=== PATIENT | male | born 1955 | race Caucasian/White ===

== ENCOUNTER 2017-03-27 12:10 | Inpatient (IN) | payer OTHER, MEDICARE ==
[~2017-03-27] VITALS: Ht 182.9 cm; Wt 65.4 kg
[~2017-03-27 12:10] MED LIST: ABIL15TA2 PO; BUSP15TA PO; GABA300 PO; LORC10TA PO; PROT40TA PO; PROZ40CA PO
[2017-03-27 12:12] VITALS: BP 221/119; PULSE 66; RESP 16; TEMP 98.2; O2SAT 98
--- NOTE | 2017-03-27 13:39 | RADRPT ---
EXAM DATE/TIME: 03/27/2017 13:04 [facility] COMPARISON: No previous studies available for comparison. INDICATIONS : Severe back pain from twisting with history of multiple spine surgeries. MEDICAL HISTORY : Degenerative disc disease SURGICAL HISTORY : multiple spinal fusions ENCOUNTER: Initial ACUITY: 2 days PAIN SCORE: 10/10 LOCATION: Bilateral lower back FINDINGS: Frontal and lateral views of the lumbar spine reveal bilateral transpedicular posterior fixation with intervening bone graft device is L4-L5 and L5-S1. A scoliotic curvature is seen with concavity towar ds the patient's left centered at L2-L3. Disc space narrowing with osteophyte production is seen most pronounced along the concavity of the scoliosis. No acute fracture or dislocation. Overlying bowel g as pattern is unremarkable. CONCLUSION: L4-S1 posterior fixation. A scoliotic and degenerative spine. No fracture or dislocation. Kurt Ponce Jr., MD on March 27, 2017 at 13:33 Board Certified Radiologist. This report was verified electronically.
[2017-03-27] MEDS ORDERED: ABIL15TA3 PO (14:31)
[2017-03-27] MEDS ORDERED: LISI-519 PO (14:31)
[2017-03-27] MEDS ORDERED: BUSP15TA PO (14:31)
[2017-03-27] MEDS ORDERED: HYDR-3583 PO (14:31)
[2017-03-27] MEDS ORDERED: PLAV75TA29 PO (14:31)
[2017-03-27] MEDS ORDERED: FLUO40CA PO (14:31)
[2017-03-27] MEDS ORDERED: GABA600T PO (14:31)
--- NOTE | 2017-03-27 14:42 | PD ---
HPI Chief Complaint: Back/ Neck Pain or Injury Time Seen by Provider: 14:21 Travel History International Travel<30 days: No Contact w/Intl Traveler<30days: No Traveled to known affect area: No History of Present Illness HPI 61-year-old male presents the emergency department with 2 day history of severe lumbar back pain with radicular symptoms in the left leg including numbness and weakness. Patient is a previous surgical patient of Dr. Middleton with history of both cervical fusion as well as lumbar fusion, last surgery reported to be 2013. Patient takes chronic pain medications including hydrocodone 10/325 4 times a day. Patient was seen by his PCP Dr. Corey who reportedly spoke with Dr. Middleton who requested the patient come to the ED for further evaluation including MRI. Patient denies bowel or bladder trouble, but does have significant pain in the left hip, leg, and numbness down to the feet. He states weakness in the left leg as well which is worsened in the last 2 days. Patient has no specific inciting event. No history of trauma. PFSH Past Medical History Arthritis: No Asthma: No Blood Disorders: No Bipolar Disorder: Yes Anxiety: Yes Depression: Yes Heart Rhythm Problems: No Cancer: No Cardiovascular Problems: No High Cholesterol: No Chest Pain: No Congestive Heart Failure: No COPD: Yes Cerebrovascular Accident: No Diabetes: No Endocrine: No Gastrointestinal Disorders: Yes GERD: Yes Glaucoma: No Genitourinary: No Headaches: Yes Hepatitis: No Hiatal Hernia: No Hypertension: Yes Immune Disorder: No Musculoskeletal: Yes Neurologic: Yes (FROM BACK AND NECK PROBLEMS) Psychiatric: Yes Reproductive: No Respiratory: No Migraines: No Myocardial Infarction: Yes Seizures: No Sleep Apnea: No Thyroid Disease: No Ulcer: No Influenza Vaccination: Yes Past Surgical History Abdominal Surgery: Yes (BILAT INGUINAL HERNIA REPAIR) Appendectomy: No Cardiac Surgery: Yes (4 stents) Cholecystectomy: No Ear Surgery: No Endocrine Surgery: No Eye Surgery: No Genitourinary Surgery: No Neurologic Surgery: Yes (CERV. FUSION 3NECK SURGERIES PAST YEAR DR MIDDLETON) Oral Surgery: No Pacemaker: No Other Surgery: Yes Social History Alcohol Use: No Tobacco Use: No Substance Use: No (marijuana) Allergies-Medications (Allergen,Severity, Reaction): Coded Allergies: bee venom protein (honey bee) (Unverified Allergy, Severe, Anaphylaxis, ) No Known Allergies (Verified Adverse Reaction, Unknown, 03/27/17) Reported Meds & Prescriptions Reported Meds & Active Scripts Active Reported Lisinopril 5 Mg Tab Unknown Dose PO DAILY Plavix (Clopidogrel Bisulfate) 75 Mg Tab 75 Mg PO DAILY Hydrocodone-Acetaminophen 10-325 mg Tab 1 Tab PO Q4H PRN Fluoxetine (Fluoxetine HCl) 40 Mg Cap 40 Cap PO BID Gabapentin 600 Mg Tab 600 Mg PO TID Buspirone (Buspirone HCl) 15 Mg Tab 15 Mg PO TID Abilify (Aripiprazole) 15 Mg Tab 15 Mg PO DAILY Review of Systems Except as stated in HPI: all other systems reviewed are Neg General / Constitutional: No: Fever Eyes: No: Visual changes HENT: No: Headaches Cardiovascular: No: Chest Pain or Discomfort Respiratory: No: Shortness of Breath Gastrointestinal: No: Abdominal Pain Genitourinary: No: Dysuria Musculoskeletal: Positive: Arthralgias, Limited ROM, Pain Skin: No Rash Neurologic: Positive: Weakness, Paresthesia (see history present illness) Psychiatric: No: Depression Endocrine: No: Polydipsia Hematologic/Lymphatic: No: Easy Bruising Physical Exam Narrative GENERAL: Patient appears in moderate to severe distress. SKIN: Warm with mild diaphoresis. Normal color. Normal turgor. No rash HEAD: Atraumatic. Normocephalic. EYES: Pupils equal and round. No scleral icterus. No injection or drainage. ENT: No nasal bleeding or discharge. Mucous membranes pink and moist. Pharynx is clear. Airways patent NECK: Trachea midline. Supple nontender CARDIOVASCULAR: Regular rate and rhythm. RESPIRATORY: No accessory muscle use. Clear to auscultation. Breath sounds equal bilaterally. GASTROINTESTINAL: Abdomen soft, non-tender, nondistended. Hepatic and splenic margins not palpable. MUSCULOSKELETAL: Extremities without clubbing, cyanosis, or edema. No obvious deformities. Patient has positive straight leg raise pain on the left at 35. Has diminished plantar and dorsiflexion, as well as diminished ability to lift his left leg off the bed secondary to pain. Patient claims to have numbness into the left great toe. Patient has pain at the base of the left lumbar spine extending into the left sciatic notch. No step-off is noted. NEUROLOGICAL: Awake and alert. No obvious cranial nerve deficits. Motor grossly within normal limits. Normal speech. PSYCHIATRIC: Appropriate mood and affect; insight and judgment normal. Data Data Last Documented VS Vital Signs Date Time Temp Pulse Resp B/P (MAP) Pulse Ox O2 Delivery O2 Flow Rate FiO2 03/27/17 16:34 60 17 172/99 (123) 98 Room Air 03/27/17 12:12 98.2 Orders Orders Spine, Lumbar - Ltd (Ap & Lat) (03/27/17 ) Complete Blood Count With Diff (03/27/17 14:46) Comprehensive Metabolic Panel (03/27/17 14:46) Prothrombin Time / Inr (Pt) (03/27/17 14:46) Act Partial Throm Time (Ptt) (03/27/17 14:46) Urinalysis - C+S If Indicated (03/27/17 14:46) Iv Access Insert/Monitor (03/27/17 14:46) Ecg Monitoring (03/27/17 14:46) Oximetry (03/27/17 14:46) NPO (03/27/17 14:46) Ondansetron Inj (Zofran Inj) (03/27/17 15:00) Sodium Chlor 0.9% 1000 Ml Inj (Ns 1000 M (03/27/17 14:46) Sodium Chloride 0.9% Flush (Ns Flush) (03/27/17 15:00) Electrocardiogram (03/27/17 14:46) Morphine Inj (Morphine Inj) (03/27/17 15:00) Mri L Spine W&W/O Contrast (03/27/17 ) Labs Laboratory Tests Test 03/27/17 15:00 03/27/17 15:02 White Blood Count 11.7 TH/MM3 Red Blood Count 4.69 MIL/MM3 Hemoglobin 14.4 GM/DL Hematocrit 42.3 % Mean Corpuscular Volume 90.1 FL Mean Corpuscular Hemoglobin 30.6 PG Mean Corpuscular Hemoglobin Concent 34.0 % Red Cell Distribution Width 13.6 % Platelet Count 347 TH/MM3 Mean Platelet Volume 7.9 FL Neutrophils (%) (Auto) 73.0 % Lymphocytes (%) (Auto) 16.9 % Monocytes (%) (Auto) 9.1 % Eosinophils (%) (Auto) 0.4 % Basophils (%) (Auto) 0.6 % Neutrophils # (Auto) 8.6 TH/MM3 Lymphocytes # (Auto) 2.0 TH/MM3 Monocytes # (Auto) 1.1 TH/MM3 Eosinophils # (Auto) 0.1 TH/MM3 Basophils # (Auto) 0.1 TH/MM3 CBC Comment DIFF FINAL Differential Comment Prothrombin Time 11.3 SEC Prothromb Time International Ratio 1.1 RATIO Activated Partial Thromboplast Time 23.6 SEC Blood Urea Nitrogen 8 MG/DL Creatinine 1.03 MG/DL Random Glucose 103 MG/DL Total Protein 8.4 GM/DL Albumin 3.7 GM/DL Calcium Level 9.2 MG/DL Alkaline Phosphatase 145 U/L Aspartate Amino Transf (AST/SGOT) 24 U/L Alanine Aminotransferase (ALT/SGPT) 21 U/L Total Bilirubin 0.8 MG/DL Sodium Level 139 MEQ/L Potassium Level 4.2 MEQ/L Chloride Level 106 MEQ/L Carbon Dioxide Level 28.9 MEQ/L Anion Gap 4 MEQ/L Estimat Glomerular Filtration Rate 74 ML/MIN Urine Color YELLOW Urine Turbidity CLEAR Urine pH 6.5 Urine Specific [place] 1.015 Urine Protein TRACE mg/dL Urine Glucose (UA) NEG mg/dL Urine Ketones NEG mg/dL Urine Occult Blood NEG Urine Nitrite NEG Urine Bilirubin NEG Urine Urobilinogen 2.0 MG/DL Urine Leukocyte Esterase NEG Urine RBC LESS THAN 1 /hpf Urine WBC LESS THAN 1 /hpf Urine Mucus FEW /lpf Microscopic Urinalysis Comment CULT NOT INDICATED MDM Medical Decision Making Medical Screen Exam Complete: Yes Emergency Medical Condition: Yes Medical Record Reviewed: Yes Differential Diagnosis Sciatic back pain. Left radicular pain and weakness. Disc herniation. Narrative Course Patient is medically stable although very uncomfortable. Labs ordered including CBC, CMP, urinalysis. IV access is obtained patient is given 10 mg Decadron IV as well as 4 mg Zofran , and 2 mg morphine IV. Call was placed to Dr. Middleton and I spoke with his mid-level Jeanette. She recommends MRI of the lumbar spine with and without contrast as well as admission with consult to Dr. Middleton. Labs show slightly elevated leukocytosis of 11.7. Coagulation studies show PT of 11.3, INR 1.1, APTT is 23.6. Urinalysis is unremarkable. EKG shows sinus rhythm without significant ST changes. This is reviewed by Dr. Ambriz. Chemistries are unremarkable. Call was placed to the hospitalist for admission. Patient discussed with Dr. Calvo who agrees to admit patient to observation with consult to Dr. Middleton. Diagnosis Primary Impression: Acute lumbar back pain Qualified Codes: M54.42 - Lumbago with sciatica, left side Additional Impressions: Unable to ambulate Intractable back pain Admitting Information Admitting Physician Requests: Observation Condition: Stable Oren Weinstein Mar 27, 2017 14:42
[2017-03-27] MEDS ORDERED: SODIUM CHLOR 0.9% 1000 ML INJ 1,000 ML IV SCH (14:46)
[2017-03-27] MEDS ORDERED: ONDANSETRON HCL 4 MG/2 ML VIAL IVP ONE (15:00)
[2017-03-27] MEDS ORDERED: SODIUM CHLORIDE 0.9% FLUSH 10 ML FLUSH IV FLUSH PRN ×2 (15:00→16:45)
[2017-03-27] MEDS ORDERED: MORPHINE SULFATE 2 MG/ML INJ IV PUSH ONE (15:00)
[2017-03-27 15:15] LABS: AUTOMATED NEUTROPHIL # 8.6 TH/MM3 (1.8-7.7); BASOPHIL # 0.1 TH/MM3 (0-0.2); BASOPHIL % 0.6 % (0.0-2.0); EOSINOPHIL # 0.1 TH/MM3 (0-0.4); EOSINOPHIL % 0.4 % (0.0-4.0); HEMATOCRIT 42.3 % (39.0-51.0); HEMOGLOBIN 14.4 GM/DL (13.0-17.0); LYMPH % 16.9 % (9.0-44.0); MEAN CELL VOLUME 90.1 FL (80.0-100.0); MEAN CORPUSCULAR HEMOGLOBIN 30.6 PG (27.0-34.0); MEAN PLATELET VOLUME 7.9 FL (7.0-11.0); MONO % 9.1 % (0.0-8.0); MONOCYTE # 1.1 TH/MM3 (0-0.9); PLATELET COUNT 347 TH/MM3 (150-450); RED BLOOD COUNT 4.69 MIL/MM3 (4.50-5.90); RED CELL DISTRIBUTION WIDTH 13.6 % (11.6-17.2); WHITE BLOOD COUNT 11.7 TH/MM3 (4.0-11.0)
[2017-03-27 15:21] LABS: BILIRUBIN, URINE NEG (NEG); BLOOD, URINE NEG (NEG); GLUCOSE,URINE NEG (NEG); KETONE, URINE NEG (NEG); MUCUS URINE FEW /lpf (OCC); NITRITE,URINE NEG (NEG); PH, URINE 6.5 (5.0-8.5); URINE COLOR YELLOW (YELLW/STRAW); URINE LEUKOCYTE ESTERASE NEG (NEG)
[2017-03-27 15:41] LABS: INTERNATIONAL NORMALIZED RATIO 1.1 RATIO; PROTHROMBIN TIME - PATIENT 11.3 SEC (9.8-11.6)
[2017-03-27 16:02] LABS: ALBUMIN 3.7 GM/DL (3.4-5.0); ALT (GPT) 21 U/L (12-78); AST (GOT) 24 U/L (15-37); BICARBONATE 28.9 MEQ/L (21.0-32.0); BLOOD UREA NITROGEN 8 MG/DL (7-18); CALCIUM 9.2 MG/DL (8.5-10.1); CHLORIDE 106 MEQ/L (98-107); CREATININE 1.03 MG/DL (0.60-1.30); GLOMERULAR FILTRATION RATE 74 ML/MIN (>89); GLUCOSE,RANDOM 103 MG/DL (74-106); SODIUM (NA) 139 MEQ/L (136-145)
[2017-03-27 16:03] LABS: ALKALINE PHOSPHATASE 145 U/L (45-117); TOTAL BILIRUBIN ADULT 0.8 MG/DL (0.2-1.0); TOTAL PROTEIN 8.4 GM/DL (6.4-8.2)
[2017-03-27 16:34] VITALS: BP 172/99; PULSE 60; RESP 17; O2SAT 98
--- NOTE | 2017-03-27 16:37 | PD.CONS ---
cc: Valeriy Spangler MD n/a (Etienne Middleton MD) HPI Service Neurosurg Consult Requested By [facility] er doctor Reason for Consult intractable back pain Primary Care Physician Catie Corey M.D. History of Present Illness as above (Etienne Middleton MD) Service NRS Consult Requested By ED Physician Reason for Consult lumbar stenosis History of Present Illness Mr. Panda is a 61-year-old male who presented to [facility] emergency department with complaints of intractable low back pain. Mr. Panda has had a previous cervical and lumbar fusion L4-S1 many years ago and had done very well with improvement of his prior pain and symptoms. Unfortunately he developed recurrent progressive lumbar pain. He denies any associates trauma or falls. He reports he has been managing his pain with narcotic pain medications. His pain is located in the upper to mid lumbar region with pain radiating to the lateral hips and down the anterior thigh, knee, medial fuller to the great toe. He reports generalized weakness in his legs. He denies bowel or bladder incontinence, fevers or chills. (Meghan Johnson) Review of Systems ROS Limitations: Other Eyes: DENIES: Blurred vision, Diplopia, Eye inflammation, Eye pain, Vision loss , Photosensitivity, Double Vision Ears, nose, mouth, throat: DENIES: Tinnitus, Hearing loss, Vertigo, Nasal discharge, Oral lesions, Throat pain, Hoarseness, Ear Pain, Running Nose, Epistaxis, Sinus Pain, Toothache, Odynophagia Respiratory: DENIES: Apneas, Cough, Snoring, Wheezing, Hemoptysis, Sputum production, Shortness of breath Cardiovascular: DENIES: Chest pain, Palpitations, Syncope, Dyspnea on Exertion , PND, Lower Extremity Edema, Orthopnea, Claudication Gastrointestinal: DENIES: Abdominal pain, Black stools, Bloody stools, Constipation, Diarrhea, Nausea, Vomiting, Difficulty Swallowing, Anorexia Genitourinary: DENIES: Sexual dysfunction, Urinary frequency, Urinary incontinence, Urgency, Hematuria, Dysuria, Nocturia, Penile Discharge, Testicular Pain, Testicular Swelling Musculoskeletal: COMPLAINS OF: Joint pain, Back pain, DENIES: Muscle aches, Stiffness, Joint Swelling, Neck pain Integumentary: DENIES: Abnormal pigmentation, Nail changes, Pruritus, Rash Hematologic/lymphatic: DENIES: Bruising, Lymphadenopathy Immunologic/allergic: DENIES: Eczema, Urticaria Neurologic: COMPLAINS OF: Abnormal gait, Localized weakness, Paresthesias, DENIES: Headache, Seizures, Speech Problems, Tremor, Poor Balance Psychiatric: DENIES: Anxiety, Confusion, Mood changes, Depression, Hallucinations, Agitation, Suicidal Ideation, Homicidal Ideation, Delusions ( Etienne Middleton MD) Constitutional: DENIES: Fever, Chills Cardiovascular: DENIES: Chest pain Genitourinary: DENIES: Urinary incontinence Musculoskeletal: COMPLAINS OF: Joint pain, Back pain Neurologic: COMPLAINS OF: Abnormal gait, Paresthesias (Meghan Johnson) Past Family Social History Allergies: Coded Allergies: bee venom protein (honey bee) (Unverified Allergy, Severe, Anaphylaxis, ) No Known Allergies (Verified Allergy, Unknown, 03/27/17) Past Medical History Myocardial Infarction Hypertension Bipolar Disorder Anxiety Depression GERD Headaches Past Surgical History anterior cervical fusion posterior lumbar fusion Hernia repair Coronary artery stent Reported Medications reviewed in EMR Active Ordered Medications Last Impressions Lumbar Spine X-Ray 03/27/17 0000 Signed Impressions: Service Date/Time: Monday, March 27, 2017 13:04 - CONCLUSION: L4-S1 posterior fixation. A scoliotic and degenerative spine. No fracture or dislocation. Kurt Ponce Jr., MD Lumbar Spine MRI 03/27/17 0000 Signed Impressions: Service Date/Time: Monday, March 27, 2017 16:56 - CONCLUSION: 1. Status post intradiscal and posterior joseph and screw fixation at L4-S1. 2. 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 There is also severe left neural foraminal stenosis at this level. 3. Multilevel degenerative spondylosis of the lumbar spine with variable neural foraminal stenosis, as above. Raheem Snyder MD Family History reviewed and does not contribute to his current problem Social History Prior 40 pack year tobacco use, quit last month. Denies any EtOH use. Hx of marijuana use. (Meghan Johnson) Physical Exam Vital Signs Vital Signs Date Time Temp Pulse Resp B/P (MAP) Pulse Ox O2 Delivery O2 Flow Rate FiO2 03/27/17 16:34 60 17 172/99 (123) 98 Room Air 03/27/17 15:38 16 03/27/17 12:12 98.2 66 16 221/119 (370) 62 Physical Exam The patient is alert, awake and oriented to time, place and person. Speech is fluent. Higher cognitive functions are normal. Cranial nerve examination demonstrates the pupils to be equal, round, and reactive to light. Extra-ocular movements are intact. Facial motor and sensory function are normal and symmetrical. Gross hearing is intact, bilaterally. The uvula is midline and elevates symmetrically with the soft palate. Sternocleidomastoid and trapezius muscles have normal and symmetrical strength. Other cranial nerves are intact. Neck is soft and supple. Cervical spine has a full range of motion in anterior flexion, extension, lateral bending, and rotation without pain. There is no tenderness to palpation to the spinous processes or paraspinal muscles. Muscle testing reveals normal bulk and tone overall without rigidity, spasticity , fasciculations, or atrophy. Muscle strength is 5/5 in all muscle groups of both upper extremities including deltoid, biceps, triceps, brachioradialis, wrist extension and nurse chemical dependency. In the lower extremities, strength is 4/5 in both iliopsoas, quadriceps, 4+/5 due to give away due to pain in his hamstrings, plantar flexion, dorsiflexion, and extensor hallicus longus. Sensory examination is intact to light touch and sharp/dull discrimination in both the upper extremities, and decreased in L3 and L4 dermatomes Deep tendon reflexes are 2+ and symmetrical in the biceps, triceps, and brachioradialis, bilaterally, in the upper extremities. In the lower extremities , the patellar are absent, and Achilles are 1+, bilaterally. There is a bilateral plantar flexion response. Hoffmanns sign is negative. There is no clonus Cerebellar examination is intact to [id number] test, rapid rhythmic alternating motion. There is no dysmetria, dysdiadochokinesia, truncal ataxia, or tremor. Laboratory Laboratory Tests Test 03/27/17 15:00 03/27/17 15:02 White Blood Count 11.7 Red Blood Count 4.69 Hemoglobin 14.4 Hematocrit 42.3 Mean Corpuscular Volume 90.1 Mean Corpuscular Hemoglobin 30.6 Mean Corpuscular Hemoglobin Concent 34.0 Red Cell Distribution Width 13.6 Platelet Count 347 Mean Platelet Volume 7.9 Neutrophils (%) (Auto) 73.0 Lymphocytes (%) (Auto) 16.9 Monocytes (%) (Auto) 9.1 Eosinophils (%) (Auto) 0.4 Basophils (%) (Auto) 0.6 Neutrophils # (Auto) 8.6 Lymphocytes # (Auto) 2.0 Monocytes # (Auto) 1.1 Eosinophils # (Auto) 0.1 Basophils # (Auto) 0.1 CBC Comment DIFF FINAL Differential Comment Prothrombin Time 11.3 Prothromb Time International Ratio 1.1 Activated Partial Thromboplast Time 23.6 Blood Urea Nitrogen 8 Creatinine 1.03 Random Glucose 103 Total Protein 8.4 Albumin 3.7 Calcium Level 9.2 Alkaline Phosphatase 145 Aspartate Amino Transf (AST/SGOT) 24 Alanine Aminotransferase (ALT/SGPT) 21 Total Bilirubin 0.8 Sodium Level 139 Potassium Level 4.2 Chloride Level 106 Carbon Dioxide Level 28.9 Anion Gap 4 Estimat Glomerular Filtration Rate 74 Urine Color YELLOW Urine Turbidity CLEAR Urine pH 6.5 Urine Specific [place] 1.015 Urine Protein TRACE Urine Glucose (UA) NEG Urine Ketones NEG Urine Occult Blood NEG Urine Nitrite NEG Urine Bilirubin NEG Urine Urobilinogen 2.0 Urine Leukocyte Esterase NEG Urine RBC LESS THAN 1 Urine WBC LESS THAN 1 Urine Mucus FEW Microscopic Urinalysis Comment CULT NOT INDICATED (Etienne Middleton MD) Result Diagram: 03/27/17 1500 03/27/17 1500 Assessment and Plan Assessment and Plan spondylolisthesis (Etienne Middleton MD) Attending Statement I have reviewed Mr Panda MRI of the lumbar spine. I discussed the dindings and the alternatives of treatment. Mr Barker has developed severe degenerative disk disease and spondylolisthesis at L2-3 and L3-L4. he has clinical evidence of L3 and L4 radiculopathy. His MRI findings correlate with his clinical symptoms. He has failed to improve with conservative treatment. Unfortunately, her symptoms are getting worse and continue to affect his activities of daily living. He is on severe pain. I offered him the alternative of conservative treatment with further physical therapy and pain management by an interventional pain specialist, versus a surgical decompression and arthrodhesis at L3-4 and possibly L2-3 as a last resort. We have discussed the details including the [id number] details of the surgical procedure, its indications, alternatives, risks, and potential complications. Risks and potential complications include, but are not limited to, infection, blood loss, CSF leak, partial or complete loss of sight in one or both eyes, paresis, paralysis, permanent pain or difficulty swallowing, loss of bowel or bladder function, complications from anesthesia, blood clot, stroke , myocardial infarction, or even . Mr Panda has comorbidities which increase the risk for developing complications. I have placed consultations and recommend medical and cardiac evaluation and clearance. He is on blood thinners. I recommend to stop the Berlinta prior to any invasive procedure Pulmonary. Continue aggressive pulmonary toilette, nasotracheal suction, and breathing treatments with nebulizers. Nutrition. Oral diet Renal. monitor closely urine output, BUN and creatinine Endocrine. Monitor serial Acu checks and SSI as needed in detail ID monitor for signs of infection Protonix for stress ulcer prophylaxis The exam, history, and the medical decision-making described in the above note were completed with the assistance of the mid-level provider. I reviewed and agree with the findings presented. I attest that I had a [id number] encounter with the patient on the same day, and personally performed and documented my assessment and findings in the medical record. (Etienne Middleton MD) Etienne Middleton MD Mar 27, 2017 16:37 Meghan Johnson Mar 28, 2017 15:42
[2017-03-27] MEDS ORDERED: NALOXONE HCL 0.4 MG/ML AMP IV PUSH PRN ×2 (16:45→18:00)
[2017-03-27] MEDS ORDERED: GADODIAMIDE PF 287 MG/ML 5 ML VIAL (for RAD MRI) IVCONTRAST ONE (16:52)
--- NOTE | 2017-03-27 17:42 | RADRPT ---
EXAM DATE/TIME: 03/27/2017 16:56 [facility] COMPARISON: No previous studies available for comparison. INDICATIONS : Radiculopathy. Left leg numbness. CONTRAST: 14 cc Omniscan (gadodiamide) IV MEDICAL HISTORY : Hypertension. Chronic obstructive pulmonary disease. SURGICAL HISTORY : Fusion, lumbar. Fusion, cervical. Carotid stent. Bilateral inguinal hernia, Appendectomy. ENCOUNTER: Initial ACUITY: 1 week PAIN SCORE: 10/10 LOCATION: Left lower back region. TECHNIQUE: Multiplanar multisequence MRI of the lumbar spine was performed with and without contrast. FINDINGS: The most caudal appearing lumbar vertebra is numbered as L5. VERTEBRAE: Vertebral body heights are intact. Mild diffuse haziness degenerative marrow signal. Prior posterior joseph and screw fixation and intradiscal hardware at L4-S1. CONUS: Normal level and configuration. POST CONTRAST: No abnormal areas of contrast enhancement are seen. T12-L1: Desiccated disc with disc space loss and diffuse disc bulge slightly more eccentric to the right. Mil d effacement of the anterior thecal sac without significant central canal stenosis. Mild caudal right -sided neural foraminal stenosis. L1-L2: Desiccated disc with disc space loss and diffuse disc bulge. Mild ligamentum flavum hypertrophy. Effa cement of the anterior thecal sac. Moderate to severe left neural foraminal stenosis. Mild to moderat e right neural foraminal stenosis. L2-L3: Desiccated disc with disc space loss and diffuse disc bulge. At the flavum hypertrophy. Central canal stenosis with central canal measuring approximately 1 cm. Moderate left and mild to moderate right c audal neuroforaminal narrowing. L3-L4: Diffuse disc bulge and ligamentum flavum hypertrophy resulting in severe spinal canal stenosis with c entral canal measuring approximate 7 mm. Severe left and mild right neural foraminal stenosis. L4-L5: Left facet arthropathy with mild posterior effacement of the left thecal sac. Mild to moderate bilate ral caudal neural foraminal narrowing. L5-S1: Central posterior disc osteophyte complex. Bilateral facet arthropathy. Mild effacement of the anteri or thecal sac. Mild caudal bilateral neural foraminal narrowing. CONCLUSION: 1. Status post intradiscal and posterior joseph and screw fixation at L4-S1. 2. 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 There is also severe left neural foraminal stenosis at this level. 3. Multilevel degenerative spondylosis of the lumbar spine with variable neural foraminal stenosis, a s above. Raheem Snyder MD on March 27, 2017 at 17:31 Board Certified Radiologist. This report was verified electronically.
[2017-03-27] MEDS ORDERED: LACTULOSE SYRUP 20 GM/30 ML CUP PO PRN (18:00)
[2017-03-27] MEDS ORDERED: ACETAMINOPHEN 325 MG TAB PO PRN (18:00)
--- NOTE | 2017-03-27 18:01 | HHI.HP ---
HPI Service [facility] Hospitalists Primary Care Physician Catie Corey M.D. Admission Diagnosis L Sciatica/Intractible Pain/Unable to ambulate/L Leg weak Diagnoses: Chief Complaint: Severe low back pain Left lower extremity pain/numbness tingling Inability to ambulate Travel History International Travel<30 Days: No Contact w/Intl Traveler <30 Da: No Traveled to Known Affected Are: No History of Present Illness This is a 61-year-old male with past medical history significant for CAD s/p previous SD x 2 and cardiac stent implants x 4, degenerative disc disease of the cervical and lumbar spine who has undergone previous cervical and lumbar fusions who presents to [facility] ED with complaints of severe low back pain for the past 2 days. Patient endorses radicular left leg pain with numbness and tingling extending down the back of his leg into his great toe. Patient is followed by Dr. Middleton who was performed both of his previous fusion surgeries. He denies any bowel or bladder dysfunction. He reports weakness in the left leg has been unable to ambulate. Prior to 2 days ago, patient states his pain was well controlled with Lortab and he was ambulating without any difficulty. ED discussed with Dr. Middleton who recommended the patient come in for an MRI study and further evaluation and possible surgical intervention. Review of Systems Except as stated in HPI: all other systems reviewed are Neg Past Family Social History Past Medical History Degenerative disc disease of cervical and lumbar spine status post previous fusion surgeries Coronary artery disease status post previous SD and cardiac stent implants x 4, patient follow with Dr. Brewer Anxiety Depression GERD Past Surgical History Bilateral inguinal hernia repairs Multiple cervical fusion surgeries Previous lumbar fusion L4 to S1 Reported Medications Lisinopril 5 Mg Tab Unknown Dose PO DAILY Plavix (Clopidogrel Bisulfate) 75 Mg Tab 75 Mg PO DAILY Hydrocodone-Acetaminophen 10-325 mg Tab 1 Tab PO Q4H PRN Fluoxetine (Fluoxetine HCl) 40 Mg Cap 40 Cap PO BID Gabapentin 600 Mg Tab 600 Mg PO TID Buspirone (Buspirone HCl) 15 Mg Tab 15 Mg PO TID Abilify (Aripiprazole) 15 Mg Tab 15 Mg PO DAILY Allergies: Coded Allergies: bee venom protein (honey bee) (Unverified Allergy, Severe, Anaphylaxis, ) No Known Allergies (Verified Allergy, Unknown, 03/27/17) Active Ordered Medications Current Medications Medications (Trade) Dose Ordered Sig/Melony Route Start Time Stop Time Status Last Admin (NS Flush) 2 ml UNSCH PRN IV FLUSH 03/27/17 16:45 (NS Flush) 2 ml BID IV FLUSH 03/27/17 21:00 (Narcan Inj) 0.4 mg UNSCH PRN IV PUSH 03/27/17 16:45 (Iqra-Colace) 1 tab BID PO 03/27/17 21:00 (Morphine Inj) 2 mg Q3H PRN IV PUSH 03/27/17 16:45 Family History CAD Social History Patient reports a 40 pack year history but quit smoking this past [place]. Patient denies any EtOH use. (+)Marijuana use. Physical Exam Vital Signs Vital Signs Date Time Temp Pulse Resp B/P (MAP) Pulse Ox O2 Delivery O2 Flow Rate FiO2 03/27/17 16:34 60 17 172/99 (123) 98 Room Air 03/27/17 15:38 16 03/27/17 12:12 98.2 66 16 221/119 (153) 98 Physical Exam GENERAL: This is a well-nourished, well-developed middle-aged patient , in no apparent distress. Awake and alert. Appears comfortable. SKIN: No rashes, ecchymoses or lesions. Cool and dry. HEAD: Atraumatic. Normocephalic. No temporal or scalp tenderness. EYES: Pupils equal round and reactive. Extraocular motions intact. No scleral icterus. No injection or drainage. ENT: Nose without bleeding or purulent drainage. Throat without erythema, tonsillar hypertrophy or exudate. Uvula midline. Airway patent. NECK: Trachea midline. No lymphadenopathy. Supple, nontender, no meningeal signs. CARDIOVASCULAR: Regular rate and rhythm without murmurs, gallops, or rubs. RESPIRATORY: Coarse BS noted throughout. GASTROINTESTINAL: Abdomen soft, non-tender, nondistended. No hepato-splenomegaly , or palpable masses. No guarding. MUSCULOSKELETAL: Extremities without clubbing, cyanosis, or edema. No joint tenderness, effusion, or edema noted. No calf tenderness. Range of motion lumbar spine not tested secondary to pain. (+)L SLR. NEUROLOGICAL: Awake and alert. Cranial nerves II through XII grossly intact. Motor and sensory grossly within normal limits except for weakness and decreased sensation LLE. Five out of 5 muscle strength in all muscle groups except LLE. Normal speech. Laboratory Laboratory Tests Test 03/27/17 15:00 03/27/17 15:02 White Blood Count 11.7 Red Blood Count 4.69 Hemoglobin 14.4 Hematocrit 42.3 Mean Corpuscular Volume 90.1 Mean Corpuscular Hemoglobin 30.6 Mean Corpuscular Hemoglobin Concent 34.0 Red Cell Distribution Width 13.6 Platelet Count 347 Mean Platelet Volume 7.9 Neutrophils (%) (Auto) 73.0 Lymphocytes (%) (Auto) 16.9 Monocytes (%) (Auto) 9.1 Eosinophils (%) (Auto) 0.4 Basophils (%) (Auto) 0.6 Neutrophils # (Auto) 8.6 Lymphocytes # (Auto) 2.0 Monocytes # (Auto) 1.1 Eosinophils # (Auto) 0.1 Basophils # (Auto) 0.1 CBC Comment DIFF FINAL Differential Comment Prothrombin Time 11.3 Prothromb Time International Ratio 1.1 Activated Partial Thromboplast Time 23.6 Blood Urea Nitrogen 8 Creatinine 1.03 Random Glucose 103 Total Protein 8.4 Albumin 3.7 Calcium Level 9.2 Alkaline Phosphatase 145 Aspartate Amino Transf (AST/SGOT) 24 Alanine Aminotransferase (ALT/SGPT) 21 Total Bilirubin 0.8 Sodium Level 139 Potassium Level 4.2 Chloride Level 106 Carbon Dioxide Level 28.9 Anion Gap 4 Estimat Glomerular Filtration Rate 74 Urine Color YELLOW Urine Turbidity CLEAR Urine pH 6.5 Urine Specific [place] 1.015 Urine Protein TRACE Urine Glucose (UA) NEG Urine Ketones NEG Urine Occult Blood NEG Urine Nitrite NEG Urine Bilirubin NEG Urine Urobilinogen 2.0 Urine Leukocyte Esterase NEG Urine RBC LESS THAN 1 Urine WBC LESS THAN 1 Urine Mucus FEW Microscopic Urinalysis Comment CULT NOT INDICATED Result Diagram: 03/27/17 1500 03/27/17 1500 Imaging Last Impressions Lumbar Spine X-Ray 03/27/17 0000 Signed Impressions: Service Date/Time: Monday, March 27, 2017 13:04 - CONCLUSION: L4-S1 posterior fixation. A scoliotic and degenerative spine. No fracture or dislocation. Kurt Ponce Jr., MD Lumbar Spine MRI 03/27/17 0000 Signed Impressions: Service Date/Time: Monday, March 27, 2017 16:56 - CONCLUSION: 1. Status post intradiscal and posterior joseph and screw fixation at L4-S1. 2. 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 There is also severe left neural foraminal stenosis at this level. 3. Multilevel degenerative spondylosis of the lumbar spine with variable neural foraminal stenosis, as above. MD Gale Tai VTE Risk Assessment Gale VTE Risk Assessment: No/Low Risk (score <= 1) VTE Pharm Contraindication: Spinal surgery Caprini Risk Assessment Model Point Value = 1 Point Value = 2 Point Value = 3 Point Value = 5 Age 41-60 Minor surgery BMI > 25 kg/m2 Swollen legs Varicose veins or History of unexplained or recurrent spontaneous Oral contraceptives or hormone replacement Sepsis (< 1 month) Serious lung disease, including pneumonia (< 1 month) Abnormal pulmonary function Acute myocardial infarction Congestive heart failure (< 1 month) History of inflammatory bowel disease Medical patient at bed rest Age 61-74 Arthroscopic surgery Major open surgery (> 45 min) Laparoscopic surgery (> 45 min) Malignancy Confined to bed (> 72 hours) Immobilizing plaster cast Central venous access Age >= 75 History of VTE Family history of VTE Factor V Leiden Prothrombin [id number] Lupus anticoagulant Anticardiolipin antibodies Elevated serum homocysteine Heparin-induced thrombocytopenia Other congenital or acquired thrombophilia Stroke (< 1 month) Elective arthroplasty Hip, pelvis, or leg fracture Acute spinal cord injury (< 1 month) Prophylaxis Regimen Total Risk Factor Score Risk Level Prophylaxis Regimen 0-1 Low Early ambulation 2 Moderate Order ONE of the following: *Sequential Compression Device (SCD) *Heparin 5000 units SQ BID 3-4 Higher Order ONE of the following medications: *Heparin 5000 units SQ TID *Enoxaparin/Lovenox 40 mg SQ daily (WT < 150 kg, CrCl > 30 mL/min) *Enoxaparin/Lovenox 30 mg SQ daily (WT < 150 kg, CrCl > 10-29 mL/min) *Enoxaparin/Lovenox 30 mg SQ BID (WT < 150 kg, CrCl > 30 mL/min) AND/OR *Sequential Compression Device (SCD) 5 or more Highest Order ONE of the following medications: *Heparin 5000 units SQ TID (Preferred with Epidurals) *Enoxaparin/Lovenox 40 mg SQ daily (WT < 150 kg, CrCl > 30 mL/min) *Enoxaparin/Lovenox 30 mg SQ daily (WT < 150 kg, CrCl > 10-29 mL/min) *Enoxaparin/Lovenox 30 mg SQ BID (WT < 150 kg, CrCl > 30 mL/min) AND *Sequential Compression Device (SCD) Assessment and Plan Assessment and Plan 61-year-old male with past medical history significant for degenerative disc disease of the cervical and lumbar spine who was undergone previous cervical and lumbar fusions who presents to [facility] ED with complaints of severe low back pain for the past 2 days. Degenerative disc disease of lumbar spine status post previous lumbar fusion surgery Intractable low back and left leg lumbar radiculopathy - MRI of the lumbar spine revealing previous lumbar fusion with instrumentation L4 to S1 with adjacent level disease at L3 4 with severe spinal stenosis. - Consult neurosurgery, Dr. Middleton, appreciate recommendations - pain management with bowel regimen - fall precautions - Neuro checks - Continue patient on home dose of gabapentin 600 mg by mouth 3 times a day - PT eval/tx CAD s/p SD and cardiac stents - Hold patient's Plavix for now pending Dr. Middleton's evaluation/ recommendations - patient has no cardiac complaints at this time - monitor Hypertension - uncontrolled, suspect situational, secondary to pain/anxiety - Will resume patient's dose of lisinopril once med rec updated - IV Vasotec and by mouth hydralazine when necessary with parameters - continue to monitor BP and adjust treatment accordingly COPD, mild exacerbation - Duonebs scheduled - supplemental oxygen to maintain O2 sats above 92% - continue to monitor respiratory status Depression Anxiety - resume patients home antidepressants DVT prophylaxis - bilateral SCD/[place] hose Discussed Condition With patient, , nursing staff, Nydia Lewis Mar 27, 2017 18:01
[2017-03-27] MEDS: MORPHINE SULFATE 2 MG/ML INJ IV PUSH PRN ×2 (18:21→21:37)
[2017-03-27] MEDS ORDERED: RESP: ALBUTEROL 1.25 MG/3 ML NEB (PRN) NEB (18:30)
[2017-03-27] MEDS: busPIRone HCL 5 MG TAB PO SCH (18:37)
[2017-03-27] MEDS: GABAPENTIN 300 MG CAP PO SCH (18:37)
[2017-03-27] MEDS ORDERED: ECASA81 PO (19:43)
[2017-03-27] MEDS ORDERED: BENZ1CAP54 PO (19:44)
[2017-03-27] MEDS ORDERED: TICA1TAB PO (19:44)
[2017-03-27] MEDS ORDERED: METO25TA3 PO (19:46)
[2017-03-27] MEDS ORDERED: OXYB5TAB8 PO (19:47)
[2017-03-27] MEDS ORDERED: PANT40TA3 PO (19:48)
[2017-03-27] MEDS ORDERED: TEMA30CA PO (19:48)
[2017-03-27 20:05] VITALS: BP 153/91; PULSE 60; RESP 18; TEMP 98.1; O2SAT 97
[2017-03-27] MEDS: FLUoxetine HCL 20 MG CAP PO SCH (21:30)
[2017-03-27] MEDS: DOCUSATE SODIUM 50 MG/SENNA 8.6 MG TAB PO SCH (21:30)
[2017-03-27] MEDS: SODIUM CHLORIDE 0.9% FLUSH 10 ML FLUSH IV FLUSH SCH (21:33)
[2017-03-28] VITALS (11 sets, daily range): BP systolic 125–185; BP diastolic 77–97; PULSE 56–74; RESP 18; TEMP 96.7–98.4; O2SAT 92–97
[2017-03-28] MEDS ORDERED: TEMAZEPAM 15 MG CAP PO ONE (00:15)
[2017-03-28] MEDS: MORPHINE SULFATE 2 MG/ML INJ IV PUSH PRN ×4 (01:26→10:37)
[2017-03-28 07:16] LABS: AUTOMATED NEUTROPHIL # 5.1 TH/MM3 (1.8-7.7); BASOPHIL % 0.4 % (0.0-2.0); EOSINOPHIL # 0.3 TH/MM3 (0-0.4); EOSINOPHIL % 2.9 % (0.0-4.0); HEMATOCRIT 38.7 % (39.0-51.0); HEMOGLOBIN 13.4 GM/DL (13.0-17.0); LYMPH % 29.2 % (9.0-44.0); LYMPHOCYTE # 2.6 TH/MM3 (1.0-4.8); MEAN CORPUSCULAR HEMOGLOBIN 31.2 PG (27.0-34.0); MEAN CORPUSCULAR HGB CONC 34.6 % (32.0-36.0); MONO % 10.9 % (0.0-8.0); NEUT % 56.6 % (16.0-70.0); PLATELET COUNT 293 TH/MM3 (150-450); RED CELL DISTRIBUTION WIDTH 13.4 % (11.6-17.2)
[2017-03-28 07:38] LABS: ALBUMIN 3.1 GM/DL (3.4-5.0); ALT (GPT) 20 U/L (12-78); AST (GOT) 15 U/L (15-37); BICARBONATE 29.5 MEQ/L (21.0-32.0); BLOOD UREA NITROGEN 8 MG/DL (7-18); CALCIUM 8.6 MG/DL (8.5-10.1); CHLORIDE 108 MEQ/L (98-107); CREATININE 0.94 MG/DL (0.60-1.30); GLOMERULAR FILTRATION RATE 82 ML/MIN (>89); GLUCOSE,RANDOM 93 MG/DL (74-106); SODIUM (NA) 142 MEQ/L (136-145)
[2017-03-28] MEDS: DOCUSATE SODIUM 50 MG/SENNA 8.6 MG TAB PO SCH ×2 (07:54→21:34)
[2017-03-28] MEDS: busPIRone HCL 5 MG TAB PO SCH ×3 (07:54→17:01)
[2017-03-28] MEDS: GABAPENTIN 300 MG CAP PO SCH ×3 (07:54→17:01)
[2017-03-28] MEDS: FLUoxetine HCL 20 MG CAP PO SCH ×2 (07:54→21:34)
[2017-03-28] MEDS: ARIPiprazole 15 MG TAB PO SCH (07:54)
[2017-03-28] MEDS: SODIUM CHLORIDE 0.9% FLUSH 10 ML FLUSH IV FLUSH SCH ×2 (07:55→21:37)
[2017-03-28] MEDS: RESP: ALBUTEROL 2.5 MG/IPRATROPIUM 0.5 MG NEB (SCH) NEB ×3 (08:00→20:22)
[2017-03-28 08:34] LABS: ALKALINE PHOSPHATASE 118 U/L (45-117); TOTAL BILIRUBIN ADULT 0.6 MG/DL (0.2-1.0); TOTAL PROTEIN 6.9 GM/DL (6.4-8.2)
--- NOTE | 2017-03-28 10:48 | HHI.PR ---
Subjective Remarks Pain is still present. Pain is primary complaint. No fevers. Objective Vital Signs Date Time Temp Pulse Resp B/P (MAP) Pulse Ox O2 Delivery O2 Flow Rate FiO2 03/28/17 09:33 92 21 03/28/17 08:00 97.4 63 18 145/83 (103) 95 03/28/17 04:02 96.9 58 18 135/86 (102) 97 03/28/17 00:05 98.4 59 18 145/90 (108) 96 03/27/17 20:05 98.1 60 18 153/91 (111) 97 03/27/17 17:55 03/27/17 16:34 60 17 172/99 (123) 98 Room Air 03/27/17 15:38 16 03/27/17 12:12 98.2 66 16 221/119 (153) 98 I/O 03/27/17 03/27/17 03/27/17 03/28/17 03/28/17 03/28/17 07:00 15:00 23:00 07:00 15:00 23:00 Intake Total 1360 ml 360 ml Balance 1360 ml 360 ml Intake Oral 360 ml 360 ml IV Total 1000 ml # Voids 2 3 # Bowel Movements 0 0 Result Diagram: 03/28/1761103/28/17 0612 Objective Remarks GENERAL: NAD, A&Ox3 HEAD: Normocephalic. NECK: Supple, trachea midline. No lymphadenopathy. EYES: No scleral icterus. No injection or drainage. CARDIOVASCULAR: Regular rate and rhythm without murmurs, gallops, or rubs. RESPIRATORY: Breath sounds equal bilaterally. No accessory muscle use. GASTROINTESTINAL: Abdomen soft, non-tender, nondistended. MUSCULOSKELETAL: No cyanosis, or edema. Mild tenderness at L3/L4 level over spine with a short radiculopathic [facility] of persistent pain at L5-S1 level lateral to spine SKIN: Warm and dry. NEURO: No focal neurological deficitis. A/P Problem List: (1) Unable to ambulate ICD Code: R26.2 - Difficulty in walking, not elsewhere classified Status: Acute (2) Acute lumbar back pain ICD Code: M54.5 - Low back pain Status: Acute (3) Intractable back pain ICD Code: M54.9 - Dorsalgia, unspecified Status: Acute Assessment and Plan 61-year-old male with past medical history significant for degenerative disc disease of the cervical and lumbar spine who was undergone previous cervical and lumbar fusions who presents to [facility] ED with complaints of severe low back pain for the past 2 days. Degenerative disc disease of lumbar spine Subacute, status post previous lumbar fusion surgery (L5/S1) Intractable low back and left leg lumbar radiculopathy Severe Spinal Stenosis L3/L4 Continue pain treatments Neurosurgery consulted Bedrest for now Continue gabapentin CAD s/p NE and cardiac stents Plavix on hold Follow clinically for chest pain or symptoms Hypertension IV Vasotec as needed Hydralazine as needed Follow blood pressures Continue lisinopril COPD No exacerbation today Schedule duo nebs Oxygen as needed Follow respiratory status Depression Anxiety Continue baseline treatments Monitor clinically DVT prophylaxis SCDs Problem Qualifiers (1) Acute lumbar back pain: Qualified Codes: M54.42 - Lumbago with sciatica, left side Jimmy Tam MD Mar 28, 2017 10:48
[2017-03-28] MEDS ORDERED: MORPHINE SULFATE 2 MG/ML INJ IV PUSH PRN (11:00)
[2017-03-28] MEDS ORDERED: oxyCODONE/ACETAMINOPHEN 5 MG/325 MG TAB PO PRN (11:00)
[2017-03-28] MEDS ORDERED: MORPHINE SULFATE 15 MG CONTROLLED RELEASE TAB PO ONE (11:00)
[2017-03-28] MEDS ORDERED: ACETAMINOPHEN/HYDROcodone 325 MG/10 MG TAB PO PRN (14:00)
[2017-03-28] MEDS ORDERED: ENALAPRILAT 1.25 MG/ML VIAL IV PUSH PRN (14:00)
[2017-03-28] MEDS ORDERED: BENZONATATE 100 MG CAP PO PRN (14:00)
[2017-03-28] MEDS: cloNIDine HCL 0.1 MG TAB PO PRN (14:15)
[2017-03-28] MEDS: OXYBUTYNIN CHLORIDE 5 MG TAB PO SCH ×2 (14:15→21:34)
[2017-03-28] MEDS: oxyCODONE/ACETAMINOPHEN 10 MG/325 MG TAB PO PRN ×3 (14:16→22:57)
--- NOTE | 2017-03-28 15:59 | HHI.NSPN ---
(Meghan Johnson) Note Status Status: Progress Note (Meghan Johnson) Interval History Interval History Mr. Panda is a 61-year-old male who presented to [facility] emergency department with complaints of intractable low back pain. Mr. Panda has had a previous cervical and lumbar fusion L4-S1 many years ago and had done very well with improvement of his prior pain and symptoms. Unfortunately he developed recurrent progressive lumbar pain. He denies any associates trauma or falls. He reports he has been managing his pain with narcotic pain medications. His pain is located in the upper to mid lumbar region with pain radiating to the lateral hips and down the anterior thigh, knee, medial fuller to the great toe. He reports generalized weakness in his legs. He denies bowel or bladder incontinence, fevers or chills. 03/28: persistent lumbar pain and radicular pain in his legs. MRI completed. RT reports with wheezing, cough, and sputum production. (Meghan Johnson) Labs, Micro, & Vital Signs Results Date Time Temp Pulse Resp B/P (MAP) Pulse Ox O2 Delivery O2 Flow Rate FiO2 03/28/17 13:38 98.4 74 18 166/96 (119) 94 03/28/17 11:09 98.3 69 18 185/97 (126) 93 03/28/17 09:33 92 21 03/28/17 08:00 97.4 63 18 145/83 (103) 95 03/28/17 04:02 96.9 58 18 135/86 (102) 97 03/28/17 00:05 98.4 59 18 145/90 (108) 96 03/27/17 20:05 98.1 60 18 153/91 (111) 97 03/27/17 17:55 03/27/17 16:34 60 17 172/99 (123) 98 Room Air 03/29/17 07:00 Intake Total 720 ml Balance 720 ml Constitutional Vital Signs Date Time Temp Pulse Resp B/P (MAP) Pulse Ox O2 Delivery O2 Flow Rate FiO2 03/28/17 13:38 98.4 74 18 166/96 (119) 94 03/28/17 11:09 98.3 69 18 185/97 (126) 93 03/28/17 09:33 92 21 03/28/17 08:00 97.4 63 18 145/83 (103) 95 03/28/17 04:02 96.9 58 18 135/86 (102) 97 03/28/17 00:05 98.4 59 18 145/90 (108) 96 03/27/17 20:05 98.1 60 18 153/91 (111) 97 03/27/17 17:55 03/27/17 16:34 60 17 172/99 (123) 98 Room Air 03/29/17 07:00 Intake Total 720 ml Balance 720 ml (Meghan Johnson) Review of Systems Constitutional: DENIES: Fever, Chills Respiratory: COMPLAINS OF: Cough, Wheezing, Sputum production Cardiovascular: DENIES: Chest pain Musculoskeletal: COMPLAINS OF: Stiffness, Back pain Neurologic: COMPLAINS OF: Localized weakness, Paresthesias (Meghan Johnson) Physical Exam Awake, alert, no acute distress. Speech is fluent Follows commands well Pupils equal, facial motor symmetric Motor: 4+/5 hip flexors, quadriceps, 5/5 hamstrings, tibialis anterior, EHL. Reflex: trace knees b/l Plantars flexors bilaterally, no ankle clonus (Meghan Johnson) The patient is alert, awake and oriented to time, place and person. Speech is fluent. Higher cognitive functions are normal. Cranial nerve examination demonstrates the pupils to be equal, round, and reactive to light. Extra-ocular movements are intact. Facial motor and sensory function are normal and symmetrical. Gross hearing is intact, bilaterally. The uvula is midline and elevates symmetrically with the soft palate. Sternocleidomastoid and trapezius muscles have normal and symmetrical strength. Other cranial nerves are intact. Neck is soft and supple. Cervical spine has a full range of motion in anterior flexion, extension, lateral bending, and rotation without pain. There is no tenderness to palpation to the spinous processes or paraspinal muscles. Muscle testing reveals normal bulk and tone overall without rigidity, spasticity , fasciculations, or atrophy. Muscle strength is 5/5 in all muscle groups of both upper extremities including deltoid, biceps, triceps, brachioradialis, wrist extension and water chaser. In the lower extremities, strength is 4/5 in both iliopsoas, quadriceps, 4+/5 due to give away due to pain in his hamstrings, plantar flexion, dorsiflexion, and extensor hallicus longus. Sensory examination is intact to light touch and sharp/dull discrimination in both the upper extremities, and decreased in L3 and L4 dermatomes Deep tendon reflexes are 2+ and symmetrical in the biceps, triceps, and brachioradialis, bilaterally, in the upper extremities. In the lower extremities , the patellar are absent, and Achilles are 1+, bilaterally. There is a bilateral plantar flexion response. Hoffmanns sign is negative. There is no clonus Cerebellar examination is intact to [id number] test, rapid rhythmic alternating motion. There is no dysmetria, dysdiadochokinesia, truncal ataxia, or tremor. (Etienne Middleton MD) Medications Current Medications Current Medications Medications (Trade) Dose Ordered Sig/Melony Route PRN Reason Start Time Stop Time Status Last Admin Dose Admin Sodium Chloride (NS Flush) 2 ml UNSCH PRN IV FLUSH FLUSH AFTER USING IV ACCESS 03/27/17 16:45 Sodium Chloride (NS Flush) 2 ml BID IV FLUSH 03/27/17 21:00 03/28/17 07:55 Senna/Docusate Sodium (Iqra-Colace) 1 tab BID PO 03/27/17 21:00 03/28/17 07:54 Acetaminophen (Tylenol) 650 mg Q4H PRN PO TEMP > 100.4 03/27/17 18:00 Ondansetron HCl (Zofran Inj) 4 mg Q6H PRN IVP NAUSEA OR VOMITING 03/27/17 18:00 Naloxone HCl (Narcan Inj) 0.4 mg UNSCH PRN IV PUSH SEE LABEL COMMENTS 03/27/17 18:00 Lactulose (Lactulose Liq) 30 ml DAILY PRN PO SEVERE CONSITIPATION 03/27/17 18:00 Aripiprazole (Abilify) 15 mg DAILY PO 03/28/17 09:00 03/28/17 07:54 Buspirone HCl (Buspar) 15 mg TID PO 03/27/17 18:00 03/28/17 12:13 Fluoxetine HCl (PROzac) 40 mg BID PO 03/27/17 21:00 03/28/17 07:54 Gabapentin (Neurontin) 600 mg TID PO 03/27/17 18:00 03/28/17 12:13 Albuterol/ Ipratropium (Duoneb Neb) 1 ampule Q6HR WHILE AWAKE NEB NEB 03/27/17 20:00 03/29/17 19:59 03/28/17 12:48 Albuterol Sulfate (Albuterol Neb) 1.25 mg Q4HR NEB PRN NEB Dyspnea, Cough, Wheezing 03/27/17 18:30 Morphine Sulfate (Oramorph Sr) 15 mg Q12HR PO 03/28/17 21:00 Oxycodone/ Acetaminophen (Percocet 5-325 Mg) 1 tab Q4H PRN PO Pain 3 to 6 03/28/17 11:00 Oxycodone/ Acetaminophen (Percocet 10-325 Mg) 1 tab Q4H PRN PO Pain 7 to 10 03/28/17 11:00 03/28/17 14:16 Morphine Sulfate (Morphine Inj) 2 mg Q4H PRN IV PUSH Breakthrough Pain 03/28/17 11:00 Benzonatate (Tessalon) 100 mg TID PRN PO COUGH 03/28/17 14:00 Metoprolol Tartrate (Lopressor) 25 mg BID PO 03/28/17 21:00 Oxybutynin Chloride (Ditropan) 5 mg Q8HR PO 03/28/17 14:00 03/28/17 14:15 Pantoprazole Sodium (Protonix) 40 mg DAILY PO 03/29/17 09:00 Temazepam (Restoril) 30 mg HS PRN PO INSOMNIA 03/28/17 14:00 Ticagrelor (Brilinta) 60 mg BID PO 03/28/17 21:00 Clonidine (Catapres) 0.1 mg Q6H PRN PO SBP>160, DBP>90 03/28/17 14:00 03/28/17 14:15 Enalaprilat (Vasotec Inj) 1.25 mg Q6H PRN IV PUSH SBP>160, DBP>90 03/28/17 14:00 (Meghan Johnson) Current Medications Current Medications Ondansetron HCl (Zofran Inj) 4 mg ONCE ONCE IVP Last administered on at 15:05; Start 03/27/17 at 15:00; Stop 03/27/17 at 15:01; Status DC Sodium Chloride 1,000 ml @ 1,000 mls/hr Q1H IV Last administered on 03/27/17at 15:05; Start 03/27/17 at 14:46; Stop 03/27/17 at 15:45; Status DC Sodium Chloride (NS Flush) 2 ml UNSCH PRN IV FLUSH FLUSH AFTER USING IV ACCESS Last administered on 03/27/17at 15:06; Start 03/27/17 at 15:00; Stop 03/27/17 at 17:38; Status DC Morphine Sulfate (Morphine Inj) 2 mg ONCE ONCE IV PUSH Last administered on at 15:05; Start 03/27/17 at 15:00; Stop 03/27/17 at 15:01; Status DC Sodium Chloride (NS Flush) 2 ml UNSCH PRN IV FLUSH FLUSH AFTER USING IV ACCESS ; Start 03/27/17 at 16:45 Sodium Chloride (NS Flush) 2 ml BID IV FLUSH Last administered on 03/29/17at 11: 12; Start 03/27/17 at 21:00 Naloxone HCl (Narcan Inj) 0.4 mg UNSCH PRN IV PUSH SEE LABEL COMMENTS; Start at 16:45; Stop 03/27/17 at 18:25; Status DC Senna/Docusate Sodium (Iqra-Colace) 1 tab BID PO Last administered on at 08:43; Start 03/27/17 at 21:00 Morphine Sulfate (Morphine Inj) 2 mg Q3H PRN IV PUSH pain >5 Last administered on 03/28/17at 10:37; Start 03/27/17 at 16:45; Stop 03/28/17 at 10:49; Status DC Gadodiamide (Omniscan Pf Inj) 14 ml STK-MED ONCE IVCONTRAST Last administered on 03/27/17at 16:52; Start 03/27/17 at 16:52; Stop 03/27/17 at 17:50; Status DC Acetaminophen (Tylenol) 650 mg Q4H PRN PO TEMP > 100.4; Start 03/27/17 at 18:00 Ondansetron HCl (Zofran Inj) 4 mg Q6H PRN IVP NAUSEA OR VOMITING; Start at 18:00 Naloxone HCl (Narcan Inj) 0.4 mg UNSCH PRN IV PUSH SEE LABEL COMMENTS; Start at 18:00 Lactulose (Lactulose Liq) 30 ml DAILY PRN PO SEVERE CONSITIPATION; Start at 18:00 Aripiprazole (Abilify) 15 mg DAILY PO Last administered on 03/29/17at 08:44; Start 03/28/17 at 09:00 Buspirone HCl (Buspar) 15 mg TID PO Last administered on 03/29/17at 08:43; Start 03/27/17 at 18:00 Fluoxetine HCl (PROzac) 40 mg BID PO Last administered on 03/29/17at 08:43; Start 03/27/17 at 21:00 Gabapentin (Neurontin) 600 mg TID PO Last administered on 03/29/17at 08:42; Start 03/27/17 at 18:00 Albuterol/ Ipratropium (Duoneb Neb) 1 ampule Q6HR WHILE AWAKE NEB NEB Last administered on 03/29/17at 12:39; Start 03/27/17 at 20:00; Stop 03/29/17 at 19:59 Albuterol Sulfate (Albuterol Neb) 1.25 mg Q4HR NEB PRN NEB Dyspnea, Cough, Wheezing; Start 03/27/17 at 18:30 Temazepam (Restoril) 30 mg ONCE ONCE PO Last administered on 03/28/17at 00:18; Start 03/28/17 at 00:15; Stop 03/28/17 at 00:16; Status DC Morphine Sulfate (Oramorph Sr) 15 mg ONCE ONCE PO Last administered on at 11:05; Start 03/28/17 at 11:00; Stop 03/28/17 at 11:01; Status DC Morphine Sulfate (Oramorph Sr) 15 mg Q12HR PO Last administered on 03/29/17at 08 :44; Start 03/28/17 at 21:00 Oxycodone/ Acetaminophen (Percocet 5-325 Mg) 1 tab Q4H PRN PO Pain 3 to 6; Start 03/28/17 at 11:00 Oxycodone/ Acetaminophen (Percocet 10-325 Mg) 1 tab Q4H PRN PO Pain 7 to 10 Last administered on 03/29/17at 08:50; Start 03/28/17 at 11:00 Morphine Sulfate (Morphine Inj) 2 mg Q4H PRN IV PUSH Breakthrough Pain Last administered on 03/28/17at 17:01; Start 03/28/17 at 11:00 Aspirin (Ecotrin Ec) 81 mg DAILY PO ; Start 03/29/17 at 09:00; Stop 03/29/17 at 09:00; Status DC Benzonatate (Tessalon) 100 mg TID PRN PO COUGH; Start 03/28/17 at 14:00 Clopidogrel Bisulfate (Plavix) 75 mg DAILY PO ; Start 03/29/17 at 09:00; Stop at 09:00; Status DC Acetaminophen/ Hydrocodone Bitart (Hamilton 10-325 Mg) 1 tab Q4H PRN PO PAIN; Start 03/28/17 at 14:00; Status Cancel Metoprolol Tartrate (Lopressor) 25 mg BID PO Last administered on 03/29/17at 08: 43; Start 03/28/17 at 21:00 Oxybutynin Chloride (Ditropan) 5 mg Q8HR PO Last administered on 03/29/17at 06: 21; Start 03/28/17 at 14:00 Pantoprazole Sodium (Protonix) 40 mg DAILY PO Last administered on 03/29/17at 08 :44; Start 03/29/17 at 09:00 Temazepam (Restoril) 30 mg HS PRN PO INSOMNIA; Start 03/28/17 at 14:00 Ticagrelor (Brilinta) 60 mg BID PO Last administered on 03/29/17at 08:43; Start 03/28/17 at 21:00 Clonidine (Catapres) 0.1 mg Q6H PRN PO SBP>160, DBP>90 Last administered on at 08:49; Start 03/28/17 at 14:00 Enalaprilat (Vasotec Inj) 1.25 mg Q6H PRN IV PUSH SBP>160, DBP>90; Start at 14:00 Aspirin (Ecotrin Ec) 81 mg DAILY PO Last administered on 1/24/18at 11:08; Start 03/29/17 at 09:30 (Etienne Middleton MD) Medical Decision Making MDM Remarks 61 year old male developed adjacent level degeneration at L3-4 from prior fusion intractable lumbar and radicular pain (Meghan Johnson) Plan Plan Remarks MRI reviewed by Dr. Middleton, the alternatives of treatment has been discussed with the patient including continuing nonoperative management with analgesics, physical therapy and pain management vs considering surgical decompression at L3-4. patient requests to proceed with surgery tentatively plan for surgery this Monday discussed with nursing Dr. Middleton requests medical clearance prior to surgery ok PT and mobilize OOB with assistance (Meghan Johnson) Attending Statement I again reviewed Mr Panda MRI of the lumbar spine. I discussed the dindings and the alternatives of treatment. His MRI findings correlate with her clinical symptoms. He failed conservative treatment. His [pain is getting worse and continue to affect his activities of daily living. I again offered him the alternative of conservative treatment with further physical therapy, pain management by an interventional pain specialist, versus a surgical decompression and arthrodhesis at L3-4 and possibkly L2-3 as a last resort. We have discussed the details including the [id number] details of the surgical procedure, its indications, alternatives, risks, and potential complications. Risks and potential complications include, but are not limited to, infection, blood loss, CSF leak, partial or complete loss of sight in one or both eyes, paresis, paralysis, permanent pain or difficulty swallowing, loss of bowel or bladder function, complications from anesthesia, blood clot, stroke, myocardial infarction, or even . Mr Panda has comorbidities which increase the risk for developing complications. 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 Stop [id number], please. Maintain aspirin Chest xray Pulmonary. Continue aggressive pulmonary toilette, nasotracheal suction, and breathing treatments with nebulizers. Nutrition. Oral diet Renal. monitor closely urine output, BUN and creatinine Endocrine. Monitor serial Acu checks and SSI as needed in detail ID monitor for signs of infection Protonix for stress ulcer prophylaxis The exam, history, and the medical decision-making described in the above note were completed with the assistance of the mid-level provider. I reviewed and agree with the findings presented. I attest that I had a [id number] encounter with the patient on the same day, and personally performed and documented my assessment and findings in the medical record. (Etienne Middleton MD) Meghan Johnson Mar 28, 2017 15:59 Etienne Middleton MD Mar 29, 2017 13:02
--- NOTE | 2017-03-28 17:43 | EKG ---
Date Performed: 03/27/2017 Time Performed: 15:30:42 PTAGE: 61 years EKG: Sinus rhythm POSSIBLE LEFT ATRIAL ENLARGEMENT POSSIBLE RIGHT VENTRICULAR CONDUCTION DELAY PROBABLE LATERAL MYOCAR DIAL INFARCTION ABNORMAL ECG PREVIOUS TRACING : 10/06/2008 09.11 DOCTOR: Fili Heath Interpretating Date/Time 03/28/2017 17:36:56
--- NOTE | 2017-03-28 20:34 | RADRPT ---
EXAM DATE/TIME: 03/28/2017 19:43 [facility] COMPARISON: No previous studies available for comparison. EXTERNAL COMPARISON : [facility], US AORTA, June 15, 2016, [facility], PET/CT TUMOR, April 14, 2016 INDICATIONS : History of aortic aneurysm. MEDICAL HISTORY : Aneurysm, abdominal. Myocardial infarction. Hypercholesterolemia. Numbness in feet. HTN. COPD. Dyspn ea. GERD. Arthritis. Bipolar disorder. Depression. Anxiety. SURGICAL HISTORY : Cervical fusion. Cardiac stents. Bilateral inguinal hernia repair. Lumbar fusion. ENCOUNTER: Initial ACUITY: 7-11 months PAIN SCORE: 2/10 LOCATION: Abdomen. MEASUREMENTS: (AP x TRANSVERSE) PROXIMAL: 2.9 x 3.0 cm , PRIOR 2.0 x 2.3 cm MID: 1.9 x 2.0 cm , PRIOR 1.6 x 1.7 cm DISTAL: 1.9 x 2.5 cm , PRIOR 1.7 x 2.0 cm RIGHT ILIAC: 2.5 x 2.3 cm , PRIOR 2.0 cm LEFT ILIAC: 1.9 x 2.2 cm , PRIOR 1.7 cm FINDINGS: AORTA: No significant atherosclerotic disease. Doppler evaluation within normal limits. IVC: Within normal limits. CONCLUSION: 1. Mild dilatation of distal abdominal aorta to 2.5 cm. Right iliac artery also measures 2.5 cm, incr eased from previous measurement of 2 cm. 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 Dhaval Todd MD on March 28, 2017 at 20:29 Board Certified Radiologist. This report was verified electronically.
--- NOTE | 2017-03-28 20:39 | MB ---
cc: SUMAN VARGAS DO DATE OF CONSULTATION 03/28/2017 REASON FOR CONSULTATION Preoperative risk assessment. HISTORY OF PRESENT ILLNESS Jagjit Panda is a pleasant 61-year-old male who sees my partner Dr. John RICO in the outpatient setting and presented to [facility] Emergency Room on March 27, 2017 due to severe low back pain with numbness and pain in his left leg. This previously was controlled with Lortab and he was ambulating without difficulty until the past few days. Dr. Middleton recommended that the patient come in and have an MRI study and further evaluation for possible surgical intervention. MRI was done and there was concern with severe left neural foraminal stenosis. He has since held his Brilinta with a plan for possible surgery on March 31, 2017. In seeing the patient he is currently hemodynamically stable without chest pain or shortness of breath. He previously underwent a stress test in the office in August 2016 which was negative per the patient. After that he underwent two hernia surgeries with no complications. PAST MEDICAL HISTORY 1. Coronary artery disease with a history of myocardial infarction. 2. Degenerative disc disease with cervical and lumbar spine disease. 3. Anxiety. 4. Depression. 5. Gastroesophageal reflux disease. PAST SURGICAL HISTORY 1. Previous coronary artery stenting x4 (unknown coronary anatomy, the patient believes last stent was February 2016). Bilateral inguinal hernia repairs. 2. Multiple cervical fusion surgeries. 3. Previous lumbar fusion L4-S1. ALLERGIES NO KNOWN DRUG ALLERGIES. MEDICATIONS 1. Brilinta 60 mg b.i.d. 2. Metoprolol tartrate 25 mg b.i.d. 3. Aspirin 81 mg daily. 4. Lisinopril 5 mg daily. 5. Hydrocodone / acetaminophen 10 / 325 every 4 hours as needed for pain. 6. Gabapentin 600 mg t.i.d. 7. Fluoxetine 40 mg b.i.d. 8. Abilify 15 mg daily. 9. Temazepam 30 mg every night as needed for insomnia. 10. Buspirone 15 mg t.i.d. 11. Benzonatate 100 mg t.i.d. as needed for cough. 12. Protonix 40 mg daily. 13. Ditropan 5 mg every 8 hours. FAMILY HISTORY Denies sudden cardiac within the family. SOCIAL HISTORY The patient reports a 40-year pack history of smoking quitting recently. Denies alcohol abuse. Does smoke marijuana. REVIEW OF SYSTEMS 14-systems were reviewed including osteopathic. Pertinent positives and negatives above otherwise negative. PHYSICAL EXAMINATION VITAL SIGNS: Temperature 96.7, heart rate 67, blood pressure 141/79, respirations 18, pulse ox 94% on room air. GENERAL: In general the patient appears well in no acute distress, alert, awake and oriented x3. HEENT: Extraocular muscles intact. Mucous membranes moist. NECK: Supple. No JVD at 45 degrees. No carotid bruits heard bilaterally. Carotid upstroke is brisk in nature. CARDIOVASCULAR: Heart is regular rate and rhythm. Positive first and second heart sounds with no noted murmurs, gallops or rubs. LUNGS: Clear to auscultation bilaterally. No wheezes, rales or rhonchi. ABDOMEN: Soft, nontender, nondistended. No organomegaly noted. EXTREMITIES: Show no clubbing, cyanosis or edema. Femoral and distal pulses intact bilaterally. NEUROLOGIC: No focal deficits. SKIN: Warm, dry and intact. OSTEOPATHIC: No kyphoscoliosis, lordosis. LABORATORY FINDINGS Hemoglobin 13.4, hematocrit 38.7, platelets 293. Potassium 3.8, BUN 8, creatinine 0.94. Electrocardiogram sinus rhythm, possible left atrial enlargement, incomplete right bundle branch block, old lateral infarct. IMPRESSIONS 1. Preoperative cardiovascular risk assessment for possible surgery. 2. History of coronary artery disease with a history of myocardial infarction and coronary stenting of unknown coronary anatomy. 3. Intractable low back and left leg lumbar radiculopathy secondary to spinal stenosis with an inability to ambulate. 4. History of hypertension. 5. History of COPD. RECOMMENDATIONS 1. Mr. Panda is presenting with concerns for lower extremity pain and difficulty walking secondary to spinal stenosis. He has been recommended surgery from a neurosurgical standpoint. 2. From a cardiovascular standpoint he is currently not having acute coronary syndrome, heart failure or electrical instability. Overall he is a moderate cardiovascular risk and may proceed as he has recently had a stress test that was negative and he has no current symptoms. I do not believe surgery should be put off at this time as there is ____ concern for neurological risk. 3. His Brilinta has been stopped which is okay as it has been over a year since his stent. I would suggest that this be restarted as soon as safely possible post surgery. 4. Will discuss with neurosurgery but would prefer him to be on aspirin 81 mg throughout the surgery if possible. As this is a neurological surgery they believe it puts him at too high of a risk, then this will need to be restarted as soon as possible post surgery. 5. Further recommendations will be made based on the hospital course. Thank you for allowing me to see Jagjit Panda. If there are any questions please do not hesitate to call. Suman Vargas DO VGP/KK /7:12 PM /7:41 PM
[2017-03-28] MEDS: METOPROLOL TARTRATE 25 MG TAB PO SCH (21:34)
[2017-03-28] MEDS: TICAGRELOR 60 MG TAB PO SCH (21:34)
[2017-03-28] MEDS: MORPHINE SULFATE 15 MG CONTROLLED RELEASE TAB PO SCH (21:36)
[2017-03-29] VITALS (9 sets, daily range): BP systolic 122–173; BP diastolic 69–97; PULSE 50–88; RESP 16–18; TEMP 96.8–98.3; O2SAT 94–100
[2017-03-29] MEDS: oxyCODONE/ACETAMINOPHEN 10 MG/325 MG TAB PO PRN ×3 (04:06→16:41)
[2017-03-29] MEDS: cloNIDine HCL 0.1 MG TAB PO PRN ×2 (04:10→08:49)
[2017-03-29] MEDS: OXYBUTYNIN CHLORIDE 5 MG TAB PO SCH ×3 (06:21→21:14)
[2017-03-29] MEDS: RESP: ALBUTEROL 2.5 MG/IPRATROPIUM 0.5 MG NEB (SCH) NEB ×2 (08:00→12:39)
[2017-03-29] MEDS: GABAPENTIN 300 MG CAP PO SCH ×3 (08:42→18:42)
[2017-03-29] MEDS: busPIRone HCL 5 MG TAB PO SCH ×3 (08:43→18:42)
[2017-03-29] MEDS: DOCUSATE SODIUM 50 MG/SENNA 8.6 MG TAB PO SCH ×2 (08:43→21:14)
[2017-03-29] MEDS: METOPROLOL TARTRATE 25 MG TAB PO SCH ×2 (08:43→21:14)
[2017-03-29] MEDS: TICAGRELOR 60 MG TAB PO SCH ×2 (08:43→21:13)
[2017-03-29] MEDS: FLUoxetine HCL 20 MG CAP PO SCH ×2 (08:43→21:13)
[2017-03-29] MEDS: PANTOPRAZOLE SOD 40 MG DELAYED RELEASE TAB PO SCH (08:44)
[2017-03-29] MEDS: ARIPiprazole 15 MG TAB PO SCH (08:44)
[2017-03-29] MEDS: MORPHINE SULFATE 15 MG CONTROLLED RELEASE TAB PO SCH ×2 (08:44→21:13)
[2017-03-29] MEDS ORDERED: ASPIRIN EC 81 MG TABEC PO SCH (09:00)
[2017-03-29] MEDS ORDERED: CLOPIDOGREL 75 MG TAB PO SCH (09:00)
[2017-03-29 09:12] LABS: AUTOMATED NEUTROPHIL # 4.9 TH/MM3 (1.8-7.7); BASOPHIL # 0.1 TH/MM3 (0-0.2); BASOPHIL % 0.9 % (0.0-2.0); EOSINOPHIL # 0.3 TH/MM3 (0-0.4); EOSINOPHIL % 4.1 % (0.0-4.0); HEMATOCRIT 40.1 % (39.0-51.0); HEMOGLOBIN 13.8 GM/DL (13.0-17.0); LYMPH % 23.3 % (9.0-44.0); LYMPHOCYTE # 1.9 TH/MM3 (1.0-4.8); MEAN CELL VOLUME 89.8 FL (80.0-100.0); MEAN CORPUSCULAR HEMOGLOBIN 30.8 PG (27.0-34.0); MEAN CORPUSCULAR HGB CONC 34.3 % (32.0-36.0); MEAN PLATELET VOLUME 7.7 FL (7.0-11.0); MONO % 12.4 % (0.0-8.0); NEUT % 59.3 % (16.0-70.0); PLATELET COUNT 302 TH/MM3 (150-450); RED BLOOD COUNT 4.47 MIL/MM3 (4.50-5.90); RED CELL DISTRIBUTION WIDTH 13.7 % (11.6-17.2); WHITE BLOOD COUNT 8.3 TH/MM3 (4.0-11.0)
[2017-03-29 09:42] LABS: ALBUMIN 3.4 GM/DL (3.4-5.0); AST (GOT) 11 U/L (15-37); BICARBONATE 31.6 MEQ/L (21.0-32.0); BLOOD UREA NITROGEN 9 MG/DL (7-18); CALCIUM 9.2 MG/DL (8.5-10.1); CHLORIDE 104 MEQ/L (98-107); CREATININE 1.03 MG/DL (0.60-1.30); GLOMERULAR FILTRATION RATE 74 ML/MIN (>89); GLUCOSE,RANDOM 90 MG/DL (74-106); SODIUM (NA) 140 MEQ/L (136-145)
[2017-03-29 09:44] LABS: ALT (GPT) 17 U/L (12-78)
[2017-03-29 09:46] LABS: ALKALINE PHOSPHATASE 117 U/L (45-117); TOTAL BILIRUBIN ADULT 0.5 MG/DL (0.2-1.0); TOTAL PROTEIN 7.3 GM/DL (6.4-8.2)
--- NOTE | 2017-03-29 10:06 | RADRPT ---
EXAM DATE/TIME: 03/29/2017 09:57 [facility] COMPARISON: No previous studies available for comparison. INDICATIONS : Cough. MEDICAL HISTORY : Hypertension. Chronic obstructive pulmonary disease SURGICAL HISTORY : Appendectomy. Fusion, lumbar. Fusion, cervical. Carotid stent. Bilateral inguinal hernia ENCOUNTER: Subsequent ACUITY: 3 days PAIN SCORE: 0/10 LOCATION: Bilateral chest FINDINGS: PA and lateral views of the chest demonstrate the lungs to be symmetrically aerated without evidence of mass, infiltrate or effusion. Diffuse interstitial changes. The cardiomediastinal contours are unr emarkable. Osseous structures are intact. CONCLUSION: 1. Diffuse interstitial changes likely chronic although acute interstitial infiltrate cannot be exclu ded. Justin Schmitz MD on March 29, 2017 at 10:03 Board Certified Radiologist. This report was verified electronically.
--- NOTE | 2017-03-29 10:53 | HHI.PR ---
Subjective Remarks No new complaints from the patient. Further imaging planned for today. Plan surgery for 03/31/16. Objective Vital Signs Date Time Temp Pulse Resp B/P (MAP) Pulse Ox O2 Delivery O2 Flow Rate FiO2 03/29/17 08:37 94 21 03/29/17 04:05 96.8 50 17 156/91 (112) 98 03/29/17 00:05 96.8 57 17 122/72 (89) 95 03/28/17 22:36 18 03/28/17 20:23 93 21 03/28/17 20:05 98.3 63 18 125/77 (93) 93 03/28/17 16:32 96.7 67 18 141/79 (99) 94 03/28/17 16:04 56 03/28/17 13:38 98.4 74 18 166/96 (119) 94 03/28/17 12:00 63 03/28/17 11:09 98.3 69 18 185/97 (126) 93 I/O 03/28/17 03/28/17 03/28/17 03/29/17 03/29/17 03/29/17 07:00 15:00 23:00 07:00 15:00 23:00 Intake Total 360 ml 720 ml 240 ml 360 ml Balance 360 ml 720 ml 240 ml 360 ml Intake Oral 360 ml 720 ml 240 ml 360 ml # Voids 3 3 1 2 # Bowel Movements 0 1 0 0 Result Diagram: 03/29/17 0804 03/29/17 0804 Objective Remarks GENERAL: NAD, A&Ox3 HEAD: Normocephalic. NECK: Supple, trachea midline. No lymphadenopathy. EYES: No scleral icterus. No injection or drainage. CARDIOVASCULAR: Regular rate and rhythm without murmurs, gallops, or rubs. RESPIRATORY: Breath sounds equal bilaterally. No accessory muscle use. GASTROINTESTINAL: Abdomen soft, non-tender, nondistended. MUSCULOSKELETAL: No cyanosis, or edema. Mild tenderness at L3/L4 level over spine with a short radiculopathic prison of persistent pain at L5-S1 level lateral to spine SKIN: Warm and dry. NEURO: No focal neurological deficitis. A/P Problem List: (1) Unable to ambulate ICD Code: R26.2 - Difficulty in walking, not elsewhere classified Status: Acute (2) Acute lumbar back pain ICD Code: M54.5 - Low back pain Status: Acute (3) Intractable back pain ICD Code: M54.9 - Dorsalgia, unspecified Status: Acute Assessment and Plan 61-year-old male with past medical history significant for degenerative disc disease of the cervical and lumbar spine who was undergone previous cervical and lumbar fusions who presents to [facility] ED with complaints of severe low back pain for the past 2 days. Pain control is improved. Plan for surgery on 03/31/16. Holding aspirin and Eliquis preop. Discussion between cardiology and neurosurgery, possible continuation of aspirin. Degenerative disc disease of lumbar spine Subacute, status post previous lumbar fusion surgery (L5/S1) Intractable low back and left leg lumbar radiculopathy Severe Spinal Stenosis L3/L4 Continue pain treatments Neurosurgery consulted Bedrest for now Continue gabapentin CAD s/p OR and cardiac stents Plavix on hold Follow clinically for chest pain or symptoms Hypertension IV Vasotec as needed Hydralazine as needed Follow blood pressures Continue lisinopril COPD No exacerbation today Schedule duo nebs Oxygen as needed Follow respiratory status Depression Anxiety Continue baseline treatments Monitor clinically DVT prophylaxis SCDs Problem Qualifiers (1) Acute lumbar back pain: Qualified Codes: M54.42 - Lumbago with sciatica, left side Jimmy Tam MD Mar 29, 2017 10:53
[2017-03-29] MEDS: ASPIRIN EC 81 MG TABEC PO SCH (11:08)
[2017-03-29] MEDS: SODIUM CHLORIDE 0.9% FLUSH 10 ML FLUSH IV FLUSH SCH ×2 (11:12→21:15)
--- NOTE | 2017-03-29 14:04 | HHI.NSPN ---
(Meghan Johnson) Note Status Status: Progress Note (Meghan Johnson) Interval History Interval History Mr. Panda is a 61-year-old male who presented to [place] emergency department with complaints of intractable low back pain. Mr. Panda has had a previous cervical and lumbar fusion L4-S1 many years ago and had done very well with improvement of his prior pain and symptoms. Unfortunately he developed recurrent progressive lumbar pain. He denies any associates trauma or falls. He reports he has been managing his pain with narcotic pain medications. His pain is located in the upper to mid lumbar region with pain radiating to the lateral hips and down the anterior thigh, knee, medial fuller to the great toe. He reports generalized weakness in his legs. He denies bowel or bladder incontinence, fevers or chills. 03/28: persistent lumbar pain and radicular pain in his legs. MRI completed. RT reports with wheezing, cough, and sputum production. 03/29: patient was seen this am during rounds - no change in his pain and symptoms. reports cough is better today. seen by cardiology last night for preoperative clearance due to hx of cardiac disease. (Meghan Johnson) Labs, Micro, & Vital Signs Results Date Time Temp Pulse Resp B/P (MAP) Pulse Ox O2 Delivery O2 Flow Rate FiO2 03/29/17 09:44 20 03/29/17 09:44 20 03/29/17 08:37 94 21 03/29/17 04:05 96.8 50 17 156/91 (112) 98 03/29/17 00:05 96.8 57 17 122/72 (89) 95 03/28/17 20:23 93 21 03/28/17 20:05 98.3 63 18 125/77 (93) 93 03/28/17 16:32 96.7 67 18 141/79 (99) 94 03/28/17 16:04 56 Constitutional Vital Signs Date Time Temp Pulse Resp B/P (MAP) Pulse Ox O2 Delivery O2 Flow Rate FiO2 03/29/17 09:44 20 03/29/17 09:44 20 03/29/17 08:37 94 21 03/29/17 04:05 96.8 50 17 156/91 (112) 98 03/29/17 00:05 96.8 57 17 122/72 (89) 95 03/28/17 20:23 93 21 03/28/17 20:05 98.3 63 18 125/77 (93) 93 03/28/17 16:32 96.7 67 18 141/79 (99) 94 03/28/17 16:04 56 (Meghan Johnson) Review of Systems Constitutional: DENIES: Fever, Chills Respiratory: COMPLAINS OF: Cough, DENIES: Apneas, Hemoptysis, Shortness of breath Cardiovascular: DENIES: Chest pain Musculoskeletal: COMPLAINS OF: Back pain (Meghan Johnson) Physical Exam Mr. Panda is alert, awake and oriented to time, place and person. Speech is fluent. Higher cognitive functions are normal. Cranial nerve examination demonstrates the pupils to be equal, round, and reactive to light. Extra-ocular movements are intact. Facial motor and sensory function are normal and symmetrical. Gross hearing is intact, bilaterally. The uvula is midline and elevates symmetrically with the soft palate. Sternocleidomastoid and trapezius muscles have normal and symmetrical strength. Other cranial nerves are intact. Neck is soft and supple. Cervical spine has a full range of motion in anterior flexion, extension, lateral bending, and rotation without pain. There is no tenderness to palpation to the spinous processes or paraspinal muscles. Muscle testing reveals normal bulk and tone overall without rigidity, spasticity , fasciculations, or atrophy. 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 In the lower extremities, strength is 4/5 in both iliopsoas, quadriceps, 4+/5 due to give away due to pain in his hamstrings, plantar flexion, dorsiflexion, and extensor hallicus longus. Sensory examination is intact to light touch and sharp/dull discrimination in both the upper extremities, and decreased in L3 and L4 dermatomes Deep tendon reflexes are 2+ and symmetrical in the biceps, triceps, and brachioradialis, bilaterally, in the upper extremities. In the lower extremities , the patellar are absent, and Achilles are 1+, bilaterally. There is a bilateral plantar flexion response. Hoffmanns sign is negative. There is no clonus Cerebellar examination is intact to [id number] test, rapid rhythmic alternating motion. There is no dysmetria, dysdiadochokinesia, truncal ataxia, or tremor. Lungs: CTA b/l Heart: NSR (Meghan Johnson) Mr. Panda is alert, awake and oriented to time, place and person. Speech is fluent. Higher cognitive functions are normal. Cranial nerve examination demonstrates the pupils to be equal, round, and reactive to light. Extra-ocular movements are intact. Facial motor and sensory function are normal and symmetrical. Gross hearing is intact, bilaterally. The uvula is midline and elevates symmetrically with the soft palate. Sternocleidomastoid and trapezius muscles have normal and symmetrical strength. Other cranial nerves are intact. Neck is soft and supple. Cervical spine has a full range of motion in anterior flexion, extension, lateral bending, and rotation without pain. There is no tenderness to palpation to the spinous processes or paraspinal muscles. Muscle testing reveals normal bulk and tone overall without rigidity, spasticity , fasciculations, or atrophy. 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 In the lower extremities, strength is 4/5 in both iliopsoas, quadriceps, 4+/5 due to give away due to pain in his hamstrings, plantar flexion, dorsiflexion, and extensor hallicus longus. Sensory examination is intact to light touch and sharp/dull discrimination in both the upper extremities, and decreased in L3 and L4 dermatomes Deep tendon reflexes are 2+ and symmetrical in the biceps, triceps, and brachioradialis, bilaterally, in the upper extremities. In the lower extremities , the patellar are absent, and Achilles are 1+, bilaterally. There is a bilateral plantar flexion response. Hoffmanns sign is negative. There is no clonus Cerebellar examination is intact to [id number] test, rapid rhythmic alternating motion. There is no dysmetria, dysdiadochokinesia, truncal ataxia, or tremor. Lungs: clear Heart: Regular rythm and rate Skin warm and dry (Etienne Middleton MD) Medications Current Medications Current Medications Medications (Trade) Dose Ordered Sig/Melony Route PRN Reason Start Time Stop Time Status Last Admin Dose Admin Sodium Chloride (NS Flush) 2 ml UNSCH PRN IV FLUSH FLUSH AFTER USING IV ACCESS 03/27/17 16:45 Sodium Chloride (NS Flush) 2 ml BID IV FLUSH 03/27/17 21:00 03/29/17 11:12 Senna/Docusate Sodium (Iqra-Colace) 1 tab BID PO 03/27/17 21:00 03/29/17 08:43 Acetaminophen (Tylenol) 650 mg Q4H PRN PO TEMP > 100.4 03/27/17 18:00 Ondansetron HCl (Zofran Inj) 4 mg Q6H PRN IVP NAUSEA OR VOMITING 03/27/17 18:00 Naloxone HCl (Narcan Inj) 0.4 mg UNSCH PRN IV PUSH SEE LABEL COMMENTS 03/27/17 18:00 Lactulose (Lactulose Liq) 30 ml DAILY PRN PO SEVERE CONSITIPATION 03/27/17 18:00 Aripiprazole (Abilify) 15 mg DAILY PO 03/28/17 09:00 03/29/17 08:44 Buspirone HCl (Buspar) 15 mg TID PO 03/27/17 18:00 03/29/17 08:43 Fluoxetine HCl (PROzac) 40 mg BID PO 03/27/17 21:00 03/29/17 08:43 Gabapentin (Neurontin) 600 mg TID PO 03/27/17 18:00 03/29/17 08:42 Albuterol/ Ipratropium (Duoneb Neb) 1 ampule Q6HR WHILE AWAKE NEB NEB 03/27/17 20:00 03/29/17 19:59 03/29/17 12:39 Albuterol Sulfate (Albuterol Neb) 1.25 mg Q4HR NEB PRN NEB Dyspnea, Cough, Wheezing 03/27/17 18:30 Morphine Sulfate (Oramorph Sr) 15 mg Q12HR PO 03/28/17 21:00 03/29/17 08:44 Oxycodone/ Acetaminophen (Percocet 5-325 Mg) 1 tab Q4H PRN PO Pain 3 to 6 03/28/17 11:00 Oxycodone/ Acetaminophen (Percocet 10-325 Mg) 1 tab Q4H PRN PO Pain 7 to 10 03/28/17 11:00 03/29/17 08:50 Morphine Sulfate (Morphine Inj) 2 mg Q4H PRN IV PUSH Breakthrough Pain 03/28/17 11:00 03/28/17 17:01 Benzonatate (Tessalon) 100 mg TID PRN PO COUGH 03/28/17 14:00 Metoprolol Tartrate (Lopressor) 25 mg BID PO 03/28/17 21:00 03/29/17 08:43 Oxybutynin Chloride (Ditropan) 5 mg Q8HR PO 03/28/17 14:00 03/29/17 06:21 Pantoprazole Sodium (Protonix) 40 mg DAILY PO 03/29/17 09:00 03/29/17 08:44 Temazepam (Restoril) 30 mg HS PRN PO INSOMNIA 03/28/17 14:00 Ticagrelor (Brilinta) 60 mg BID PO 03/28/17 21:00 03/29/17 08:43 Clonidine (Catapres) 0.1 mg Q6H PRN PO SBP>160, DBP>90 03/28/17 14:00 03/29/17 08:49 Enalaprilat (Vasotec Inj) 1.25 mg Q6H PRN IV PUSH SBP>160, DBP>90 03/28/17 14:00 Aspirin (Ecotrin Ec) 81 mg DAILY PO 03/29/17 09:30 03/29/17 11:08 (Meghan Johnson) Medical Decision Making MDM Remarks 61 year old male developed adjacent level degeneration at L3-4 from prior fusion causing intractable lumbar and radicular pain surgically cleared from cardiac standpoint with moderate risk (Meghan Johnson) Plan Plan Remarks cardiology evaluation noted Dr. Middleton cleared to restart the use of aspirin 81 daily will obtain CXR and Echocardiogram preop cont SCDs and TEDs for dvt prophylaxis cont PT, mobilize OOB with assistance anticipate surgery this monday for L3-4 laminectomy with interbody arthrodesis (Meghan Johnson) Attending Statement I again reviewed Mr Patch MRI of the lumbar spine. I discussed the dindings and the alternatives of treatment. His MRI findings correlate with her clinical symptoms. He failed conservative treatment. His [pain is getting worse and continue to affect his activities of daily living. I again offered him the alternative of conservative treatment with further physical therapy, pain management by an interventional pain specialist, versus a surgical decompression and arthrodhesis at L3-4 and possibkly L2-3 as a last resort. We have discussed the details including the [id number] details of the surgical procedure, its indications, alternatives, risks, and potential complications. Risks and potential complications include, but are not limited to, infection, blood loss, CSF leak, partial or complete loss of sight in one or both eyes, paresis, paralysis, permanent pain or difficulty swallowing, loss of bowel or bladder function, complications from anesthesia, blood clot, stroke, myocardial infarction, or even . Mr Panda has comorbidities which increase the risk for developing complications. I discussed with chalker soles. Stop [id number], please. Maintain aspirin Chest xray Pulmonary. Continue aggressive pulmonary toilette, nasotracheal suction, and breathing treatments with nebulizers. Nutrition. Oral diet Renal. monitor closely urine output, BUN and creatinine Endocrine. Monitor serial Acu checks and SSI as needed in detail ID monitor for signs of infection Protonix for stress ulcer prophylaxis The exam, history, and the medical decision-making described in the above note were completed with the assistance of the mid-level provider. I reviewed and agree with the findings presented. I attest that I had a [id number] encounter with the patient on the same day, and personally performed and documented my assessment and findings in the medical record. (Etienne Middleton MD) Meghan Johnson Mar 29, 2017 14:04 Etienne Middleton MD Apr 03, 2017 10:25
--- NOTE | 2017-03-29 14:39 | PD.CARD.PN ---
Subjective Subjective Remarks No events overnight No chest pain/SOB Objective Medications Current Medications Medications (Trade) Dose Ordered Sig/Melony Route Start Time Stop Time Status Last Admin (NS Flush) 2 ml UNSCH PRN IV FLUSH 03/27/17 16:45 (NS Flush) 2 ml BID IV FLUSH 03/27/17 21:00 03/29/17 11:12 (Iqra-Colace) 1 tab BID PO 03/27/17 21:00 03/29/17 08:43 (Tylenol) 650 mg Q4H PRN PO 03/27/17 18:00 (Zofran Inj) 4 mg Q6H PRN IVP 03/27/17 18:00 (Narcan Inj) 0.4 mg UNSCH PRN IV PUSH 03/27/17 18:00 (Lactulose Liq) 30 ml DAILY PRN PO 03/27/17 18:00 (Abilify) 15 mg DAILY PO 03/28/17 09:00 03/29/17 08:44 (Buspar) 15 mg TID PO 03/27/17 18:00 03/29/17 08:43 (PROzac) 40 mg BID PO 03/27/17 21:00 03/29/17 08:43 (Neurontin) 600 mg TID PO 03/27/17 18:00 03/29/17 08:42 (Duoneb Neb) 1 ampule Q6HR WHILE AWAKE NEB NEB 03/27/17 20:00 03/29/17 19:59 03/29/17 12:39 (Albuterol Neb) 1.25 mg Q4HR NEB PRN NEB 03/27/17 18:30 (Oramorph Sr) 15 mg Q12HR PO 03/28/17 21:00 03/29/17 08:44 (Percocet 5-325 Mg) 1 tab Q4H PRN PO 03/28/17 11:00 (Percocet 10-325 Mg) 1 tab Q4H PRN PO 03/28/17 11:00 03/29/17 08:50 (Morphine Inj) 2 mg Q4H PRN IV PUSH 03/28/17 11:00 03/28/17 17:01 (Tessalon) 100 mg TID PRN PO 03/28/17 14:00 (Lopressor) 25 mg BID PO 03/28/17 21:00 03/29/17 08:43 (Ditropan) 5 mg Q8HR PO 03/28/17 14:00 03/29/17 06:21 (Protonix) 40 mg DAILY PO 03/29/17 09:00 03/29/17 08:44 (Restoril) 30 mg HS PRN PO 03/28/17 14:00 (Brilinta) 60 mg BID PO 03/28/17 21:00 03/29/17 08:43 (Catapres) 0.1 mg Q6H PRN PO 03/28/17 14:00 03/29/17 08:49 (Vasotec Inj) 1.25 mg Q6H PRN IV PUSH 03/28/17 14:00 (Ecotrin Ec) 81 mg DAILY PO 03/29/17 09:30 03/29/17 11:08 Vital Signs / I&O Vital Signs Date Time Temp Pulse Resp B/P (MAP) Pulse Ox O2 Delivery O2 Flow Rate FiO2 03/29/17 09:44 20 03/29/17 09:44 20 03/29/17 08:37 94 21 03/29/17 04:05 96.8 50 17 156/91 (112) 98 03/29/17 00:05 96.8 57 17 122/72 (89) 95 03/28/17 20:23 93 21 03/28/17 20:05 98.3 63 18 125/77 (93) 93 03/28/17 16:32 96.7 67 18 141/79 (99) 94 03/28/17 16:04 56 I/O 03/28/17 03/28/17 03/28/17 03/29/17 03/29/17 03/29/17 07:00 15:00 23:00 07:00 15:00 23:00 Intake Total 360 ml 720 ml 240 ml 360 ml Balance 360 ml 720 ml 240 ml 360 ml Intake Oral 360 ml 720 ml 240 ml 360 ml # Voids 3 3 1 2 # Bowel Movements 0 1 0 0 Physical Exam GENERAL: NAD, AAOx3 SKIN: Warm and dry. HEAD: Atraumatic. Normocephalic. EYES: Pupils equal and round. No scleral icterus. No injection or drainage. ENT: No nasal bleeding or discharge. Mucous membranes pink and moist. NECK: Trachea midline. No JVD. CARDIOVASCULAR: Regular rate and rhythm. RESPIRATORY: No accessory muscle use. Clear to auscultation. Breath sounds equal bilaterally. GASTROINTESTINAL: Abdomen soft, non-tender, nondistended. Hepatic and splenic margins not palpable. MUSCULOSKELETAL: Extremities without clubbing, cyanosis, or edema. No obvious deformities. NEUROLOGICAL: Awake and alert. No obvious cranial nerve deficits. Motor grossly within normal limits. Laboratory Laboratory Tests Test 03/29/17 08:04 White Blood Count 8.3 TH/MM3 Red Blood Count 4.47 MIL/MM3 Hemoglobin 13.8 GM/DL Hematocrit 40.1 % Mean Corpuscular Volume 89.8 FL Mean Corpuscular Hemoglobin 30.8 PG Mean Corpuscular Hemoglobin Concent 34.3 % Red Cell Distribution Width 13.7 % Platelet Count 302 TH/MM3 Mean Platelet Volume 7.7 FL Neutrophils (%) (Auto) 59.3 % Lymphocytes (%) (Auto) 23.3 % Monocytes (%) (Auto) 12.4 % Eosinophils (%) (Auto) 4.1 % Basophils (%) (Auto) 0.9 % Neutrophils # (Auto) 4.9 TH/MM3 Lymphocytes # (Auto) 1.9 TH/MM3 Monocytes # (Auto) 1.0 TH/MM3 Eosinophils # (Auto) 0.3 TH/MM3 Basophils # (Auto) 0.1 TH/MM3 CBC Comment DIFF FINAL Differential Comment Blood Urea Nitrogen 9 MG/DL Creatinine 1.03 MG/DL Random Glucose 90 MG/DL Total Protein 7.3 GM/DL Albumin 3.4 GM/DL Calcium Level 9.2 MG/DL Alkaline Phosphatase 117 U/L Aspartate Amino Transf (AST/SGOT) 11 U/L Alanine Aminotransferase (ALT/SGPT) 17 U/L Total Bilirubin 0.5 MG/DL Sodium Level 140 MEQ/L Potassium Level 4.2 MEQ/L Chloride Level 104 MEQ/L Carbon Dioxide Level 31.6 MEQ/L Anion Gap 4 MEQ/L Estimat Glomerular Filtration Rate 74 ML/MIN Imaging Last 24 hours Impressions Chest X-Ray 03/29/17 0000 Signed Impressions: Service Date/Time: Wednesday, March 29, 2017 09:57 - CONCLUSION: 1. Diffuse interstitial changes likely chronic although acute interstitial infiltrate cannot be excluded. Justin Schmitz MD Assessment and Plan Problem List: (1) Pre-operative cardiovascular examination ICD Codes: Z01.810 - Encounter for preprocedural cardiovascular examination (2) CAD (coronary artery disease) ICD Codes: I25.10 - Atherosclerotic heart disease of circle coronary artery without angina pectoris (3) Acute lumbar back pain ICD Codes: M54.5 - Low back pain Status: Acute (4) Intractable back pain ICD Codes: M54.9 - Dorsalgia, unspecified Status: Acute (5) Unable to ambulate ICD Codes: R26.2 - Difficulty in walking, not elsewhere classified Status: Acute Assessment and Plan 1) Intermediate cardiovascular risk for neurosurgery, may proceed without further testing No ACS/CHF/electrical instability Recent stress test negative for ischemia 2) Plan 2D echo for further information for anesthesia 3) Brilinta on hold, restarted on ASA Restart Brilinta as soon as safely possible post-procedure Problem Qualifiers (1) Acute lumbar back pain: Qualified Codes: M54.42 - Lumbago with sciatica, left side Suman Canales DO Mar 29, 2017 14:39
[2017-03-29] MEDS: TEMAZEPAM 15 MG CAP PO PRN (21:19)
[2017-03-30] VITALS (11 sets, daily range): BP systolic 101–173; BP diastolic 74–110; PULSE 53–63; RESP 17–18; TEMP 97–98.6; O2SAT 94–96
[2017-03-30] MEDS: oxyCODONE/ACETAMINOPHEN 10 MG/325 MG TAB PO PRN ×5 (00:29→16:27)
[2017-03-30] MEDS: OXYBUTYNIN CHLORIDE 5 MG TAB PO SCH ×3 (04:36→21:24)
[2017-03-30] MEDS: ARIPiprazole 15 MG TAB PO SCH (08:25)
[2017-03-30] MEDS: METOPROLOL TARTRATE 25 MG TAB PO SCH ×2 (08:26→21:24)
[2017-03-30] MEDS: GABAPENTIN 300 MG CAP PO SCH ×3 (08:26→16:27)
[2017-03-30] MEDS: busPIRone HCL 5 MG TAB PO SCH ×3 (08:26→16:27)
[2017-03-30] MEDS: cloNIDine HCL 0.1 MG TAB PO PRN (08:26)
[2017-03-30] MEDS: PANTOPRAZOLE SOD 40 MG DELAYED RELEASE TAB PO SCH (08:26)
[2017-03-30] MEDS: FLUoxetine HCL 20 MG CAP PO SCH ×2 (08:26→21:24)
[2017-03-30] MEDS: ASPIRIN EC 81 MG TABEC PO SCH (08:26)
[2017-03-30] MEDS: TICAGRELOR 60 MG TAB PO SCH ×2 (08:26→21:24)
[2017-03-30] MEDS: DOCUSATE SODIUM 50 MG/SENNA 8.6 MG TAB PO SCH ×2 (08:26→21:24)
[2017-03-30] MEDS: MORPHINE SULFATE 15 MG CONTROLLED RELEASE TAB PO SCH ×2 (08:27→21:24)
[2017-03-30] MEDS: SODIUM CHLORIDE 0.9% FLUSH 10 ML FLUSH IV FLUSH SCH ×2 (08:32→21:28)
--- NOTE | 2017-03-30 12:26 | HHI.NSPN ---
(Meghan Johnson) Note Status Status: Progress Note (Meghan Johnson) Interval History Interval History Mr. Panda is a 61-year-old male who presented to [facility] emergency department with complaints of intractable low back pain. Mr. Panda has had a previous cervical and lumbar fusion L4-S1 many years ago and had done very well with improvement of his prior pain and symptoms. Unfortunately he developed recurrent progressive lumbar pain. He denies any associates trauma or falls. He reports he has been managing his pain with narcotic pain medications. His pain is located in the upper to mid lumbar region with pain radiating to the lateral hips and down the anterior thigh, knee, medial fuller to the great toe. He reports generalized weakness in his legs. He denies bowel or bladder incontinence, fevers or chills. 03/28: persistent lumbar pain and radicular pain in his legs. MRI completed. RT reports with wheezing, cough, and sputum production. 03/29: patient was seen this am during rounds - no change in his pain and symptoms. reports cough is better today. seen by cardiology last night for preoperative clearance due to hx of cardiac disease. 03/30: Dr. Middleton again discussed regarding continuing conservative mgt, vs surgical decompression. patient continues to express the severity his pain greatly affects his quality of life and would like to proceed with surgery tomorrow. (Meghan Johnson) Labs, Micro, & Vital Signs Results Date Time Temp Pulse Resp B/P (MAP) Pulse Ox O2 Delivery O2 Flow Rate FiO2 03/30/17 11:46 98.6 56 18 128/105 (113) 94 03/30/17 08:00 97.3 63 18 173/110 (131) 96 03/30/17 07:10 55 03/30/17 04:05 97.0 58 17 141/77 (98) 94 03/30/17 00:10 58 03/30/17 00:05 97.6 61 17 122/82 (95) 95 03/29/17 20:05 97.2 56 17 137/86 (103) 95 03/29/17 20:00 60 03/29/17 19:59 94 21 03/29/17 17:41 20 03/29/17 16:00 98.0 88 18 128/69 (88) 100 Constitutional Vital Signs Date Time Temp Pulse Resp B/P (MAP) Pulse Ox O2 Delivery O2 Flow Rate FiO2 03/30/17 11:46 98.6 56 18 128/105 (113) 94 03/30/17 08:00 97.3 63 18 173/110 (131) 96 03/30/17 07:10 55 03/30/17 04:05 97.0 58 17 141/77 (98) 94 03/30/17 00:10 58 03/30/17 00:05 97.6 61 17 122/82 (95) 95 03/29/17 20:05 97.2 56 17 137/86 (103) 95 03/29/17 20:00 60 03/29/17 19:59 94 21 03/29/17 17:41 20 03/29/17 16:00 98.0 88 18 128/69 (88) 100 (Meghan Johnson) Review of Systems Constitutional: DENIES: Fever, Chills Respiratory: COMPLAINS OF: Cough (better), DENIES: Hemoptysis, Shortness of breath Cardiovascular: DENIES: Chest pain, Syncope Musculoskeletal: COMPLAINS OF: Stiffness, Back pain Neurologic: COMPLAINS OF: Paresthesias, DENIES: Headache (Meghan Johnson) Physical Exam Mr. Panda is alert, awake and oriented to time, place and person. Speech is fluent. He is laying still in bed appears comfortable in no acute distress. Cranial nerve examination: pupils to be equal, round, and reactive to light. Extra-ocular movements are intact. Facial motor are normal and symmetrical. Gross hearing is intact, bilaterally. Other cranial nerves are intact. Neck is soft and supple. Muscle testing reveals normal bulk and tone. Muscle strength is 5/5 in all muscle groups of both upper extremities. In the lower extremities, strength is 4-5/5 bilateral iliopsoas, 4/5 quadriceps, 4-5 hamstrings, 55 tibialis anterior and EHL b/l No extremity edema Sensory examination is decreased L4 dermatome Deep tendon reflexes: In the lower extremities, the patellar are absent, and Achilles are 1+, bilaterally. There is a bilateral plantar flexion response. There is no clonus Lungs: CTA b/l Heart: NSR (Meghan Johnson) Mr. Panda is alert, awake and oriented to time, place and person. Speech is fluent. He is laying still in bed appears comfortable in no acute distress. Cranial nerve examination: pupils to be equal, round, and reactive to light. Extra-ocular movements are intact. Facial motor are normal and symmetrical. Gross hearing is intact, bilaterally. Other cranial nerves are intact. Neck is soft and supple. Muscle testing reveals normal bulk and tone. Muscle strength is 5/5 in all muscle groups of both upper extremities. In the lower extremities, strength is 4-5/5 bilateral iliopsoas, 4/5 quadriceps, 4-5 hamstrings, 55 tibialis anterior and EHL b/l No extremity edema Sensory examination is decreased L4 dermatome Deep tendon reflexes: In the lower extremities, the patellar are absent, and Achilles are 1+, bilaterally. There is a bilateral plantar flexion response. There is no clonus Lungs: CTA b/l Heart: NSR (Etienne Middleton MD) Medications Current Medications Current Medications Medications (Trade) Dose Ordered Sig/Melony Route PRN Reason Start Time Stop Time Status Last Admin Dose Admin Sodium Chloride (NS Flush) 2 ml UNSCH PRN IV FLUSH FLUSH AFTER USING IV ACCESS 03/27/17 16:45 Sodium Chloride (NS Flush) 2 ml BID IV FLUSH 03/27/17 21:00 03/30/17 08:32 Senna/Docusate Sodium (Iqra-Colace) 1 tab BID PO 03/27/17 21:00 03/30/17 08:26 Acetaminophen (Tylenol) 650 mg Q4H PRN PO TEMP > 100.4 03/27/17 18:00 Ondansetron HCl (Zofran Inj) 4 mg Q6H PRN IVP NAUSEA OR VOMITING 03/27/17 18:00 Naloxone HCl (Narcan Inj) 0.4 mg UNSCH PRN IV PUSH SEE LABEL COMMENTS 03/27/17 18:00 Lactulose (Lactulose Liq) 30 ml DAILY PRN PO SEVERE CONSITIPATION 03/27/17 18:00 03/30/17 08:27 Aripiprazole (Abilify) 15 mg DAILY PO 03/28/17 09:00 03/30/17 08:25 Buspirone HCl (Buspar) 15 mg TID PO 03/27/17 18:00 03/30/17 11:46 Fluoxetine HCl (PROzac) 40 mg BID PO 03/27/17 21:00 03/30/17 08:26 Gabapentin (Neurontin) 600 mg TID PO 03/27/17 18:00 03/30/17 11:46 Albuterol Sulfate (Albuterol Neb) 1.25 mg Q4HR NEB PRN NEB Dyspnea, Cough, Wheezing 03/27/17 18:30 Morphine Sulfate (Oramorph Sr) 15 mg Q12HR PO 03/28/17 21:00 03/30/17 08:27 Oxycodone/ Acetaminophen (Percocet 5-325 Mg) 1 tab Q4H PRN PO Pain 3 to 6 03/28/17 11:00 Oxycodone/ Acetaminophen (Percocet 10-325 Mg) 1 tab Q4H PRN PO Pain 7 to 10 03/28/17 11:00 03/30/17 12:14 Morphine Sulfate (Morphine Inj) 2 mg Q4H PRN IV PUSH Breakthrough Pain 03/28/17 11:00 03/28/17 17:01 Benzonatate (Tessalon) 100 mg TID PRN PO COUGH 03/28/17 14:00 Metoprolol Tartrate (Lopressor) 25 mg BID PO 03/28/17 21:00 03/30/17 08:26 Oxybutynin Chloride (Ditropan) 5 mg Q8HR PO 03/28/17 14:00 03/30/17 12:14 Pantoprazole Sodium (Protonix) 40 mg DAILY PO 03/29/17 09:00 03/30/17 08:26 Temazepam (Restoril) 30 mg HS PRN PO INSOMNIA 03/28/17 14:00 03/29/17 21:19 Ticagrelor (Brilinta) 60 mg BID PO 03/28/17 21:00 03/30/17 08:26 Clonidine (Catapres) 0.1 mg Q6H PRN PO SBP>160, DBP>90 03/28/17 14:00 03/30/17 08:26 Enalaprilat (Vasotec Inj) 1.25 mg Q6H PRN IV PUSH SBP>160, DBP>90 03/28/17 14:00 Aspirin (Ecotrin Ec) 81 mg DAILY PO 03/29/17 09:30 03/30/17 08:26 Vancomycin HCl 1000 mg/Sodium Chloride 250 ml @ 250 mls/hr ONCE ONCE IV 03/31/17 06:00 03/31/17 06:59 UNV Chlorhexidine Gluconate (Hibiclens 4% Top Soln) 1 applic HS TOP 03/30/17 21:00 04/01/17 21:01 UNV (Meghan Johnson) Current Medications Current Medications Ondansetron HCl (Zofran Inj) 4 mg ONCE ONCE IVP Last administered on at 15:05; Start 03/27/17 at 15:00; Stop 03/27/17 at 15:01; Status DC Sodium Chloride 1,000 ml @ 1,000 mls/hr Q1H IV Last administered on 03/27/17at 15:05; Start 03/27/17 at 14:46; Stop 03/27/17 at 15:45; Status DC Sodium Chloride (NS Flush) 2 ml UNSCH PRN IV FLUSH FLUSH AFTER USING IV ACCESS Last administered on 03/27/17at 15:06; Start 03/27/17 at 15:00; Stop 03/27/17 at 17:38; Status DC Morphine Sulfate (Morphine Inj) 2 mg ONCE ONCE IV PUSH Last administered on at 15:05; Start 03/27/17 at 15:00; Stop 03/27/17 at 15:01; Status DC Sodium Chloride (NS Flush) 2 ml UNSCH PRN IV FLUSH FLUSH AFTER USING IV ACCESS ; Start 03/27/17 at 16:45 Sodium Chloride (NS Flush) 2 ml BID IV FLUSH Last administered on 04/03/17at 09: 39; Start 03/27/17 at 21:00 Naloxone HCl (Narcan Inj) 0.4 mg UNSCH PRN IV PUSH SEE LABEL COMMENTS; Start at 16:45; Stop 03/27/17 at 18:25; Status DC Senna/Docusate Sodium (Iqra-Colace) 1 tab BID PO Last administered on at 09:39; Start 03/27/17 at 21:00 Morphine Sulfate (Morphine Inj) 2 mg Q3H PRN IV PUSH pain >5 Last administered on 03/28/17at 10:37; Start 03/27/17 at 16:45; Stop 03/28/17 at 10:49; Status DC Gadodiamide (Omniscan Pf Inj) 14 ml STK-MED ONCE IVCONTRAST Last administered on 03/27/17at 16:52; Start 03/27/17 at 16:52; Stop 03/27/17 at 17:50; Status DC Acetaminophen (Tylenol) 650 mg Q4H PRN PO TEMP > 100.4; Start 03/27/17 at 18:00 ; Stop 03/31/17 at 09:51; Status DC Ondansetron HCl (Zofran Inj) 4 mg Q6H PRN IVP NAUSEA OR VOMITING Last administered on 03/30/17at 22:07; Start 03/27/17 at 18:00; Stop 03/31/17 at 17:55 ; Status DC Naloxone HCl (Narcan Inj) 0.4 mg UNSCH PRN IV PUSH SEE LABEL COMMENTS; Start at 18:00; Stop 03/31/17 at 17:55; Status DC Lactulose (Lactulose Liq) 30 ml DAILY PRN PO SEVERE CONSITIPATION Last administered on 03/30/17at 08:27; Start 03/27/17 at 18:00 Aripiprazole (Abilify) 15 mg DAILY PO Last administered on 04/03/17at 09:38; Start 03/28/17 at 09:00 Buspirone HCl (Buspar) 15 mg TID PO Last administered on 04/03/17at 09:37; Start 03/27/17 at 18:00 Fluoxetine HCl (PROzac) 40 mg BID PO Last administered on 04/03/17at 09:37; Start 03/27/17 at 21:00 Gabapentin (Neurontin) 600 mg TID PO Last administered on 04/03/17at 09:38; Start 03/27/17 at 18:00 Albuterol/ Ipratropium (Duoneb Neb) 1 ampule Q6HR WHILE AWAKE NEB NEB Last administered on 03/29/17at 12:39; Start 03/27/17 at 20:00; Stop 03/29/17 at 19:59 ; Status DC Albuterol Sulfate (Albuterol Neb) 1.25 mg Q4HR NEB PRN NEB Dyspnea, Cough, Wheezing Last administered on 03/30/17at 12:19; Start 03/27/17 at 18:30 Temazepam (Restoril) 30 mg ONCE ONCE PO Last administered on 03/28/17at 00:18; Start 03/28/17 at 00:15; Stop 03/28/17 at 00:16; Status DC Morphine Sulfate (Oramorph Sr) 15 mg ONCE ONCE PO Last administered on at 11:05; Start 03/28/17 at 11:00; Stop 03/28/17 at 11:01; Status DC Morphine Sulfate (Oramorph Sr) 15 mg Q12HR PO Last administered on 04/03/17at 09 :38; Start 03/28/17 at 21:00 Oxycodone/ Acetaminophen (Percocet 5-325 Mg) 1 tab Q4H PRN PO Pain 3 to 6; Start 03/28/17 at 11:00 Oxycodone/ Acetaminophen (Percocet 10-325 Mg) 1 tab Q4H PRN PO Pain 7 to 10 Last administered on 04/03/17at 07:45; Start 03/28/17 at 11:00 Morphine Sulfate (Morphine Inj) 2 mg Q4H PRN IV PUSH Breakthrough Pain Last administered on 03/28/17at 17:01; Start 03/28/17 at 11:00; Stop 03/31/17 at 09:52 ; Status DC Aspirin (Ecotrin Ec) 81 mg DAILY PO ; Start 03/29/17 at 09:00; Stop 03/29/17 at 09:00; Status DC Benzonatate (Tessalon) 100 mg TID PRN PO COUGH; Start 03/28/17 at 14:00 Clopidogrel Bisulfate (Plavix) 75 mg DAILY PO ; Start 03/29/17 at 09:00; Stop at 09:00; Status DC Acetaminophen/ Hydrocodone Bitart ([place] 10-325 Mg) 1 tab Q4H PRN PO PAIN; Start 03/28/17 at 14:00; Status Cancel Metoprolol Tartrate (Lopressor) 25 mg BID PO Last administered on 04/03/17at 09: 38; Start 03/28/17 at 21:00 Oxybutynin Chloride (Ditropan) 5 mg Q8HR PO Last administered on 04/03/17at 05: 58; Start 03/28/17 at 14:00 Pantoprazole Sodium (Protonix) 40 mg DAILY PO Last administered on 03/30/17at 08 :26; Start 03/29/17 at 09:00; Stop 03/31/17 at 16:28; Status DC Temazepam (Restoril) 30 mg HS PRN PO INSOMNIA Last administered on 03/30/17at 21 :27; Start 03/28/17 at 14:00 Ticagrelor (Brilinta) 60 mg BID PO Last administered on 03/30/17at 21:24; Start 03/28/17 at 21:00; Stop 03/31/17 at 09:48; Status DC Clonidine (Catapres) 0.1 mg Q6H PRN PO SBP>160, DBP>90 Last administered on at 08:26; Start 03/28/17 at 14:00 Enalaprilat (Vasotec Inj) 1.25 mg Q6H PRN IV PUSH SBP>160, DBP>90; Start at 14:00 Aspirin (Ecotrin Ec) 81 mg DAILY PO Last administered on 04/03/17at 09:39; Start 03/29/17 at 09:30 Vancomycin HCl 1000 mg/Sodium Chloride 250 ml @ 250 mls/hr [employer] IV ; Start 03/31/17 at 06:00; Stop 03/31/17 at 17:56; Status DC Chlorhexidine Gluconate (Hibiclens 4% Top Soln) 1 applic HS TOP Last administered on 03/30/17at 21:25; Start 03/30/17 at 21:00; Stop 04/01/17 at 21:01 ; Status DC Lactated Ringer's 1,000 ml @ 30 mls/hr Q24H PRN IV SEE LABEL COMMENTS; Start at 01:15; Stop 03/31/17 at 09:50; Status DC Povidone Iodine (Betadine 5% Antisepsis Kit) 1 applic [employer] PRN EACH NARE SEE LABEL COMMENTS; Start 03/31/17 at 01:15; Stop 03/31/17 at 17:55; Status DC Chlorhexidine Gluconate (Chlorhexidine 2% Cloth) 3 pack [employer] PRN TOPICAL SEE LABEL COMMENTS; Start 03/31/17 at 01:15; Stop 03/31/17 at 17:55; Status DC Acetaminophen 100 ml @ As Directed STK-MED ONCE IV ; Start 03/31/17 at 07:01; Stop 03/31/17 at 07:02; Status DC Artificial Tears (Lacrilube Opht Oint) 3.5 applic STK-MED ONCE .ROUTE ; Start at 07:01; Stop 03/31/17 at 07:02; Status DC Propofol 100 ml @ As Directed STK-MED ONCE .ROUTE ; Start 03/31/17 at 07:01; Stop 03/31/17 at 07:02; Status DC Vancomycin HCl (Vancomycin Inj) 1,000 mg STK-MED ONCE .ROUTE Last administered on 03/31/17at 11:15; Start 03/31/17 at 07:32; Stop 03/31/17 at 07:33; Status DC Bupivacaine HCl/ Epinephrine Bitart (Sensorcaine-Epi 0.5% 50 ml Inj) 50 ml STK- MED ONCE .ROUTE Last administered on 03/31/17at 14:40; Start 03/31/17 at 07:32; Stop 03/31/17 at 07:33; Status DC Thrombin (Thrombin Top Soln) 10,000 units STK-MED ONCE .ROUTE Last administered on 03/31/17at 11:15; Start 03/31/17 at 07:33; Stop 03/31/17 at 07:34 ; Status DC Cefazolin Sodium/ Dextrose 50 ml @ As Directed STK-MED ONCE .ROUTE Last administered on 03/31/17at 10:27; Start 03/31/17 at 07:33; Stop 03/31/17 at 07:34 ; Status DC Gelatin (Gelfoam 100 Top) 1 foam STK-MED ONCE .ROUTE Last administered on at 11:15; Start 03/31/17 at 07:33; Stop 03/31/17 at 07:34; Status DC Gentamicin Sulfate (Gentamicin Inj) 240 mg STK-MED ONCE .ROUTE Last administered on 03/31/17at 11:15; Start 03/31/17 at 07:33; Stop 03/31/17 at 07:34 ; Status DC Heparin Sodium (Porcine) (Heparin Inj) 30,000 units STK-MED ONCE .ROUTE ; Start 03/31/17 at 08:43; Stop 03/31/17 at 08:44; Status DC Flumazenil (Romazicon Inj) 1 mg STK-MED ONCE .ROUTE ; Start 03/31/17 at 08:55; Stop 03/31/17 at 08:56; Status DC Potassium Chloride/Sodium Chloride 1,000 ml @ 100 mls/hr Q10H IV Last administered on 03/31/17at 17:50; Start 03/31/17 at 09:45; Stop 03/31/17 at 17:56 ; Status DC Cefazolin Sodium/ Dextrose 50 ml @ 100 mls/hr Q8H IV Last administered on 04/01at 07:00; Start 03/31/17 at 15:00; Stop 04/01/17 at 07:29; Status DC Pantoprazole Sodium (Protonix Inj) 40 mg DAILY PRN IVP SEE LABEL COMMENTS; Start 04/01/17 at 09:00 Morphine Sulfate (Morphine Inj) 2 mg Q2H PRN IV PUSH PAIN SCALE 1 TO 6; Start 03/31/17 at 09:45 Morphine Sulfate (Morphine Inj) 4 mg Q2H PRN IV PUSH PAIN SCALE 7 TO 10; Start 03/31/17 at 09:45 Acetaminophen (Tylenol) 650 mg Q4H PRN PO TEMPERATURE > 101.5 F; Start at 09:45; Stop 03/31/17 at 17:55; Status DC Vancomycin HCl (Vancomycin Inj) 1,000 mg STK-MED ONCE .ROUTE Last administered on 03/31/17at 10:31; Start 03/31/17 at 10:30; Stop 03/31/17 at 10:31; Status DC Sodium Chloride 250 ml @ As Directed STK-MED ONCE .ROUTE Last administered on 03/31/17at 10:31; Start 03/31/17 at 10:30; Stop 03/31/17 at 10:31; Status DC Hydromorphone HCl (Dilaudid Pf Inj) 2 mg STK-MED ONCE .ROUTE ; Start 03/31/17 at 13:23; Stop 03/31/17 at 13:24; Status DC Fentanyl Citrate (fentaNYL INJ) 200 mcg STK-MED ONCE .ROUTE ; Start 03/31/17 at 13:23; Stop 03/31/17 at 13:24; Status DC Albuterol Sulfate (Albuterol Concentrated Neb) 2.5 mg STK-MED ONCE .ROUTE ; Start 03/31/17 at 13:23; Stop 03/31/17 at 13:24; Status DC Thrombin (Thrombin Top Soln) 10,000 units STK-MED ONCE .ROUTE Last administered on 03/31/17at 14:10; Start 03/31/17 at 14:03; Stop 03/31/17 at 14:04 ; Status DC Gelatin (Gelfoam Powder Pack) 1 gm STK-MED ONCE .ROUTE Last administered on at 14:10; Start 03/31/17 at 14:03; Stop 03/31/17 at 14:04; Status DC Albuterol Sulfate (*ALBUTEROL NEB PERIprocedure ONLY) 2.5 mg STK-MED ONCE NEB ; Start 03/31/17 at 14:20; Stop 03/31/17 at 14:21; Status DC Thrombin (Thrombin Top Soln) 10,000 units STK-MED ONCE .ROUTE Last administered on 03/31/17at 14:30; Start 03/31/17 at 14:21; Stop 03/31/17 at 14:22 ; Status DC Gelatin (Gelfoam 100 Top) 1 foam STK-MED ONCE .ROUTE Last administered on at 14:30; Start 03/31/17 at 14:21; Stop 03/31/17 at 14:22; Status DC Sodium Chloride 1,000 ml @ 100 mls/hr Q10H IV Last administered on 04/02/17at 05:34; Start 03/31/17 at 15:08; Stop 04/02/17 at 09:10; Status DC Cefazolin Sodium/ Dextrose 50 ml @ 100 mls/hr Q8H IV ; Start 03/31/17 at 16:00 ; Stop 04/01/17 at 08:29; Status Cancel Bisacodyl (Dulcolax Supp) 10 mg DAILY PRN RECTAL SEVERE CONSTIPATION; Start at 15:15 Docusate Sodium (Colace) 100 mg BID PO Last administered on 04/03/17at 09:38; Start 03/31/17 at 21:00 Magnesium Hydroxide (Milk Of Magnesia Liq) 30 ml DAILY PRN PO CONSTIPATION; Start 03/31/17 at 15:15 Pantoprazole Sodium (Protonix) 40 mg DAILY PO Last administered on 04/03/17at 09 :38; Start 04/01/17 at 09:00 Ondansetron HCl (Zofran Inj) 4 mg Q6H PRN IV PUSH NAUSEA OR VOMITING Last administered on 04/03/17at 01:18; Start 03/31/17 at 15:15 Cyclobenzaprine HCl (Flexeril) 10 mg Q8H PRN PO MUSCLE SPASM Last administered on 04/03/17at 07:45; Start 03/31/17 at 15:15 Acetaminophen (Tylenol) 650 mg Q4H PRN PO TEMPERATURE > 101.5 F; Start at 15:15 Menthol ([place]) 1 lozenge UNSCH PRN BUCCAL SORE THROAT; Start 03/31/17 at 15:15 Albuterol Sulfate (Albuterol Neb) 2.5 mg Q4HR NEB PRN INH WHEEZING; Start 03/31 at 15:15 Naloxone HCl (Narcan Inj) 0.4 mg UNSCH PRN IV PUSH RESPIRATORY RATE LESS THAN 10; Start 03/31/17 at 15:15 Diphenhydramine HCl (Benadryl Inj) 25 mg Q6H PRN IV PUSH ITCHING; Start at 15:15 Hydromorphone HCl (Dilaudid ELECTRICAL ESTIMATOR Inj) 6 mg UNSCH IV Last administered on at 20:44; Start 03/31/17 at 15:15; Stop 04/02/17 at 09:10; Status DC ELECTRICAL ESTIMATOR Dosage Infused (Pha) 1 Q8HR .XX Last administered on 04/02/17at 05:46; Start 03/31/17 at 15:15; Stop 04/02/17 at 09:10; Status DC Fentanyl Citrate (fentaNYL INJ) 400 mcg STK-MED ONCE .ROUTE ; Start 03/31/17 at 17:21; Stop 03/31/17 at 17:22; Status DC Midazolam HCl (Versed Inj) 2 mg STK-MED ONCE .ROUTE ; Start 03/31/17 at 17:21; Stop 03/31/17 at 17:22; Status DC Miscellaneous Information ALL NURSING DEPARTME... UNSCH PRN .XX SEE LABEL COMMENTS; Start 03/31/17 at 18:00; Stop 04/01/17 at 17:59; Status DC Sodium Chloride 250 ml @ 15 mls/hr ONCE ONCE IV Last administered on at 10:00; Start 04/02/17 at 08:45; Stop 04/03/17 at 01:24; Status DC (Etienne Middleton MD) Medical Decision Making MDM Remarks 61 year old male developed adjacent level degeneration at L3-4 with severe canal stenosis, with intractable lumbar and radicular pain surgically cleared from cardiac standpoint with moderate risk (Meghan Johnson) Plan Plan Remarks cont aspirin 81 daily will obtain CXR and Echocardiogram preop cont SCDs and TEDs for dvt prophylaxis cont PT, mobilize OOB with assistance surgery tomorrow for L3-4 laminectomy with interbody arthrodesis consents in chart NPO tonight (Meghan Johnson) Attending Statement Possible surgery tyomorrow with L3-4 and possible L2-3 TLIF. I again explained to him that he is at increased surgical risk. I again We have discussed the details including the [id number] details of the surgical procedure, its indications, alternatives, risks, and potential complications. Risks and potential complications include, but are not limited to, infection, blood loss, CSF leak, partial or complete loss of sight in one or both eyes, paresis, paralysis, permanent pain or difficulty swallowing, loss of bowel or bladder function, complications from anesthesia, blood clot, stroke, myocardial infarction, or even . The exam, history, and the medical decision-making described in the above note were completed with the assistance of the mid-level provider. I reviewed and agree with the findings presented. I attest that I had a [id number] encounter with the patient on the same day, and personally performed and documented my assessment and findings in the medical record. (Etienne Middleton MD) Meghan Johnson Mar 30, 2017 12:26 Etienne Middleton MD Apr 03, 2017 10:34
[2017-03-30] MEDS: ONDANSETRON HCL 4 MG/2 ML VIAL IVP PRN ×2 (14:36→22:07)
--- NOTE | 2017-03-30 15:43 | HHI.PR ---
Subjective Remarks No new complaints. Pain control. Plan for surgery on 03/31/17. Objective Vital Signs Date Time Temp Pulse Resp B/P (MAP) Pulse Ox O2 Delivery O2 Flow Rate FiO2 03/30/17 12:20 94 03/30/17 11:46 98.6 56 18 128/105 (113) 94 03/30/17 08:00 97.3 63 18 173/110 (131) 96 03/30/17 07:10 55 03/30/17 04:05 97.0 58 17 141/77 (98) 94 03/30/17 00:10 58 03/30/17 00:05 97.6 61 17 122/82 (95) 95 03/29/17 20:05 97.2 56 17 137/86 (103) 95 03/29/17 20:00 60 03/29/17 19:59 94 21 03/29/17 17:41 20 03/29/17 16:00 98.0 88 18 128/69 (88) 100 I/O 03/29/17 03/29/17 03/29/17 03/30/17 03/30/17 03/30/17 07:00 15:00 23:00 07:00 15:00 23:00 Intake Total 360 ml 960 ml 360 ml Balance 360 ml 960 ml 360 ml Intake Oral 360 ml 960 ml 360 ml # Voids 2 5 3 # Bowel Movements 0 0 0 Result Diagram: 03/29/17 0804 03/29/17 0804 Objective Remarks GENERAL: NAD, A&Ox3 HEAD: Normocephalic. NECK: Supple, trachea midline. No lymphadenopathy. EYES: No scleral icterus. No injection or drainage. CARDIOVASCULAR: Regular rate and rhythm without murmurs, gallops, or rubs. RESPIRATORY: Breath sounds equal bilaterally. No accessory muscle use. GASTROINTESTINAL: Abdomen soft, non-tender, nondistended. MUSCULOSKELETAL: No cyanosis, or edema. Mild tenderness at L3/L4 level over spine with a short radiculopathic longterm of persistent pain at L5-S1 level lateral to spine SKIN: Warm and dry. NEURO: No focal neurological deficitis. A/P Problem List: (1) Unable to ambulate ICD Code: R26.2 - Difficulty in walking, not elsewhere classified Status: Acute (2) Acute lumbar back pain ICD Code: M54.5 - Low back pain Status: Acute (3) Intractable back pain ICD Code: M54.9 - Dorsalgia, unspecified Status: Acute Assessment and Plan 61-year-old male with past medical history significant for degenerative disc disease of the cervical and lumbar spine who was undergone previous cervical and lumbar fusions who presents to [facility] ED with complaints of severe low back pain for the past 2 days. Medically clear for surgery. Plan for surgery on 03/31/17. Labs ordered for a.m. reviewed including CBC, CMP, PT and PTT. Degenerative disc disease of lumbar spine Subacute, status post previous lumbar fusion surgery (L5/S1) Intractable low back and left leg lumbar radiculopathy Severe Spinal Stenosis L3/L4 Continue pain treatments Neurosurgery consulted Bedrest for now Continue gabapentin CAD s/p OK and cardiac stents Plavix on hold Follow clinically for chest pain or symptoms Hypertension IV Vasotec as needed Hydralazine as needed Follow blood pressures Continue lisinopril COPD No exacerbation today Schedule duo nebs Oxygen as needed Follow respiratory status Depression Anxiety Continue baseline treatments Monitor clinically DVT prophylaxis SCDs Problem Qualifiers (1) Acute lumbar back pain: Qualified Codes: M54.42 - Lumbago with sciatica, left side Jimmy Tam MD Mar 30, 2017 15:43
--- NOTE | 2017-03-30 18:15 | ECHRPT ---
Indication: Other specified pulmonary heart diseases CONCLUSIONS The left ventricular systolic function is normal with an estimated ejection fraction in the range of 55-60%. Normal left ventricular size. Wall thickness is normal. There is moderate tricuspid regurgitation. The estimated pulmonary arterial pressure is 39.7 mmHg. BP: 156 / 91 HR: 50 Rhythm: Sinus MEASUREMENTS (Male / Female) Normal Values Technical Quality:Good 2D ECHO LV Diastolic Diameter PLAX 4.9 cm 4.2 - 5.9 / 3.9 - 5.3 cm LV Systolic Diameter PLAX 3.7 cm IVS Diastolic Thickness 1.0 cm 0.6 - 1.0 / 0.6 - 0.9 cm LVPW Diastolic Thickness 1.0 cm 0.6 - 1.0 / 0.6 - 0.9 cm LV Relative Wall Thickness 0.4 LVOT Diameter 2.2 cm M-MODE Aortic Root Diameter MM 3.2 cm LA Systolic Diameter MM 2.2 cm LA Ao Ratio MM 0.7 AV Cusp Separation MM 1.9 cm DOPPLER AV Peak Velocity 137.0 cm/s AV Peak Gradient 7.5 mmHg LVOT Peak Velocity 133.0 cm/s LVOT Peak Gradient 7.1 mmHg AV Area Cont Eq pk 3.7 cm Mitral E Point Velocity 87.4 cm/s Mitral A Point Velocity 68.6 cm/s Mitral E to A Ratio 1.3 LV E' Lateral Velocity 8.1 cm/s Mitral E to LV E' Lateral Ratio 10.8 LV E' Septal Velocity 6.2 cm/s Mitral E to LV E' Septal Ratio 14.0 TR Peak Velocity 272.5 cm/s TR Peak Gradient 29.7 mmHg Right Atrial Pressure 10.0 mmHg Pulmonary Artery Systolic Pressu 39.7 mmHg Right Ventricular Systolic Press 39.7 mmHg PV Peak Velocity 132.0 cm/s PV Peak Gradient 7.0 mmHg FINDINGS LEFT VENTRICLE The left ventricular systolic function is normal with an estimated ejection fraction in the range of 55-60%. Normal left ventricular size. Wall thickness is normal. RIGHT VENTRICLE Normal right ventricular size and systolic function. LEFT ATRIUM The left atrial size is normal. RIGHT ATRIUM The right atrial size is normal. ATRIAL SEPTUM Normal atrial septal thickness without atrial level shunting by limited color doppler interrogation. AORTA The aortic root and proximal ascending aorta are normal in size on limited imaging. MITRAL VALVE Structurally normal mitral valve. No mitral valve stenosis or regurgitation. AORTIC VALVE Trileaflet aortic valve. No aortic valve stenosis or regurgitation. TRICUSPID VALVE There is moderate tricuspid regurgitation. The estimated pulmonary arterial pressure is 39.7 mmHg. PULMONARY VALVE No pulmonary valve regurgitation or stenosis. VESSELS The inferior vena cava is normal in size. PERICARDIUM No pericardial effusion. Adam Morillo MD (Electronically Signed) Final Date:30 March 2017 18:15
[2017-03-30] MEDS: CHLORHEXIDINE GLUCONATE 4% SOLN 120 ML BTL TOP SCH (21:25)
[2017-03-30] MEDS: TEMAZEPAM 15 MG CAP PO PRN (21:27)
--- NOTE | 2017-03-30 21:35 | PD.CARD.PN ---
Subjective Subjective Remarks Patient was seen earlier today, late entry No events overnight No chest pain/SOB Objective Medications Current Medications Medications (Trade) Dose Ordered Sig/Melony Route Start Time Stop Time Status Last Admin (NS Flush) 2 ml UNSCH PRN IV FLUSH 03/27/17 16:45 (NS Flush) 2 ml BID IV FLUSH 03/27/17 21:00 03/30/17 21:28 (Iqra-Colace) 1 tab BID PO 03/27/17 21:00 03/30/17 21:24 (Tylenol) 650 mg Q4H PRN PO 03/27/17 18:00 (Zofran Inj) 4 mg Q6H PRN IVP 03/27/17 18:00 03/30/17 14:36 (Narcan Inj) 0.4 mg UNSCH PRN IV PUSH 03/27/17 18:00 (Lactulose Liq) 30 ml DAILY PRN PO 03/27/17 18:00 03/30/17 08:27 (Abilify) 15 mg DAILY PO 03/28/17 09:00 03/30/17 08:25 (Buspar) 15 mg TID PO 03/27/17 18:00 03/30/17 16:27 (PROzac) 40 mg BID PO 03/27/17 21:00 03/30/17 21:24 (Neurontin) 600 mg TID PO 03/27/17 18:00 03/30/17 16:27 (Albuterol Neb) 1.25 mg Q4HR NEB PRN NEB 03/27/17 18:30 03/30/17 12:19 (Oramorph Sr) 15 mg Q12HR PO 03/28/17 21:00 03/30/17 21:24 (Percocet 5-325 Mg) 1 tab Q4H PRN PO 03/28/17 11:00 (Percocet 10-325 Mg) 1 tab Q4H PRN PO 03/28/17 11:00 03/30/17 16:27 (Morphine Inj) 2 mg Q4H PRN IV PUSH 03/28/17 11:00 03/28/17 17:01 (Tessalon) 100 mg TID PRN PO 03/28/17 14:00 (Lopressor) 25 mg BID PO 03/28/17 21:00 03/30/17 21:24 (Ditropan) 5 mg Q8HR PO 03/28/17 14:00 03/30/17 21:24 (Protonix) 40 mg DAILY PO 03/29/17 09:00 03/30/17 08:26 (Restoril) 30 mg HS PRN PO 03/28/17 14:00 03/30/17 21:27 (Brilinta) 60 mg BID PO 03/28/17 21:00 03/30/17 21:24 (Catapres) 0.1 mg Q6H PRN PO 03/28/17 14:00 03/30/17 08:26 (Vasotec Inj) 1.25 mg Q6H PRN IV PUSH 03/28/17 14:00 (Ecotrin Ec) 81 mg DAILY PO 03/29/17 09:30 03/30/17 08:26 Vancomycin HCl 1000 mg/Sodium Chloride 250 ml @ 250 mls/hr CRIMINAL RESEARCHER IV 03/31/17 06:00 03/31/17 23:59 (Hibiclens 4% Top Soln) 1 applic HS TOP 03/30/17 21:00 04/01/17 21:01 03/30/17 21:25 Vital Signs / I&O Vital Signs Date Time Temp Pulse Resp B/P (MAP) Pulse Ox O2 Delivery O2 Flow Rate FiO2 03/30/17 20:05 97.8 55 17 101/74 (83) 94 03/30/17 17:58 53 03/30/17 16:28 98.6 57 17 121/80 (94) 96 03/30/17 12:20 94 03/30/17 11:46 98.6 56 18 128/105 (113) 94 03/30/17 08:00 97.3 63 18 173/110 (131) 96 03/30/17 07:10 55 03/30/17 04:05 97.0 58 17 141/77 (98) 94 03/30/17 00:10 58 03/30/17 00:05 97.6 61 17 122/82 (95) 95 I/O 03/29/17 03/29/17 03/29/17 03/30/17 03/30/17 03/30/17 07:00 15:00 23:00 07:00 15:00 23:00 Intake Total 360 ml 960 ml 360 ml 480 ml Balance 360 ml 960 ml 360 ml 480 ml Intake Oral 360 ml 960 ml 360 ml 480 ml # Voids 2 5 3 4 # Bowel Movements 0 0 0 1 Physical Exam GENERAL: NAD, AAOx3 SKIN: Warm and dry. HEAD: Atraumatic. Normocephalic. EYES: Pupils equal and round. No scleral icterus. No injection or drainage. ENT: No nasal bleeding or discharge. Mucous membranes pink and moist. NECK: Trachea midline. No JVD. CARDIOVASCULAR: Regular rate and rhythm. RESPIRATORY: No accessory muscle use. Clear to auscultation. Breath sounds equal bilaterally. GASTROINTESTINAL: Abdomen soft, non-tender, nondistended. Hepatic and splenic margins not palpable. MUSCULOSKELETAL: Extremities without clubbing, cyanosis, or edema. No obvious deformities. NEUROLOGICAL: Awake and alert. No obvious cranial nerve deficits. Motor grossly within normal limits. Assessment and Plan Problem List: (1) Pre-operative cardiovascular examination ICD Codes: Z01.810 - Encounter for preprocedural cardiovascular examination (2) CAD (coronary artery disease) ICD Codes: I25.10 - Atherosclerotic heart disease of [place] coronary artery without angina pectoris (3) Acute lumbar back pain ICD Codes: M54.5 - Low back pain Status: Acute (4) Intractable back pain ICD Codes: M54.9 - Dorsalgia, unspecified Status: Acute (5) Unable to ambulate ICD Codes: R26.2 - Difficulty in walking, not elsewhere classified Status: Acute Assessment and Plan 1) Intermediate cardiovascular risk for neurosurgery, may proceed without further testing No ACS/CHF/electrical instability Recent stress test negative for ischemia 2) EF 55-60% 3) Brilinta on hold, restarted on ASA Restart Brilinta as soon as safely possible post-procedure Problem Qualifiers (1) Acute lumbar back pain: Qualified Codes: M54.42 - Lumbago with sciatica, left side Suman Canales DO Mar 30, 2017 21:35
[2017-03-31] VITALS (8 sets, daily range): BP systolic 100–129; BP diastolic 55–86; PULSE 52–71; RESP 16–22; TEMP 97.2–98.1; O2SAT 92–100
[2017-03-31] MEDS ORDERED: POVIDONE IODINE 5% (ANTISEPSIS KIT) 4 APPLICATIONS EACH NARE PRN (01:15)
[2017-03-31] MEDS ORDERED: CHLORHEXIDINE GLUCONATE 2 % 1 PACK (2 CLOTHS) TOPICAL PRN (01:15)
[2017-03-31] MEDS ORDERED: LACTATED RINGER'S 1000 ML IV PRN (01:15)
[2017-03-31] MEDS ORDERED: VANCOMYCIN INJ 1,000 MG in SODIUM CHLOR 0.9% 250 ML INJ 250 ML IV SCH (06:00)
[2017-03-31 06:09] LABS: INTERNATIONAL NORMALIZED RATIO 1.2 RATIO; PROTHROMBIN TIME - PATIENT 11.9 SEC (9.8-11.6)
[2017-03-31 06:13] LABS: AUTOMATED NEUTROPHIL # 7.2 TH/MM3 (1.8-7.7); BASOPHIL # 0.1 TH/MM3 (0-0.2); BASOPHIL % 0.5 % (0.0-2.0); EOSINOPHIL # 0.7 TH/MM3 (0-0.4); EOSINOPHIL % 6.2 % (0.0-4.0); HEMATOCRIT 39.8 % (39.0-51.0); LYMPH % 20.5 % (9.0-44.0); LYMPHOCYTE # 2.4 TH/MM3 (1.0-4.8); MEAN CELL VOLUME 87.6 FL (80.0-100.0); MEAN CORPUSCULAR HEMOGLOBIN 30.8 PG (27.0-34.0); MEAN CORPUSCULAR HGB CONC 35.2 % (32.0-36.0); MEAN PLATELET VOLUME 7.7 FL (7.0-11.0); MONO % 11.5 % (0.0-8.0); MONOCYTE # 1.4 TH/MM3 (0-0.9); NEUT % 61.3 % (16.0-70.0); PLATELET COUNT 304 TH/MM3 (150-450); RED BLOOD COUNT 4.54 MIL/MM3 (4.50-5.90); RED CELL DISTRIBUTION WIDTH 13.4 % (11.6-17.2); WHITE BLOOD COUNT 11.8 TH/MM3 (4.0-11.0)
[2017-03-31 06:30] LABS: ALBUMIN 3.4 GM/DL (3.4-5.0); AST (GOT) 11 U/L (15-37); BICARBONATE 27.3 MEQ/L (21.0-32.0); BLOOD UREA NITROGEN 18 MG/DL (7-18); CALCIUM 8.8 MG/DL (8.5-10.1); CHLORIDE 104 MEQ/L (98-107); CREATININE 1.23 MG/DL (0.60-1.30); GLOMERULAR FILTRATION RATE 60 ML/MIN (>89); GLUCOSE,RANDOM 92 MG/DL (74-106); SODIUM (NA) 137 MEQ/L (136-145)
[2017-03-31 06:34] LABS: ALKALINE PHOSPHATASE 115 U/L (45-117); ALT (GPT) 14 U/L (12-78); TOTAL BILIRUBIN ADULT 0.4 MG/DL (0.2-1.0); TOTAL PROTEIN 7.4 GM/DL (6.4-8.2)
[2017-03-31] MEDS: OXYBUTYNIN CHLORIDE 5 MG TAB PO SCH ×3 (06:38→21:14)
[2017-03-31] MEDS: oxyCODONE/ACETAMINOPHEN 10 MG/325 MG TAB PO PRN (06:39)
[2017-03-31] MEDS ORDERED: ACETAMINOPHEN 1000 MG/100 ML 100 ML IV ONE (07:01)
[2017-03-31] MEDS ORDERED: ARTIFICIAL TEARS OPTH OINT 3.5 APPLIC/3.5 GM TUBO ONE (07:01)
[2017-03-31] MEDS ORDERED: PROPOFOL 500 MG/50 ML INJ 100 ML ONE (07:01)
[2017-03-31] MEDS: ASPIRIN EC 81 MG TABEC PO SCH (07:02)
[2017-03-31] MEDS: FLUoxetine HCL 20 MG CAP PO SCH ×2 (07:03→21:00)
[2017-03-31] MEDS: PANTOPRAZOLE SOD 40 MG DELAYED RELEASE TAB PO SCH (07:03)
[2017-03-31] MEDS: GABAPENTIN 300 MG CAP PO SCH ×3 (07:03→17:50)
[2017-03-31] MEDS: DOCUSATE SODIUM 50 MG/SENNA 8.6 MG TAB PO SCH ×2 (07:03→20:58)
[2017-03-31] MEDS: TICAGRELOR 60 MG TAB PO SCH (07:07)
[2017-03-31] MEDS: busPIRone HCL 5 MG TAB PO SCH ×3 (07:07→17:50)
[2017-03-31] MEDS: ARIPiprazole 15 MG TAB PO SCH (07:07)
[2017-03-31] MEDS ORDERED: BUPIVACAINE/EPINEPHRINE 0.5% 50 ML VIAL ONE (07:32)
[2017-03-31] MEDS ORDERED: VANCOMYCIN HCL 1000 MG VIAL ONE ×2 (07:32→10:30)
[2017-03-31] MEDS ORDERED: THROMBIN (TOPICAL) 5,000 UNIT VIAL ONE ×3 (07:33→14:21)
[2017-03-31] MEDS ORDERED: GENTAMICIN SULFATE 80 MG/2 ML VIAL ONE (07:33)
[2017-03-31] MEDS ORDERED: GELFOAM SIZE 100 ONE ×2 (07:33→14:21)
[2017-03-31] MEDS ORDERED: ceFAZolin 2 GM PREMIX 50 ML ONE (07:33)
[2017-03-31] MEDS: SODIUM CHLORIDE 0.9% FLUSH 10 ML FLUSH IV FLUSH SCH ×2 (07:51→20:57)
[2017-03-31] MEDS: METOPROLOL TARTRATE 25 MG TAB PO SCH ×2 (07:51→20:58)
[2017-03-31] MEDS: MORPHINE SULFATE 15 MG CONTROLLED RELEASE TAB PO SCH ×2 (07:55→20:58)
--- NOTE | 2017-03-31 08:32 | EKG ---
Date Performed: 03/31/2017 Time Performed: 05:40:02 PTAGE: 61 years EKG: Sinus bradycardia Possible lateral infarct - age undetermined Possible anterior infarct - a ge undetermined Abnormal ECG PREVIOUS TRACING : 03/27/2017 15.30 No change from previous tracing noted. DOCTOR: Pineda Mora Interpretating Date/Time 03/31/2017 08:30:53
[2017-03-31] MEDS ORDERED: HEPARIN SODIUM - SQ 10,000 UNITS/ML VIAL ONE (08:43)
[2017-03-31] MEDS ORDERED: FLUMAZENIL 1 MG/10 ML VIAL ONE (08:55)
[2017-03-31] MEDS ORDERED: ACETAMINOPHEN 325 MG TAB PO PRN ×2 (09:45→15:15)
[2017-03-31] MEDS ORDERED: MORPHINE SULFATE 2 MG/ML INJ IV PUSH PRN (09:45)
[2017-03-31] MEDS ORDERED: MORPHINE SULFATE 4 MG/ML INJ IV PUSH PRN (09:45)
[2017-03-31] MEDS ORDERED: NS + KCL 20 MEQ INJ 1,000 ML IV SCH (09:45)
[2017-03-31] MEDS ORDERED: SODIUM CHLOR 0.9% 250 ML INJ 250 ML ONE (10:30)
[2017-03-31] MEDS ORDERED: HYDROmorphone HCL PF 2 MG/ML VIAL ONE (13:23)
[2017-03-31] MEDS ORDERED: RESP: ALBUTEROL CONC 2.5 MG/0.5 ML NEB ONE (13:23)
[2017-03-31] MEDS ORDERED: GELATIN POWDER 1 GM PACKET ONE (14:03)
[2017-03-31] MEDS ORDERED: *RESP: ALBUTEROL 2.5 MG/3 ML NEB (PRN) PERIprocedural Use ONLY NEB ONE (14:20)
[2017-03-31] MEDS: ceFAZolin 2 GM PREMIX 50 ML IV SCH ×2 (14:29→23:00)
[2017-03-31] MEDS ORDERED: BISACODYL 10 MG SUPP RECTAL PRN (15:15)
[2017-03-31] MEDS ORDERED: diphenhydrAMINE HCL 50 MG/ML VIAL IV PUSH PRN (15:15)
[2017-03-31] MEDS ORDERED: MAGNESIUM HYDROXIDE SUSP 30 ML CUP PO PRN (15:15)
[2017-03-31] MEDS ORDERED: RESP: ALBUTEROL 2.5 MG/3 ML NEB (PRN) INH (15:15)
[2017-03-31] MEDS ORDERED: MENTHOL LOZENGE BUCCAL PRN (15:15)
[2017-03-31] MEDS ORDERED: NALOXONE HCL 0.4 MG/ML AMP IV PUSH PRN (15:15)
[2017-03-31 15:32] LABS: HEMATOCRIT 32.8 % (39.0-51.0); HEMOGLOBIN 11.1 GM/DL (13.0-17.0); MEAN CELL VOLUME 88.9 FL (80.0-100.0); MEAN CORPUSCULAR HGB CONC 33.8 % (32.0-36.0); MEAN PLATELET VOLUME 7.6 FL (7.0-11.0); PLATELET COUNT 330 TH/MM3 (150-450); RED BLOOD COUNT 3.68 MIL/MM3 (4.50-5.90); RED CELL DISTRIBUTION WIDTH 13.4 % (11.6-17.2); WHITE BLOOD COUNT 23.2 TH/MM3 (4.0-11.0)
[2017-03-31] MEDS ORDERED: ceFAZolin 2 GM PREMIX 50 ML IV SCH (16:00)
--- NOTE | 2017-03-31 17:08 | PD.OP ---
Operative Report Surgeon: Etienne Reyes MD Mar 31, 2017 17:08
[2017-03-31] MEDS ORDERED: MIDAZOLAM HCL 2 MG/2 ML VIAL ONE (17:21)
--- NOTE | 2017-03-31 17:38 | HHI.PR ---
Subjective Remarks Patient seen post op today. Doing well. No nausea. Pain controlled. Objective Vital Signs Date Time Temp Pulse Resp B/P (MAP) Pulse Ox O2 Delivery O2 Flow Rate FiO2 03/31/17 08:00 97.6 58 16 129/73 (91) 98 03/31/17 04:08 97.9 55 17 121/86 (98) 97 03/31/17 04:00 53 03/31/17 00:26 97.2 54 18 113/71 (85) 97 03/31/17 00:00 71 03/30/17 20:05 97.8 55 17 101/74 (83) 94 03/30/17 20:00 55 03/30/17 17:58 53 I/O 03/30/17 03/30/17 03/30/17 03/31/17 03/31/17 03/31/17 07:00 15:00 23:00 07:00 15:00 23:00 Intake Total 360 ml 480 ml 240 ml 0 ml 2500 ml Output Total 1000 ml Balance 360 ml 480 ml 240 ml 0 ml 1500 ml Intake Oral 360 ml 480 ml 240 ml 0 ml Other 2500 ml Output Urine Total 400 ml Estimated Blood Loss 600 ml # Voids 3 4 2 3 # Bowel Movements 0 1 0 0 Result Diagram: 03/31/17 1500 03/31/17 0525 Objective Remarks GENERAL: NAD, A&Ox3 HEAD: Normocephalic. NECK: Supple, trachea midline. No lymphadenopathy. EYES: No scleral icterus. No injection or drainage. CARDIOVASCULAR: Regular rate and rhythm without murmurs, gallops, or rubs. RESPIRATORY: Breath sounds equal bilaterally. No accessory muscle use. GASTROINTESTINAL: Abdomen soft, non-tender, nondistended. MUSCULOSKELETAL: No cyanosis, or edema. Mild tenderness at L3/L4 level over spine with a short radiculopathic nursing home of persistent pain at L5-S1 level lateral to spine SKIN: Warm and dry. NEURO: No focal neurological deficitis. A/P Problem List: (1) Unable to ambulate ICD Code: R26.2 - Difficulty in walking, not elsewhere classified Status: Acute (2) Acute lumbar back pain ICD Code: M54.5 - Low back pain Status: Acute (3) Intractable back pain ICD Code: M54.9 - Dorsalgia, unspecified Status: Acute Assessment and Plan 61-year-old male with past medical history significant for degenerative disc disease of the cervical and lumbar spine who was undergone previous cervical and lumbar fusions who presents to [facility] ED with complaints of severe low back pain for the past 2 days. Doing well post op. Continue pain treatments. Plan to hold all blood thinners for two days post op. Degenerative disc disease of lumbar spine Subacute, status post previous lumbar fusion surgery (L5/S1) Intractable low back and left leg lumbar radiculopathy Severe Spinal Stenosis L3/L4 Post op today CBC in AM Continue pain treatments Neurosurgery consulted Bedrest for now Continue gabapentin CAD s/p NC and cardiac stents Plavix on hold Brilinta on hold Aspirin on hold Follow clinically for chest pain or symptoms Hypertension IV Vasotec as needed Hydralazine as needed Follow blood pressures Continue lisinopril COPD No exacerbation today Schedule duo nebs Oxygen as needed Follow respiratory status Depression Anxiety Continue baseline treatments Monitor clinically DVT prophylaxis SCDs Problem Qualifiers (1) Acute lumbar back pain: Qualified Codes: M54.42 - Lumbago with sciatica, left side Jimmy Tam MD Mar 31, 2017 17:38
[2017-03-31] MEDS: HYDROmorphone HCL PCA 6 MG/30 ML IV SCH (17:51)
[2017-03-31] MEDS ORDERED: DO NOT ADM ANY ANTICOAGULANT DRUGS PRN (18:00)
--- NOTE | 2017-03-31 18:17 | RADRPT ---
EXAM DATE/TIME: 03/31/2017 09:59 [place] COMPARISON: No previous studies available for comparison. INDICATIONS : Fusion L2,L3 and L3,L4 with screw replacement L4. MEDICAL HISTORY : Hypertension. Chronic obstructive pulmonary disease. SURGICAL HISTORY : Fusion, lumbar. Fusion, cervical. Carotid stent. Bilateral inguinal hernia, ENCOUNTER: Initial ACUITY: 4 - 6 days PAIN SCORE: Non-responsive. LOCATION: Lumbar spine. FINDINGS: Postop pedicle screw and joseph fixation across L2, L3 and L4 with disc spacer present. Drain in soft ti ssues. Previous fixation across the lumbosacral junction. CONCLUSION: 1. Lumbar spine fixation as above. Dhaval Todd MD on March 31, 2017 at 18:11 Board Certified Radiologist. This report was verified electronically.
--- NOTE | 2017-03-31 18:18 | PD.OP ---
Operative Report Date of Surgery: Mar 31, 2017 Preoperative Diagnosis: L2-3, L3-4 spondylolisthesis with severe adjacent degenerative disk disease to a prior fusion Postoperative Diagnosis: L2-3, L3-4 spondylolisthesis with severe adjacent degenerative disk disease to a prior fusion Procedure: L2-3, L3-L4 laminectomy, interbody arthrodhesis using PEEK cage and autologous bone graft, L2-3, L3-L4 instrumental fixation using transpedicular screws and rods, L2-3, L3-L4 posterolateral fusion using autologous bone graft and rods. Microsurgical dissection Anesthesia: general Surgeon: Etienne Middleton Pick Up Driver(s): Otilia Wood Operation and Findings: INDICATIONS FOR THE SURGICAL PROCEDURE Mr Panda is a 61 year-old female who presented with intractable mechanical back pain and ryan evidence of L3 and L4 lower extremity radiculopathy. He had history of a prior L4-5, L5-S1 fusion done years ago and has developed severe adjacent level degenerative disk disease, with spondylolisthesis and disk herniations at L2-3, L3-L4. He failed nonsurgical management and had severe limitation of his daily acivities due to severe pain. A surgical decompression and arthrodhesis were indicated as a last resort. The [id number] details of the procedure, indications, alternatives, risks and potential complications were fully discussed with the patient. The patient fully understood. All the questions were answered. No guarantees were given. The patient voiced requesting the procedure and provided informed consents. The patient was offered the alternative of delaying the procedure and continuing with nonsurgical management. DETAILS OF THE SURGICAL PROCEDURE Prior to the procedure, the surgical incision was marked in the preoperative surgical holding room, and the procedure, risks, and potential complications revisited with the patient. Placement of electrodes for intraoperative neurophysiological monitoring was completed. The patient was taken to the operative room, and following induction of general anesthesia, endotracheal intubation was performed. A Ott catheter, bilateral ENRICO hose and sequential compression devices were placed and kept throughout the procedure. The patient was positioned prone, over a Bob table over bolsters. All pressure in the preoperative surgical holding room points were carefully padded with eggcrate and gel mattress. The eyes were tapped shut after ointment was applied by the anesthesiologist to prevent corneal abrasion. A Halie hugger was placed over the exposed lower body to maintain control of the core body temperature. The electrophysiological team placed the needles and electrodes in their proper location and baseline SSEP's and motor evoked potentials were registered. The entrance to each pedicles was marked using a C-arm. The lumbar region was prepped and draped in the usual sterile fashion. The surgical procedure was performed in several steps as follow: SURGICAL APPROACH Once the patient was positioned, a localizing cross-table lateral x-ray was performed with a C-arm. Two paramedian small incisions were outlined on the skin approximately 3cm from the midline. The skin incisions were made with a # 10 blade. Small bleeders were controlled with the cautery. The dissection was then carried out into deeper planes and through the thoracolumbar fascia with a Bovie. The intermuscular septum was identified and the muscles were blunted dissected along the septum. The facets and transverse process of _2,L3,L4 were exposed and the proper anatomical landmarks were identified. A microsurgical self-retaining retractor was placed on the incision, and a localizing lateralizing cross-table x-ray was performed with an instrument underneath a lamina of the lumbar spine. INSTRUMENTAL FIXATION At this point in the procedure, placement of bilateral transpedicular screws was necessary for stabilization of the spine. Initially, the cross link from the previous instrumentation was removed, following by removal of the screw caps at L4. The rods were carefully cut between L4 and L5. Then, , placement of bilateral transpedicular screws was necessary for stabilization of the spine. Initially, the entry point for the screw was selected anatomically at the junction of the facet, with the transverse process , and the pars interarticularis at L2,L3,L4. This was started with a Giamshetti needle, followed by the use of an aleman wire, and then a tap was used to create the threads for the screws. Finally bilateral transpedicular screws were carefully placed bilaterally at L2,L3,L4 under fluoroscopic visualization. An appropriate purchase was achieved with all screws. The position of each screw was assessed anatomically with an AP, lateral , oblique Xrays. An intraoperative scan view of the spine was then performed using the iso-centric c-arm. Each screw was then assessed electrophysiologically stimulating each screw with a nerve stimulator SURGICAL DECOMPRESSION There was significant mass effect with compression of the neural structures. In order to relieve neural compression, it was necessary to perform a decompressive laminectomy, with decompression of the spinal canal and bilateral lateral recesses. Note that the scope of such decompression was significantly more extensive than the minimal exposure necessary to perform an interbody fusion, as there was extreme facet arthropathy with near complete collapse of the disk spaces and severe stenosis cause by the hypertrophic joint facets. At this point of the procedure the operative microscope was draped in the usual sterile fashion and brought to the field. The rest of the surgical procedure was performed using microdissection technique with the exception of the closure. The margins of the previous laminectomy were exposed. Under the operating microscope, a bilateral decompressive laminectomy was carried out at L2-3 and L3-L4 as follow: it was necessary to further drill the facet to allow proper exposure of the disk. The laminae, base of the spinous processes and facets were carefully drilled exposing the ligamentum flavum. There was severe compression of the thecal sac and exiting nerve roots. The facets were abnormal, with mechanical instability. A large disk protrusion was compressing the neural structures and exiting nerve roots at L2-3, and L3-L4. A near complete facetectomy was necessary resulting in further mechanical instability. The ligamentum flavum appeared hypertrophic, which in combination to scar tissue resulted on mass effect on the dorsal surface of the neural structures. The superior free border of the ligamentum flavum was elevated with a ligament dissector and the ligamentum flavum and scar tissue were removed with a 3 and 4 mm Kerrison forceps. The scar tissue and ligament were very adherent to the dural sac and during the dissection, and extreme care was taken during the dissection. The exiting nerve roots were identified, and a wide foraminotomy was performed with a Kerrison in their trajectory towards the neural foramen. Epidural veins located laterally to the dural sac were coagulated with the bipolar cautery, and then incised using microscissors. Gentle medial retraction of the dural sac allowed me to expose the disc space for the discectomy. Upon completion of the discectomy, an excellent decompression of the neural structures was achieved. Increased motion was noted thorough the procedure, which was consistent with mechanical instability. INTERBODY ARTHRODESIS In order to correct the narrowing of the disk space and maintain distraction of the space, and to achieve a solid interbody fusion, it was necessary the insertion of an interbody device into the disk space. Otherwise, the disk space would collapse, compromising the result of the surgical procedure. At this point of the procedure, the annulus fibrosus of the disk was carefully coagulated with a bipolar cautery and incised using an 11 bladed knife. Then, a microdiscectomy was carried out in a standard fashion using a combination of straight and up-biting pituitary forceps. A reverse angle curette was applied underneath the posterior longitudinal ligament, and used to push the disk fragments into the disk space, so they can be safely removed with a pituitary forceps. Once the discectomy was completed, it was necessary to decorticate the endplates, in order to eliminate the cartilaginous endplate and to expose healthy bone appropriate to perform the interbody fusion. The endplates at L3-L4 were then thoroughly decorticated using increasing size bone landon and ring curets, eliminating the cartilaginous fragments from both, the superior and inferior endplates. A disk space distractor was applied to the pedicle screws and gentle distraction was applied. This maneuver was assisted by the use of a disk distractor. Increased motility was noted at the disk, which was consistent with instability due to facet arthropathy. Once a thorough preparation of the disk space was achieved, the disk space was irrigated with antibiotic solution, and the interbody fusion was performed by carefully impacting PEEK cage3 filled with autologous iliac crest bone graft. The use of several shoe impactors with different angulation, allowed me for an excellent, proper position of the interbody cage. A solid position of the cage with good purchase was achieved. The position of the cage was assessed anatomically with a probe and radiologically with the C-arm. POSTEROLATERAL FUSION The posterolateral fusion is a critical component to the procedure, to prevent future fatigue and failure of the instrumental fixation. Initially, the transverse processes of the vertebral bodies, lateral surface of the facets and the lateral gutters of the spine were carefully cleaned, eliminating all soft tissue and muscle attachments. The area was then irrigated with a large amount of antibiotic solution. Subsequently, the transverse processes, lateral surface of the facets, and lateral gutters of the spine were thoroughly decorticated using the TPS drill with a 5mm cutting alessio, exposing cancellous bone, in preparation for the posterolateral fusion. The incision was again irrigated with antibiotic solution. Then, the posterolateral fusion was then performed by carefully packing the lateral gutters of the spine at L2-L3, and L3-L4 with autologous bone combined with demineralized bone matrix. I packed as much bone as possible. COMPLETION OF THE INSTRUMENTATION AND CLOSURE The rods were brought to the field, applied to all the screws, and the screw caps were sequentially applied. Compression was performed between the pedicle screws, and final tightening of the screws was completed using a torque wrench. Two cross-links were used to connect the rods, in order to increase the stability of the construct. The cross link was secured using a torque wrench previously calibrated. The incision was again thoroughly irrigated with several liters of antibiotic solution, and hemostasis secured with the bipolar cautery. A Valsalva Maneuver performed by the anesthesiologist failed to show any evidence of cerebrospinal fluid leak or bleeding. A Bob-Montez drain was left in the epidural space and externalized through a separate stab incision. The incision was then closed in planes. 0 Vicryl was used in an interrupted fashion to close the thoracolumbar fascia and the superficial fascia. The subcutaneous tissue was then approximated using 3-0 Vicryl in an interrupted fashion. Special care was taken to avoid space. The skin was then closed with 4-0 Vicryl in a running, subcuticular fashion. Each plane of closure was irrigated with antibiotic solution. At the end of the procedure the sponge, needle and instrument counts were all correct. Estimated blood loss was 500-600 cc or less. No blood transfusion was given. No complications. The entire procedure was performed using continuous electrophysiological monitoring of the somato sensorial evoked potentials and EMG. The patient received prophylactic antibiotics. The patient was then extubated and transferred to the recovery room in stable condition. Etienne Middleton MD Mar 31, 2017 18:18
[2017-03-31] MEDS: CYCLOBENZAPRINE HCL 10 MG TAB PO PRN (20:57)
[2017-03-31] MEDS: DOCUSATE SODIUM 100 MG CAP PO SCH (20:57)
[2017-03-31] MEDS: CHLORHEXIDINE GLUCONATE 4% SOLN 120 ML BTL TOP SCH (20:59)
[2017-03-31] MEDS: PCA - TOTAL MG DILAUDID DELIVERED PER SHIFT SCH ×2 (21:00→22:00)
[2017-03-31] MEDS: SODIUM CHLOR 0.9% 1000 ML INJ 1,000 ML IV SCH ×2 (21:08→23:19)
[2017-04-01] VITALS (12 sets, daily range): BP systolic 93–127; BP diastolic 55–65; PULSE 61–85; RESP 12–16; TEMP 97.7–99.1; O2SAT 92–97
[2017-04-01] MEDS: FLUoxetine HCL 20 MG CAP PO SCH ×3 (01:42→19:46)
[2017-04-01 04:15] LABS: AUTOMATED NEUTROPHIL # 12.2 TH/MM3 (1.8-7.7); BASOPHIL # 0.1 TH/MM3 (0-0.2); BASOPHIL % 0.5 % (0.0-2.0); EOSINOPHIL % 0.1 % (0.0-4.0); HEMATOCRIT 22.7 % (39.0-51.0); HEMOGLOBIN 7.8 GM/DL (13.0-17.0); LYMPH % 9.5 % (9.0-44.0); LYMPHOCYTE # 1.4 TH/MM3 (1.0-4.8); MEAN CELL VOLUME 88.1 FL (80.0-100.0); MEAN CORPUSCULAR HEMOGLOBIN 30.1 PG (27.0-34.0); MEAN CORPUSCULAR HGB CONC 34.2 % (32.0-36.0); MEAN PLATELET VOLUME 7.7 FL (7.0-11.0); MONO % 9.9 % (0.0-8.0); MONOCYTE # 1.5 TH/MM3 (0-0.9); PLATELET COUNT 222 TH/MM3 (150-450); RED BLOOD COUNT 2.57 MIL/MM3 (4.50-5.90); RED CELL DISTRIBUTION WIDTH 13.3 % (11.6-17.2); WHITE BLOOD COUNT 15.2 TH/MM3 (4.0-11.0)
[2017-04-01 04:30] LABS: ALBUMIN 2.5 GM/DL (3.4-5.0); ALKALINE PHOSPHATASE 77 U/L (45-117); ALT (GPT) 20 U/L (12-78); AST (GOT) 52 U/L (15-37); BLOOD UREA NITROGEN 16 MG/DL (7-18); CALCIUM 7.6 MG/DL (8.5-10.1); CHLORIDE 108 MEQ/L (98-107); GLOMERULAR FILTRATION RATE 86 ML/MIN (>89); GLUCOSE,RANDOM 106 MG/DL (74-106); SODIUM (NA) 138 MEQ/L (136-145); TOTAL BILIRUBIN ADULT 0.4 MG/DL (0.2-1.0); TOTAL PROTEIN 5.4 GM/DL (6.4-8.2)
[2017-04-01] MEDS: OXYBUTYNIN CHLORIDE 5 MG TAB PO SCH ×3 (06:00→19:47)
[2017-04-01] MEDS: PCA - TOTAL MG DILAUDID DELIVERED PER SHIFT SCH ×3 (06:00→20:42)
[2017-04-01] MEDS: ceFAZolin 2 GM PREMIX 50 ML IV SCH (07:00)
[2017-04-01] MEDS: SODIUM CHLOR 0.9% 1000 ML INJ 1,000 ML IV SCH ×2 (07:52→18:19)
[2017-04-01] MEDS: ONDANSETRON HCL 4 MG/2 ML VIAL IV PUSH PRN (08:41)
[2017-04-01] MEDS: SODIUM CHLORIDE 0.9% FLUSH 10 ML FLUSH IV FLUSH SCH ×2 (08:41→19:47)
[2017-04-01] MEDS: METOPROLOL TARTRATE 25 MG TAB PO SCH ×2 (09:00→19:46)
[2017-04-01] MEDS ORDERED: PANTOPRAZOLE SODIUM 40 MG VIAL IVP PRN (09:00)
[2017-04-01] MEDS: DOCUSATE SODIUM 50 MG/SENNA 8.6 MG TAB PO SCH ×2 (09:00→19:46)
[2017-04-01] MEDS: PANTOPRAZOLE SOD 40 MG DELAYED RELEASE TAB PO SCH (09:11)
[2017-04-01] MEDS: ASPIRIN EC 81 MG TABEC PO SCH (09:11)
[2017-04-01] MEDS: GABAPENTIN 300 MG CAP PO SCH ×3 (09:11→17:26)
[2017-04-01] MEDS: DOCUSATE SODIUM 100 MG CAP PO SCH ×2 (09:12→19:46)
[2017-04-01] MEDS: busPIRone HCL 5 MG TAB PO SCH ×3 (09:12→17:26)
[2017-04-01] MEDS: MORPHINE SULFATE 15 MG CONTROLLED RELEASE TAB PO SCH ×2 (09:12→19:46)
[2017-04-01] MEDS: ARIPiprazole 15 MG TAB PO SCH (09:17)
[2017-04-01] MEDS: CYCLOBENZAPRINE HCL 10 MG TAB PO PRN ×3 (09:17→23:49)
--- NOTE | 2017-04-01 10:58 | HHI.NSPN ---
History Chief Complaint: low back soreness. Interval History Mr. Panda is a 61-year-old male who presented to [place] emergency department with complaints of intractable low back pain. Mr. Panda has had a previous cervical and lumbar fusion L4-S1 many years ago and had done very well with improvement of his prior pain and symptoms. Unfortunately he developed recurrent progressive lumbar pain. He denies any associates trauma or falls. He reports he has been managing his pain with narcotic pain medications. His pain is located in the upper to mid lumbar region with pain radiating to the lateral hips and down the anterior thigh, knee, medial fuller to the great toe. He reports generalized weakness in his legs. He denies bowel or bladder incontinence, fevers or chills. 03/28: persistent lumbar pain and radicular pain in his legs. MRI completed. RT reports with wheezing, cough, and sputum production. 03/29: patient was seen this am during rounds - no change in his pain and symptoms. reports cough is better today. seen by cardiology last night for preoperative clearance due to hx of cardiac disease. 03/30: Dr. Middleton again discussed regarding continuing conservative mgt, vs surgical decompression. patient continues to express the severity his pain greatly affects his quality of life and would like to proceed with surgery tomorrow. 04/01: Pt underwent a L2/L3 and L3/L4 PLIF with interbody cage and pedicle screw fixation on 03/31/[address] Middleton. Today he is complaining of incisional soreness. He states he has pain radiating into the posterior left thigh, lateral calf and top of the left foot with associated paresthesias. He is sedated from his HEAD BUTLER but states he cannot come off it yet secondary to his pain. He does answer my questions appropriately when asked. Review of Systems General: Negative for: fever, chills, insomnia Respiratory: Negative for: shortness of breath, cough, sputum Cardiovascular: Negative for: chest pain Gastrointestinal: Negative for: nausea, vomitting, diarrhea, constipation Exam Results Vital Signs Date Time Temp Pulse Resp B/P (MAP) Pulse Ox O2 Delivery O2 Flow Rate FiO2 04/01/17 09:54 94 Nasal Cannula 2.00 04/01/17 08:00 98.3 73 16 108/65 (79) 03/29/17 19:59 21 Intake and Output 04/01/17 04/01/17 04/02/17 08:00 16:00 00:00 Intake Total 1763 ml Output Total 865 ml Balance 898 ml Physical Examination General: Pt resting in bed in no acute distress on a Diludid HEAD BUTLER. He is sedated. Resp: CTA bilaterally Heart: NSR no murmurs Abd: Soft positive bs Skin: No cyanosis or erythema. Bandage dry intact. EDGAR drain in place x 2. Muscle: Moves LEs with good strength other than left EHL 4-/5. Neuro: Pt awakens to voice but is sedated. Follows commands well. Answers questions appropriately. Sensation intact in LEs. Lab, Micro, Other Results Last Impressions Lumbar Spine X-Ray 03/31/17 0000 Signed Impressions: Service Date/Time: Friday, March 31, 2017 09:59 - CONCLUSION: 1. Lumbar spine fixation as above. Dhaval Todd MD Chest X-Ray 03/29/17 0000 Signed Impressions: Service Date/Time: Wednesday, March 29, 2017 09:57 - CONCLUSION: 1. Diffuse interstitial changes likely chronic although acute interstitial infiltrate cannot be excluded. Justin Schmitz MD Aorta Ultrasound 03/28/17 0000 Signed Impressions: Service Date/Time: Tuesday, March 28, 2017 19:43 - CONCLUSION: 1. Mild dilatation of distal abdominal aorta to 2.5 cm. Right iliac artery also measures 2.5 cm, increased from previous measurement of 2 cm. 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 Dhaval Todd MD Lumbar Spine MRI 03/27/17 0000 Signed Impressions: Service Date/Time: Monday, March 27, 2017 16:56 - CONCLUSION: 1. Status post intradiscal and posterior joseph and screw fixation at L4-S1. 2. 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 There is also severe left neural foraminal stenosis at this level. 3. Multilevel degenerative spondylosis of the lumbar spine with variable neural foraminal stenosis, as above. Raheem Snyder MD Laboratory Tests Test 03/31/17 13:45 03/31/17 15:00 03/31/17 15:10 04/01/17 03:55 Blood Gas Puncture Site DRAWN IN OR ART LINE Blood Gas Patient Temperature 98.6 98.6 Blood Gas HCO3 22 mmol/L 21 mmol/L Blood Gas Base Excess -3.6 mmol/L -4.6 mmol/L Blood Gas Oxygen Saturation 97 % 95 % Arterial Blood pH 7.32 7.31 Arterial Blood Partial Pressure CO2 43 mmHg 43 mmHg Arterial Blood Partial Pressure O2 225 mmHg 99 mmHg Arterial Blood Oxygen Content 17.3 Vol % 14.5 Vol % Arterial Blood Carboxyhemoglobin 0.7 % 0.7 % Arterial Blood Methemoglobin 1.4 % 1.3 % Blood Gas Hemoglobin 12.3 G/DL 10.8 G/DL Oxygen Delivery Device OR VENTILATOR Blood Gas Ventilator Setting OR IN OR Blood Gas Inspired Oxygen 50 % White Blood Count 23.2 TH/MM3 15.2 TH/MM3 Red Blood Count 3.68 MIL/MM3 2.57 MIL/MM3 Hemoglobin 11.1 GM/DL 7.8 GM/DL Hematocrit 32.8 % 22.7 % Mean Corpuscular Volume 88.9 FL 88.1 FL Mean Corpuscular Hemoglobin 30.0 PG 30.1 PG Mean Corpuscular Hemoglobin Concent 33.8 % 34.2 % Red Cell Distribution Width 13.4 % 13.3 % Platelet Count 330 TH/MM3 222 TH/MM3 Mean Platelet Volume 7.6 FL 7.7 FL Neutrophils (%) (Auto) 80.0 % Lymphocytes (%) (Auto) 9.5 % Monocytes (%) (Auto) 9.9 % Eosinophils (%) (Auto) 0.1 % Basophils (%) (Auto) 0.5 % Neutrophils # (Auto) 12.2 TH/MM3 Lymphocytes # (Auto) 1.4 TH/MM3 Monocytes # (Auto) 1.5 TH/MM3 Eosinophils # (Auto) 0.0 TH/MM3 Basophils # (Auto) 0.1 TH/MM3 CBC Comment DIFF FINAL Differential Comment Blood Urea Nitrogen 16 MG/DL Creatinine 0.90 MG/DL Random Glucose 106 MG/DL Total Protein 5.4 GM/DL Albumin 2.5 GM/DL Calcium Level 7.6 MG/DL Alkaline Phosphatase 77 U/L Aspartate Amino Transf (AST/SGOT) 52 U/L Alanine Aminotransferase (ALT/SGPT) 20 U/L Total Bilirubin 0.4 MG/DL Sodium Level 138 MEQ/L Potassium Level 4.3 MEQ/L Chloride Level 108 MEQ/L Carbon Dioxide Level 26.0 MEQ/L Anion Gap 4 MEQ/L Estimat Glomerular Filtration Rate 86 ML/MIN 04/01/17 04/01/17 04/02/17 15:00 23:00 07:00 Intake Total 1050 ml Balance 1050 ml IV Total 1050 ml Medical Decision Making Impression and Plan A: 61 y/o M s/p L2/L3 and L3/L4 PLIF with cage and pedicle screw fixation on by Dr. Middleton. P: Continue with pain control. Monitor for sedation. PT with brace on when brace available. Justin Pena Apr 01, 2017 10:58 am
--- NOTE | 2017-04-01 15:25 | HHI.PR ---
Subjective Remarks Confusion and lethargy postop. Some of this could be related to pain medicines , some of it could be related to anesthesia. Patient's hemoglobin is 7.8 this morning. Transfusion of packed red blood cells 2 provided. Given high clot risk from underlying coagulopathy, based on trends in hemoglobin tentative plan to resume Brilinta, Plavix, and aspirin tomorrow if hemoglobin levels show stability. Objective Vital Signs Date Time Temp Pulse Resp B/P (MAP) Pulse Ox O2 Delivery O2 Flow Rate FiO2 04/01/17 12:00 98.6 70 12 93/55 (68) 94 04/01/17 12:00 70 04/01/17 09:54 94 Nasal Cannula 2.00 04/01/17 08:00 98.3 73 16 108/65 (79) 94 04/01/17 08:00 73 04/01/17 06:00 78 04/01/17 06:00 14 04/01/17 06:00 14 04/01/17 04:00 61 04/01/17 04:00 99.0 61 12 119/57 (77) 95 04/01/17 02:00 61 04/01/17 00:00 98.2 65 12 113/62 (79) 97 03/31/17 23:00 57 100/55 (70) 92 03/31/17 22:00 52 03/31/17 22:00 24 03/31/17 21:00 20 03/31/17 20:15 68 03/31/17 20:15 98.1 64 22 101/60 (74) 100 03/31/17 19:45 67 22 101/59 (73) 98 Nasal Cannula 3 03/31/17 19:30 65 23 100/43 (62) 98 Nasal Cannula 3 03/31/17 19:15 64 24 95/56 (69) 98 Nasal Cannula 3 03/31/17 19:00 69 27 93/56 (68) 97 Nasal Cannula 3 03/31/17 18:45 68 21 91/50 (64) 96 Nasal Cannula 3 03/31/17 18:30 66 19 96/54 (68) 96 Nasal Cannula 3 03/31/17 18:15 66 20 94/50 (65) 97 Nasal Cannula 3 03/31/17 18:00 98.0 68 18 99/55 (70) 98 Nasal Cannula 3 03/31/17 17:51 15 03/31/17 17:45 70 18 93/51 (65) 97 Nasal Cannula 3 03/31/17 17:30 74 21 104/70 (81) 96 Nasal Cannula 3 03/31/17 17:15 72 24 96/47 (63) 91 Nasal Cannula 3 03/31/17 17:00 71 24 93/64 (74) 89 Nasal Cannula 3 03/31/17 16:50 97.8 71 25 115/60 (78) 89 Nasal Cannula 3 I/O 03/31/17 03/31/17 03/31/17 04/01/17 04/01/17 04/01/17 07:00 15:00 23:00 07:00 15:00 23:00 Intake Total 0 ml 3300 ml 972 ml 1050 ml Output Total 1145 ml 1760 ml Balance 0 ml 2155 ml -788 ml 1050 ml Intake Oral 0 ml 100 ml 40 ml IV Total 700 ml 932 ml 1050 ml Other 2500 ml Output Urine Total 525 ml 1725 ml Drainage Total 20 ml 35 ml Estimated Blood Loss 600 ml # Voids 3 # Bowel Movements 0 Result Diagram: 04/01/17 0355 04/01/17 0355 Objective Remarks GENERAL: NAD, A&Ox1 HEAD: Normocephalic. NECK: Supple, trachea midline. No lymphadenopathy. EYES: No scleral icterus. No injection or drainage. CARDIOVASCULAR: Regular rate and rhythm without murmurs, gallops, or rubs. RESPIRATORY: Breath sounds equal bilaterally. No accessory muscle use. GASTROINTESTINAL: Abdomen soft, non-tender, nondistended. MUSCULOSKELETAL: No cyanosis, or edema. Mild tenderness at L3/L4 level over spine with a short radiculopathic residential of persistent pain at L5-S1 level lateral to spine SKIN: Warm and dry. NEURO: No focal neurological deficitis. A/P Problem List: (1) Unable to ambulate ICD Code: R26.2 - Difficulty in walking, not elsewhere classified Status: Acute (2) Acute lumbar back pain ICD Code: M54.5 - Low back pain Status: Acute (3) Intractable back pain ICD Code: M54.9 - Dorsalgia, unspecified Status: Acute Assessment and Plan 61-year-old male with past medical history significant for degenerative disc disease of the cervical and lumbar spine who was undergone previous cervical and lumbar fusions who presents to [facility] ED with complaints of severe low back pain. Continue to monitor cognition and alertness post op. Follow H/H. Resume anticoagulants tomorrow if H/H is stabilized. Labs ordered for further monitoring. Degenerative disc disease of lumbar spine Subacute, status post previous lumbar fusion surgery (L5/S1) Intractable low back and left leg lumbar radiculopathy Severe Spinal Stenosis L3/L4 Post op today CBC in AM Continue pain treatments Neurosurgery consulted Bedrest for now Continue gabapentin CAD s/p MT and cardiac stents Plavix on hold Brilinta on hold Aspirin on hold Follow clinically for chest pain or symptoms Hypertension IV Vasotec as needed Hydralazine as needed Follow blood pressures Continue lisinopril COPD No exacerbation today Schedule duo nebs Oxygen as needed Follow respiratory status Depression Anxiety Continue baseline treatments Monitor clinically DVT prophylaxis SCDs Problem Qualifiers (1) Acute lumbar back pain: Qualified Codes: M54.42 - Lumbago with sciatica, left side Jimmy Tam MD Apr 01, 2017 15:25
--- NOTE | 2017-04-01 16:24 | PD.CARD.PN ---
Subjective Subjective Remarks Lumbar fusion yesterday Today complaining of incisional pain No chest pain/SOB Objective Medications Current Medications Medications (Trade) Dose Ordered Sig/Melony Route Start Time Stop Time Status Last Admin (NS Flush) 2 ml UNSCH PRN IV FLUSH 03/27/17 16:45 (NS Flush) 2 ml BID IV FLUSH 03/27/17 21:00 04/01/17 08:41 (Iqra-Colace) 1 tab BID PO 03/27/17 21:00 04/01/17 09:00 (Lactulose Liq) 30 ml DAILY PRN PO 03/27/17 18:00 03/30/17 08:27 (Abilify) 15 mg DAILY PO 03/28/17 09:00 04/01/17 09:17 (Buspar) 15 mg TID PO 03/27/17 18:00 04/01/17 13:00 (PROzac) 40 mg BID PO 03/27/17 21:00 04/01/17 09:12 (Neurontin) 600 mg TID PO 03/27/17 18:00 04/01/17 13:00 (Albuterol Neb) 1.25 mg Q4HR NEB PRN NEB 03/27/17 18:30 03/30/17 12:19 (Oramorph Sr) 15 mg Q12HR PO 03/28/17 21:00 04/01/17 09:12 (Percocet 5-325 Mg) 1 tab Q4H PRN PO 03/28/17 11:00 (Percocet 10-325 Mg) 1 tab Q4H PRN PO 03/28/17 11:00 03/31/17 06:39 (Tessalon) 100 mg TID PRN PO 03/28/17 14:00 (Lopressor) 25 mg BID PO 03/28/17 21:00 03/31/17 07:51 (Ditropan) 5 mg Q8HR PO 03/28/17 14:00 04/01/17 13:38 (Restoril) 30 mg HS PRN PO 03/28/17 14:00 03/30/17 21:27 (Catapres) 0.1 mg Q6H PRN PO 03/28/17 14:00 03/30/17 08:26 (Vasotec Inj) 1.25 mg Q6H PRN IV PUSH 03/28/17 14:00 (Ecotrin Ec) 81 mg DAILY PO 03/29/17 09:30 04/01/17 09:11 (Hibiclens 4% Top Soln) 1 applic HS TOP 03/30/17 21:00 04/01/17 21:01 03/30/17 21:25 (Protonix Inj) 40 mg DAILY PRN IVP 04/01/17 09:00 (Morphine Inj) 2 mg Q2H PRN IV PUSH 03/31/17 09:45 (Morphine Inj) 4 mg Q2H PRN IV PUSH 03/31/17 09:45 Sodium Chloride 1,000 ml @ 100 mls/hr Q10H IV 03/31/17 15:08 04/01/17 07:52 (Dulcolax Supp) 10 mg DAILY PRN RECTAL 03/31/17 15:15 (Colace) 100 mg BID PO 03/31/17 21:00 04/01/17 09:12 (Milk Of Magnesia Liq) 30 ml DAILY PRN PO 03/31/17 15:15 (Protonix) 40 mg DAILY PO 04/01/17 09:00 04/01/17 09:11 (Zofran Inj) 4 mg Q6H PRN IV PUSH 03/31/17 15:15 04/01/17 08:41 (Flexeril) 10 mg Q8H PRN PO 03/31/17 15:15 04/01/17 09:17 (Tylenol) 650 mg Q4H PRN PO 03/31/17 15:15 ([place]) 1 lozenge UNSCH PRN BUCCAL 03/31/17 15:15 (Albuterol Neb) 2.5 mg Q4HR NEB PRN INH 03/31/17 15:15 (Narcan Inj) 0.4 mg UNSCH PRN IV PUSH 03/31/17 15:15 (Benadryl Inj) 25 mg Q6H PRN IV PUSH 03/31/17 15:15 (Dilaudid NEON LIGHT INSTALLER Inj) 6 mg UNSCH IV 03/31/17 15:15 03/31/17 17:51 NEON LIGHT INSTALLER Dosage Infused (Pha) 1 Q8HR .XX 03/31/17 15:15 04/01/17 06:00 Miscellaneous Information ALL NURSING DEPARTME... UNSCH PRN .XX 03/31/17 18:00 04/01/17 17:59 Vital Signs / I&O Vital Signs Date Time Temp Pulse Resp B/P (MAP) Pulse Ox O2 Delivery O2 Flow Rate FiO2 04/01/17 12:00 98.6 70 12 93/55 (68) 94 04/01/17 12:00 70 04/01/17 10:12 14 04/01/17 09:54 94 Nasal Cannula 2.00 04/01/17 08:00 98.3 73 16 108/65 (79) 94 04/01/17 08:00 73 04/01/17 06:00 78 04/01/17 06:00 14 04/01/17 06:00 14 04/01/17 04:00 61 04/01/17 04:00 99.0 61 12 119/57 (77) 95 04/01/17 02:00 61 04/01/17 00:00 98.2 65 12 113/62 (79) 97 03/31/17 23:00 57 100/55 (70) 92 03/31/17 22:00 52 03/31/17 22:00 24 03/31/17 21:00 20 03/31/17 20:15 68 03/31/17 20:15 98.1 64 22 101/60 (74) 100 03/31/17 19:45 67 22 101/59 (73) 98 Nasal Cannula 3 03/31/17 19:30 65 23 100/43 (62) 98 Nasal Cannula 3 03/31/17 19:15 64 24 95/56 (69) 98 Nasal Cannula 3 03/31/17 19:00 69 27 93/56 (68) 97 Nasal Cannula 3 03/31/17 18:45 68 21 91/50 (64) 96 Nasal Cannula 3 03/31/17 18:30 66 19 96/54 (68) 96 Nasal Cannula 3 03/31/17 18:15 66 20 94/50 (65) 97 Nasal Cannula 3 03/31/17 18:00 98.0 68 18 99/55 (70) 98 Nasal Cannula 3 03/31/17 17:51 15 03/31/17 17:45 70 18 93/51 (65) 97 Nasal Cannula 3 03/31/17 17:30 74 21 104/70 (81) 96 Nasal Cannula 3 03/31/17 17:15 72 24 96/47 (63) 91 Nasal Cannula 3 03/31/17 17:00 71 24 93/64 (74) 89 Nasal Cannula 3 03/31/17 16:50 97.8 71 25 115/60 (78) 89 Nasal Cannula 3 I/O 03/31/17 03/31/17 03/31/17 04/01/17 04/01/17 04/01/17 07:00 15:00 23:00 07:00 15:00 23:00 Intake Total 0 ml 3300 ml 972 ml 1050 ml Output Total 1145 ml 1760 ml Balance 0 ml 2155 ml -788 ml 1050 ml Intake Oral 0 ml 100 ml 40 ml IV Total 700 ml 932 ml 1050 ml Other 2500 ml Output Urine Total 525 ml 1725 ml Drainage Total 20 ml 35 ml Estimated Blood Loss 600 ml # Voids 3 # Bowel Movements 0 Physical Exam GENERAL: Mild distress from pain, AAOx3 SKIN: Warm and dry. HEAD: Atraumatic. Normocephalic. EYES: Pupils equal and round. No scleral icterus. No injection or drainage. ENT: No nasal bleeding or discharge. Mucous membranes pink and moist. NECK: Trachea midline. No JVD. CARDIOVASCULAR: Regular rate and rhythm. RESPIRATORY: No accessory muscle use. Clear to auscultation. Breath sounds equal bilaterally. GASTROINTESTINAL: Abdomen soft, non-tender, nondistended. Hepatic and splenic margins not palpable. MUSCULOSKELETAL: Extremities without clubbing, cyanosis, or edema. No obvious deformities. NEUROLOGICAL: Awake and alert. No obvious cranial nerve deficits. Motor grossly within normal limits. Laboratory Laboratory Tests Test 04/01/17 03:55 White Blood Count 15.2 TH/MM3 Red Blood Count 2.57 MIL/MM3 Hemoglobin 7.8 GM/DL Hematocrit 22.7 % Mean Corpuscular Volume 88.1 FL Mean Corpuscular Hemoglobin 30.1 PG Mean Corpuscular Hemoglobin Concent 34.2 % Red Cell Distribution Width 13.3 % Platelet Count 222 TH/MM3 Mean Platelet Volume 7.7 FL Neutrophils (%) (Auto) 80.0 % Lymphocytes (%) (Auto) 9.5 % Monocytes (%) (Auto) 9.9 % Eosinophils (%) (Auto) 0.1 % Basophils (%) (Auto) 0.5 % Neutrophils # (Auto) 12.2 TH/MM3 Lymphocytes # (Auto) 1.4 TH/MM3 Monocytes # (Auto) 1.5 TH/MM3 Eosinophils # (Auto) 0.0 TH/MM3 Basophils # (Auto) 0.1 TH/MM3 CBC Comment DIFF FINAL Differential Comment Blood Urea Nitrogen 16 MG/DL Creatinine 0.90 MG/DL Random Glucose 106 MG/DL Total Protein 5.4 GM/DL Albumin 2.5 GM/DL Calcium Level 7.6 MG/DL Alkaline Phosphatase 77 U/L Aspartate Amino Transf (AST/SGOT) 52 U/L Alanine Aminotransferase (ALT/SGPT) 20 U/L Total Bilirubin 0.4 MG/DL Sodium Level 138 MEQ/L Potassium Level 4.3 MEQ/L Chloride Level 108 MEQ/L Carbon Dioxide Level 26.0 MEQ/L Anion Gap 4 MEQ/L Estimat Glomerular Filtration Rate 86 ML/MIN Assessment and Plan Problem List: (1) Pre-operative cardiovascular examination ICD Codes: Z01.810 - Encounter for preprocedural cardiovascular examination (2) CAD (coronary artery disease) ICD Codes: I25.10 - Atherosclerotic heart disease of [place] coronary artery without angina pectoris (3) Acute lumbar back pain ICD Codes: M54.5 - Low back pain Status: Acute (4) Intractable back pain ICD Codes: M54.9 - Dorsalgia, unspecified Status: Acute (5) Unable to ambulate ICD Codes: R26.2 - Difficulty in walking, not elsewhere classified Status: Acute Assessment and Plan 1) Post-lumbar fusion per neurosurgery 2) EF 55-60% 3) Brilinta on hold, restarted on ASA Restart Brilinta as soon as safely possible post-procedure Patient is on Brilinta outpatient, not Plavix 4) Anemia post-op Problem Qualifiers (1) Acute lumbar back pain: Qualified Codes: M54.42 - Lumbago with sciatica, left side Suman Canales DO Apr 01, 2017 16:24
[2017-04-01] MEDS: oxyCODONE/ACETAMINOPHEN 10 MG/325 MG TAB PO PRN (16:50)
[2017-04-01 18:21] LABS: HEMATOCRIT 23.2 % (39.0-51.0); HEMOGLOBIN 7.9 GM/DL (13.0-17.0)
[2017-04-01] MEDS: CHLORHEXIDINE GLUCONATE 4% SOLN 120 ML BTL TOP SCH (19:47)
[2017-04-01] MEDS: HYDROmorphone HCL PCA 6 MG/30 ML IV SCH (20:44)
[2017-04-02] VITALS (10 sets, daily range): BP systolic 114–152; BP diastolic 68–80; PULSE 60–81; RESP 14–24; TEMP 98–99.1; O2SAT 96–100
[2017-04-02] MEDS: SODIUM CHLOR 0.9% 1000 ML INJ 1,000 ML IV SCH (05:34)
[2017-04-02] MEDS: PCA - TOTAL MG DILAUDID DELIVERED PER SHIFT SCH (05:46)
[2017-04-02] MEDS: oxyCODONE/ACETAMINOPHEN 10 MG/325 MG TAB PO PRN ×3 (05:48→23:09)
[2017-04-02] MEDS: OXYBUTYNIN CHLORIDE 5 MG TAB PO SCH ×3 (05:48→20:43)
[2017-04-02 06:28] LABS: AUTOMATED NEUTROPHIL # 7.8 TH/MM3 (1.8-7.7); BASOPHIL % 0.4 % (0.0-2.0); EOSINOPHIL # 0.3 TH/MM3 (0-0.4); EOSINOPHIL % 2.6 % (0.0-4.0); LYMPH % 16.6 % (9.0-44.0); LYMPHOCYTE # 1.9 TH/MM3 (1.0-4.8); MEAN CELL VOLUME 89.5 FL (80.0-100.0); MEAN CORPUSCULAR HEMOGLOBIN 30.5 PG (27.0-34.0); MEAN CORPUSCULAR HGB CONC 34.1 % (32.0-36.0); MONO % 11.5 % (0.0-8.0); MONOCYTE # 1.3 TH/MM3 (0-0.9); NEUT % 68.9 % (16.0-70.0); PLATELET COUNT 211 TH/MM3 (150-450); RED BLOOD COUNT 2.31 MIL/MM3 (4.50-5.90); RED CELL DISTRIBUTION WIDTH 13.3 % (11.6-17.2); WHITE BLOOD COUNT 11.3 TH/MM3 (4.0-11.0)
[2017-04-02 06:36] LABS: HEMATOCRIT 20.7 % (39.0-51.0)
[2017-04-02 07:18] LABS: ALBUMIN 2.4 GM/DL (3.4-5.0); ALT (GPT) 15 U/L (12-78); BICARBONATE 27.8 MEQ/L (21.0-32.0); BLOOD UREA NITROGEN 10 MG/DL (7-18); CALCIUM 7.8 MG/DL (8.5-10.1); CHLORIDE 109 MEQ/L (98-107); GLUCOSE,RANDOM 104 MG/DL (74-106); SODIUM (NA) 141 MEQ/L (136-145)
[2017-04-02 07:21] LABS: ALKALINE PHOSPHATASE 74 U/L (45-117); AST (GOT) 50 U/L (15-37); GLOMERULAR FILTRATION RATE 99 ML/MIN (>89); TOTAL BILIRUBIN ADULT 0.3 MG/DL (0.2-1.0); TOTAL PROTEIN 5.6 GM/DL (6.4-8.2)
[2017-04-02] MEDS: ASPIRIN EC 81 MG TABEC PO SCH (08:40)
[2017-04-02] MEDS: DOCUSATE SODIUM 100 MG CAP PO SCH ×2 (08:40→20:44)
[2017-04-02] MEDS: ARIPiprazole 15 MG TAB PO SCH (08:40)
[2017-04-02] MEDS: PANTOPRAZOLE SOD 40 MG DELAYED RELEASE TAB PO SCH (08:41)
[2017-04-02] MEDS: DOCUSATE SODIUM 50 MG/SENNA 8.6 MG TAB PO SCH ×2 (08:41→20:43)
[2017-04-02] MEDS: FLUoxetine HCL 20 MG CAP PO SCH ×2 (08:41→20:43)
[2017-04-02] MEDS: busPIRone HCL 5 MG TAB PO SCH ×3 (08:41→17:57)
[2017-04-02] MEDS: GABAPENTIN 300 MG CAP PO SCH ×3 (08:41→17:57)
[2017-04-02] MEDS: MORPHINE SULFATE 15 MG CONTROLLED RELEASE TAB PO SCH ×2 (08:44→20:43)
[2017-04-02] MEDS ORDERED: SODIUM CHLOR 0.9% 250 ML INJ 250 ML IV ONE (08:45)
[2017-04-02] MEDS: METOPROLOL TARTRATE 25 MG TAB PO SCH ×3 (09:00→20:43)
--- NOTE | 2017-04-02 09:06 | HHI.NSPN ---
History Chief Complaint: low back soreness. Interval History Mr. Panda is a 61-year-old male who presented to [facility] emergency department with complaints of intractable low back pain. Mr. Panda has had a previous cervical and lumbar fusion L4-S1 many years ago and had done very well with improvement of his prior pain and symptoms. Unfortunately he developed recurrent progressive lumbar pain. He denies any associates trauma or falls. He reports he has been managing his pain with narcotic pain medications. His pain is located in the upper to mid lumbar region with pain radiating to the lateral hips and down the anterior thigh, knee, medial fuller to the great toe. He reports generalized weakness in his legs. He denies bowel or bladder incontinence, fevers or chills. 03/28: persistent lumbar pain and radicular pain in his legs. MRI completed. RT reports with wheezing, cough, and sputum production. 03/29: patient was seen this am during rounds - no change in his pain and symptoms. reports cough is better today. seen by cardiology last night for preoperative clearance due to hx of cardiac disease. 03/30: Dr. Middleton again discussed regarding continuing conservative mgt, vs surgical decompression. patient continues to express the severity his pain greatly affects his quality of life and would like to proceed with surgery tomorrow. 04/01: Pt underwent a L2/L3 and L3/L4 PLIF with interbody cage and pedicle screw fixation on 03/31/[address] Middleton. Today he is complaining of incisional soreness. He states he has pain radiating into the posterior left thigh, lateral calf and top of the left foot with associated paresthesias. He is sedated from his BRAILLE PROOFREADER but states he cannot come off it yet secondary to his pain. He does answer my questions appropriately when asked. 04/02: Patient more awake and alert today. Complains of incisional soreness but improving. She states pain radiates into the left posterior thigh lateral left calf and top of the left foot. Review of Systems General: Negative for: fever, chills, insomnia Respiratory: Negative for: shortness of breath, cough, sputum Cardiovascular: Negative for: chest pain Gastrointestinal: Negative for: nausea, vomitting, diarrhea, constipation Exam Results Vital Signs Date Time Temp Pulse Resp B/P (MAP) Pulse Ox O2 Delivery O2 Flow Rate FiO2 04/02/17 06:48 14 04/02/17 06:00 71 04/02/17 04:00 98.0 118/76 (90) 97 04/01/17 22:07 21 04/01/17 09:54 Nasal Cannula 2.00 Intake and Output 04/02/17 04/02/17 04/03/17 08:00 16:00 00:00 Intake Total 100 ml Output Total 925 ml Balance -825 ml Physical Examination General: Pt resting in bed in no acute distress on a Diludid BRAILLE PROOFREADER. He is more awake this morning. Resp: CTA bilaterally Heart: NSR no murmurs Abd: Soft positive bs Skin: No cyanosis or erythema. Bandage dry intact. EDGAR drain in place x 2. Muscle: Moves LEs with good strength other than left EHL 4-/5. Neuro: Pt awakens to voice and is more alert today. Follows commands well. Answers questions appropriately. Sensation intact in LEs. Lab, Micro, Other Results Last Impressions Lumbar Spine X-Ray 03/31/17 0000 Signed Impressions: Service Date/Time: Friday, March 31, 2017 09:59 - CONCLUSION: 1. Lumbar spine fixation as above. Dhaval Todd MD Chest X-Ray 03/29/17 0000 Signed Impressions: Service Date/Time: Wednesday, March 29, 2017 09:57 - CONCLUSION: 1. Diffuse interstitial changes likely chronic although acute interstitial infiltrate cannot be excluded. Justin Schmitz MD Aorta Ultrasound 03/28/17 0000 Signed Impressions: Service Date/Time: Tuesday, March 28, 2017 19:43 - CONCLUSION: 1. Mild dilatation of distal abdominal aorta to 2.5 cm. Right iliac artery also measures 2.5 cm, increased from previous measurement of 2 cm. 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 Dhaval Todd MD Lumbar Spine MRI 03/27/17 0000 Signed Impressions: Service Date/Time: Monday, March 27, 2017 16:56 - CONCLUSION: 1. Status post intradiscal and posterior joseph and screw fixation at L4-S1. 2. 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 There is also severe left neural foraminal stenosis at this level. 3. Multilevel degenerative spondylosis of the lumbar spine with variable neural foraminal stenosis, as above. Raheem Snyder MD Laboratory Tests Test 04/01/17 17:05 04/02/17 05:05 Hemoglobin 7.9 GM/DL 7.0 GM/DL Hematocrit 23.2 % 20.7 % White Blood Count 11.3 TH/MM3 Red Blood Count 2.31 MIL/MM3 Mean Corpuscular Volume 89.5 FL Mean Corpuscular Hemoglobin 30.5 PG Mean Corpuscular Hemoglobin Concent 34.1 % Red Cell Distribution Width 13.3 % Platelet Count 211 TH/MM3 Mean Platelet Volume 8.0 FL Neutrophils (%) (Auto) 68.9 % Lymphocytes (%) (Auto) 16.6 % Monocytes (%) (Auto) 11.5 % Eosinophils (%) (Auto) 2.6 % Basophils (%) (Auto) 0.4 % Neutrophils # (Auto) 7.8 TH/MM3 Lymphocytes # (Auto) 1.9 TH/MM3 Monocytes # (Auto) 1.3 TH/MM3 Eosinophils # (Auto) 0.3 TH/MM3 Basophils # (Auto) 0.0 TH/MM3 CBC Comment DIFF FINAL Differential Comment Blood Urea Nitrogen 10 MG/DL Creatinine 0.80 MG/DL Random Glucose 104 MG/DL Total Protein 5.6 GM/DL Albumin 2.4 GM/DL Calcium Level 7.8 MG/DL Alkaline Phosphatase 74 U/L Aspartate Amino Transf (AST/SGOT) 50 U/L Alanine Aminotransferase (ALT/SGPT) 15 U/L Total Bilirubin 0.3 MG/DL Sodium Level 141 MEQ/L Potassium Level 4.1 MEQ/L Chloride Level 109 MEQ/L Carbon Dioxide Level 27.8 MEQ/L Anion Gap 4 MEQ/L Estimat Glomerular Filtration Rate 99 ML/MIN Medical Decision Making Impression and Plan A: 61 y/o M s/p L2/L3 and L3/L4 PLIF with cage and pedicle screw fixation on by Dr. Middleton. P: Continue with pain control. D/C BRAILLE PROOFREADER. D/C IVF D/C Ott PT with brace on when brace available. Justin Pena Apr 02, 2017 9:06 am
[2017-04-02] MEDS: SODIUM CHLORIDE 0.9% FLUSH 10 ML FLUSH IV FLUSH SCH ×2 (10:43→20:44)
[2017-04-02] MEDS: CYCLOBENZAPRINE HCL 10 MG TAB PO PRN ×2 (11:33→23:09)
--- NOTE | 2017-04-02 12:28 | PD.CARD.PN ---
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 Drain removed No chest pain/SOB Objective Medications Current Medications Medications (Trade) Dose Ordered Sig/Melony Route Start Time Stop Time Status Last Admin (NS Flush) 2 ml UNSCH PRN IV FLUSH 03/27/17 16:45 (NS Flush) 2 ml BID IV FLUSH 03/27/17 21:00 04/02/17 10:43 (Iqra-Colace) 1 tab BID PO 03/27/17 21:00 04/02/17 08:41 (Lactulose Liq) 30 ml DAILY PRN PO 03/27/17 18:00 03/30/17 08:27 (Abilify) 15 mg DAILY PO 03/28/17 09:00 04/02/17 08:40 (Buspar) 15 mg TID PO 03/27/17 18:00 04/02/17 08:41 (PROzac) 40 mg BID PO 03/27/17 21:00 04/02/17 08:41 (Neurontin) 600 mg TID PO 03/27/17 18:00 04/02/17 08:41 (Albuterol Neb) 1.25 mg Q4HR NEB PRN NEB 03/27/17 18:30 03/30/17 12:19 (Oramorph Sr) 15 mg Q12HR PO 03/28/17 21:00 04/02/17 08:44 (Percocet 5-325 Mg) 1 tab Q4H PRN PO 03/28/17 11:00 (Percocet 10-325 Mg) 1 tab Q4H PRN PO 03/28/17 11:00 04/02/17 11:33 (Tessalon) 100 mg TID PRN PO 03/28/17 14:00 (Lopressor) 25 mg BID PO 03/28/17 21:00 04/02/17 11:57 (Ditropan) 5 mg Q8HR PO 03/28/17 14:00 04/02/17 05:48 (Restoril) 30 mg HS PRN PO 03/28/17 14:00 03/30/17 21:27 (Catapres) 0.1 mg Q6H PRN PO 03/28/17 14:00 03/30/17 08:26 (Vasotec Inj) 1.25 mg Q6H PRN IV PUSH 03/28/17 14:00 (Ecotrin Ec) 81 mg DAILY PO 03/29/17 09:30 04/02/17 08:40 (Protonix Inj) 40 mg DAILY PRN IVP 04/01/17 09:00 (Morphine Inj) 2 mg Q2H PRN IV PUSH 03/31/17 09:45 (Morphine Inj) 4 mg Q2H PRN IV PUSH 03/31/17 09:45 (Dulcolax Supp) 10 mg DAILY PRN RECTAL 03/31/17 15:15 (Colace) 100 mg BID PO 03/31/17 21:00 04/02/17 08:40 (Milk Of Magnesia Liq) 30 ml DAILY PRN PO 03/31/17 15:15 (Protonix) 40 mg DAILY PO 04/01/17 09:00 04/02/17 08:41 (Zofran Inj) 4 mg Q6H PRN IV PUSH 03/31/17 15:15 04/01/17 08:41 (Flexeril) 10 mg Q8H PRN PO 03/31/17 15:15 04/02/17 11:33 (Tylenol) 650 mg Q4H PRN PO 03/31/17 15:15 ([place] Jose Luis) 1 lozenge UNSCH PRN BUCCAL 03/31/17 15:15 (Albuterol Neb) 2.5 mg Q4HR NEB PRN INH 03/31/17 15:15 (Narcan Inj) 0.4 mg UNSCH PRN IV PUSH 03/31/17 15:15 (Benadryl Inj) 25 mg Q6H PRN IV PUSH 03/31/17 15:15 Sodium Chloride 250 ml @ 15 mls/hr ONCE ONCE IV 04/02/17 08:45 04/03/17 01:24 Vital Signs / I&O Vital Signs Date Time Temp Pulse Resp B/P (MAP) Pulse Ox O2 Delivery O2 Flow Rate FiO2 04/02/17 09:47 99 Nasal Cannula 2.00 04/02/17 09:44 16 04/02/17 08:00 69 04/02/17 08:00 99.1 69 14 114/68 (83) 96 04/02/17 06:48 14 04/02/17 06:00 16 04/02/17 06:00 71 04/02/17 05:46 16 04/02/17 04:00 98.0 72 18 118/76 (90) 97 04/02/17 04:00 74 04/02/17 02:00 68 04/02/17 00:00 72 04/01/17 23:00 76 106/63 (77) 04/01/17 22:07 92 21 04/01/17 22:00 16 04/01/17 22:00 71 04/01/17 20:44 16 04/01/17 20:42 16 04/01/17 20:00 16 04/01/17 20:00 97.7 70 16 127/58 (81) 92 04/01/17 20:00 85 04/01/17 16:50 12 04/01/17 16:00 65 04/01/17 16:00 99.1 65 12 107/58 (74) 94 I/O 04/01/17 04/01/17 04/01/17 04/02/17 04/02/17 04/02/17 07:00 15:00 23:00 07:00 15:00 23:00 Intake Total 972 ml 1050 ml 1700 ml 100 ml 1486 ml Output Total 1760 ml 1700 ml 925 ml Balance -788 ml 1050 ml 0 ml -825 ml 1486 ml Intake Oral 40 ml 700 ml 100 ml IV Total 932 ml 1050 ml 1000 ml 436 ml Packed Cells 800 ml Blood Product IV Normal Saline Flush 250 ml Output Urine Total 1725 ml 1650 ml 900 ml Drainage Total 35 ml 50 ml 25 ml # Bowel Movements 0 Physical Exam GENERAL: NAD, AAOx3 SKIN: Warm and dry. HEAD: Atraumatic. Normocephalic. EYES: Pupils equal and round. No scleral icterus. No injection or drainage. ENT: No nasal bleeding or discharge. Mucous membranes pink and moist. NECK: Trachea midline. No JVD. CARDIOVASCULAR: Regular rate and rhythm. RESPIRATORY: No accessory muscle use. Clear to auscultation. Breath sounds equal bilaterally. GASTROINTESTINAL: Abdomen soft, non-tender, nondistended. Hepatic and splenic margins not palpable. MUSCULOSKELETAL: Extremities without clubbing, cyanosis, or edema. No obvious deformities. NEUROLOGICAL: Awake and alert. No obvious cranial nerve deficits. Motor grossly within normal limits. Laboratory Laboratory Tests Test 04/01/17 17:05 04/02/17 05:05 Hemoglobin 7.9 GM/DL 7.0 GM/DL Hematocrit 23.2 % 20.7 % White Blood Count 11.3 TH/MM3 Red Blood Count 2.31 MIL/MM3 Mean Corpuscular Volume 89.5 FL Mean Corpuscular Hemoglobin 30.5 PG Mean Corpuscular Hemoglobin Concent 34.1 % Red Cell Distribution Width 13.3 % Platelet Count 211 TH/MM3 Mean Platelet Volume 8.0 FL Neutrophils (%) (Auto) 68.9 % Lymphocytes (%) (Auto) 16.6 % Monocytes (%) (Auto) 11.5 % Eosinophils (%) (Auto) 2.6 % Basophils (%) (Auto) 0.4 % Neutrophils # (Auto) 7.8 TH/MM3 Lymphocytes # (Auto) 1.9 TH/MM3 Monocytes # (Auto) 1.3 TH/MM3 Eosinophils # (Auto) 0.3 TH/MM3 Basophils # (Auto) 0.0 TH/MM3 CBC Comment DIFF FINAL Differential Comment Blood Urea Nitrogen 10 MG/DL Creatinine 0.80 MG/DL Random Glucose 104 MG/DL Total Protein 5.6 GM/DL Albumin 2.4 GM/DL Calcium Level 7.8 MG/DL Alkaline Phosphatase 74 U/L Aspartate Amino Transf (AST/SGOT) 50 U/L Alanine Aminotransferase (ALT/SGPT) 15 U/L Total Bilirubin 0.3 MG/DL Sodium Level 141 MEQ/L Potassium Level 4.1 MEQ/L Chloride Level 109 MEQ/L Carbon Dioxide Level 27.8 MEQ/L Anion Gap 4 MEQ/L Estimat Glomerular Filtration Rate 99 ML/MIN Assessment and Plan Problem List: (1) Pre-operative cardiovascular examination ICD Codes: Z01.810 - Encounter for preprocedural cardiovascular examination (2) CAD (coronary artery disease) ICD Codes: I25.10 - Atherosclerotic heart disease of [place] coronary artery without angina pectoris (3) Acute lumbar back pain ICD Codes: M54.5 - Low back pain Status: Acute (4) Intractable back pain ICD Codes: M54.9 - Dorsalgia, unspecified Status: Acute (5) Unable to ambulate ICD Codes: R26.2 - Difficulty in walking, not elsewhere classified Status: Acute Assessment and Plan 1) Post-lumbar fusion per neurosurgery 2) EF 55-60% 3) Brilinta on hold, restarted on ASA Restart Brilinta as soon as safely possible post-procedure Will wait for neurosurgery to agree that its ok to start Patient is on Brilinta outpatient, not Plavix 4) Anemia post-op Received 2 units PRBC today Problem Qualifiers (1) Acute lumbar back pain: Qualified Codes: M54.42 - Lumbago with sciatica, left side Suman Canales DO Apr 02, 2017 12:28
[2017-04-02 13:21] LABS: HEMATOCRIT 26.5 % (39.0-51.0)
--- NOTE | 2017-04-02 15:40 | HHI.PR ---
Subjective Remarks 61M s/p lumbar fusion is doing well, pain adequately controlled. He is looking forward to getting up to a chair today. Anemia is present post op. Objective Vitals Vital Signs Date Time Temp Pulse Resp B/P (MAP) Pulse Ox O2 Delivery O2 Flow Rate FiO2 04/02/17 15:00 66 04/02/17 12:33 16 04/02/17 12:00 98.2 81 20 152/78 (102) 100 04/02/17 09:47 99 Nasal Cannula 2.00 04/02/17 09:44 16 04/02/17 08:00 69 04/02/17 08:00 99.1 69 14 114/68 (83) 96 04/02/17 06:00 16 04/02/17 06:00 71 04/02/17 05:46 16 04/02/17 04:00 98.0 72 18 118/76 (90) 97 04/02/17 04:00 74 04/02/17 02:00 68 04/02/17 00:00 72 04/01/17 23:00 76 106/63 (77) 04/01/17 22:07 92 21 04/01/17 22:00 16 04/01/17 22:00 71 04/01/17 20:44 16 04/01/17 20:42 16 04/01/17 20:00 16 04/01/17 20:00 97.7 70 16 127/58 (81) 92 04/01/17 20:00 85 04/01/17 16:50 12 04/01/17 16:00 65 04/01/17 16:00 99.1 65 12 107/58 (74) 94 I/O 04/01/17 04/01/17 04/01/17 04/02/17 04/02/17 04/02/17 07:00 15:00 23:00 07:00 15:00 23:00 Intake Total 972 ml 1050 ml 1700 ml 100 ml 1966 ml Output Total 1760 ml 1700 ml 925 ml Balance -788 ml 1050 ml 0 ml -825 ml 1966 ml Intake Oral 40 ml 700 ml 100 ml 480 ml IV Total 932 ml 1050 ml 1000 ml 436 ml Packed Cells 800 ml Blood Product IV Normal Saline Flush 250 ml Output Urine Total 1725 ml 1650 ml 900 ml Drainage Total 35 ml 50 ml 25 ml # Bowel Movements 0 Result Diagram: 04/02/17 1301 04/02/17 0505 Imaging Last Impressions Lumbar Spine X-Ray 03/31/17 0000 Signed Impressions: Service Date/Time: Friday, March 31, 2017 09:59 - CONCLUSION: 1. Lumbar spine fixation as above. Dhaval Todd MD Chest X-Ray 03/29/17 0000 Signed Impressions: Service Date/Time: Wednesday, March 29, 2017 09:57 - CONCLUSION: 1. Diffuse interstitial changes likely chronic although acute interstitial infiltrate cannot be excluded. Justin Schmitz MD Aorta Ultrasound 03/28/17 0000 Signed Impressions: Service Date/Time: Tuesday, March 28, 2017 19:43 - CONCLUSION: 1. Mild dilatation of distal abdominal aorta to 2.5 cm. Right iliac artery also measures 2.5 cm, increased from previous measurement of 2 cm. 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 Dhaval Todd MD Lumbar Spine MRI 03/27/17 0000 Signed Impressions: Service Date/Time: Monday, March 27, 2017 16:56 - CONCLUSION: 1. Status post intradiscal and posterior joseph and screw fixation at L4-S1. 2. 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 There is also severe left neural foraminal stenosis at this level. 3. Multilevel degenerative spondylosis of the lumbar spine with variable neural foraminal stenosis, as above. Raehem Snyder MD Objective Remarks GENERAL: Well-nourished, well-developed patient. SKIN: Warm and dry, incision under bandage on lower back HEAD: Normocephalic. EYES: No scleral icterus. No injection or drainage. NECK: Supple, trachea midline. No JVD or lymphadenopathy. CARDIOVASCULAR: Regular rate and rhythm without murmurs, gallops, or rubs. RESPIRATORY: Breath sounds equal bilaterally. No accessory muscle use. GASTROINTESTINAL: Abdomen soft, non-tender, nondistended. MUSCULOSKELETAL: No cyanosis, or edema. BACK: Nontender without obvious deformity. No CVA tenderness. EXTREMITIES: no significant edema A/P Assessment and Plan Degenerative disc disease of lumbar spine Subacute, status post previous lumbar fusion surgery (L5/S1) Intractable low back and left leg lumbar radiculopathy Severe Spinal Stenosis L3/L4 Post op L5/S1 fusion Following CBC trend Pain under control Neurosurgery following Continue gabapentin Physical Therapy consulted Anemia Post-op timing, Hgb = 7.0, will replace today with 2 units of PRBC Following CBC CAD s/p [place] and cardiac stents Plavix on hold Brilinta on hold Aspirin on hold Cardiology following Hypertension IV Vasotec and Hydralizine PRN Follow blood pressures Continue daily lisinopril COPD No current issues Depression Anxiety Continue baseline treatments Monitor clinically DVT prophylaxis SCDs Disposition OK to transfer to med/surg telemetry Demar Tam MD Apr 02, 2017 15:40
[2017-04-02 19:26] LABS: AUTOMATED NEUTROPHIL # 8.3 TH/MM3 (1.8-7.7); BASOPHIL # 0.1 TH/MM3 (0-0.2); BASOPHIL % 0.6 % (0.0-2.0); EOSINOPHIL # 0.3 TH/MM3 (0-0.4); EOSINOPHIL % 2.1 % (0.0-4.0); HEMATOCRIT 26.9 % (39.0-51.0); HEMOGLOBIN 9.4 GM/DL (13.0-17.0); LYMPH % 14.3 % (9.0-44.0); LYMPHOCYTE # 1.7 TH/MM3 (1.0-4.8); MEAN CORPUSCULAR HEMOGLOBIN 30.7 PG (27.0-34.0); MEAN CORPUSCULAR HGB CONC 34.9 % (32.0-36.0); MEAN PLATELET VOLUME 7.8 FL (7.0-11.0); MONO % 12.9 % (0.0-8.0); MONOCYTE # 1.5 TH/MM3 (0-0.9); NEUT % 70.1 % (16.0-70.0); PLATELET COUNT 207 TH/MM3 (150-450); RED BLOOD COUNT 3.05 MIL/MM3 (4.50-5.90); RED CELL DISTRIBUTION WIDTH 13.4 % (11.6-17.2); WHITE BLOOD COUNT 11.8 TH/MM3 (4.0-11.0)
[2017-04-02 19:53] LABS: BICARBONATE 27.8 MEQ/L (21.0-32.0); CALCIUM 8.5 MG/DL (8.5-10.1); CREATININE 0.89 MG/DL (0.60-1.30)
[2017-04-03] VITALS (13 sets, daily range): BP systolic 103–146; BP diastolic 58–83; PULSE 59–73; RESP 17–25; TEMP 98–101; O2SAT 93–97
[2017-04-03] MEDS: ONDANSETRON HCL 4 MG/2 ML VIAL IV PUSH PRN (01:18)
[2017-04-03] MEDS: OXYBUTYNIN CHLORIDE 5 MG TAB PO SCH ×3 (05:58→21:09)
[2017-04-03] MEDS: CYCLOBENZAPRINE HCL 10 MG TAB PO PRN ×2 (07:45→16:13)
[2017-04-03] MEDS: oxyCODONE/ACETAMINOPHEN 10 MG/325 MG TAB PO PRN ×3 (07:45→16:13)
[2017-04-03] MEDS: FLUoxetine HCL 20 MG CAP PO SCH ×2 (09:37→21:09)
[2017-04-03] MEDS: busPIRone HCL 5 MG TAB PO SCH ×3 (09:37→18:19)
[2017-04-03] MEDS: DOCUSATE SODIUM 100 MG CAP PO SCH ×2 (09:38→21:08)
[2017-04-03] MEDS: GABAPENTIN 300 MG CAP PO SCH ×3 (09:38→18:20)
[2017-04-03] MEDS: MORPHINE SULFATE 15 MG CONTROLLED RELEASE TAB PO SCH ×2 (09:38→21:08)
[2017-04-03] MEDS: METOPROLOL TARTRATE 25 MG TAB PO SCH ×2 (09:38→21:08)
[2017-04-03] MEDS: PANTOPRAZOLE SOD 40 MG DELAYED RELEASE TAB PO SCH (09:38)
[2017-04-03] MEDS: ARIPiprazole 15 MG TAB PO SCH (09:38)
[2017-04-03] MEDS: ASPIRIN EC 81 MG TABEC PO SCH (09:39)
[2017-04-03] MEDS: DOCUSATE SODIUM 50 MG/SENNA 8.6 MG TAB PO SCH ×2 (09:39→21:08)
[2017-04-03] MEDS: SODIUM CHLORIDE 0.9% FLUSH 10 ML FLUSH IV FLUSH SCH ×2 (09:39→21:09)
--- NOTE | 2017-04-03 12:24 | PD.CARD.PN ---
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 Drain removed No chest pain/SOB Up to the chair Objective Medications Current Medications Medications (Trade) Dose Ordered Sig/Melony Route Start Time Stop Time Status Last Admin (NS Flush) 2 ml UNSCH PRN IV FLUSH 03/27/17 16:45 (NS Flush) 2 ml BID IV FLUSH 03/27/17 21:00 04/03/17 09:39 (Iqra-Colace) 1 tab BID PO 03/27/17 21:00 04/03/17 09:39 (Lactulose Liq) 30 ml DAILY PRN PO 03/27/17 18:00 03/30/17 08:27 (Abilify) 15 mg DAILY PO 03/28/17 09:00 04/03/17 09:38 (Buspar) 15 mg TID PO 03/27/17 18:00 04/03/17 09:37 (PROzac) 40 mg BID PO 03/27/17 21:00 04/03/17 09:37 (Neurontin) 600 mg TID PO 03/27/17 18:00 04/03/17 09:38 (Albuterol Neb) 1.25 mg Q4HR NEB PRN NEB 03/27/17 18:30 03/30/17 12:19 (Oramorph Sr) 15 mg Q12HR PO 03/28/17 21:00 04/03/17 09:38 (Percocet 5-325 Mg) 1 tab Q4H PRN PO 03/28/17 11:00 (Percocet 10-325 Mg) 1 tab Q4H PRN PO 03/28/17 11:00 04/03/17 07:45 (Tessalon) 100 mg TID PRN PO 03/28/17 14:00 (Lopressor) 25 mg BID PO 03/28/17 21:00 04/03/17 09:38 (Ditropan) 5 mg Q8HR PO 03/28/17 14:00 04/03/17 05:58 (Restoril) 30 mg HS PRN PO 03/28/17 14:00 03/30/17 21:27 (Catapres) 0.1 mg Q6H PRN PO 03/28/17 14:00 03/30/17 08:26 (Vasotec Inj) 1.25 mg Q6H PRN IV PUSH 03/28/17 14:00 (Ecotrin Ec) 81 mg DAILY PO 03/29/17 09:30 04/03/17 09:39 (Protonix Inj) 40 mg DAILY PRN IVP 04/01/17 09:00 (Morphine Inj) 2 mg Q2H PRN IV PUSH 03/31/17 09:45 (Morphine Inj) 4 mg Q2H PRN IV PUSH 03/31/17 09:45 (Dulcolax Supp) 10 mg DAILY PRN RECTAL 03/31/17 15:15 (Colace) 100 mg BID PO 03/31/17 21:00 04/03/17 09:38 (Milk Of Magnesia Liq) 30 ml DAILY PRN PO 03/31/17 15:15 (Protonix) 40 mg DAILY PO 04/01/17 09:00 04/03/17 09:38 (Zofran Inj) 4 mg Q6H PRN IV PUSH 03/31/17 15:15 04/03/17 01:18 (Flexeril) 10 mg Q8H PRN PO 03/31/17 15:15 04/03/17 07:45 (Tylenol) 650 mg Q4H PRN PO 03/31/17 15:15 ([place] Jose Luis) 1 lozenge UNSCH PRN BUCCAL 03/31/17 15:15 (Albuterol Neb) 2.5 mg Q4HR NEB PRN INH 03/31/17 15:15 (Narcan Inj) 0.4 mg UNSCH PRN IV PUSH 03/31/17 15:15 (Benadryl Inj) 25 mg Q6H PRN IV PUSH 03/31/17 15:15 Vital Signs / I&O Vital Signs Date Time Temp Pulse Resp B/P (MAP) Pulse Ox O2 Delivery O2 Flow Rate FiO2 04/03/17 08:45 18 04/03/17 08:26 96 04/03/17 08:00 98.1 70 22 132/83 (99) 96 04/03/17 04:00 98.0 73 17 103/58 (73) 94 04/03/17 04:00 66 04/03/17 00:00 72 04/03/17 00:00 101.0 67 19 135/81 (99) 93 04/02/17 20:00 72 04/02/17 20:00 98.9 69 18 126/80 (95) 98 04/02/17 16:00 98.7 60 24 127/75 (92) 97 04/02/17 15:00 66 I/O 04/02/17 04/02/17 04/02/17 04/03/17 04/03/17 04/03/17 07:00 15:00 23:00 07:00 15:00 23:00 Intake Total 100 ml 1966 ml 240 ml 720 ml Output Total 925 ml 900 ml 350 ml Balance -825 ml 1966 ml -660 ml 370 ml Intake Oral 100 ml 480 ml 240 ml 720 ml IV Total 436 ml Packed Cells 800 ml Blood Product IV Normal Saline Flush 250 ml Output Urine Total 900 ml 900 ml 350 ml Drainage Total 25 ml # Voids 5 Physical Exam GENERAL: NAD, AAOx3 SKIN: Warm and dry. HEAD: Atraumatic. Normocephalic. EYES: Pupils equal and round. No scleral icterus. No injection or drainage. ENT: No nasal bleeding or discharge. Mucous membranes pink and moist. NECK: Trachea midline. No JVD. CARDIOVASCULAR: Regular rate and rhythm. RESPIRATORY: No accessory muscle use. Clear to auscultation. Breath sounds equal bilaterally. GASTROINTESTINAL: Abdomen soft, non-tender, nondistended. Hepatic and splenic margins not palpable. MUSCULOSKELETAL: Extremities without clubbing, cyanosis, or edema. No obvious deformities. NEUROLOGICAL: Awake and alert. No obvious cranial nerve deficits. Motor grossly within normal limits. Laboratory Laboratory Tests Test 04/02/17 13:01 04/02/17 19:09 Hemoglobin 9.0 GM/DL 9.4 GM/DL Hematocrit 26.5 % 26.9 % White Blood Count 11.8 TH/MM3 Red Blood Count 3.05 MIL/MM3 Mean Corpuscular Volume 88.0 FL Mean Corpuscular Hemoglobin 30.7 PG Mean Corpuscular Hemoglobin Concent 34.9 % Red Cell Distribution Width 13.4 % Platelet Count 207 TH/MM3 Mean Platelet Volume 7.8 FL Neutrophils (%) (Auto) 70.1 % Lymphocytes (%) (Auto) 14.3 % Monocytes (%) (Auto) 12.9 % Eosinophils (%) (Auto) 2.1 % Basophils (%) (Auto) 0.6 % Neutrophils # (Auto) 8.3 TH/MM3 Lymphocytes # (Auto) 1.7 TH/MM3 Monocytes # (Auto) 1.5 TH/MM3 Eosinophils # (Auto) 0.3 TH/MM3 Basophils # (Auto) 0.1 TH/MM3 CBC Comment DIFF FINAL Differential Comment Blood Urea Nitrogen 10 MG/DL Creatinine 0.89 MG/DL Random Glucose 107 MG/DL Calcium Level 8.5 MG/DL Sodium Level 137 MEQ/L Potassium Level 4.0 MEQ/L Chloride Level 105 MEQ/L Carbon Dioxide Level 27.8 MEQ/L Anion Gap 4 MEQ/L Estimat Glomerular Filtration Rate 87 ML/MIN Assessment and Plan Problem List: (1) Pre-operative cardiovascular examination ICD Codes: Z01.810 - Encounter for preprocedural cardiovascular examination (2) CAD (coronary artery disease) ICD Codes: I25.10 - Atherosclerotic heart disease of [place] coronary artery without angina pectoris (3) Acute lumbar back pain ICD Codes: M54.5 - Low back pain Status: Acute (4) Intractable back pain ICD Codes: M54.9 - Dorsalgia, unspecified Status: Acute (5) Unable to ambulate ICD Codes: R26.2 - Difficulty in walking, not elsewhere classified Status: Acute Assessment and Plan 1) Post-lumbar fusion per neurosurgery 2) EF 55-60% 3) Brilinta on hold, restarted on ASA Restart Brilinta as soon as safely possible post-procedure Will wait for neurosurgery to agree that its ok to start Patient is on Brilinta outpatient, not Plavix 4) Anemia post-op Received 2 units PRBC today Hgb stable Problem Qualifiers (1) Acute lumbar back pain: Qualified Codes: M54.42 - Lumbago with sciatica, left side Suman Canales DO Apr 03, 2017 12:24
[2017-04-03] MEDS: TICAGRELOR 60 MG TAB PO SCH ×2 (13:22→21:09)
[2017-04-03] MEDS: CLOPIDOGREL 75 MG TAB PO SCH (13:28)
--- NOTE | 2017-04-03 13:41 | HHI.NSPN ---
(Meghan Johnson) Note Status Status: Progress Note (Meghan Johnson) Interval History Interval History Mr. Panda is a 61-year-old male who presented to [facility] emergency department with complaints of intractable low back pain. Mr. Panda has had a previous cervical and lumbar fusion L4-S1 many years ago and had done very well with improvement of his prior pain and symptoms. Unfortunately he developed recurrent progressive lumbar pain. He denies any associates trauma or falls. He reports he has been managing his pain with narcotic pain medications. His pain is located in the upper to mid lumbar region with pain radiating to the lateral hips and down the anterior thigh, knee, medial fuller to the great toe. He reports generalized weakness in his legs. He denies bowel or bladder incontinence, fevers or chills. 03/28: persistent lumbar pain and radicular pain in his legs. MRI completed. RT reports with wheezing, cough, and sputum production. 03/29: patient was seen this am during rounds - no change in his pain and symptoms. reports cough is better today. seen by cardiology last night for preoperative clearance due to hx of cardiac disease. 03/30: Dr. Middleton again discussed regarding continuing conservative mgt, vs surgical decompression. patient continues to express the severity his pain greatly affects his quality of life and would like to proceed with surgery tomorrow. 04/03: Mr. Panda underwent L2-3, L3-4 laminectomy, with interbody arthrodesis, and posterolateral fixation on 03/31/17. Reports preoperative radicular pain much improved now a 5/10 compared to a "20/10" before. His pain controlled on oral medications. He is very pleased with his surgical results. He continues with residual numbness in the left big toe. (Meghan Johnson) Labs, Micro, & Vital Signs Results Date Time Temp Pulse Resp B/P (MAP) Pulse Ox O2 Delivery O2 Flow Rate FiO2 04/03/17 12:00 98.5 66 22 146/74 (98) 97 04/03/17 08:45 18 04/03/17 08:26 96 04/03/17 08:00 98.1 70 22 132/83 (99) 96 04/03/17 04:00 98.0 73 17 103/58 (73) 94 04/03/17 04:00 66 04/03/17 00:00 72 04/03/17 00:00 101.0 67 19 135/81 (99) 93 04/02/17 20:00 72 04/02/17 20:00 98.9 69 18 126/80 (95) 98 04/02/17 16:00 98.7 60 24 127/75 (92) 97 04/02/17 15:00 66 Constitutional Vital Signs Date Time Temp Pulse Resp B/P (MAP) Pulse Ox O2 Delivery O2 Flow Rate FiO2 04/03/17 12:00 98.5 66 22 146/74 (98) 97 04/03/17 08:45 18 04/03/17 08:26 96 04/03/17 08:00 98.1 70 22 132/83 (99) 96 04/03/17 04:00 98.0 73 17 103/58 (73) 94 04/03/17 04:00 66 04/03/17 00:00 72 04/03/17 00:00 101.0 67 19 135/81 (99) 93 04/02/17 20:00 72 04/02/17 20:00 98.9 69 18 126/80 (95) 98 04/02/17 16:00 98.7 60 24 127/75 (92) 97 04/02/17 15:00 66 (Meghan Johnson) Review of Systems Constitutional: DENIES: Fever, Chills Genitourinary: DENIES: Urinary incontinence Musculoskeletal: COMPLAINS OF: Back pain Neurologic: COMPLAINS OF: Paresthesias (Meghan Johnson) Physical Exam Mr. Panda is alert, awake. Speech is fluent. Conversing and following commands well. He is laying still in bed, comfortable in no acute distress. Cranial nerve examination: pupils equal, round, and reactive to light. EOMs are intact. Facial motor are normal and symmetrical. Neck is soft and supple. Muscle testing reveals normal bulk and tone. Muscle strength in the lower extremities, strength is 4+to5/5 bilateral iliopsoas quadriceps (left weaker than right), 5/5 gastrocnemius, tibialis anterior and EHL b/l No extremity edema Sensory examination is decreased left big toe Deep tendon reflexes: In the lower extremities, the patellar are absent, and Achilles are 1+, bilaterally. There is a bilateral plantar flexion response. There is no clonus Lungs: CTA b/l Heart: NSR Wound with Optifoam dressing intact - moderate drainage noted. (Meghan Johnson) Medications Current Medications Current Medications Medications (Trade) Dose Ordered Sig/Melony Route PRN Reason Start Time Stop Time Status Last Admin Dose Admin Sodium Chloride (NS Flush) 2 ml UNSCH PRN IV FLUSH FLUSH AFTER USING IV ACCESS 03/27/17 16:45 Sodium Chloride (NS Flush) 2 ml BID IV FLUSH 03/27/17 21:00 04/03/17 09:39 Senna/Docusate Sodium (Iqra-Colace) 1 tab BID PO 03/27/17 21:00 04/03/17 09:39 Lactulose (Lactulose Liq) 30 ml DAILY PRN PO SEVERE CONSITIPATION 03/27/17 18:00 03/30/17 08:27 Aripiprazole (Abilify) 15 mg DAILY PO 03/28/17 09:00 04/03/17 09:38 Buspirone HCl (Buspar) 15 mg TID PO 03/27/17 18:00 04/03/17 13:12 Fluoxetine HCl (PROzac) 40 mg BID PO 03/27/17 21:00 04/03/17 09:37 Gabapentin (Neurontin) 600 mg TID PO 03/27/17 18:00 04/03/17 13:12 Albuterol Sulfate (Albuterol Neb) 1.25 mg Q4HR NEB PRN NEB Dyspnea, Cough, Wheezing 03/27/17 18:30 03/30/17 12:19 Morphine Sulfate (Oramorph Sr) 15 mg Q12HR PO 03/28/17 21:00 04/03/17 09:38 Oxycodone/ Acetaminophen (Percocet 5-325 Mg) 1 tab Q4H PRN PO Pain 3 to 6 03/28/17 11:00 Oxycodone/ Acetaminophen (Percocet 10-325 Mg) 1 tab Q4H PRN PO Pain 7 to 10 03/28/17 11:00 04/03/17 07:45 Benzonatate (Tessalon) 100 mg TID PRN PO COUGH 03/28/17 14:00 Metoprolol Tartrate (Lopressor) 25 mg BID PO 03/28/17 21:00 04/03/17 09:38 Oxybutynin Chloride (Ditropan) 5 mg Q8HR PO 03/28/17 14:00 04/03/17 13:12 Temazepam (Restoril) 30 mg HS PRN PO INSOMNIA 03/28/17 14:00 03/30/17 21:27 Clonidine (Catapres) 0.1 mg Q6H PRN PO SBP>160, DBP>90 03/28/17 14:00 03/30/17 08:26 Enalaprilat (Vasotec Inj) 1.25 mg Q6H PRN IV PUSH SBP>160, DBP>90 03/28/17 14:00 Aspirin (Ecotrin Ec) 81 mg DAILY PO 03/29/17 09:30 04/03/17 09:39 Pantoprazole Sodium (Protonix Inj) 40 mg DAILY PRN IVP SEE LABEL COMMENTS 04/01/17 09:00 Morphine Sulfate (Morphine Inj) 2 mg Q2H PRN IV PUSH PAIN SCALE 1 TO 6 03/31/17 09:45 Morphine Sulfate (Morphine Inj) 4 mg Q2H PRN IV PUSH PAIN SCALE 7 TO 10 03/31/17 09:45 Bisacodyl (Dulcolax Supp) 10 mg DAILY PRN RECTAL SEVERE CONSTIPATION 03/31/17 15:15 Docusate Sodium (Colace) 100 mg BID PO 03/31/17 21:00 04/03/17 09:38 Magnesium Hydroxide (Milk Of Magnesia Liq) 30 ml DAILY PRN PO CONSTIPATION 03/31/17 15:15 Pantoprazole Sodium (Protonix) 40 mg DAILY PO 04/01/17 09:00 04/03/17 09:38 Ondansetron HCl (Zofran Inj) 4 mg Q6H PRN IV PUSH NAUSEA OR VOMITING 03/31/17 15:15 04/03/17 01:18 Cyclobenzaprine HCl (Flexeril) 10 mg Q8H PRN PO MUSCLE SPASM 03/31/17 15:15 04/03/17 07:45 Acetaminophen (Tylenol) 650 mg Q4H PRN PO TEMPERATURE > 101.5 F 03/31/17 15:15 Menthol ([place] Jose Luis) 1 lozenge UNSCH PRN BUCCAL SORE THROAT 03/31/17 15:15 Albuterol Sulfate (Albuterol Neb) 2.5 mg Q4HR NEB PRN INH WHEEZING 03/31/17 15:15 Naloxone HCl (Narcan Inj) 0.4 mg UNSCH PRN IV PUSH RESPIRATORY RATE LESS THAN 10 03/31/17 15:15 Diphenhydramine HCl (Benadryl Inj) 25 mg Q6H PRN IV PUSH ITCHING 03/31/17 15:15 Clopidogrel Bisulfate (Plavix) 75 mg DAILY PO 04/03/17 13:30 Ticagrelor (Brilinta) 60 mg BID PO 04/03/17 13:30 04/03/17 13:22 (Meghan Johnson) Medical Decision Making MDM Remarks 61 year old male developed adjacent level degeneration at L3-4 with severe canal stenosis, with intractable lumbar and radicular pain surgically cleared from cardiac standpoint with moderate risk, s/p L2-3, L3-4 laminectomy with interbody arthrodesis, posterolateral fixation with transpedicular screws and rods (Meghan Johnson) Plan Plan Remarks Dr. Middleton cleared to restarts patient's blood thinners cont TLSO when out of bed cont PT - encourage mobilization dw nursing- change Optifoam dressing today cont pain control as needed rehab efforts, ok to dc to rehab once medically cleared f/u in office in 1 week for wound check Optifoam dressing to be removed in 1 week (Meghan Johnson) Attending Statement The exam, history, and the medical decision-making described in the above note were completed with the assistance of the mid-level provider. I reviewed and agree with the findings presented. I attest that I had a [id number] encounter with the patient on the same day, and personally performed and documented my assessment and findings in the medical record. (Etienne Middleton MD) Meghan Johnson Apr 03, 2017 13:41 Etienne Middleton MD Apr 05, 2017 14:45
--- NOTE | 2017-04-03 17:41 | HHI.PR ---
Subjective Remarks Mr. Panda is awake and interactive today, appropriate, but he is not well oriented. He reported that his back surgery was tomorrow, when in fact it was a few days ago. Objective Vitals Vital Signs Date Time Temp Pulse Resp B/P (MAP) Pulse Ox O2 Delivery O2 Flow Rate FiO2 04/03/17 16:00 98.4 64 25 127/79 (95) 95 04/03/17 12:00 98.5 66 22 146/74 (98) 97 04/03/17 08:45 18 04/03/17 08:26 96 04/03/17 08:00 98.1 70 22 132/83 (99) 96 04/03/17 07:02 65 04/03/17 04:00 98.0 73 17 103/58 (73) 94 04/03/17 04:00 66 04/03/17 00:00 72 04/03/17 00:00 101.0 67 19 135/81 (99) 93 04/02/17 20:00 72 04/02/17 20:00 98.9 69 18 126/80 (95) 98 I/O 04/02/17 04/02/17 04/02/17 04/03/17 04/03/17 04/03/17 06:59 14:59 22:59 06:59 14:59 22:59 Intake Total 200 ml 1966 ml 240 ml 720 ml Output Total 925 ml 900 ml 350 ml Balance -725 ml 1966 ml -660 ml 370 ml Intake Oral 200 ml 480 ml 240 ml 720 ml IV Total 436 ml Packed Cells 800 ml Blood Product IV Normal Saline Flush 250 ml Output Urine Total 900 ml 900 ml 350 ml Drainage Total 25 ml # Voids 5 Result Diagram: 04/02/17190804/02/171908 Objective Remarks GENERAL: Well-nourished, well-developed patient, not well oriented today SKIN: Warm and dry, incision under bandage on lower back HEAD: Normocephalic. EYES: No scleral icterus. No injection or drainage. NECK: Supple, trachea midline. No JVD or lymphadenopathy. CARDIOVASCULAR: Regular rate and rhythm without murmurs, gallops, or rubs. RESPIRATORY: Breath sounds equal bilaterally. No accessory muscle use. GASTROINTESTINAL: Abdomen soft, non-tender, nondistended. MUSCULOSKELETAL: No cyanosis, or edema. BACK: Nontender without obvious deformity. No CVA tenderness. EXTREMITIES: no significant edema A/P Assessment and Plan Degenerative disc disease of lumbar spine Subacute, status post previous lumbar fusion surgery (L5/S1) Intractable low back and left leg lumbar radiculopathy Severe Spinal Stenosis L3/L4 Post op L5/S1 fusion Following CBC trend Pain under control Neurosurgery following Continue gabapentin Physical Therapy consulted Confusion TSH, CMP, CBC, CXR to rule out common causes. Consider recent transfusion and possible reaction (breathing fine) Consider drug-drug interactions Will follow clinically and expand work up if not improving Anemia Following CBC CAD s/p [place] and cardiac stents Plavix on hold Brilinta on hold Aspirin on hold Cardiology following Hypertension IV Vasotec and Hydralizine PRN Follow blood pressures Continue daily lisinopril COPD stable Depression Anxiety Continue baseline treatments Monitor clinically DVT prophylaxis Demar Hutcihnson MD Apr 03, 2017 17:41
[2017-04-03 22:05] LABS: AUTOMATED NEUTROPHIL # 7.8 TH/MM3 (1.8-7.7); BASOPHIL % 0.4 % (0.0-2.0); EOSINOPHIL # 0.3 TH/MM3 (0-0.4); HEMATOCRIT 27.8 % (39.0-51.0); HEMOGLOBIN 9.5 GM/DL (13.0-17.0); LYMPHOCYTE # 1.7 TH/MM3 (1.0-4.8); MEAN CELL VOLUME 87.9 FL (80.0-100.0); MEAN CORPUSCULAR HEMOGLOBIN 30.1 PG (27.0-34.0); MEAN CORPUSCULAR HGB CONC 34.2 % (32.0-36.0); MEAN PLATELET VOLUME 7.9 FL (7.0-11.0); MONO % 13.3 % (0.0-8.0); MONOCYTE # 1.5 TH/MM3 (0-0.9); NEUT % 68.3 % (16.0-70.0); PLATELET COUNT 283 TH/MM3 (150-450); RED BLOOD COUNT 3.16 MIL/MM3 (4.50-5.90); RED CELL DISTRIBUTION WIDTH 13.3 % (11.6-17.2); WHITE BLOOD COUNT 11.5 TH/MM3 (4.0-11.0)
--- NOTE | 2017-04-03 22:18 | RADRPT ---
EXAM DATE/TIME: 04/03/2017 20:18 [facility] COMPARISON: CHEST PA & LAT, March 29, 2017, 9:57. INDICATIONS : Cough. MEDICAL HISTORY : Hypertension. Chronic obstructive pulmonary disease. SURGICAL HISTORY : Appendectomy. Fusion, lumbar. Fusion, cervical. Carotid stent. ENCOUNTER: Subsequent ACUITY: 3 days PAIN SCORE: 0/10 LOCATION: Bilateral chest . FINDINGS: Diffuse interstitial changes are again noted and are unchanged. The heart is stable. CONCLUSION: Stable diffuse interstitial changes consistent with acute or chronic interstitial disease. Wiley Bowden MD on April 03, 2017 at 22:14 Board Certified Radiologist. This report was verified electronically.
[2017-04-03 22:21] LABS: ALBUMIN 2.6 GM/DL (3.4-5.0); ALT (GPT) 21 U/L (12-78); AST (GOT) 46 U/L (15-37); BICARBONATE 29.8 MEQ/L (21.0-32.0); BLOOD UREA NITROGEN 10 MG/DL (7-18); CALCIUM 8.2 MG/DL (8.5-10.1); CHLORIDE 101 MEQ/L (98-107); CREATININE 0.97 MG/DL (0.60-1.30); GLOMERULAR FILTRATION RATE 79 ML/MIN (>89); GLUCOSE,RANDOM 89 MG/DL (74-106); SODIUM (NA) 138 MEQ/L (136-145)
[2017-04-03 22:31] LABS: ALKALINE PHOSPHATASE 89 U/L (45-117); TOTAL BILIRUBIN ADULT 0.5 MG/DL (0.2-1.0); TOTAL PROTEIN 6.5 GM/DL (6.4-8.2)
[2017-04-04] VITALS (13 sets, daily range): BP systolic 114–154; BP diastolic 71–84; PULSE 60–80; RESP 17–34; TEMP 98–99.3; O2SAT 94–98
[2017-04-04] MEDS: CYCLOBENZAPRINE HCL 10 MG TAB PO PRN (04:23)
[2017-04-04] MEDS: OXYBUTYNIN CHLORIDE 5 MG TAB PO SCH (04:23)
[2017-04-04] MEDS: oxyCODONE/ACETAMINOPHEN 10 MG/325 MG TAB PO PRN ×2 (04:23→21:13)
--- NOTE | 2017-04-04 08:56 | HHI.NSPN ---
(Meghan Johnson) Note Status Status: Progress Note (Meghan Johnson) Interval History Interval History Mr. Panda is a 61-year-old male who presented to [facility] emergency department with complaints of intractable low back pain. Mr. Panda has had a previous cervical and lumbar fusion L4-S1 many years ago and had done very well with improvement of his prior pain and symptoms. Unfortunately he developed recurrent progressive lumbar pain. He denies any associates trauma or falls. He reports he has been managing his pain with narcotic pain medications. His pain is located in the upper to mid lumbar region with pain radiating to the lateral hips and down the anterior thigh, knee, medial fuller to the great toe. He reports generalized weakness in his legs. He denies bowel or bladder incontinence, fevers or chills. 03/28: persistent lumbar pain and radicular pain in his legs. MRI completed. RT reports with wheezing, cough, and sputum production. 03/29: patient was seen this am during rounds - no change in his pain and symptoms. reports cough is better today. seen by cardiology last night for preoperative clearance due to hx of cardiac disease. 03/30: Dr. Middleton again discussed regarding continuing conservative mgt, vs surgical decompression. patient continues to express the severity his pain greatly affects his quality of life and would like to proceed with surgery tomorrow. 04/03: Mr. Panda underwent L2-3, L3-4 laminectomy, with interbody arthrodesis, and posterolateral fixation on 03/31/17. Reports preoperative radicular pain much improved now a 5/10 compared to a "20/10" before. His pain controlled on oral medications. He is very pleased with his surgical results. He continues with residual numbness in the left big toe. 04/04: in room reports confusion and visual hallucination, however A&Ox3. reports pain controlled, +BM, ambulating. CT Brain ordered. (Meghan Johnson) Labs, Micro, & Vital Signs Results Date Time Temp Pulse Resp B/P (MAP) Pulse Ox O2 Delivery O2 Flow Rate FiO2 04/04/17 08:00 98.3 70 34 136/84 (101) 95 04/04/17 05:23 20 04/04/17 04:00 99.0 74 18 154/83 (106) 97 04/04/17 02:58 63 04/04/17 02:00 70 04/04/17 01:00 65 04/04/17 00:06 79 04/04/17 00:00 99.1 78 17 130/77 (94) 97 04/03/17 23:00 62 04/03/17 22:05 16 04/03/17 22:00 61 04/03/17 21:00 60 04/03/17 20:50 96 21 04/03/17 20:22 98.2 61 18 133/67 (89) 97 04/03/17 20:04 59 04/03/17 16:00 98.4 64 25 127/79 (95) 95 04/03/17 12:00 98.5 66 22 146/74 (98) 97 Constitutional Vital Signs Date Time Temp Pulse Resp B/P (MAP) Pulse Ox O2 Delivery O2 Flow Rate FiO2 04/04/17 08:00 98.3 70 34 136/84 (101) 95 04/04/17 05:23 20 04/04/17 04:00 99.0 74 18 154/83 (106) 97 04/04/17 02:58 63 04/04/17 02:00 70 04/04/17 01:00 65 04/04/17 00:06 79 04/04/17 00:00 99.1 78 17 130/77 (94) 97 04/03/17 23:00 62 04/03/17 22:05 16 04/03/17 22:00 61 04/03/17 21:00 60 04/03/17 20:50 96 21 04/03/17 20:22 98.2 61 18 133/67 (89) 97 04/03/17 20:04 59 04/03/17 16:00 98.4 64 25 127/79 (95) 95 04/03/17 12:00 98.5 66 22 146/74 (98) 97 (Meghan Johnson) Physical Exam Mr. Panda is alert, awake, oriented to name, place, and time. Speech is fluent. Conversing and following commands well. Hallucinating looking for a dragon in his bed. He appears comfortable in no acute distress. Cranial nerve examination: pupils equal, round, and reactive to light. EOMs are intact. Facial motor are normal and symmetrical. Neck is soft and supple. Muscle: normal bulk and tone. Muscle strength in the lower extremities, strength is 4+to5/5 bilateral iliopsoas quadriceps (left weaker than right), 5/ 5 gastrocnemius, tibialis anterior and EHL b/l No extremity edema Deep tendon reflexes: bilateral plantar flexion response. There is no clonus Lungs: CTA b/l (Meghan Johnson) Medications Current Medications Current Medications Medications (Trade) Dose Ordered Sig/Melony Route PRN Reason Start Time Stop Time Status Last Admin Dose Admin Sodium Chloride (NS Flush) 2 ml UNSCH PRN IV FLUSH FLUSH AFTER USING IV ACCESS 03/27/17 16:45 Sodium Chloride (NS Flush) 2 ml BID IV FLUSH 03/27/17 21:00 04/03/17 21:09 Senna/Docusate Sodium (Iqra-Colace) 1 tab BID PO 03/27/17 21:00 04/03/17 21:08 Lactulose (Lactulose Liq) 30 ml DAILY PRN PO SEVERE CONSITIPATION 03/27/17 18:00 03/30/17 08:27 Aripiprazole (Abilify) 15 mg DAILY PO 03/28/17 09:00 04/03/17 09:38 Buspirone HCl (Buspar) 15 mg TID PO 03/27/17 18:00 04/03/17 18:19 Fluoxetine HCl (PROzac) 40 mg BID PO 03/27/17 21:00 04/03/17 21:09 Gabapentin (Neurontin) 600 mg TID PO 03/27/17 18:00 04/03/17 18:20 Albuterol Sulfate (Albuterol Neb) 1.25 mg Q4HR NEB PRN NEB Dyspnea, Cough, Wheezing 03/27/17 18:30 03/30/17 12:19 Oxycodone/ Acetaminophen (Percocet 5-325 Mg) 1 tab Q4H PRN PO Pain 3 to 6 03/28/17 11:00 Oxycodone/ Acetaminophen (Percocet 10-325 Mg) 1 tab Q4H PRN PO Pain 7 to 10 03/28/17 11:00 04/04/17 04:23 Benzonatate (Tessalon) 100 mg TID PRN PO COUGH 03/28/17 14:00 Metoprolol Tartrate (Lopressor) 25 mg BID PO 03/28/17 21:00 04/03/17 21:08 Oxybutynin Chloride (Ditropan) 5 mg Q8HR PO 03/28/17 14:00 Future Hold 04/04/17 04:23 Temazepam (Restoril) 30 mg HS PRN PO INSOMNIA 03/28/17 14:00 03/30/17 21:27 Clonidine (Catapres) 0.1 mg Q6H PRN PO SBP>160, DBP>90 03/28/17 14:00 03/30/17 08:26 Enalaprilat (Vasotec Inj) 1.25 mg Q6H PRN IV PUSH SBP>160, DBP>90 03/28/17 14:00 Aspirin (Ecotrin Ec) 81 mg DAILY PO 03/29/17 09:30 04/03/17 09:39 Pantoprazole Sodium (Protonix Inj) 40 mg DAILY PRN IVP SEE LABEL COMMENTS 04/01/17 09:00 Bisacodyl (Dulcolax Supp) 10 mg DAILY PRN RECTAL SEVERE CONSTIPATION 03/31/17 15:15 Docusate Sodium (Colace) 100 mg BID PO 03/31/17 21:00 04/03/17 21:08 Magnesium Hydroxide (Milk Of Magnesia Liq) 30 ml DAILY PRN PO CONSTIPATION 03/31/17 15:15 Pantoprazole Sodium (Protonix) 40 mg DAILY PO 04/01/17 09:00 04/03/17 09:38 Ondansetron HCl (Zofran Inj) 4 mg Q6H PRN IV PUSH NAUSEA OR VOMITING 03/31/17 15:15 04/03/17 01:18 Acetaminophen (Tylenol) 650 mg Q4H PRN PO TEMPERATURE > 101.5 F 03/31/17 15:15 Menthol ([place] Jose Luis) 1 lozenge UNSCH PRN BUCCAL SORE THROAT 03/31/17 15:15 Albuterol Sulfate (Albuterol Neb) 2.5 mg Q4HR NEB PRN INH WHEEZING 03/31/17 15:15 Naloxone HCl (Narcan Inj) 0.4 mg UNSCH PRN IV PUSH RESPIRATORY RATE LESS THAN 10 03/31/17 15:15 Diphenhydramine HCl (Benadryl Inj) 25 mg Q6H PRN IV PUSH ITCHING 03/31/17 15:15 Clopidogrel Bisulfate (Plavix) 75 mg DAILY PO 04/03/17 13:30 04/03/17 13:28 Ticagrelor (Brilinta) 60 mg BID PO 04/03/17 13:30 04/03/17 21:09 (Meghan Johnson) Medical Decision Making MDM Remarks 61 year old male developed adjacent level degeneration at L3-4 with severe canal stenosis, with intractable lumbar and radicular pain surgically cleared from cardiac standpoint with moderate risk, s/p L2-3, L3-4 laminectomy with interbody arthrodesis, posterolateral fixation with transpedicular screws and rods, improvement of preoperative radicular pain (Meghan Johnson) Plan Plan Remarks Dr. Middleton cleared to restarts patient's blood thinners cont TLSO when out of bed cont PT - encourage mobilization cont pain control as needed CT Head pending due to acute confusion/hallucination rehab efforts, ok to dc to rehab once medically cleared f/u in office next week for wound check (Meghan Johnson) Attending Statement The exam, history, and the medical decision-making described in the above note were completed with the assistance of the mid-level provider. I reviewed and agree with the findings presented. I attest that I had a [id number] encounter with the patient on the same day, and personally performed and documented my assessment and findings in the medical record. (Etienne Middleton MD) Meghan Johnson Apr 04, 2017 08:56 Etienne Middleton MD Apr 05, 2017 14:39
[2017-04-04] MEDS: busPIRone HCL 5 MG TAB PO SCH ×3 (10:41→18:11)
[2017-04-04] MEDS: PANTOPRAZOLE SOD 40 MG DELAYED RELEASE TAB PO SCH (10:42)
[2017-04-04] MEDS: FLUoxetine HCL 20 MG CAP PO SCH ×2 (10:42→21:15)
[2017-04-04] MEDS: DOCUSATE SODIUM 50 MG/SENNA 8.6 MG TAB PO SCH ×2 (10:42→21:14)
[2017-04-04] MEDS: GABAPENTIN 300 MG CAP PO SCH ×3 (10:43→18:11)
[2017-04-04] MEDS: METOPROLOL TARTRATE 25 MG TAB PO SCH ×2 (10:43→21:14)
[2017-04-04] MEDS: ASPIRIN EC 81 MG TABEC PO SCH (10:43)
[2017-04-04] MEDS: ARIPiprazole 15 MG TAB PO SCH (10:43)
[2017-04-04] MEDS: TICAGRELOR 60 MG TAB PO SCH ×2 (10:44→21:15)
[2017-04-04] MEDS: DOCUSATE SODIUM 100 MG CAP PO SCH ×2 (10:44→21:14)
[2017-04-04] MEDS: SODIUM CHLORIDE 0.9% FLUSH 10 ML FLUSH IV FLUSH SCH ×2 (10:44→21:14)
[2017-04-04] MEDS: CLOPIDOGREL 75 MG TAB PO SCH (10:49)
--- NOTE | 2017-04-04 15:17 | HHI.PR ---
Subjective Remarks Confusion persists. His was present and we discussed various medication scenarios that could cause this, as well as lesser possibility of stroke. Patient has good insight, he just dips into mental disorientation, confusing things like whether or not he had surgery on his back. Objective Vitals Vital Signs Date Time Temp Pulse Resp B/P (MAP) Pulse Ox O2 Delivery O2 Flow Rate FiO2 04/04/17 12:00 98.4 74 29 122/82 (95) 94 04/04/17 08:00 98.3 70 34 136/84 (101) 95 04/04/17 07:55 96 21 04/04/17 05:23 20 04/04/17 04:00 99.0 74 18 154/83 (106) 97 04/04/17 02:58 63 04/04/17 02:00 70 04/04/17 01:00 65 04/04/17 00:06 79 04/04/17 00:00 99.1 78 17 130/77 (94) 97 04/03/17 23:00 62 04/03/17 22:05 16 04/03/17 22:00 61 04/03/17 21:00 60 04/03/17 20:50 96 21 04/03/17 20:22 98.2 61 18 133/67 (89) 97 04/03/17 20:04 59 04/03/17 16:00 98.4 64 25 127/79 (95) 95 I/O 04/03/17 04/03/17 04/03/17 04/04/17 04/04/17 04/04/17 07:00 15:00 23:00 07:00 15:00 23:00 Intake Total 720 ml 650 ml Output Total 350 ml Balance 370 ml 650 ml Intake Oral 720 ml 650 ml Output Urine Total 350 ml # Voids 5 3 Result Diagram: 04/03/17211204/03/172112 Objective Remarks GENERAL: Well-nourished, well-developed patient, not well oriented today SKIN: Warm and dry, incision under bandage on lower back HEAD: Normocephalic. EYES: No scleral icterus. No injection or drainage. NECK: Supple, trachea midline. No JVD or lymphadenopathy. CARDIOVASCULAR: Regular rate and rhythm without murmurs, gallops, or rubs. RESPIRATORY: Breath sounds equal bilaterally. No accessory muscle use. GASTROINTESTINAL: Abdomen soft, non-tender, nondistended. MUSCULOSKELETAL: No cyanosis, or edema. BACK: Nontender without obvious deformity. No CVA tenderness. EXTREMITIES: no significant edema A/P Assessment and Plan Degenerative disc disease of lumbar spine Subacute, status post previous lumbar fusion surgery (L5/S1) Intractable low back and left leg lumbar radiculopathy Severe Spinal Stenosis L3/L4 Post op L5/S1 fusion Pain well controlled Neurosurgery following Continue gabapentin Continue PT Confusion TSH, CMP, CBC, CXR all appear unremarkable CT Brain today to rule out stroke Stopped Oral Morphine, Flexeril, Oxybutynin Anemia Following CBC CAD s/p [place] and cardiac stents Plavix on, Brilinta, ASA on hold due to anemia and possible post op bleeding Cardiology following Hypertension IV Vasotec and Hydralizine PRN Continue daily lisinopril COPD stable Depression Anxiety Continue baseline treatments Monitor clinically DVT prophylaxis Demar Hutchinson MD Apr 04, 2017 15:17
--- NOTE | 2017-04-04 15:55 | RADRPT ---
EXAM DATE/TIME: 04/04/2017 15:12 [facility] COMPARISON: No previous studies available for comparison. INDICATIONS : Altered mental status. RADIATION DOSE: 56.35 CTDIvol (mGy) MEDICAL HISTORY : Hypertension. Chronic obstructive pulmonary disease. Cardiovascular disease SURGICAL HISTORY : None. ENCOUNTER: Initial ACUITY: 1 day PAIN SCALE: 2/10 LOCATION: Bilateral cranial TECHNIQUE: Multiple contiguous axial images were obtained of the head. Using automated exposure control and adj ustment of the mA and/or kV according to patient size, radiation dose was kept as low as reasonably a chievable to obtain optimal diagnostic quality images. DICOM format image data is available electro nically for review and comparison. FINDINGS: CEREBRUM: The ventricles are normal for age. Areas of low-attenuation are seen within the periventricular white matter. No evidence of midline shift, mass lesion, hemorrhage or acute infarction. No extra-axial f luid collections are seen. POSTERIOR FOSSA: The cerebellum and brainstem are intact. The 4th ventricle is midline. The cerebellopontine angle i s unremarkable. EXTRACRANIAL: The visualized portion of the orbits is intact. SKULL: The calvaria is intact. No evidence of skull fracture. CONCLUSION: No acute intracranial disease. Justin Schmitz MD on April 04, 2017 at 15:52 Board Certified Radiologist. This report was verified electronically.
[2017-04-04] MEDS: TEMAZEPAM 15 MG CAP PO PRN (21:19)
--- NOTE | 2017-04-04 23:28 | PD.CARD.PN ---
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 Drain removed No chest pain/SOB Up and ambulating Confusion episodes Objective Medications Current Medications Medications (Trade) Dose Ordered Sig/Melony Route Start Time Stop Time Status Last Admin (NS Flush) 2 ml UNSCH PRN IV FLUSH 03/27/17 16:45 (NS Flush) 2 ml BID IV FLUSH 03/27/17 21:00 04/04/17 21:14 (Iqra-Colace) 1 tab BID PO 03/27/17 21:00 04/04/17 21:14 (Lactulose Liq) 30 ml DAILY PRN PO 03/27/17 18:00 03/30/17 08:27 (Abilify) 15 mg DAILY PO 03/28/17 09:00 04/04/17 10:43 (Buspar) 15 mg TID PO 03/27/17 18:00 04/04/17 18:11 (PROzac) 40 mg BID PO 03/27/17 21:00 04/04/17 21:15 (Neurontin) 600 mg TID PO 03/27/17 18:00 04/04/17 18:11 (Albuterol Neb) 1.25 mg Q4HR NEB PRN NEB 03/27/17 18:30 03/30/17 12:19 (Percocet 5-325 Mg) 1 tab Q4H PRN PO 03/28/17 11:00 (Percocet 10-325 Mg) 1 tab Q4H PRN PO 03/28/17 11:00 04/04/17 21:13 (Tessalon) 100 mg TID PRN PO 03/28/17 14:00 (Lopressor) 25 mg BID PO 03/28/17 21:00 04/04/17 21:14 (Ditropan) 5 mg Q8HR PO 03/28/17 14:00 Future Hold 04/04/17 04:23 (Restoril) 30 mg HS PRN PO 03/28/17 14:00 04/04/17 21:19 (Catapres) 0.1 mg Q6H PRN PO 03/28/17 14:00 03/30/17 08:26 (Vasotec Inj) 1.25 mg Q6H PRN IV PUSH 03/28/17 14:00 (Ecotrin Ec) 81 mg DAILY PO 03/29/17 09:30 04/04/17 10:43 (Protonix Inj) 40 mg DAILY PRN IVP 04/01/17 09:00 (Dulcolax Supp) 10 mg DAILY PRN RECTAL 03/31/17 15:15 (Colace) 100 mg BID PO 03/31/17 21:00 04/04/17 21:14 (Milk Of Magnesia Liq) 30 ml DAILY PRN PO 03/31/17 15:15 (Protonix) 40 mg DAILY PO 04/01/17 09:00 04/04/17 10:42 (Zofran Inj) 4 mg Q6H PRN IV PUSH 03/31/17 15:15 04/03/17 01:18 (Tylenol) 650 mg Q4H PRN PO 03/31/17 15:15 ([place]) 1 lozenge UNSCH PRN BUCCAL 03/31/17 15:15 (Albuterol Neb) 2.5 mg Q4HR NEB PRN INH 03/31/17 15:15 (Narcan Inj) 0.4 mg UNSCH PRN IV PUSH 03/31/17 15:15 (Benadryl Inj) 25 mg Q6H PRN IV PUSH 03/31/17 15:15 (Plavix) 75 mg DAILY PO 04/03/17 13:30 04/04/17 10:49 (Brilinta) 60 mg BID PO 04/03/17 13:30 04/04/17 21:15 Vital Signs / I&O Vital Signs Date Time Temp Pulse Resp B/P (MAP) Pulse Ox O2 Delivery O2 Flow Rate FiO2 04/04/17 20:16 98.0 77 20 114/71 (85) 97 04/04/17 16:00 99.3 62 33 129/75 (93) 98 04/04/17 16:00 61 04/04/17 12:00 80 04/04/17 12:00 98.4 74 29 122/82 (95) 94 04/04/17 08:00 98.3 70 34 136/84 (101) 95 04/04/17 08:00 72 04/04/17 07:55 96 21 04/04/17 05:23 20 04/04/17 04:00 99.0 74 18 154/83 (106) 97 04/04/17 02:58 63 04/04/17 02:00 70 04/04/17 01:00 65 04/04/17 00:06 79 04/04/17 00:00 99.1 78 17 130/77 (94) 97 I/O 04/04/17 04/04/17 04/04/17 04/05/17 04/05/17 04/05/17 07:00 15:00 23:00 07:00 15:00 23:00 Intake Total 650 ml 1380 ml Balance 650 ml 1380 ml Intake Oral 650 ml 1380 ml # Voids 3 6 # Bowel Movements 1 Physical Exam GENERAL: NAD, AAOx3 SKIN: Warm and dry. HEAD: Atraumatic. Normocephalic. EYES: Pupils equal and round. No scleral icterus. No injection or drainage. ENT: No nasal bleeding or discharge. Mucous membranes pink and moist. NECK: Trachea midline. No JVD. CARDIOVASCULAR: Regular rate and rhythm. RESPIRATORY: No accessory muscle use. Clear to auscultation. Breath sounds equal bilaterally. GASTROINTESTINAL: Abdomen soft, non-tender, nondistended. Hepatic and splenic margins not palpable. MUSCULOSKELETAL: Extremities without clubbing, cyanosis, or edema. No obvious deformities. NEUROLOGICAL: Awake and alert. No obvious cranial nerve deficits. Motor grossly within normal limits. Imaging Last [address] 04/04/17 0000 Signed Impressions: Service Date/Time: Tuesday, April 04, 2017 15:12 - CONCLUSION: No acute intracranial disease. Justin Schmitz MD Assessment and Plan Problem List: (1) Pre-operative cardiovascular examination ICD Codes: Z01.810 - Encounter for preprocedural cardiovascular examination (2) CAD (coronary artery disease) ICD Codes: I25.10 - Atherosclerotic heart disease of [place] coronary artery without angina pectoris (3) Acute lumbar back pain ICD Codes: M54.5 - Low back pain Status: Acute (4) Intractable back pain ICD Codes: M54.9 - Dorsalgia, unspecified Status: Acute (5) Unable to ambulate ICD Codes: R26.2 - Difficulty in walking, not elsewhere classified Status: Acute Assessment and Plan 1) Post-lumbar fusion per neurosurgery 2) EF 55-60% 3) ASA/Brilinta Patient is on Brilinta outpatient, not Plavix 4) Anemia post-op Received 2 units PRBC today Hgb stable 5) Episodes of confusion per primary team Problem Qualifiers (1) Acute lumbar back pain: Qualified Codes: M54.42 - Lumbago with sciatica, left side Suman Canales DO Apr 04, 2017 23:28
[2017-04-05] VITALS: BP 124/81; PULSE 71; RESP 18; TEMP 98; O2SAT 95
[2017-04-05 04:08] VITALS: BP 131/95; PULSE 73; RESP 16; TEMP 97.8; O2SAT 95
[2017-04-05 08:00] VITALS: BP 126/80; PULSE 70; RESP 20; TEMP 98.4; O2SAT 97
[2017-04-05 08:49] VITALS: O2SAT 95
[2017-04-05] MEDS: ARIPiprazole 15 MG TAB PO SCH (09:39)
[2017-04-05] MEDS: DOCUSATE SODIUM 100 MG CAP PO SCH (09:40)
[2017-04-05] MEDS: busPIRone HCL 5 MG TAB PO SCH ×2 (09:40→13:43)
[2017-04-05] MEDS: TICAGRELOR 60 MG TAB PO SCH (09:40)
[2017-04-05] MEDS: METOPROLOL TARTRATE 25 MG TAB PO SCH (09:41)
[2017-04-05] MEDS: FLUoxetine HCL 20 MG CAP PO SCH (09:41)
[2017-04-05] MEDS: GABAPENTIN 300 MG CAP PO SCH ×2 (09:41→13:43)
[2017-04-05] MEDS: ASPIRIN EC 81 MG TABEC PO SCH (09:41)
[2017-04-05] MEDS: PANTOPRAZOLE SOD 40 MG DELAYED RELEASE TAB PO SCH (09:41)
[2017-04-05] MEDS: DOCUSATE SODIUM 50 MG/SENNA 8.6 MG TAB PO SCH (09:41)
[2017-04-05] MEDS: oxyCODONE/ACETAMINOPHEN 10 MG/325 MG TAB PO PRN ×2 (09:49→17:03)
[2017-04-05] MEDS: SODIUM CHLORIDE 0.9% FLUSH 10 ML FLUSH IV FLUSH SCH (09:50)
[2017-04-05 12:00] VITALS: BP 137/78; PULSE 65; RESP 16; TEMP 97.7; O2SAT 98
[2017-04-05] MEDS ORDERED: OXYC1TAB63 PO (12:13)
[2017-04-05] MEDS ORDERED: PERI PO (12:13)
[2017-04-05] MEDS ORDERED: TICA1TAB PO (12:15)
--- NOTE | 2017-04-05 12:17 | HHI.FF ---
Face to Face Verification Diagnosis: (1) Acute lumbar back pain (2) Intractable back pain (3) CAD (coronary artery disease) Physical Therapy Order: Evaluate and Treat Home Health Nursing Order: Medical education Signs/symptoms of disease process Wound care and dressing changes I have seen patient Jagjit Panda on 04/05/17. My clinical findings support the need for the requested home health care services because: Ltd mobility - disease progression Limited ability to care for self I certify that my clinical findings support that this patient is homebound because: Post-op weakness Unsteady gait/balance Unsafe to leave home unassisted Unable to use public transportation Demar Tam MD Apr 05, 2017 12:17
--- NOTE | 2017-04-05 12:21 | HHI.DS ---
Discharge Summary Admission Date Mar 31, 2017 at 09:45 Discharge Date: Apr 05, 2017 Admitting Diagnosis L Sciatica/Intractible Pain/Unable to ambulate/L Leg weak (1) Acute lumbar back pain ICD Code: M54.5 - Low back pain Status: Acute Procedures L5-S1 Lumbar fusion Brief History - From Admission This is a 61-year-old male with past medical history significant for CAD s/p previous MD x 2 and cardiac stent implants x 4, degenerative disc disease of the cervical and lumbar spine who has undergone previous cervical and lumbar fusions who presents to [facility] ED with complaints of severe low back pain for the past 2 days. Patient endorses radicular left leg pain with numbness and tingling extending down the back of his leg into his great toe. Patient is followed by Dr. Middleton who was performed both of his previous fusion surgeries. He denies any bowel or bladder dysfunction. He reports weakness in the left leg has been unable to ambulate. Prior to 2 days ago, patient states his pain was well controlled with Lortab and he was ambulating without any difficulty. ED discussed with Dr. Middleton who recommended the patient come in for an MRI study and further evaluation and possible surgical intervention. CBC/BMP: 04/03/17211204/03/172112 Significant Findings Laboratory Tests Test 04/02/17 13:01 04/02/17 19:09 04/03/17 21:13 Hemoglobin 9.0 GM/DL (13.0-17.0) 9.4 GM/DL (13.0-17.0) 9.5 GM/DL (13.0-17.0) Hematocrit 26.5 % (39.0-51.0) 26.9 % (39.0-51.0) 27.8 % (39.0-51.0) White Blood Count 11.8 TH/MM3 (4.0-11.0) 11.5 TH/MM3 (4.0-11.0) Red Blood Count 3.05 MIL/MM3 (4.50-5.90) 3.16 MIL/MM3 (4.50-5.90) Neutrophils (%) (Auto) 70.1 % (16.0-70.0) Monocytes (%) (Auto) 12.9 % (0.0-8.0) 13.3 % (0.0-8.0) Neutrophils # (Auto) 8.3 TH/MM3 (1.8-7.7) 7.8 TH/MM3 (1.8-7.7) Monocytes # (Auto) 1.5 TH/MM3 (0-0.9) 1.5 TH/MM3 (0-0.9) Random Glucose 107 MG/DL (74-106) Anion Gap 4 MEQ/L (5-15) Estimat Glomerular Filtration Rate 87 ML/MIN (>89) 79 ML/MIN (>89) D-Dimer Quantitative (PE/DVT) 3.22 MG/L FEU (0.00-0.50) Albumin 2.6 GM/DL (3.4-5.0) Calcium Level 8.2 MG/DL (8.5-10.1) Aspartate Amino Transf (AST/SGOT) 46 U/L (15-37) Potassium Level 3.3 MEQ/L (3.5-5.1) PE at Discharge GENERAL: Well-nourished, well-developed patient, not well oriented today SKIN: Warm and dry, incision under bandage on lower back HEAD: Normocephalic. EYES: No scleral icterus. No injection or drainage. NECK: Supple, trachea midline. No JVD or lymphadenopathy. CARDIOVASCULAR: Regular rate and rhythm without murmurs, gallops, or rubs. RESPIRATORY: Breath sounds equal bilaterally. No accessory muscle use. GASTROINTESTINAL: Abdomen soft, non-tender, nondistended. MUSCULOSKELETAL: No cyanosis, or edema. BACK: Nontender without obvious deformity. No CVA tenderness. EXTREMITIES: no significant edema Hospital Course 61M who underwent Lumbar fusion of L5-S1 after presenting to the ER with intractable low back pain and inability to ambulate. He did well following surgery and has been walking with a walker, but 3 days ago developed worsening confusion. Brain CT was negative for any acute changes. His long acting Oramorph was stopped as well as Flexeril and oxybutynin. Today he is mentally clear and has been cleared by neurosurgery for discharge home. He will have follow ups scheduled with neurosurgery in a week and cardiology in a month. Pt Condition on Discharge: Good Discharge Disposition: Disch w/ Home Health Serv Discharge Time: <= 30 minutes Discharge Instructions DIET: Follow Instructions for: As Tolerated, No Restrictions Demar Tam MD Apr 05, 2017 12:21
--- NOTE | 2017-04-05 13:15 | PD.CARD.PN ---
Subjective Subjective Remarks S/p lumbar fusion Incisional pain better, off REFRIGERATOR GLAZIER pump Drain removed No chest pain/SOB Up and ambulating No longer confused Objective Medications Current Medications Medications (Trade) Dose Ordered Sig/Melony Route Start Time Stop Time Status Last Admin (NS Flush) 2 ml UNSCH PRN IV FLUSH 03/27/17 16:45 (NS Flush) 2 ml BID IV FLUSH 03/27/17 21:00 04/05/17 09:50 (Iqra-Colace) 1 tab BID PO 03/27/17 21:00 04/05/17 09:41 (Lactulose Liq) 30 ml DAILY PRN PO 03/27/17 18:00 03/30/17 08:27 (Abilify) 15 mg DAILY PO 03/28/17 09:00 04/05/17 09:39 (Buspar) 15 mg TID PO 03/27/17 18:00 04/05/17 09:40 (PROzac) 40 mg BID PO 03/27/17 21:00 04/05/17 09:41 (Neurontin) 600 mg TID PO 03/27/17 18:00 04/05/17 09:41 (Albuterol Neb) 1.25 mg Q4HR NEB PRN NEB 03/27/17 18:30 03/30/17 12:19 (Percocet 5-325 Mg) 1 tab Q4H PRN PO 03/28/17 11:00 (Percocet 10-325 Mg) 1 tab Q4H PRN PO 03/28/17 11:00 04/05/17 09:49 (Tessalon) 100 mg TID PRN PO 03/28/17 14:00 (Lopressor) 25 mg BID PO 03/28/17 21:00 04/05/17 09:41 (Ditropan) 5 mg Q8HR PO 03/28/17 14:00 Future Hold 04/04/17 04:23 (Restoril) 30 mg HS PRN PO 03/28/17 14:00 04/04/17 21:19 (Catapres) 0.1 mg Q6H PRN PO 03/28/17 14:00 03/30/17 08:26 (Vasotec Inj) 1.25 mg Q6H PRN IV PUSH 03/28/17 14:00 (Ecotrin Ec) 81 mg DAILY PO 03/29/17 09:30 04/05/17 09:41 (Protonix Inj) 40 mg DAILY PRN IVP 04/01/17 09:00 (Dulcolax Supp) 10 mg DAILY PRN RECTAL 03/31/17 15:15 (Colace) 100 mg BID PO 03/31/17 21:00 04/05/17 09:40 (Milk Of Magnesia Liq) 30 ml DAILY PRN PO 03/31/17 15:15 (Protonix) 40 mg DAILY PO 04/01/17 09:00 04/05/17 09:41 (Zofran Inj) 4 mg Q6H PRN IV PUSH 03/31/17 15:15 04/03/17 01:18 (Tylenol) 650 mg Q4H PRN PO 03/31/17 15:15 ([place] Jose Luis) 1 lozenge UNSCH PRN BUCCAL 03/31/17 15:15 (Albuterol Neb) 2.5 mg Q4HR NEB PRN INH 03/31/17 15:15 (Narcan Inj) 0.4 mg UNSCH PRN IV PUSH 03/31/17 15:15 (Benadryl Inj) 25 mg Q6H PRN IV PUSH 03/31/17 15:15 (Brilinta) 60 mg BID PO 04/03/17 13:30 04/05/17 09:40 Vital Signs / I&O Vital Signs Date Time Temp Pulse Resp B/P (MAP) Pulse Ox O2 Delivery O2 Flow Rate FiO2 04/05/17 08:49 95 04/05/17 08:00 98.4 70 20 126/80 (95) 97 04/05/17 04:08 97.8 73 16 131/95 (107) 95 04/05/17 00:00 98.0 71 18 124/81 (95) 95 04/04/17 22:13 16 04/04/17 20:16 98.0 77 20 114/71 (85) 97 04/04/17 20:00 60 04/04/17 16:00 99.3 62 33 129/75 (93) 98 04/04/17 16:00 61 I/O 04/04/17 04/04/17 04/04/17 04/05/17 04/05/17 04/05/17 07:00 15:00 23:00 07:00 15:00 23:00 Intake Total 650 ml 1380 ml 60 ml Balance 650 ml 1380 ml 60 ml Intake Oral 650 ml 1380 ml 60 ml # Voids 3 6 1 # Bowel Movements 1 Physical Exam GENERAL: NAD, AAOx3 SKIN: Warm and dry. HEAD: Atraumatic. Normocephalic. EYES: Pupils equal and round. No scleral icterus. No injection or drainage. ENT: No nasal bleeding or discharge. Mucous membranes pink and moist. NECK: Trachea midline. No JVD. CARDIOVASCULAR: Regular rate and rhythm. RESPIRATORY: No accessory muscle use. Clear to auscultation. Breath sounds equal bilaterally. GASTROINTESTINAL: Abdomen soft, non-tender, nondistended. Hepatic and splenic margins not palpable. MUSCULOSKELETAL: Extremities without clubbing, cyanosis, or edema. No obvious deformities. NEUROLOGICAL: Awake and alert. No obvious cranial nerve deficits. Motor grossly within normal limits. Assessment and Plan Problem List: (1) Pre-operative cardiovascular examination ICD Codes: Z01.810 - Encounter for preprocedural cardiovascular examination (2) CAD (coronary artery disease) ICD Codes: I25.10 - Atherosclerotic heart disease of [place] coronary artery without angina pectoris (3) Acute lumbar back pain ICD Codes: M54.5 - Low back pain Status: Acute (4) Intractable back pain ICD Codes: M54.9 - Dorsalgia, unspecified Status: Acute (5) Unable to ambulate ICD Codes: R26.2 - Difficulty in walking, not elsewhere classified Status: Acute Assessment and Plan 1) Post-lumbar fusion per neurosurgery 2) EF 55-60% 3) ASA/Brilinta Patient is on Brilinta outpatient, not Plavix 4) Anemia post-op Received 2 units PRBC today Hgb stable 5) Episodes of confusion per primary team 6) Follow up with Dr. Brewer on discharge, cardiovascularly stable for discharge Problem Qualifiers (1) CAD (coronary artery disease): Qualified Codes: I25.10 - Atherosclerotic heart disease of [place] coronary artery without angina pectoris (2) Acute lumbar back pain: Qualified Codes: M54.42 - Lumbago with sciatica, left side Suman Canales DO Apr 05, 2017 13:15
== END 2017-04-05 17:30 | disposition home health service (06) | DRG 460 ==
LOC: NEPD 12:10 → NEDA 16:51 → N06B 17:58 → OBSVTOIN 03-31 09:45 → N03B 03-31 18:12 → N03A 03-31 19:59 → N03B 03-31 20:29
PROVIDERS: ADMIT Internal Medicine; ATTEND Family Medicine
PROC: 01NB0ZZ Release Lumbar Nerve, Open Approach (ICD-10-PCS; 2017-03-31)
PROC: 0SB20ZZ Excision of Lumbar Vertebral Disc, Open Approach (ICD-10-PCS; 2017-03-31)
PROC: 0SG10AJ Fusion of 2 or more Lumbar Vertebral Joints with Interbody Fusion Device, Posterior Approach, Anterior Column, Open Approach (ICD-10-PCS; principal; 2017-03-31 08:38)
PROC: 30233N1 Transfusion of Nonautologous Red Blood Cells into Peripheral Vein, Percutaneous Approach (ICD-10-PCS; 2017-04-02)
DX: M43.16 Spondylolisthesis, lumbar region (principal); J44.1 Chronic obstructive pulmonary disease with (acute) exacerbation; M51.16 Intervertebral disc disorders with radiculopathy, lumbar region; M48.061 Spinal stenosis, lumbar region without neurogenic claudication; R41.0 Disorientation, unspecified; I10 Essential (primary) hypertension; D64.9 Anemia, unspecified; I25.10 Atherosclerotic heart disease of native coronary artery without angina pectoris; I25.2 Old myocardial infarction; K21.9 Gastro-esophageal reflux disease without esophagitis; F41.9 Anxiety disorder, unspecified; F32.9 Major depressive disorder, single episode, unspecified; R53.83 Other fatigue; R26.2 Difficulty in walking, not elsewhere classified; G89.29 Other chronic pain; Z98.1 Arthrodesis status; Z95.5 Presence of coronary angioplasty implant and graft; Z87.891 Personal history of nicotine dependence
CPT/HCPCS: 36430; 70450; 71046; 72100; 72158; 76000; 76775; 80048; 80053; 81001; 82805; 84443; 85014; 85018; 85025; 85027; 85379; 85610; 85730; 86850; 86900; 86901; 86920; 93005; 93306; 94150; 94640; 94664; 96374; 96375; 96376; A9579; C1713; G0378; J0131; J0690; J1170; J1580; J1644; J2250; J2270; J2405; J3010; J3370; J3480; J7030; J7050; J7611; J7613; L0484; P9016

== ENCOUNTER 2017-04-15 14:20 | Emergency (ER) | payer MEDICARE, OTHER ==
[~2017-04-15] VITALS: Ht 180.3 cm; Wt 68.0 kg
[~2017-04-15 14:20] MED LIST changes: -ABIL15TA2 PO; +ABIL15TA3 PO; +BENZ1CAP54 PO; +FLUO40CA PO; -GABA300 PO; +GABA600T PO; +LISI-519 PO; -LORC10TA PO; +METO25TA3 PO; +OXYB5TAB8 PO; +OXYC1TAB63 PO; +PANT40TA3 PO; +PERI PO; -PROT40TA PO; -PROZ40CA PO; +TEMA30CA PO; +TICA1TAB PO
[2017-04-15 14:23] VITALS: BP 122/67; PULSE 60; RESP 13; TEMP 98.4; O2SAT 98
[2017-04-15 14:36] VITALS: BP 125/61; PULSE 61; RESP 18; O2SAT 98
--- NOTE | 2017-04-15 14:59 | PD ---
HPI Chief Complaint: Pain: Acute or Chronic Time Seen by Provider: 14:43 Travel History International Travel<30 days: No Contact w/Intl Traveler<30days: No Traveled to known affect area: No History of Present Illness HPI 61-year-old male presents emergency department complaining of lower back pain and pain radiating down his left leg that started . Patient states that he went to [facility] for x-rays as a follow-up to his surgery and started having pain then. Patient states the pain in his left leg is sharp and located in the left groin and has left knee numbness. His low back pain is worse with movement and decreases somewhat with rest. Says he has taken 2 hydrocodone 10-325 hydrocodone without relief. Says this pain is similar to his previous episodes prior to this surgery. Patient denies loss of bowel or bladder function, IV drug use, fever, chills, saddle anesthesia. Patient has not contacted Dr. Marcelino regarding this problem. Says laminectomy was 03/31/2017 for lumbar region. PFSH Past Medical History Hx Anticoagulant Therapy: Yes (PLAVIX) Arthritis: Yes Asthma: No Blood Disorders: No Bipolar Disorder: Yes Anxiety: Yes Depression: Yes Heart Rhythm Problems: No Cancer: No Cardiovascular Problems: Yes (STENT X 4) High Cholesterol: Yes Chest Pain: No Congestive Heart Failure: No COPD: Yes Cerebrovascular Accident: No Diabetes: No Endocrine: No Gastrointestinal Disorders: Yes GERD: Yes Glaucoma: No Genitourinary: No Headaches: Yes Hepatitis: No Hiatal Hernia: No Hypertension: Yes Immune Disorder: No Implanted Vascular Access Dvce: Yes Kidney Stones: No Musculoskeletal: Yes Neurologic: Yes (FROM BACK AND NECK PROBLEMS) Psychiatric: Yes Reproductive: No Respiratory: No Migraines: No Myocardial Infarction: Yes Renal Failure: No Seizures: No Sleep Apnea: No Thyroid Disease: No Ulcer: No Past Surgical History Abdominal Surgery: Yes (BILAT INGUINAL HERNIA REPAIR) Appendectomy: No Body Medical Devices: FUSION IN BACK AND NECK, CARDIAC STENTS Cardiac Surgery: Yes (4 stents) Cholecystectomy: No Ear Surgery: No Endocrine Surgery: No Eye Surgery: No Genitourinary Surgery: No Neurologic Surgery: Yes (CERV. FUSION 3NECK SURGERIES PAST YEAR DR MARCELINO) Oral Surgery: No Pacemaker: No Other Surgery: Yes Social History Alcohol Use: No Tobacco Use: No Substance Use: No Allergies-Medications (Allergen,Severity, Reaction): Coded Allergies: bee venom protein (honey bee) (Unverified Allergy, Severe, Anaphylaxis, 12/21) Reported Meds & Prescriptions Reported Meds & Active Scripts Active Robaxin (Methocarbamol) 500 Mg Tab 500 Mg PO TID 5 Days Brilinta (Ticagrelor) 60 Mg Tab 60 Mg PO BID 30 Days Oxycodone-Acetaminophen 5-325 (Oxycodone HCl/Acetaminophen) 5 Mg-325 Mg Tablet 1 Tab PO Q4H PRN 7 Days Gnp Senna Plus 8.6-50 mg (Sennosides-Docusate Sodium) 8.6 Mg-50 Mg Tab 1 Tab PO BID PRN 10 Days Reported Pantoprazole (Pantoprazole Sodium) 40 Mg Tab 40 Mg PO DAILY Temazepam 30 Mg Cap 30 Mg PO HS PRN Ditropan (Oxybutynin Chloride) 5 Mg Tab 5 Mg PO Q8HR Metoprolol Tartrate 25 Mg Tab 25 Mg PO BID Benzonatate 100 Mg Cap 100 Mg PO TID PRN Lisinopril 5 Mg Tab Unknown Dose PO DAILY Fluoxetine (Fluoxetine HCl) 40 Mg Cap 40 Cap PO BID Gabapentin 600 Mg Tab 600 Mg PO TID Buspirone (Buspirone HCl) 15 Mg Tab 15 Mg PO TID Abilify (Aripiprazole) 15 Mg Tab 15 Mg PO DAILY Review of Systems Except as stated in HPI: all other systems reviewed are Neg Physical Exam Narrative GENERAL: WD, WD in mild distress, sitting on the edge of the bed holding onto walker, occasional twinges of pain SKIN: Warm and dry. HEAD: Atraumatic. Normocephalic. EYES: Pupils equal and round. No scleral icterus. No injection or drainage. ENT: No nasal bleeding or discharge. Mucous membranes pink and moist. NECK: Trachea midline. No JVD. no TTP midline CARDIOVASCULAR: Regular rate and rhythm. RESPIRATORY: No accessory muscle use. Clear to auscultation. Breath sounds equal bilaterally. GASTROINTESTINAL: Abdomen soft, non-tender, nondistended. Hepatic and splenic margins not palpable. MUSCULOSKELETAL: Extremities without clubbing, cyanosis, or edema. No obvious deformities. In back brace upon initial assessment. NEUROLOGICAL: Awake and alert. No obvious cranial nerve deficits. Motor grossly within normal limits. Five out of 5 muscle strength in the arms and legs. Normal speech. PSYCHIATRIC: Appropriate mood and affect; insight and judgment normal. Data Data Last Documented VS Vital Signs Date Time Temp Pulse Resp B/P (MAP) Pulse Ox O2 Delivery O2 Flow Rate FiO2 04/15/17 17:15 04/15/17 14:36 61 18 98 Room Air 04/15/17 14:23 98.4 Orders Orders Orphenadrine Inj (Norflex Inj) (04/15/17 15:00) Spine, Lumbar - Ltd (Ap & Lat) (04/15/17 ) Ed Discharge Order (04/15/17 16:52) [facility] Medical Decision Making Medical Screen Exam Complete: Yes Emergency Medical Condition: Yes Differential Diagnosis Lower lumbar muscle spasms, sciatica, postop complications Narrative Course 61-year-old male presents emergency department complaining of lower back pain and pain radiating down his left leg that started . Patient states that he went to [facility] for x-rays as a follow-up to his surgery and started having pain then. Patient states the pain in his left leg is sharp and located in the left groin and has left knee numbness. His low back pain is worse with movement and decreases somewhat with rest. Says he has taken 2 hydrocodone 10-325 hydrocodone and gabapentin today without relief. Says this pain is similar to his previous episodes prior to this surgery. Patient denies loss of bowel or bladder function, IV drug use, fever, chills, saddle anesthesia. Patient has not contacted Dr. Marcelino regarding this problem. Says laminectomy was 03/31/2017 for lumbar region. Vital signs stable. Physical exam findings without acute neuro deficits. Pt c/o numbness to left knee. Lower extremity 5/5 strength. Norflex 60mg administered. I will add Robaxin to his home regimen for a couple of days until he follows up with Dr. Marcelino. Patient should call his specialist, Dr. Marcelino, regarding further treatment and evaluation. There are no red flag symptoms upon evaluation today and patient describes an incident where he was required to move about during imaging studies. I suspect pt has muscle spasms resulting in his symptoms today. I will avoid steroids for his radicular symptom as he just recently had surgery. If patient symptoms worsen or persist, return to the ED. Diagnosis Primary Impression: Muscle spasm Referrals: Etienne Marcelino MD Additional Instructions: Perform light stretches of the lower back and legs, and alternate heat and ice packs. If you develop increased pain, weakness, fever, chills, or bowel or bladder issues, return to the ED for further treatment and evaluation. Follow up with your primary care physician in 2-3 days. Follow-up with Dr. Marcelino this week. Scripts Methocarbamol (Robaxin) 500 Mg Tab 500 MG PO TID for Muscle Spasm for 5 Days, TAB 0 Refills Prov: Nathalie Yun 04/15/17 Disposition: 01 DISCHARGE HOME Condition: Stable Nathalie Yun Apr 15, 2017 14:59
[2017-04-15] MEDS ORDERED: ORPHENADRINE INJ 60 MG/2 ML AMP IM ONE (15:00)
[2017-04-15] MEDS ORDERED: ROBA500T PO (15:42)
--- NOTE | 2017-04-15 16:21 | RADRPT ---
EXAM DATE/TIME: 04/15/2017 16:08 [place] COMPARISON: SPINE LUMBAR LTD (AP & LAT), March 27, 2017, 13:04. SPINE LUMBAR LTD (AP & LAT), March 31, 2017, 9:59. INDICATIONS : Lower back pain post surgery. MEDICAL HISTORY : Hypertension. Chronic obstructive pulmonary disease. Cardiovascular disease. SURGICAL HISTORY : Fusion, lumbar. ENCOUNTER: Initial ACUITY: 3 days PAIN SCORE: 9/10 LOCATION: Lumbar spine FINDINGS: There are postsurgical changes which appear stable. There are transpedicular screws level the L5-S1 b ilateral with vertical stabilization bars . Transpedicular screws are additionally appreciated L23 an d 4 with vertical stabilization bars. Intervertebral disc grafts are appreciated L34, L4-5 and L5-S1. All disc spaces are narrowed at L1-S1. Alignment is normal with no evidence of subluxation and no de structive change. No acute bony injury is appreciated. CONCLUSION: Postsurgical changes as described above as well as degenerative changes. No acute bony abnormality Rai Flowers MD on April 15, 2017 at 16:15 Board Certified Radiologist. This report was verified electronically.
--- NOTE | 2017-04-15 16:52 | PD ---
Data Data Last Documented VS Vital Signs Date Time Temp Pulse Resp B/P (MAP) Pulse Ox O2 Delivery O2 Flow Rate FiO2 04/15/17 14:36 61 18 125/61 (82) 98 Room Air 04/15/17 14:23 98.4 Orders Orders Orphenadrine Inj (Norflex Inj) (04/15/17 15:00) Spine, Lumbar - Ltd (Ap & Lat) (04/15/17 ) MDM Supervised Visit with TYREL: Yes Narrative Course The history, exam, and medical decision-making in the associated mid-level provider note were completed with my assistance. I reviewed and agree with the findings presented. I attest that I had a [id number] encounter with the patient on the same day, and personally performed and documented my assessment and findings in the medical record. *My assessment and Findings: 61-year-old man, presents with some radicular pain following his surgery a couple weeks ago. He looks well. Had been improving. No fevers or evidence of infection. No trauma. X-rays unremarkable. Recommend outpatient follow-up with neurosurgery. Diagnosis Primary Impression: Muscle spasm Referrals: Etienne Middleton MD Additional Instruction: Perform light stretches of the lower back and legs, and alternate heat and ice packs. If you develop increased pain, weakness, fever, chills, or bowel or bladder issues, return to the ED for further treatment and evaluation. Follow up with your primary care physician in 2-3 days. Follow-up with Dr. Middleton this week. Scripts Methocarbamol (Robaxin) 500 Mg Tab 500 MG PO TID for Muscle Spasm for 5 Days, TAB 0 Refills Prov: Nathalie Yun 04/15/17 Disposition: 01 DISCHARGE HOME Condition: Stable Arcadio Olmedo MD Apr 15, 2017 16:52
== END 2017-04-15 17:15 | disposition home or self-care (01) ==
LOC: NEPC 14:20
DX: M62.838 Other muscle spasm (principal); F41.8 Other specified anxiety disorders; J44.9 Chronic obstructive pulmonary disease, unspecified; I10 Essential (primary) hypertension; Z79.01 Long term (current) use of anticoagulants
CPT/HCPCS: 72100; 96372; 99283; J2360

== ENCOUNTER 2017-05-17 06:20 | Observation (INO) | payer OTHER ==
--- NOTE | 2017-05-09 08:23 | MH ---
cc: CATERINA PEREZ M.D., JOHN DATE OF ADMISSION 05/11/2017 DATE OF 1955 CHIEF COMPLAINT Right lung nodule. HISTORY OF PRESENT ILLNESS This is a 61-year-old white male who HAS had a history of COPD and history of interstitial lung disease. He had a CT scan of the chest which was done in January 2017 which showed evidence of a right basilar pulmonary nodule about 2 cm in diameter characteristic of a malignant lesion. The patient has had predominantly basilar pulmonary fibrosis with honeycombing and interlobular septal thickening. The patient also had a previous PET CT scan in April 2016, which apparently showed minimal uptake in the right lung density suggested to be mostly benign. The patient does have a cough. He has mild wheezing. He has lost weight, up to 15 pounds in the past four months. He denies night sweats, fevers or chills. PAST MEDICAL HISTORY 1. History of chronic obstructive pulmonary disease 2. History of interstitial lung disease. 3. History of coronary artery disease with previous [place] and cardiac stenting times four 4. History of anxiety and depression. PAST SURGICAL HISTORY 1. Lumbar disk surgery x2 2. Cervical disk repair x3 3. Strangulated hernia repair x4. The patient has no history of hypertension. MEDICATIONS 1. Lisinopril 5 mg daily, 2. Plavix 75 mg daily, 3. Gabapentin 600 mg t.i.d. 4. BuSpar 15 mg t.i.d., 5. Abilify 15 mg daily 6. Fluoxetine 40 mg a day. 7. Symbicort 80/4.5 two puffs daily, 8. Xanax 0.5 mg a day 9. Brilinta 60 mg a day 10. Lisinopril 5 mg daily 11. Metoprolol 25 mg b.i.d., 12. Protonix 40 mg a day. ALLERGIES NO KNOWN DRUG ALLERGIES. ALLERGY TO BEE VENOM. HABITS The patient smoked one-pack per day for over 40 years and quit this past Berkey. The patient does not drink any alcohol. FAMILY HISTORY Both parents . There is a history of heart disease in the family. Mother had history of Alzheimer's. REVIEW OF SYSTEMS The patient has had some weight loss and fatigue. He has no double vision or cataracts. No vertigo, hoarseness or nosebleeds. No urinary frequency or burning. No hay fever. He has had wheezing and persistent cough. No abdominal pains, heartburn, no black stools or diarrhea. No chest or jaw pain. No calf muscle pains or palpitations. No leg swelling. He has anxiety with depression. He has no easy bruising or enlarged glands. He has no joint pains or muscle stiffness. He does have headaches. No numbness of the extremities or blackouts. No skin rash. PHYSICAL EXAMINATION GENERAL: This is an averagely built, middle-aged white male who is alert, pale and in no acute distress. No clubbing or peripheral edema or lymphadenopathy. VITAL SIGNS: Blood pressure 130/82, pulse is 60, respirations 18, temperature 97.8. Weight 148, height is 5 feet 5 inches. HEENT: Head normocephalic. Pupils reactive. Tongue is moist. Nasal mucosa edematous. Throat is mildly injected. NECK: Supple. No bruits, thyroid enlargement or lymphadenopathy. CHEST: Distant breath sounds with wheezes throughout both lung dai and prolonged expirations. Occasional crackles at both lung bases. HEART: The heart sounds are regular S1-S2 with no murmur. No S3 gallop. ABDOMEN: Soft, benign. No masses. No organomegaly or tenderness. Bowel sounds are active. EXTREMITIES: No edema. NEUROLOGIC: Normal reflexes. No gross motor deficits. Cranial nerves grossly intact. RECTAL: Exam is deferred. SKIN: No lesions. IMPRESSION 1. Right lung nodules, rule out malignancy 2. Chronic obstructive pulmonary disease with emphysema. 3. Pulmonary fibrosis. 4. Coronary artery disease status post coronary stenting 5. Chronic back pain. PLAN The patient will be placed on Anoro elipta 1 puff daily, Ventolin inhaler 2 puffs a q.i.d. p.r.n. A CT-guided needle biopsy of the lung mass was scheduled for this week. The patient will need a follow-up PET CT scan as well as a complete pulmonary function study. I have advised him to hold off on his anticoagulants if it is okay by cardiology. A followup visit to be arranged here in 10 days. Thank you, Dr. Perez, for this consultation. MD SHANAE Hodge/ /5:33 PM /8:15 AM
[2017-05-17] VITALS (16 sets, daily range): BP systolic 102–161; BP diastolic 65–98; PULSE 54–70; RESP 16–20; TEMP 97.9–98.8; O2SAT 93–98
[~2017-05-17] VITALS: Ht 180.3 cm; Wt 68.2 kg
[~2017-05-17 06:20] MED LIST changes: +ROBA500T PO
[2017-05-17] MEDS ORDERED: SODIUM CHLOR 0.9% 1000 ML IV SCH (06:45)
[2017-05-17] MEDS ORDERED: SODIUM CHLORIDE 2 ML FLUSH PRN IV FLUSH (06:45)
[2017-05-17] MEDS ORDERED: PLAV75TA29 PO (06:53)
[2017-05-17] MEDS ORDERED: ASPI81CH6 CHEW (06:53)
[2017-05-17] MEDS ORDERED: OXYC1TAB36 PO (06:53)
[2017-05-17] MEDS ORDERED: ATOR40TA16 PO (06:53)
[2017-05-17] MEDS ORDERED: ALPR0.5T3 PO (06:53)
[2017-05-17 07:15] LABS: AUTOMATED NEUTROPHIL # 4.5 TH/MM3 (1.8-7.7); BASOPHIL # 0.1 TH/MM3 (0-0.2); EOSINOPHIL # 0.4 TH/MM3 (0-0.4); EOSINOPHIL % 5.7 % (0.0-4.0); HEMATOCRIT 34.2 % (39.0-51.0); HEMOGLOBIN 11.6 GM/DL (13.0-17.0); LYMPH % 19.1 % (9.0-44.0); LYMPHOCYTE # 1.4 TH/MM3 (1.0-4.8); MEAN CORPUSCULAR HEMOGLOBIN 29.9 PG (27.0-34.0); MONO % 10.3 % (0.0-8.0); MONOCYTE # 0.7 TH/MM3 (0-0.9); NEUT % 63.9 % (16.0-70.0); PLATELET COUNT 376 TH/MM3 (150-450); RED BLOOD COUNT 3.89 MIL/MM3 (4.50-5.90); RED CELL DISTRIBUTION WIDTH 14.4 % (11.6-17.2); WHITE BLOOD COUNT 7.1 TH/MM3 (4.0-11.0)
[2017-05-17 07:47] LABS: INTERNATIONAL NORMALIZED RATIO 1.1 RATIO; PROTHROMBIN TIME - PATIENT 11.1 SEC (9.8-11.6)
[2017-05-17] MEDS ORDERED: LIDOCAINE 1%/EPINEPHrine 1:100,000 SOLN 50 ML VIAL ONE (08:00)
[2017-05-17] MEDS ORDERED: MIDAZOLAM HCL 2 MG/2 ML VIAL ONE ×2 (08:40→12:58)
[2017-05-17] MEDS ORDERED: oxyCODONE/ACETAMINOPHEN 5 MG/325 MG TAB PO PRN (09:45)
--- NOTE | 2017-05-17 10:00 | RADRPT ---
EXAM DATE/TIME: 05/17/2017 08:45 [facility] COMPARISON: No previous studies available for comparison. INDICATIONS : Right lung mass SEDATION TIME: 30 minutes BIOPSY SITE: Right lung MEDICATION(S): 1.) 2 mg midazolam (Versed) IV 2.) 100 mcg fentanyl (Sublimaze) IV DEVICE(S): 1.) 20 gauge Temno core biopsy needle 2.) MEDICAL HISTORY : Hypertension. Chronic obstructive pulmonary disease. SURGICAL HISTORY : hernia repairs ENCOUNTER: Initial ACUITY: 1 day PAIN SCORE: 0/10 LOCATION: Right chest A total of one core specimen(s) were obtained and sent to the laboratory for pathologic evaluation. PROCEDURE: 1. CT guided lung biopsy. 2. Conscious sedation with continuous EKG and oximetry monitoring. 3. EKG and oximetry remained stable throughout the procedure. Prior to the procedure informed consent was obtained. Any appropriate prior imaging studies were rev iewed. Using automated exposure control and adjustment of the mA and/or kV according to patient size, radiation dose was kept as low as reasonably achievable to obtain optimal diagnostic quality images. DICOM format image data is available electronically for review and comparison. The site was prepped in a sterile fashion. Full sterile technique was used, including cap, mask, pito rile gloves and gown and a large sterile sheet. Hand hygiene and 2% chlorhexidine and/or betadine/al cohol prep was utilized per protocol for cutaneous antisepsis. The skin and subcutaneous tissues wer e infiltrated with local anesthetic solution. With CT guidance the previously identified target was localized. Biopsy was performed using the presc ribed needle as above. Adequate hemostasis was obtained with compression at the puncture site. Follow-up CT scan reveals a very tiny pneumothorax. Conscious sedation was performed with the prescribed dosages and duration as above in the presence of an independent trained radiology nurse to assist in the monitoring of the patient. EKG and oximetry remained stable throughout the procedure. The patient tolerated the procedure well and there were no complications. The patient was sent to Radiology Outpatient Unit in stable condition. CONCLUSION: Uncomplicated CT guided biopsy. Wiley Bowden MD on May 17, 2017 at 9:57 Board Certified Radiologist. This report was verified electronically.
--- NOTE | 2017-05-17 11:07 | RADRPT ---
EXAM DATE/TIME: 05/17/2017 09:50 [facility] COMPARISON: No previous studies available for comparison. INDICATIONS : Evaluate for pneumothorax. MEDICAL HISTORY : Hypertension. Chronic obstructive pulmonary disease. SURGICAL HISTORY : Appendectomy. Fusion, lumbar. Fusion, cervical. Carotid stent. ENCOUNTER: Initial ACUITY: 1 day PAIN SCORE: 0/10 LOCATION: Bilateral chest FINDINGS: There is a tiny right apical pneumothorax measuring 16 mm. Diffuse increased interstitial markings ar e noted bilaterally consistent with probable COPD. The heart is normal. CONCLUSION: 1. Tiny right apical pneumothorax measuring 16 mm. 2. Diffuse increased interstitial markings bilaterally consistent with probable COPD. Wiley Bowden MD on May 17, 2017 at 11:03 Board Certified Radiologist. This report was verified electronically.
--- NOTE | 2017-05-17 12:34 | RADRPT ---
EXAM DATE/TIME: 05/17/2017 11:59 [facility] COMPARISON: CHEST EXPIRATION ONLY, May 17, 2017, 9:50. INDICATIONS : Post right side lung biopsy. MEDICAL HISTORY : Hypertension. Chronic obstructive pulmonary disease SURGICAL HISTORY : Appendectomy. Fusion, lumbar. Fusion, cervical. Carotid stent. ENCOUNTER: Subsequent ACUITY: 1 day PAIN SCORE: 0/10 LOCATION: Right lower chest FINDINGS: Frontal expiratory view demonstrates interval increase in size of right pneumothorax now measuring 5. 3 cm (previously measured 1.6 cm). The pneumothorax extends down to the low lateral right chest. Ther e is some interstitial prominence in both lungs similar to prior. The heart is normal in size. CONCLUSION: Interval increase in size of right pneumothorax of 5.3 cm. The findings were called to Dr. Bowden. Kurt Tomlinson MD on May 17, 2017 at 12:29 Board Certified Radiologist. This report was verified electronically.
--- NOTE | 2017-05-17 13:54 | RADRPT ---
EXAM DATE/TIME: 05/17/2017 13:07 [facility] COMPARISON: No previous studies available for comparison. INDICATIONS : Patient with pnuemothorax from a lung biopsy. MEDICAL HISTORY : 1. COPD 2. interstitial lung disease 3. CAD 4. [place] 5. aniety and depression SURGICAL HISTORY : 1. lung bx 2. cardiac stenting x4 ENCOUNTER: Initial ACUITY: 1 day PAIN SCORE: 2/10 LOCATION: Right upper chest FLUORO TIME: 0.7 minutes IMAGE SERIES: 2 SEDATION TIME: 30 minutes MEDICATION(S): 1.) 2 mg midazolam (Versed) IV 2.) 100 mcg fentanyl (Sublimaze) IV DEVICE(S): 1.) 10 Romansh non-locking catheter rajat PROCEDURE : 1. Fluoroscopically guided chest tube placement. 2. Conscious sedation with continuous EKG and oximetry monitoring. The risks, benefits and alternatives to the procedure were explained and verbal and written consent w as obtained. The site was prepped in sterile fashion. Full sterile technique was used, including ca p, mask, sterile gloves and gown and a large sterile sheet. Hand hygiene and 2% chlorhexidine and/or betadine/alcohol prep was utilized per protocol for cutaneous antisepsis. The skin and subcutaneous tissues were infiltrated with local anesthetic solution. With fluoroscopic guidance the chest was punctured between the first and second interspace and the pr escribed catheter was placed in the lung apex. Wall suction was applied. Post procedure images demon strate satisfactory position of the tube. The catheter was sutured in place and a Percu-Stay was yenni lied. Conscious sedation was performed with the prescribed dosages and duration as above in the presence of an independent trained radiology nurse to assist in the monitoring of the patient. EKG and oximetry remained stable throughout the procedure. The patient tolerated the procedure well and there were n o complications. The patient was sent to post anesthesia recovery in stable condition. CONCLUSION: Uncomplicated chest tube placement as above. Raheem Snyder MD on May 17, 2017 at 13:52 Board Certified Radiologist. This report was verified electronically.
--- NOTE | 2017-05-17 15:11 | HHI.HP ---
[facility] Service [facility] Primary Care Physician Catie Corey M.D. Admission Diagnosis Diagnoses: Chief Complaint: Pneumothorax Travel History International Travel<30 Days: No Contact w/Intl Traveler <30 Da: No Traveled to Known Affected Are: No History of Present Illness This is a 61-year-old white male who has had a history of COPD and history of interstitial lung disease found to have a right pulmonary nodule about 2 cm diameter with malignant characteristic on CT scan of the chest which was done in January 2017. Patient had a CT-guided lung biopsy done today by IR with complicated pneumothorax. Chest tube in place. [facility] asked to admit patient. Patient complained of soreness at the chest tube site. He denies any shortness of breathing, chest pain, palpitation, lightheaded dizziness. His is at the bedside during the interview. He has no complaints. Patient stated that he has not taking any of his medication today. His Plavix and Dilantin was held secondary to procedure. Patient stated that he has stent placement over a year ago. All other review of system reviewed and negative. Past Family Social History Past Medical History COPD, interstitial lung disease, coronary artery disease with previous [place] and stent placement, anxiety, depression, right lung nodule Past Surgical History 1. Lumbar disk surgery x2 2. Cervical disk repair x3 3. Strangulated hernia repair x4. Reported Medications Robaxin (Methocarbamol) 500 Mg Tab 500 Mg PO TID 5 Days Brilinta (Ticagrelor) 60 Mg Tab 60 Mg PO BID 30 Days Gnp Senna Plus 8.6-50 mg (Sennosides-Docusate Sodium) 8.6 Mg-50 Mg Tab 1 Tab PO BID PRN 10 Days Oxycodone-Acetaminophen 10-325 mg Tab 1 Tab PO Q4H PRN Plavix (Clopidogrel Bisulfate) 75 Mg Tab 75 Mg PO DAILY Atorvastatin (Atorvastatin Calcium) 40 Mg Tab 40 Mg PO HS Alprazolam 0.5 Mg Tab 0.5 Mg PO DAILY Pantoprazole (Pantoprazole Sodium) 40 Mg Tab 40 Mg PO DAILY Temazepam 30 Mg Cap 30 Mg PO HS PRN Ditropan (Oxybutynin Chloride) 5 Mg Tab 10 Mg PO DAILY Metoprolol Tartrate 25 Mg Tab 25 Mg PO BID Benzonatate 100 Mg Cap 100 Mg PO TID PRN Lisinopril 5 Mg Tab 5 Mg PO DAILY Fluoxetine (Fluoxetine HCl) 40 Mg Cap 40 Cap PO BID Gabapentin 600 Mg Tab 300 Mg PO TID Abilify (Aripiprazole) 15 Mg Tab 15 Mg PO DAILY Allergies: Coded Allergies: bee venom protein (honey bee) (Unverified Allergy, Severe, Anaphylaxis, ) Active Ordered Medications Current Medications Sodium Chloride 1,000 ml @ 0 mls/hr Q0M IV ; Start 05/17/17 at 06:45 Sodium Chloride (NS Flush) 2 ml BID IV FLUSH ; Start 05/17/17 at 09:00 Sodium Chloride (NS Flush) 2 ml UNSCH PRN IV FLUSH FLUSH AFTER USING IV ACCESS ; Start 05/17/17 at 06:45 Lidocaine/ Epinephrine (Xylocaine-Epi 1%-1:100,000 Inj) 50 ml STK-MED ONCE .ROUTE ; Start 05/17/17 at 08:00; Stop 05/17/17 at 08:01; Status DC Fentanyl Citrate (fentaNYL INJ) 200 mcg STK-MED ONCE .ROUTE Last administered on 05/17/17at 08:40; Start 05/17/17 at 08:40; Stop 05/17/17 at 08:41; Status DC Midazolam HCl (Versed Inj) 4 mg STK-MED ONCE .ROUTE Last administered on at 08:40; Start 05/17/17 at 08:40; Stop 05/17/17 at 08:41; Status DC Oxycodone/ Acetaminophen (Percocet 5-325 Mg) 1 tab Q4H PRN PO PAIN SCALE 1 TO 10; Start 05/17/17 at 09:30 Oxycodone/ Acetaminophen (Percocet 5-325 Mg) 1 tab Q4H PRN PO PAIN 1-10; Start 05/17/17 at 09:45; Stop 05/17/17 at 09:45; Status DC Fentanyl Citrate (fentaNYL INJ) 100 mcg STK-MED ONCE .ROUTE Last administered on 05/17/17at 12:58; Start 05/17/17 at 12:58; Stop 05/17/17 at 12:59; Status DC Midazolam HCl (Versed Inj) 2 mg STK-MED ONCE .ROUTE Last administered on at 12:58; Start 05/17/17 at 12:58; Stop 05/17/17 at 12:59; Status DC Family History Both parents . There is a history of heart disease in the family. Mother had history of Alzheimer's. Social History The patient smoked one-pack per day for over 40 years and quit this past Elig[place]. The patient does not drink any alcohol. Physical Exam Vital Signs Vital Signs Date Time Temp Pulse Resp B/P (MAP) Pulse Ox O2 Delivery O2 Flow Rate FiO2 05/17/17 14:25 60 18 153/95 (114) 93 05/17/17 13:55 57 16 161/94 (116) 95 05/17/17 13:40 97.9 57 18 145/93 (110) 94 05/17/17 11:25 70 18 135/85 (102) 97 05/17/17 11:00 55 18 117/73 (88) 97 05/17/17 10:30 54 18 102/65 (77) 97 05/17/17 10:00 55 16 103/70 (81) 96 05/17/17 09:45 59 16 142/94 (110) 95 05/17/17 09:45 97 Nasal Cannula 2.00 05/17/17 09:30 98.6 63 16 143/85 (104) 95 05/17/17 07:09 98.4 60 20 143/88 (106) 94 Physical Exam GENERAL: This is a well-nourished, well-developed patient, in no apparent distress. SKIN: The right anterior chest tube placed. Tenderness palpation at site. HEAD: Atraumatic. Normocephalic. No temporal or scalp tenderness. EYES: Pupils equal round and reactive. Extraocular motions intact. No scleral icterus. No injection or drainage. ENT: Nose without bleeding, purulent drainage or septal hematoma. Throat without erythema, tonsillar hypertrophy or exudate. Uvula midline. Airway patent. NECK: Trachea midline. No JVD or lymphadenopathy. Supple, nontender, no meningeal signs. CARDIOVASCULAR: Regular rate and rhythm without murmurs, gallops, or rubs. RESPIRATORY: Bilateral lower rhonchi but otherwise clear. No wheezing or rales. GASTROINTESTINAL: Abdomen soft, non-tender, nondistended. No hepato-splenomegaly , or palpable masses. No guarding. MUSCULOSKELETAL: Extremities without clubbing, cyanosis, or edema. No joint tenderness, effusion, or edema noted. No calf tenderness. Negative Homans sign bilaterally. NEUROLOGICAL: Awake and alert. Cranial nerves II through XII intact. Motor and sensory grossly within normal limits. Five out of 5 muscle strength in all muscle groups. Normal speech. Laboratory Laboratory Tests Test 05/17/17 07:05 05/17/17 07:25 White Blood Count 7.1 Red Blood Count 3.89 Hemoglobin 11.6 Hematocrit 34.2 Mean Corpuscular Volume 88.0 Mean Corpuscular Hemoglobin 29.9 Mean Corpuscular Hemoglobin Concent 34.0 Red Cell Distribution Width 14.4 Platelet Count 376 Mean Platelet Volume 7.0 Neutrophils (%) (Auto) 63.9 Lymphocytes (%) (Auto) 19.1 Monocytes (%) (Auto) 10.3 Eosinophils (%) (Auto) 5.7 Basophils (%) (Auto) 1.0 Neutrophils # (Auto) 4.5 Lymphocytes # (Auto) 1.4 Monocytes # (Auto) 0.7 Eosinophils # (Auto) 0.4 Basophils # (Auto) 0.1 CBC Comment DIFF FINAL Differential Comment Prothrombin Time 11.1 Prothromb Time International Ratio 1.1 Activated Partial Thromboplast Time 24.5 Result Diagram: 05/17/17 0705 Imaging Last Impressions Chest X-Ray 05/17/17 1200 Signed Impressions: Service Date/Time: Wednesday, May 17, 2017 11:59 - CONCLUSION: Interval increase in size of right pneumothorax of 5.3 cm. The findings were called to Dr. Bowden. Kurt Tomlinson MD Lung Biopsy CT 05/17/17 0714 Signed Impressions: Service Date/Time: Wednesday, May 17, 2017 08:45 - CONCLUSION: Uncomplicated CT guided biopsy. Wiley Bowden MD Chest Tube Insertion 05/17/17 0000 Signed Impressions: Service Date/Time: Wednesday, May 17, 2017 13:07 - CONCLUSION: Uncomplicated chest tube placement as above. MD Gale Tai VTE Risk Assessment Caprini VTE Risk Assessment: Mod/High Risk (score >= 2) Caprini Risk Assessment Model Point Value = 1 Point Value = 2 Point Value = 3 Point Value = 5 Age 41-60 Minor surgery BMI > 25 kg/m2 Swollen legs Varicose veins or History of unexplained or recurrent spontaneous Oral contraceptives or hormone replacement Sepsis (< 1 month) Serious lung disease, including pneumonia (< 1 month) Abnormal pulmonary function Acute myocardial infarction Congestive heart failure (< 1 month) History of inflammatory bowel disease Medical patient at bed rest Age 61-74 Arthroscopic surgery Major open surgery (> 45 min) Laparoscopic surgery (> 45 min) Malignancy Confined to bed (> 72 hours) Immobilizing plaster cast Central venous access Age >= 75 History of VTE Family history of VTE Factor V Leiden Prothrombin [id number] Lupus anticoagulant Anticardiolipin antibodies Elevated serum homocysteine Heparin-induced thrombocytopenia Other congenital or acquired thrombophilia Stroke (< 1 month) Elective arthroplasty Hip, pelvis, or leg fracture Acute spinal cord injury (< 1 month) Prophylaxis Regimen Total Risk Factor Score Risk Level Prophylaxis Regimen 0-1 Low Early ambulation 2 Moderate Order ONE of the following: *Sequential Compression Device (SCD) *Heparin 5000 units SQ BID 3-4 Higher Order ONE of the following medications: *Heparin 5000 units SQ TID *Enoxaparin/Lovenox 40 mg SQ daily (WT < 150 kg, CrCl > 30 mL/min) *Enoxaparin/Lovenox 30 mg SQ daily (WT < 150 kg, CrCl > 10-29 mL/min) *Enoxaparin/Lovenox 30 mg SQ BID (WT < 150 kg, CrCl > 30 mL/min) AND/OR *Sequential Compression Device (SCD) 5 or more Highest Order ONE of the following medications: *Heparin 5000 units SQ TID (Preferred with Epidurals) *Enoxaparin/Lovenox 40 mg SQ daily (WT < 150 kg, CrCl > 30 mL/min) *Enoxaparin/Lovenox 30 mg SQ daily (WT < 150 kg, CrCl > 10-29 mL/min) *Enoxaparin/Lovenox 30 mg SQ BID (WT < 150 kg, CrCl > 30 mL/min) AND *Sequential Compression Device (SCD) Assessment and Plan Assessment and Plan This is a 61-year-old male with history of tobacco dependence who presented with a suspicious right lung nodule Right no nodule -Status post CT-guided lung biopsy done today complicated by pneumothorax. Chest tube placed by [facility] IR to manage chest tube. -Continue management per IR. -Plavix and Brilinta held for procedure. Can restart once okay by IR. COPD, interstitial lung disease, coronary artery disease with previous [place] and stent placement, anxiety, depression -Continue with home medication. He did not take any today. Will need to hold Brilinta and Plavix due to procedure and once cleared by IR to restart medication. DVT prophylaxis -SCDs Discussed Condition With patient and his Amy Marley MD May 17, 2017 15:11
[2017-05-17] MEDS ORDERED: DOCUSATE SODIUM 50 MG/SENNA 8.6 MG TAB PO PRN (15:15)
[2017-05-17] MEDS: oxyCODONE/ACETAMINOPHEN 5 MG/325 MG TAB PO PRN ×2 (15:32→20:12)
[2017-05-17] MEDS ORDERED: BENZONATATE 100 MG CAP PO PRN (16:00)
[2017-05-17] MEDS: METHOCARBAMOL 500 MG TAB PO SCH (18:20)
[2017-05-17] MEDS: GABAPENTIN 300 MG CAP PO SCH (18:20)
[2017-05-17] MEDS: LISINOPRIL 5 MG TAB PO SCH (18:20)
[2017-05-17] MEDS: ALPRAZolam 0.5 MG TAB PO SCH (18:21)
[2017-05-17] MEDS: OXYBUTYNIN CHLORIDE 5 MG TAB PO SCH (18:21)
[2017-05-17] MEDS: PANTOPRAZOLE SOD 40 MG DELAYED RELEASE TAB PO SCH (18:21)
[2017-05-17] MEDS: ARIPiprazole 15 MG TAB PO SCH (18:22)
[2017-05-17] MEDS: SODIUM CHLORIDE 2 ML FLUSH BID IV FLUSH SCH ×2 (18:22→21:56)
[2017-05-17] MEDS ORDERED: FLUoxetine HCL 20 MG CAP PO SCH (21:00)
[2017-05-17] MEDS: ATORVASTATIN 40 MG TAB PO SCH (21:56)
[2017-05-17] MEDS: TEMAZEPAM 15 MG CAP PO PRN (21:56)
[2017-05-17] MEDS: METOPROLOL TARTRATE 25 MG TAB PO SCH (21:57)
[2017-05-17] MEDS: FLUoxetine HCL 20 MG CAP PO SCH (21:57)
[2017-05-18] VITALS (7 sets, daily range): BP systolic 118–151; BP diastolic 73–93; PULSE 54–59; RESP 16–18; TEMP 97.8–98.9; O2SAT 93–98
[2017-05-18] MEDS: oxyCODONE/ACETAMINOPHEN 5 MG/325 MG TAB PO PRN ×2 (03:17→06:47)
[2017-05-18] MEDS: LISINOPRIL 5 MG TAB PO SCH (08:40)
[2017-05-18] MEDS: SODIUM CHLORIDE 2 ML FLUSH BID IV FLUSH SCH ×2 (08:41→20:50)
[2017-05-18] MEDS: FLUoxetine HCL 20 MG CAP PO SCH ×2 (08:41→20:49)
[2017-05-18] MEDS: METOPROLOL TARTRATE 25 MG TAB PO SCH ×2 (08:41→20:49)
[2017-05-18] MEDS: PANTOPRAZOLE SOD 40 MG DELAYED RELEASE TAB PO SCH (08:41)
[2017-05-18] MEDS: GABAPENTIN 300 MG CAP PO SCH ×3 (08:41→17:34)
[2017-05-18] MEDS: OXYBUTYNIN CHLORIDE 5 MG TAB PO SCH (08:41)
[2017-05-18] MEDS: ALPRAZolam 0.5 MG TAB PO SCH (08:41)
[2017-05-18] MEDS: METHOCARBAMOL 500 MG TAB PO SCH ×3 (08:41→17:34)
[2017-05-18] MEDS: ARIPiprazole 15 MG TAB PO SCH (08:56)
--- NOTE | 2017-05-18 10:15 | HHI.PR ---
Subjective Remarks This is a 61-year-old white male who has had a history of COPD and history of interstitial lung disease found to have a right pulmonary nodule about 2 cm diameter with malignant characteristic on CT scan of the chest which was done in January 2017. Patient had a CT-guided lung biopsy done today by IR with complicated pneumothorax. Chest tube in place. [facility] asked to admit patient. Patient complained of soreness at the chest tube site. He denies any shortness of breathing, chest pain, palpitation, lightheaded dizziness. His is at the bedside during the interview. He has no complaints. Patient stated that he has not taking any of his medication today. His Plavix and Dilantin was held secondary to procedure. Patient stated that he has stent placement over a year ago. All other review of system reviewed and negative. 315 right sided upper chest tube xray pending had biopsy yesterday with IR and then chest tube on the right dw RN AND PT AND AWAIT IR CLEARANCE ADJUST MEDICATIONS add mucinex add duonebs Incentive spirometry HOPEFULLY DISCHARGE TO HOME TOMORROW Objective Vitals Vital Signs Date Time Temp Pulse Resp B/P (MAP) Pulse Ox O2 Delivery O2 Flow Rate FiO2 05/18/17 09:09 95 Room Air 05/18/17 08:00 98.0 56 16 151/83 (105) 95 05/18/17 04:00 97.8 55 18 146/73 (97) 94 05/18/17 00:00 98.2 59 18 137/73 (94) 98 05/17/17 20:00 98.8 57 18 140/72 (94) 98 05/17/17 17:58 Room Air 05/17/17 17:15 98.2 57 16 159/98 (118) 97 05/17/17 17:00 18 05/17/17 17:00 60 18 144/78 (100) 97 05/17/17 16:25 60 16 137/80 (99) 97 05/17/17 15:25 60 18 152/82 (105) 95 05/17/17 14:25 60 18 153/95 (114) 93 05/17/17 13:55 57 16 161/94 (116) 95 05/17/17 13:40 97.9 57 18 145/93 (110) 94 05/17/17 12:30 64 18 133/84 (100) 98 05/17/17 11:25 70 18 135/85 (102) 97 05/17/17 11:00 55 18 117/73 (88) 97 05/17/17 10:30 54 18 102/65 (77) 97 05/17/17 10:00 55 16 103/70 (81) 96 I/O 05/17/17 05/17/17 05/17/17 05/18/17 05/18/17 05/18/17 07:00 15:00 23:00 07:00 15:00 23:00 Output Total 0 ml 5 ml Balance 0 ml -5 ml Output Chest Tube Drainage Total 0 ml 5 ml # Voids 2 Result Diagram: 05/17/17 0705 Other Results Laboratory Tests Test 05/17/17 07:05 05/17/17 07:25 White Blood Count 7.1 TH/MM3 Red Blood Count 3.89 MIL/MM3 Hemoglobin 11.6 GM/DL Hematocrit 34.2 % Mean Corpuscular Volume 88.0 FL Mean Corpuscular Hemoglobin 29.9 PG Mean Corpuscular Hemoglobin Concent 34.0 % Red Cell Distribution Width 14.4 % Platelet Count 376 TH/MM3 Mean Platelet Volume 7.0 FL Neutrophils (%) (Auto) 63.9 % Lymphocytes (%) (Auto) 19.1 % Monocytes (%) (Auto) 10.3 % Eosinophils (%) (Auto) 5.7 % Basophils (%) (Auto) 1.0 % Neutrophils # (Auto) 4.5 TH/MM3 Lymphocytes # (Auto) 1.4 TH/MM3 Monocytes # (Auto) 0.7 TH/MM3 Eosinophils # (Auto) 0.4 TH/MM3 Basophils # (Auto) 0.1 TH/MM3 CBC Comment DIFF FINAL Differential Comment Prothrombin Time 11.1 SEC Prothromb Time International Ratio 1.1 RATIO Activated Partial Thromboplast Time 24.5 SEC Imaging Last Impressions Chest X-Ray 05/17/17 1200 Signed Impressions: Service Date/Time: Wednesday, May 17, 2017 11:59 - CONCLUSION: Interval increase in size of right pneumothorax of 5.3 cm. The findings were called to Dr. Bowden. Kurt Tomlinson MD Lung Biopsy CT 05/17/17 0714 Signed Impressions: Service Date/Time: Wednesday, May 17, 2017 08:45 - CONCLUSION: Uncomplicated CT guided biopsy. Wiley Bowden MD Chest Tube Insertion 05/17/17 0000 Signed Impressions: Service Date/Time: Wednesday, May 17, 2017 13:07 - CONCLUSION: Uncomplicated chest tube placement as above. Raheem Snyder MD Objective Remarks GENERAL: Awake alert and oriented 3 talkative and cooperative in no acute distress SKIN: Warm and dry. HEAD: Atraumatic. Normocephalic. EYES: Pupils equal and round. No scleral icterus. No injection or drainage. Extraocular muscles intact ENT: No nasal bleeding or discharge. Mucous membranes pink and moist. Tongue is midline NECK: Trachea midline. No JVD. Supple CARDIOVASCULAR: Regular rate and rhythm. S1-S2 no S3 or S4 RESPIRATORY: No accessory muscle use. Clear to auscultation. Breath sounds equal bilaterally. Right-sided apical chest tube still in place GASTROINTESTINAL: Abdomen soft, non-tender, nondistended. Hepatic and splenic margins not palpable. MUSCULOSKELETAL: Extremities without clubbing, cyanosis, or edema. No obvious deformities. NEUROLOGICAL: Awake and alert. No obvious cranial nerve deficits. Motor grossly within normal limits. Five out of 5 muscle strength in the arms and legs. Normal speech. PSYCHIATRIC: Appropriate mood and affect; insight and judgment normal. Procedures right sided ct guided biopsy 3-14 right sided chest tube 3-14 Medications and IVs Current Medications Sodium Chloride 1,000 ml @ 0 mls/hr Q0M IV ; Start 05/17/17 at 06:45 Sodium Chloride (NS Flush) 2 ml BID IV FLUSH Last administered on 05/18/17at 08: 41; Start 05/17/17 at 09:00 Sodium Chloride (NS Flush) 2 ml UNSCH PRN IV FLUSH FLUSH AFTER USING IV ACCESS ; Start 05/17/17 at 06:45 Lidocaine/ Epinephrine (Xylocaine-Epi 1%-1:100,000 Inj) 50 ml STK-MED ONCE .ROUTE ; Start 05/17/17 at 08:00; Stop 05/17/17 at 08:01; Status DC Fentanyl Citrate (fentaNYL INJ) 200 mcg STK-MED ONCE .ROUTE Last administered on 05/17/17at 08:40; Start 05/17/17 at 08:40; Stop 05/17/17 at 08:41; Status DC Midazolam HCl (Versed Inj) 4 mg STK-MED ONCE .ROUTE Last administered on 08:40; Start 05/17/17 at 08:40; Stop 05/17/17 at 08:41; Status DC Oxycodone/ Acetaminophen (Percocet 5-325 Mg) 1 tab Q4H PRN PO PAIN SCALE 1 TO 10 Last administered on 05/18/17at 06:47; Start 05/17/17 at 09:30 Oxycodone/ Acetaminophen (Percocet 5-325 Mg) 1 tab Q4H PRN PO PAIN 1-10; Start 05/17/17 at 09:45; Stop 05/17/17 at 09:45; Status DC Fentanyl Citrate (fentaNYL INJ) 100 mcg STK-MED ONCE .ROUTE Last administered on 05/17/17 12:58; Start 05/17/17 at 12:58; Stop 05/17/17 at 12:59; Status DC Midazolam HCl (Versed Inj) 2 mg STK-MED ONCE .ROUTE Last administered on at 12:58; Start 05/17/17 at 12:58; Stop 05/17/17 at 12:59; Status DC Alprazolam (Xanax) 0.5 mg DAILY PO Last administered on 05/18/17 08:41; Start 05/17/17 at 15:30 Aripiprazole (Abilify) 15 mg DAILY PO Last administered on 05/18/17at 08:56; Start 05/17/17 at 16:00 Atorvastatin Calcium (Lipitor) 40 mg HS PO Last administered on 05/17/17at 21:56 ; Start 05/17/17 at 21:00 Benzonatate (Tessalon) 100 mg TID PRN PO COUGH; Start 05/17/17 at 16:00 Fluoxetine HCl (PROzac) 1,600 mg BID PO ; Start 05/17/17 at 21:00; Status UNV Gabapentin (Neurontin) 300 mg TID PO Last administered on 05/18/17at 08:41; Start 05/17/17 at 18:00 Lisinopril (Prinivil) 5 mg DAILY PO Last administered on 05/18/17at 08:40; Start 05/17/17 at 15:45 Methocarbamol (Robaxin) 500 mg TID PO Last administered on 05/18/17 08:41; Start 05/17/17 at 18:00 Metoprolol Tartrate (Lopressor) 25 mg BID PO Last administered on 05/18/17 08: 41; Start 05/17/17 at 21:00 Oxybutynin Chloride (Ditropan) 10 mg DAILY PO Last administered on 05/18/17 08 :41; Start 05/17/17 at 16:00 Pantoprazole Sodium (Protonix) 40 mg DAILY PO Last administered on 05/18/17 08 :41; Start 05/17/17 at 15:45 Senna/Docusate Sodium (Iqra-Colace) 1 tab BID PRN PO CONSTIPATION; Start at 15:15 Temazepam (Restoril) 30 mg HS PRN PO INSOMNIA Last administered on 05/17/17at 21 :56; Start 05/17/17 at 15:15 Fluoxetine HCl (PROzac) 40 mg BID PO Last administered on 05/18/17 08:41; Start 05/17/17 at 21:00 A/P Assessment and Plan This is a 61-year-old male with history of tobacco dependence who presented with a suspicious right lung nodule Right no nodule -Status post CT-guided lung biopsy done 05-17 complicated by pneumothorax. Chest tube placed by IR. IR to manage chest tube. -Continue management per IR. -Plavix and Brilinta held for procedure. Can restart once okay by IR. COPD, interstitial lung disease, coronary artery disease with previous RI and stent placement, anxiety, depression -Continue with home medication. He did not take any today. Will need to hold Brilinta and Plavix due to procedure and once cleared by IR to restart medication. Recent back surgery continue on pain control Discussed with patient and RN DVT prophylaxis -SCDs Discharge Planning Pending IR clearance for discharge Yevgeniy Xiong DO May 18, 2017 10:15
[2017-05-18] MEDS ORDERED: RESP: ALBUTEROL 2.5 MG/IPRATROPIUM 0.5 MG NEB (PRN) NEB (10:30)
[2017-05-18] MEDS ORDERED: guaiFENesin E.R. 600 MG TAB PO ONE (10:30)
--- NOTE | 2017-05-18 10:49 | RADRPT ---
EXAM DATE/TIME: 05/18/2017 10:10 [facility] COMPARISON: CHEST EXPIRATION ONLY, May 17, 2017, 11:59. INDICATIONS : Pneumothorax. MEDICAL HISTORY : Chronic obstructive pulmonary disease. Interstitial lung disease. SURGICAL HISTORY : Cardiac stents. ENCOUNTER: Subsequent ACUITY: 2 days PAIN SCORE: 6/10 LOCATION: Right upper chest FINDINGS: Small right-sided chest tube is noted in good position. There is a miniscule right apical pneumothora x measuring 6 mm. Underlying interstitial fibrosis and emphysematous changes are noted. CONCLUSION: 1. Miniscule residual right apical pneumothorax measuring 6 mm. 2. Underlying interstitial fibrosis and emphysematous changes. Wiley Bowden MD on May 18, 2017 at 10:45 Board Certified Radiologist. This report was verified electronically.
[2017-05-18] MEDS: oxyCODONE/ACETAMINOPHEN 10 MG/325 MG TAB PO PRN ×3 (10:56→20:49)
--- NOTE | 2017-05-18 15:24 | RADRPT ---
EXAM DATE/TIME: 05/18/2017 14:24 [facility] COMPARISON: CHEST EXPIRATION ONLY, May 18, 2017, 10:10. INDICATIONS : Pneumonia. MEDICAL HISTORY : Chronic obstructive pulmonary disease. Interstitial lung disease. SURGICAL HISTORY : Cardiac stents. ENCOUNTER: Subsequent ACUITY: 2 days PAIN SCORE: 4/10 LOCATION: Right upper chest FINDINGS: Stable right apical chest tube. Very subtle stable right apical pneumothorax. Cardiomediastinal conto urs are stable. Remainder of exam is unchanged. CONCLUSION: 1. Very subtle stable right apical pneumothorax following chest tube clamping. Raheem Snyder MD on May 18, 2017 at 14:42 Board Certified Radiologist. This report was verified electronically.
--- NOTE | 2017-05-18 16:02 | RADRPT ---
EXAM DATE/TIME: 05/18/2017 15:47 [facility] COMPARISON: CT NEEDLE BIOPSY LUNG, RIGHT, May 17, 2017, 8:45. CHEST SINGLE AP, May 18, 2017, 14:24. INDICATIONS : Evaluate for pneumothorax, post chest tube removal MEDICAL HISTORY : Chronic obstructive pulmonary disease. Interstitial lung disease SURGICAL HISTORY : Cardiac stents. ENCOUNTER: Subsequent ACUITY: 2 days PAIN SCORE: 2/10 LOCATION: Right chest FINDINGS: The patient's right-sided chest tube has been removed. There is no residual pneumothorax. There are chronic interstitial changes throughout the pulmonary parenchyma. The patient's known mass in the right lower lobe is faintly visualized. The heart is normal in size. The osseous structures are intact. CONCLUSION: 1. No pneumothorax identified following chest tube removal. 2. Known mass adjacent to the right heart border. 3. Chronic interstitial changes. Jimmy Hdez MD on May 18, 2017 at 15:59 Board Certified Radiologist. This report was verified electronically.
[2017-05-18] MEDS: RESP: ALBUTEROL 2.5 MG/IPRATROPIUM 0.5 MG NEB (SCH) NEB ×2 (16:07→20:48)
--- NOTE | 2017-05-18 16:07 | RADRPT ---
EXAM DATE/TIME: 05/18/2017 00:00 [facility] COMPARISON: No previous studies available for comparison. INDICATIONS : PNEUMOTHORAX POST LUNG BIOPSY DEVICE(S): 1.) Vaseline occlusive dressing PROCEDURE : Chest tube removal. Using aseptic technique the previously placed chest tube was easily removed in one piece and Vaseline gauze and sterile dressing was applied. Chest radiograph is to be obtained. CONCLUSION: Uncomplicated chest tube removal. Raheem Snyder MD on May 18, 2017 at 16:05 Board Certified Radiologist. This report was verified electronically.
--- NOTE | 2017-05-18 18:22 | HHI.PR ---
Subjective Remarks Had a CT guided biopsy of the Right lung nodule. Had a Pneumothorax and a chest tube was placed. Now has a tiny Right pneumo after chest tube was removed. Feels OK Objective Vital Signs Date Time Temp Pulse Resp B/P (MAP) Pulse Ox O2 Delivery O2 Flow Rate FiO2 05/18/17 12:00 98.7 54 16 118/82 (94) 96 05/18/17 09:09 95 Room Air 05/18/17 08:00 98.0 56 16 151/83 (105) 95 05/18/17 04:00 97.8 55 18 146/73 (97) 94 05/18/17 00:00 98.2 59 18 137/73 (94) 98 05/17/17 20:00 98.8 57 18 140/72 (94) 98 I/O 05/17/17 05/17/17 05/17/17 05/18/17 05/18/17 05/18/17 07:00 15:00 23:00 07:00 15:00 23:00 Output Total 0 ml 5 ml 330 ml Balance 0 ml -5 ml -330 ml Output Urine Total 325 ml Chest Tube Drainage Total 0 ml 5 ml 5 ml # Voids 2 Result Diagram: 05/17/17 0705 Objective Remarks GENERAL: This is an averagely built, middle-aged white male who is alert, pale and in no acute distress. No clubbing or peripheral edema or lymphadenopathy. HEENT: Head normocephalic. Pupils reactive. Tongue is moist. Nasal mucosa edematous. Throat is mildly injected. NECK: Supple. No bruits, thyroid enlargement or lymphadenopathy. CHEST: Distant breath sounds with wheezes throughout both lung dai and prolonged expirations. Occasional crackles at both lung bases. HEART: The heart sounds are regular S1-S2 with no murmur. No S3 gallop. ABDOMEN: Soft, benign. No masses. No organomegaly or tenderness. Bowel sounds are active. EXTREMITIES: No edema. NEUROLOGIC: Normal reflexes. No gross motor deficits. Cranial nerves grossly intact. RECTAL: Exam is deferred. SKIN: No lesions. Assessment and Plan Assessment and Plan IMPRESSION 1. Right lung nodules, rule out malignancy 2. Chronic obstructive pulmonary disease with emphysema. 3. Pulmonary fibrosis. 4. Coronary artery disease status post coronary stenting 5. Chronic back pain. 6. Right Pneumothorax post lung biopsy Plan : 1. Rpt CXR in am 2. Duonebs qid . 3. O2 2 L prn. 4. Symbicort 160/4.5 mcg, 2 puffs bid. 5. Home if CXR is stable. Ganga Perdue MD May 18, 2017 18:22
[2017-05-18] MEDS: TEMAZEPAM 15 MG CAP PO PRN (20:49)
[2017-05-18] MEDS: guaiFENesin E.R. 600 MG TAB PO SCH (20:49)
[2017-05-18] MEDS: ATORVASTATIN 40 MG TAB PO SCH (20:49)
[2017-05-19] VITALS: BP 134/86; PULSE 56; RESP 18; TEMP 98; O2SAT 94
[2017-05-19] MEDS: oxyCODONE/ACETAMINOPHEN 10 MG/325 MG TAB PO PRN ×3 (01:27→11:00)
[2017-05-19] MEDS: RESP: ALBUTEROL 2.5 MG/IPRATROPIUM 0.5 MG NEB (SCH) NEB ×2 (03:45→10:00)
[2017-05-19 04:00] VITALS: BP 165/96; PULSE 55; RESP 18; TEMP 98; O2SAT 94
[2017-05-19 07:46] LABS: BASOPHIL % 0.5 % (0.0-2.0); EOSINOPHIL # 0.2 TH/MM3 (0-0.4); EOSINOPHIL % 3.5 % (0.0-4.0); HEMATOCRIT 32.8 % (39.0-51.0); HEMOGLOBIN 11.2 GM/DL (13.0-17.0); LYMPH % 37.2 % (9.0-44.0); LYMPHOCYTE # 2.3 TH/MM3 (1.0-4.8); MEAN CELL VOLUME 87.6 FL (80.0-100.0); MEAN CORPUSCULAR HGB CONC 34.2 % (32.0-36.0); MEAN PLATELET VOLUME 7.5 FL (7.0-11.0); MONO % 10.1 % (0.0-8.0); MONOCYTE # 0.6 TH/MM3 (0-0.9); NEUT % 48.7 % (16.0-70.0); PLATELET COUNT 311 TH/MM3 (150-450); RED BLOOD COUNT 3.74 MIL/MM3 (4.50-5.90); RED CELL DISTRIBUTION WIDTH 14.1 % (11.6-17.2); WHITE BLOOD COUNT 6.3 TH/MM3 (4.0-11.0)
[2017-05-19 08:00] VITALS: BP 173/93; PULSE 53; RESP 18; TEMP 98.4; O2SAT 97
--- NOTE | 2017-05-19 08:04 | RADRPT ---
EXAM DATE/TIME: 05/19/2017 07:49 [facility] COMPARISON: CHEST EXPIRATION ONLY, May 18, 2017, 10:10. CT NEEDLE BIOPSY LUNG, RIGHT, May 17, 2017, 8:45. C HEST EXPIRATION ONLY, May 17, 2017, 11:59. CHEST TUBE PLACEMENT, RIGHT, May 17, 2017, 13:07. CH EST TUBE REMOVAL, RIGHT, May 18, 2017, 0:00. CHEST SINGLE AP, May 18, 2017, 14:24. CHEST EXPIRA TION ONLY, May 18, 2017, 15:47. CHEST PA & LAT, April 03, 2017, 20:18. INDICATIONS : Follow up on right side pneumothorax. MEDICAL HISTORY : Hypertension. Myocardial infarction. SURGICAL HISTORY : Coronary artery stent. Fusion, lumbar. ENCOUNTER: Subsequent ACUITY: 2 weeks PAIN SCORE: 0/10 LOCATION: Bilateral chest FINDINGS: The right lung remains well-expanded without evidence of recurrent pneumothorax following chest tube placement. Extensive interstitial disease remains evident throughout both lungs. Right lower lobe coronary mass or negative visualized. Lungs are hyperinflated. Heart and mediastinal structures are stable. CONCLUSION: 1. No evidence of recurrent pneumothorax following right-sided chest tube removal. 2. COPD with extensive interstitial disease. 3. Right lower lobe not clearly visualized. Bridger White MD on May 19, 2017 at 7:59 Board Certified Radiologist. This report was verified electronically.
[2017-05-19 08:06] LABS: ALBUMIN 3.1 GM/DL (3.4-5.0); AST (GOT) 16 U/L (15-37); BICARBONATE 24.8 MEQ/L (21.0-32.0); BLOOD UREA NITROGEN 11 MG/DL (7-18); CALCIUM 8.8 MG/DL (8.5-10.1); CHLORIDE 106 MEQ/L (98-107); CREATININE 0.98 MG/DL (0.60-1.30); GLOMERULAR FILTRATION RATE 78 ML/MIN (>89); GLUCOSE,RANDOM 87 MG/DL (74-106); MAGNESIUM 1.8 MG/DL (1.5-2.5); SODIUM (NA) 140 MEQ/L (136-145)
[2017-05-19 08:17] LABS: ALKALINE PHOSPHATASE 124 U/L (45-117); ALT (GPT) 15 U/L (12-78); FREE T4 0.79 NG/DL (0.76-1.46); PHOSPHORUS 3.6 MG/DL (2.5-4.9); TOTAL BILIRUBIN ADULT 0.2 MG/DL (0.2-1.0); TOTAL PROTEIN 6.7 GM/DL (6.4-8.2)
[2017-05-19] MEDS: FLUoxetine HCL 20 MG CAP PO SCH (08:36)
[2017-05-19] MEDS: ARIPiprazole 15 MG TAB PO SCH (08:37)
[2017-05-19] MEDS: ALPRAZolam 0.5 MG TAB PO SCH (08:37)
[2017-05-19] MEDS: OXYBUTYNIN CHLORIDE 5 MG TAB PO SCH (08:37)
[2017-05-19] MEDS: guaiFENesin E.R. 600 MG TAB PO SCH (08:37)
[2017-05-19] MEDS: GABAPENTIN 300 MG CAP PO SCH (08:37)
[2017-05-19] MEDS: LISINOPRIL 5 MG TAB PO SCH (08:37)
[2017-05-19] MEDS: PANTOPRAZOLE SOD 40 MG DELAYED RELEASE TAB PO SCH (08:37)
[2017-05-19] MEDS: METHOCARBAMOL 500 MG TAB PO SCH (08:48)
[2017-05-19] MEDS: SODIUM CHLORIDE 2 ML FLUSH BID IV FLUSH SCH (08:49)
[2017-05-19] MEDS: METOPROLOL TARTRATE 25 MG TAB PO SCH (08:49)
[2017-05-19] MEDS ORDERED: Albuterol-Ipratropium Neb NEB (09:42)
[2017-05-19 16:10] LABS: HEMOGLOBIN A1C 5.5 % (4.3-6.0)
--- NOTE | 2017-05-19 23:18 | HHI.DS ---
Discharge Summary Admission Date May 17, 2017 at 18:55 Discharge Date: May 19, 2017 Admitting Diagnosis right-sided pneumothorax (1) Pneumothorax after biopsy ICD Code: J95.811 - Postprocedural pneumothorax Procedures right sided ct guided biopsy 05-17 right sided chest tube 3- Brief History - From Admission This is a 61-year-old white male who has had a history of COPD and history of interstitial lung disease found to have a right pulmonary nodule about 2 cm diameter with malignant characteristic on CT scan of the chest which was done in January 2017. Patient had a CT-guided lung biopsy done today by IR with complicated pneumothorax. Chest tube in place. [facility] asked to admit patient. Patient complained of soreness at the chest tube site. He denies any shortness of breathing, chest pain, palpitation, lightheaded dizziness. His is at the bedside during the interview. He has no complaints. Patient stated that he has not taking any of his medication today. His Plavix and Dilantin was held secondary to procedure. Patient stated that he has stent placement over a year ago. All other review of system reviewed and negative. CBC/BMP: 05/19/17 0410 05/19/17 0410 Significant Findings Laboratory Tests Test 05/17/17 07:05 05/17/17 07:25 05/19/17 04:10 Red Blood Count 3.89 MIL/MM3 (4.50-5.90) 3.74 MIL/MM3 (4.50-5.90) Hemoglobin 11.6 GM/DL (13.0-17.0) 11.2 GM/DL (13.0-17.0) Hematocrit 34.2 % (39.0-51.0) 32.8 % (39.0-51.0) Monocytes (%) (Auto) 10.3 % (0.0-8.0) 10.1 % (0.0-8.0) Eosinophils (%) (Auto) 5.7 % (0.0-4.0) Albumin 3.1 GM/DL (3.4-5.0) Alkaline Phosphatase 124 U/L (45-117) Estimat Glomerular Filtration Rate 78 ML/MIN (>89) Imaging Last Impressions Chest X-Ray 05/19/17 0000 Signed Impressions: Service Date/Time: Friday, May 19, 2017 07:49 - CONCLUSION: 1. No evidence of recurrent pneumothorax following right-sided chest tube removal. 2. COPD with extensive interstitial disease. 3. Right lower lobe not clearly visualized. Bridger White MD Tunnelled Chest Tube Removal 05/18/17 0000 Signed Impressions: Service Date/Time: May 00:00 - CONCLUSION: Uncomplicated chest tube removal. Raheem Snyder MD Lung Biopsy CT 05/17/17 0714 Signed Impressions: Service Date/Time: Wednesday, May 17, 2017 08:45 - CONCLUSION: Uncomplicated CT guided biopsy. Wiley Bowden MD Chest Tube Insertion 05/17/17 0000 Signed Impressions: Service Date/Time: Wednesday, May 17, 2017 13:07 - CONCLUSION: Uncomplicated chest tube placement as above. Raheem Snyder MD PE at Discharge GENERAL: Awake alert and oriented 3 talkative and cooperative in no acute distress SKIN: Warm and dry. HEAD: Atraumatic. Normocephalic. EYES: Pupils equal and round. No scleral icterus. No injection or drainage. Extraocular muscles intact ENT: No nasal bleeding or discharge. Mucous membranes pink and moist. Tongue is midline NECK: Trachea midline. No JVD. Supple CARDIOVASCULAR: Regular rate and rhythm. S1-S2 no S3 or S4 RESPIRATORY: No accessory muscle use. Clear to auscultation. Breath sounds equal bilaterally. Right-sided apical chest tube still in place GASTROINTESTINAL: Abdomen soft, non-tender, nondistended. Hepatic and splenic margins not palpable. MUSCULOSKELETAL: Extremities without clubbing, cyanosis, or edema. No obvious deformities. NEUROLOGICAL: Awake and alert. No obvious cranial nerve deficits. Motor grossly within normal limits. Five out of 5 muscle strength in the arms and legs. Normal speech. PSYCHIATRIC: Appropriate mood and affect; insight and judgment normal. Pt update on day of discharge Patient says he is feeling well. Denies any chest pain or shortness of breath. Feels like going home. Hospital Course Patient had right-sided pneumothorax secondary to biopsy procedure. Right- sided chest tube was placed to suction. Pneumothorax resolved, chest tube was removed, without any return of pneumothorax on chest x-ray. Pulmonology followed during admission. Patient is to follow-up with primary care. Brilinta was discontinued. Continue Plavix and aspirin for history of CAD. For problem-based summary from most recent progress note, please see below. 05/19. Repeat chest x-ray stable. Discharge home. Follow-up with pulmonology as outpatient. This is a 61-year-old male with history of tobacco dependence who presented with a suspicious right lung nodule Right no nodule -Status post CT-guided lung biopsy done 05-17 complicated by pneumothorax. Chest tube placed by IR. IR to manage chest tube. -Continue management per IR. -Plavix and Brilinta held for procedure. Can restart once okay by IR. COPD, interstitial lung disease, coronary artery disease with previous PR and stent placement, anxiety, depression -Continue with home medication. He did not take any today. Will need to hold Brilinta and Plavix due to procedure and once cleared by IR to restart medication. Recent back surgery continue on pain control Discussed with patient and RN DVT prophylaxis -SCDs Discharge Planning Pending IR clearance for discharge Pt Condition on Discharge: Good Discharge Disposition: Discharge Home Discharge Time: > 30 minutes Discharge Instructions DIET: Follow Instructions for: Heart Healthy Diet Activities you can perform: Regular-No Restrictions Follow up Referrals: PCP Follow-up - 1 Week with Catie Corey M.d. PCP Follow-up Pulmonology - 1 Week with Ganga Perdue MD Pulmonology New Medications: [Albuterol-Ipratropium Neb] () 1 AMPULE NEBU 1 AMPULE NEB Q4HR NEB PRN for SOB/COUGH for 30 Days Continued Medications: Alprazolam (Alprazolam) 0.5 Mg Tab 0.5 MG PO DAILY, TAB 0 Refills Aripiprazole (Abilify) 15 Mg Tab 15 MG PO DAILY, #30 TAB 0 Refills Aspirin (Aspirin Low Dose) 81 Mg Chew 81 MG CHEW DAILY, TAB 0 Refills Atorvastatin (Atorvastatin) 40 Mg Tab 40 MG PO HS for Cholesterol Management, #30 TAB 0 Refills Benzonatate (Benzonatate) 100 Mg Cap 100 MG PO TID PRN for COUGH, CAP 0 Refills Clopidogrel (Plavix) 75 Mg Tab 75 MG PO DAILY for Blood Clot Prevention, #30 TAB 0 Refills Fluoxetine (Fluoxetine) 40 Mg Cap 40 CAP PO BID, #30 CAP 0 Refills Gabapentin (Gabapentin) 600 Mg Tab 300 MG PO TID, #90 TAB 0 Refills Lisinopril (Lisinopril) 5 Mg Tab 5 MG PO DAILY for Blood Pressure Management, #30 TAB 0 Refills Methocarbamol (Robaxin) 500 Mg Tab 500 MG PO TID for Muscle Spasm for 5 Days, TAB 0 Refills Metoprolol Tartrate (Metoprolol Tartrate) 25 Mg Tab 25 MG PO BID, #60 TAB 0 Refills Oxybutynin (Ditropan) 5 Mg Tab 10 MG PO DAILY for Urinary Symptom Managemen, #90 TAB 0 Refills Oxycodone-Acetaminophen (Oxycodone-Acetaminophen) 10-325 mg Tab 1 TAB PO Q4H PRN for PAIN, TAB 0 Refills Pantoprazole (Pantoprazole) 40 Mg Tab 40 MG PO DAILY for Reflux, #30 TAB 0 Refills Sennosides-Docusate Sodium (Gnp Senna Plus 8.6-50 mg) 8.6 Mg-50 Mg Tab 1 TAB PO BID PRN for CONSTIPATION for 10 Days, #20 TAB Temazepam (Temazepam) 30 Mg Cap 30 MG PO HS PRN for INSOMNIA, #30 CAP 0 Refills Discontinued Medications: Ticagrelor (Brilinta) 60 Mg Tab 60 MG PO BID for Blood Clot Prevention for 30 Days, #60 TAB Jose M Johnson MD May 19, 2017 23:18
== END 2017-05-19 11:37 | disposition home or self-care (01) ==
LOC: HRAD 06:20 → HRIP 06:22 → HRAD 17:51 → N05A 18:55
PROVIDERS: ADMIT Internal Medicine; ATTEND Internal Medicine
DX: R91.8 Other nonspecific abnormal finding of lung field (principal); J43.9 Emphysema, unspecified; J84.10 Pulmonary fibrosis, unspecified; J95.811 Postprocedural pneumothorax; I25.10 Atherosclerotic heart disease of native coronary artery without angina pectoris; I25.2 Old myocardial infarction; M54.9 Dorsalgia, unspecified; G89.29 Other chronic pain; F41.9 Anxiety disorder, unspecified; F32.9 Major depressive disorder, single episode, unspecified; Z87.891 Personal history of nicotine dependence; Z79.899 Other long term (current) drug therapy; Z98.1 Arthrodesis status; Z95.5 Presence of coronary angioplasty implant and graft
CPT/HCPCS: 32405; 32557; 71045; 71046; 77012; 80053; 83036; 83735; 84100; 84439; 84443; 85025; 85610; 85730; 88305; 88341; 88342; 94150; 94640; 94664; 99152; 99153; C1729; C1769; G0378; J2250; J3010

== ENCOUNTER → 2017-06-23 | Outpatient (CLI) | payer OTHER ==
[~2017-06-23] MED LIST changes: +ALPR0.5T3 PO; +ARIP1TAB11 PO; +ASPI81CH6 CHEW; +ATOR40TA16 PO; +Albuterol-Ipratropium Neb NEB; -BUSP15TA PO; +LISI10TA3 PO; +NITR1SUB3 SL; +OXYC1TAB36 PO; -OXYC1TAB63 PO; +OXYGENDME NAS.CANULA; +PLAV75TA29 PO; -TICA1TAB PO; +UMEC1AER INH
[2017-06-23 11:48] LABS: AUTOMATED NEUTROPHIL # 6.8 TH/MM3 (1.8-7.7); BASOPHIL % 0.5 % (0.0-2.0); EOSINOPHIL # 0.4 TH/MM3 (0-0.4); EOSINOPHIL % 3.6 % (0.0-4.0); HEMATOCRIT 36.2 % (39.0-51.0); LYMPH % 18.5 % (9.0-44.0); LYMPHOCYTE # 1.8 TH/MM3 (1.0-4.8); MEAN CELL VOLUME 88.4 FL (80.0-100.0); MEAN CORPUSCULAR HEMOGLOBIN 29.4 PG (27.0-34.0); MEAN CORPUSCULAR HGB CONC 33.2 % (32.0-36.0); MEAN PLATELET VOLUME 8.4 FL (7.0-11.0); MONO % 9.3 % (0.0-8.0); MONOCYTE # 0.9 TH/MM3 (0-0.9); NEUT % 68.1 % (16.0-70.0); PLATELET COUNT 290 TH/MM3 (150-450); RED BLOOD COUNT 4.09 MIL/MM3 (4.50-5.90); RED CELL DISTRIBUTION WIDTH 14.3 % (11.6-17.2)
--- NOTE | 2017-06-23 11:49 | RADRPT ---
EXAM DATE/TIME: 06/23/2017 11:38 [facility] COMPARISON: CHEST PA & LAT, May 19, 2017, 7:49. INDICATIONS : Evaluate for pneumonia, pneumothorax or communicable disease. Pre op right thoracotomy and lobectomy. MEDICAL HISTORY : Hypertension. Myocardial infarction SURGICAL HISTORY : Coronary artery stent. Fusion, lumbar ENCOUNTER: Initial ACUITY: 1 day PAIN SCORE: 0/10 LOCATION: Bilateral chest FINDINGS: PA and lateral views of the chest demonstrate interstitial densities without evidence of mass, infilt rate or effusion. The cardiomediastinal contours are unremarkable. Osseous structures are intact. CONCLUSION: Interstitial densities. Justin Schmitz MD on June 23, 2017 at 11:46 Board Certified Radiologist. This report was verified electronically.
[2017-06-23 12:02] LABS: INTERNATIONAL NORMALIZED RATIO 1.1 RATIO; PROTHROMBIN TIME - PATIENT 10.9 SEC (9.8-11.6)
[2017-06-23 12:12] LABS: BICARBONATE 29.6 MEQ/L (21.0-32.0); CALCIUM 8.2 MG/DL (8.5-10.1); CREATININE 0.98 MG/DL (0.60-1.30)
[2017-06-23 12:36] LABS: BILIRUBIN, URINE NEG (NEG); BLOOD, URINE NEG (NEG); GLUCOSE,URINE NEG (NEG); KETONE, URINE NEG (NEG); NITRITE,URINE NEG (NEG); URINE COLOR YELLOW (YELLW/STRAW); URINE LEUKOCYTE ESTERASE NEG (NEG)
--- NOTE | 2017-06-24 08:56 | EKG ---
Date Performed: 06/23/2017 Time Performed: 11:01:48 PTAGE: 61 years EKG: SINUS BRADYCARDIA POSSIBLE LEFT ATRIAL ENLARGEMENT POSSIBLE RIGHT VENTRICULAR CONDUCTION DE LAY PROBABLE LATERAL MYOCARDIAL INFARCTION, OF INDETERMINATE AGE ABNORMAL ECG NO PREVIOUS TRACING DOCTOR: Fili Heath Interpretating Date/Time 06/24/2017 08:54:03
== END ==
LOC: CPRE 10:15
PROVIDERS: ATTEND Thoracic Surgery (Cardiothoracic Vascular Surgery)
DX: Z01.810 Encounter for preprocedural cardiovascular examination (principal); Z01.811 Encounter for preprocedural respiratory examination; Z01.812 Encounter for preprocedural laboratory examination; Z01.818 Encounter for other preprocedural examination; Z79.01 Long term (current) use of anticoagulants; C34.31 Malignant neoplasm of lower lobe, right bronchus or lung; R94.31 Abnormal electrocardiogram [ECG] [EKG]
CPT/HCPCS: 36415; 71046; 80048; 81001; 85025; 85610; 85730; 93005

== ENCOUNTER 2017-06-27 05:54 | Inpatient (IN) | payer OTHER, MEDICARE ==
[2017-06-27] VITALS (15 sets, daily range): BP systolic 135–163; BP diastolic 70–89; PULSE 62–78; RESP 14–16; TEMP 97.8–98.2; O2SAT 93–98
[~2017-06-27] VITALS: Ht 175.3 cm; Wt 66.0 kg
[~2017-06-27 05:54] MED LIST changes: -ABIL15TA3 PO; -LISI10TA3 PO; -OXYGENDME NAS.CANULA; -ROBA500T PO
[2017-06-27] MEDS ORDERED: ACETAMINOPHEN 1000 MG/100 ML 100 ML IV ONE (06:18)
[2017-06-27] MEDS ORDERED: METOPROLOL TARTRATE 25 MG TAB PO PRN (06:45)
[2017-06-27] MEDS ORDERED: BUPIVACAINE LIPOSO PF 1.3% INJ 20 ML, DEXAMETHASONE INJ 4 MG, MORPHINE INJ 8 MG in SODI... IRRIGATION SCH (06:45)
[2017-06-27] MEDS ORDERED: INSULIN HUMAN REGULAR 1,000 UNITS/10 ML VIAL SQ PRN (06:45)
[2017-06-27] MEDS ORDERED: SODIUM CHLORID 0.9% 500 ML IV PRN (06:45)
[2017-06-27] MEDS ORDERED: CHLORHEXIDINE GLUCONATE 2 % 1 PACK (2 CLOTHS) TOPICAL PRN (06:45)
[2017-06-27] MEDS ORDERED: POVIDONE IODINE 5% (ANTISEPSIS KIT) 4 APPLICATIONS EACH NARE PRN (06:45)
[2017-06-27] MEDS ORDERED: LACTATED RINGER'S 1000 ML IV PRN (06:45)
[2017-06-27] MEDS ORDERED: ceFAZolin 2 GM PREMIX 50 ML ONE (07:13)
[2017-06-27] MEDS ORDERED: HYDROmorphone HCL PF 1 MG/ML VIAL ONE (09:12)
[2017-06-27] MEDS ORDERED: RESP: ALBUTEROL 2.5 MG/3 ML NEB (PRN) NEB (11:15)
[2017-06-27] MEDS ORDERED: oxyCODONE/ACETAMINOPHEN 10 MG/325 MG TAB PO PRN (11:15)
[2017-06-27] MEDS ORDERED: ACETAMINOPHEN/HYDROcodone 325 MG/5 MG TAB PO PRN (11:15)
[2017-06-27] MEDS ORDERED: TEMAZEPAM 15 MG CAP PO PRN (11:15)
[2017-06-27] MEDS ORDERED: NALOXONE HCL 0.4 MG/ML AMP IV PUSH PRN (11:15)
[2017-06-27] MEDS ORDERED: MAGNESIUM HYDROXIDE SUSP 30 ML CUP PO PRN (11:15)
[2017-06-27] MEDS ORDERED: SODIUM CHLORIDE 0.9% FLUSH 10 ML FLUSH IV FLUSH PRN (11:15)
[2017-06-27] MEDS ORDERED: ACETAMINOPHEN 325 MG TAB PO PRN (11:15)
[2017-06-27] MEDS ORDERED: Post-op Orders (for Pharmacy) OTHER ONE (11:30)
[2017-06-27] MEDS ORDERED: MIDAZOLAM HCL 2 MG/2 ML VIAL ONE (11:36)
[2017-06-27] MEDS ORDERED: *MEPERIDINE 25 MG INJ VIAL PERIprocedural Use ONLY ONE (11:37)
[2017-06-27] MEDS ORDERED: *morphine SULFATE 8 MG/ML PERIprocedure ONLY ONE ×2 (11:41→11:48)
[2017-06-27] MEDS ORDERED: *LABETALOL HCL 100 MG/20 ML VIAL PERIprocedural Use ONLY ONE (11:47)
[2017-06-27] MEDS ORDERED: GLYCOPYRROLATE 1 MG/5 ML SYRINGE IV PUSH ONE (12:00)
[2017-06-27] MEDS ORDERED: SODIUM CHLOR 0.9% 1000 ML INJ 1,000 ML IV ONE (12:00)
[2017-06-27] MEDS ORDERED: DO NOT ADM ANY ANTICOAGULANT DRUGS PRN (12:00)
[2017-06-27] MEDS ORDERED: DEXAMETHASONE SOD PHOS 4 MG/ML VIAL IV ONE (12:00)
[2017-06-27] MEDS ORDERED: LIDOCAINE HCL 1% PF 5 ML SYRINGE OTHER ONE (12:00)
[2017-06-27] MEDS ORDERED: ROCURONIUM INJ 50 MG/5 ML SYRINGE IV PUSH ONE (12:00)
[2017-06-27] MEDS ORDERED: ePHEDrine/NS 25 MG/5 ML SYRINGE IV ONE (12:00)
[2017-06-27] MEDS ORDERED: hydrALAZINE HCL 20 MG/ML VIAL IV ONE (12:00)
[2017-06-27] MEDS ORDERED: PROPOFOL 200 MG/20 ML AMP IV ONE (12:00)
[2017-06-27] MEDS ORDERED: ONDANSETRON HCL 4 MG/2 ML VIAL IV ONE (12:00)
[2017-06-27] MEDS ORDERED: NORMOSOL R INJ 2,000 ML IV ONE (12:00)
--- NOTE | 2017-06-27 12:18 | PD.OP ---
cc: Ganga Perdue MD; Dave Salas MD Operative Report Date of Surgery: Jun 27, 2017 Preoperative Diagnosis: Postoperative Diagnosis: Procedure: 1. Right Posterolateral Muscle Sparing Thoracotomy 2. Right Lower Lobectomy 3. Mediastinal Lymph Node Dissection 4. Intercostal Nerve Block Surgeon: Dave Salas Can Top Setter(s): Sven Knutson Operation and Findings: PREOPERATIVE DIAGNOSIS 1. Right Lower Lobe Lung Cancer 2. COPD 3. CAD POSTOPERATIVE DIAGNOSIS same PROCEDURES 1. Right Posterolateral Muscle Sparing Thoracotomy 2. Right Lower Lobectomy 3. Mediastinal Lymph Node Dissection 4. Intercostal Nerve Block SURGEON Dave Salas MD POST GRADUATE INTERNSHIP CT [place] ANESTHESIA General double-lumen endotracheal. VICE PRESIDENT [employer]OP[employer] Avitia MD DRAINS [address] COUNTS Needle, sponge, and instrument counts were correct. COMPLICATIONS None. INDICATION FOR PROCEDURE The patient is a 61 yo gentleman with biopsy proven SCC of the RLL, presenting for surgical resection of above pathology. DESCRIPTION OF PROCEDURE The patient was brought to the operating suite and placed in supine position. Following satisfactory induction of general double-lumen endotracheal anesthesia , the patient was placed in the left lateral decubitus position. The right chest and surrounding area was then prepped and draped in the usual sterile fashion. A standard muscle-sparing posterolateral thoracotomy was performed and the serratus anterior muscle spared. The pleural space was entered. Exploration of the chest revealed mass like density in the lower lobe. The inferior pulmonary ligament was divided. The pulmonary arterial supply to the lower lobe was identified, dissected free and divided as was the pulmonary venous supply. The bronchus was then dissected free, clamped and the remaining lung was insufflated without any difficulty. Lymph node dissections of level 4, 7, 8, 9 and 10 were performed along with the course of this removal. Some of these were retained with the specimen. Specimen was removed from the chest. The remaining lung was submerged under sterile water and inflated. No air leaks were identified. At this point the closure was undertaken. A 32-Mauritian chest tube was placed. Intercostal nerve block was performed at the level of the incision and 3 rib spaces above and below using Exparel with Decadron solution. The pericostal space was approximated with interrupted #1 Vicryl sutures in a pericostal fashion. The serratus fascia and Latissimus dorsi were closed with running 0-Vicryl and the remaining wounds closed with 3-0, and 4-0 Monocryl. The patient tolerated the procedure well and postoperatively went to the PACU in stable condition. Dave Salas MD Jun 27, 2017 12:18
[2017-06-27] MEDS: ACETAMINOPHEN 1000 MG/100 ML 100 ML IV SCH ×3 (12:20→22:23)
[2017-06-27] MEDS: KETOROLAC TROMETHAMINE 30 MG/ML (IVP) VIAL IV PUSH SCH ×3 (12:20→22:25)
--- NOTE | 2017-06-27 12:38 | RADRPT ---
EXAM DATE/TIME: 06/27/2017 11:51 [facility] COMPARISON: CHEST PA & LAT, June 23, 2017, 11:38. CHEST SINGLE AP, May 18, 2017, 14:24. INDICATIONS : Post thoracotomy MEDICAL HISTORY : Hypertension. Myocardial infarction. SURGICAL HISTORY : Coronary artery stent. lumbar fusion ENCOUNTER: Subsequent ACUITY: 1 day PAIN SCORE: Non-responsive. LOCATION: Bilateral chest FINDINGS: A single view of the chest demonstrates right-sided chest tube placement. No pneumothorax. Subcutaneo us emphysema in the right. Scattered interstitial changes. Heart normal in size. Volume loss in the r ight. Osseous structures are intact. CONCLUSION: Right-sided thoracotomy with chest tube in place. No pneumothorax. Scattered interstitial densities. Justin Schmitz MD on June 27, 2017 at 12:35 Board Certified Radiologist. This report was verified electronically.
[2017-06-27] MEDS: MORPHINE SULFATE 30 MG/30 ML PCA IV SCH (13:49)
[2017-06-27] MEDS ORDERED: SUGAMMADEX SODIUM 200 MG/2 ML VIAL IV PUSH ONE (13:54)
[2017-06-27] MEDS: LACTATED RINGER'S 1000 ML INJ 1,000 ML IV SCH (14:00)
[2017-06-27] MEDS: PCA - TOTAL MG MORPHINE DELIVERED PER SHIFT SCH ×2 (14:00→22:00)
--- NOTE | 2017-06-27 16:16 | PD.CAR.PN ---
CVT Progress Note Subjective/Hospital Course: 61/ male electively admitted today hx of Right lower lobe lung CA , HX of small nodule RLL 2016 after eval for pneumonia , recent Chest CT showed enlargement in the size of the nodule/ further W/U included Needle BX , PET scan demonstrating poor;y differentiated Squamous cell carcinoma PMH: anxiety, Lung CA, COPD, CAD/[place] ( s/p stent x 3 2015, HLP, HTN , chronic nicotine use surgery 06/27 . Right Posterolateral Muscle Sparing Thoracotomy 2. Right Lower Lobectomy 3. Mediastinal Lymph Node Dissection Objective: Vital Signs Date Time Temp Pulse Resp B/P (MAP) Pulse Ox O2 Delivery O2 Flow Rate FiO2 06/27/17 15:10 98.0 72 16 159/89 (112) 96 06/27/17 15:00 72 06/27/17 14:00 78 06/27/17 14:00 20 06/27/17 13:54 15 06/27/17 13:49 15 06/27/17 13:20 15 06/27/17 13:00 74 06/27/17 13:00 97.8 76 14 145/81 (102) 96 06/27/17 12:57 71 06/27/17 12:50 15 06/27/17 12:50 15 06/27/17 12:30 97.6 75 16 148/87 (107) 96 Nasal Cannula 3 06/27/17 12:30 97.6 06/27/17 12:15 72 15 150/83 (105) 95 Nasal Cannula 3 06/27/17 12:00 97.1 74 15 169/98 (121) 94 Nasal Cannula 3 06/27/17 11:45 82 15 182/104 (130) 94 Nasal Cannula 3 06/27/17 11:30 96.4 87 11 152/87 (108) 100 Simple Mask 8 06/27/17 11:30 96.4 06/27/17 06:30 98.3 49 18 136/86 (103) 93 (1) COPD (chronic obstructive pulmonary disease) (2) Coronary artery disease (3) Hyperlipemia (4) Hypertension (5) Cancer of lower lobe of left lung (6) CAD (coronary artery disease) Sheridan Chandler Jun 27, 2017 16:16
[2017-06-27] MEDS: RESP: ALBUTEROL 2.5 MG/3 ML NEB (SCH) NEB ×2 (16:33→21:31)
[2017-06-27] MEDS: ATORVASTATIN 40 MG TAB PO SCH (22:23)
[2017-06-27] MEDS: METOPROLOL TARTRATE 25 MG TAB PO SCH (22:24)
[2017-06-27] MEDS: GABAPENTIN 300 MG CAP PO SCH (22:24)
[2017-06-27] MEDS: PANTOPRAZOLE SOD 40 MG DELAYED RELEASE TAB PO SCH (22:24)
[2017-06-27] MEDS: DOCUSATE CALCIUM 240 MG CAP PO SCH (22:24)
[2017-06-27] MEDS: SODIUM CHLORIDE 0.9% FLUSH 10 ML FLUSH IV FLUSH SCH (22:26)
[2017-06-28] VITALS (23 sets, daily range): BP systolic 138–181; BP diastolic 78–97; PULSE 59–76; RESP 14–22; TEMP 98–98.4; O2SAT 92–95
[2017-06-28 04:07] LABS: AUTOMATED NEUTROPHIL # 14.3 TH/MM3 (1.8-7.7); BASOPHIL % 0.1 % (0.0-2.0); HEMATOCRIT 33.6 % (39.0-51.0); HEMOGLOBIN 11.1 GM/DL (13.0-17.0); LYMPH % 6.4 % (9.0-44.0); LYMPHOCYTE # 1.1 TH/MM3 (1.0-4.8); MEAN CELL VOLUME 87.3 FL (80.0-100.0); MEAN CORPUSCULAR HEMOGLOBIN 28.9 PG (27.0-34.0); MEAN CORPUSCULAR HGB CONC 33.2 % (32.0-36.0); MEAN PLATELET VOLUME 7.7 FL (7.0-11.0); MONO % 8.3 % (0.0-8.0); MONOCYTE # 1.4 TH/MM3 (0-0.9); NEUT % 85.2 % (16.0-70.0); PLATELET COUNT 310 TH/MM3 (150-450); RED BLOOD COUNT 3.85 MIL/MM3 (4.50-5.90); RED CELL DISTRIBUTION WIDTH 14.3 % (11.6-17.2); WHITE BLOOD COUNT 16.8 TH/MM3 (4.0-11.0)
[2017-06-28 04:33] LABS: BICARBONATE 28.8 MEQ/L (21.0-32.0); CALCIUM 7.8 MG/DL (8.5-10.1); CREATININE 0.96 MG/DL (0.60-1.30)
[2017-06-28] MEDS: RESP: ALBUTEROL 2.5 MG/3 ML NEB (SCH) NEB ×4 (04:36→20:57)
--- NOTE | 2017-06-28 05:43 | RADRPT ---
EXAM DATE/TIME: 06/28/2017 04:48 [facility] COMPARISON: CHEST SINGLE AP, June 27, 2017, 11:51. INDICATIONS : S/P Thoracotomy. MEDICAL HISTORY : Hypertension. Myocardial infarction. SURGICAL HISTORY : Coronary artery stent. lumbar fusion ENCOUNTER: Subsequent ACUITY: 1 week PAIN SCORE: 0/10 LOCATION: Bilateral chest FINDINGS: Right chest tube present with tiny right pneumothorax. Mild basilar airspace disease interstitial pro minence is stable. Heart size within normal limits. Previous fusion cervical spine. CONCLUSION: 1. Stable exam. Right chest tube with tiny right pneumothorax. Dhaval Todd MD on June 28, 2017 at 5:41 Board Certified Radiologist. This report was verified electronically.
[2017-06-28] MEDS ORDERED: ACETAMINOPHEN 325 MG TAB PO PRN (06:00)
[2017-06-28] MEDS ORDERED: ACETAMINOPHEN/HYDROcodone 325 MG/5 MG TAB PO PRN (06:00)
[2017-06-28] MEDS: PCA - TOTAL MG MORPHINE DELIVERED PER SHIFT SCH ×3 (06:00→22:00)
[2017-06-28] MEDS: ACETAMINOPHEN 1000 MG/100 ML 100 ML IV SCH (06:28)
[2017-06-28] MEDS: KETOROLAC TROMETHAMINE 30 MG/ML (IVP) VIAL IV PUSH SCH (06:29)
[2017-06-28] MEDS: SODIUM CHLORIDE 0.9% FLUSH 10 ML FLUSH IV FLUSH SCH ×2 (09:00→20:18)
[2017-06-28] MEDS: UMECLIDINIUM 62.5 MCG/VILANTEROL 25 MCG INHALER INH SCH (09:08)
[2017-06-28] MEDS: OXYBUTYNIN CHLORIDE 5 MG TAB PO SCH (09:08)
[2017-06-28] MEDS: ALPRAZolam 0.5 MG TAB PO SCH (09:08)
[2017-06-28] MEDS: ARIPiprazole 5 MG TAB PO SCH (09:09)
[2017-06-28] MEDS: CLOPIDOGREL 75 MG TAB PO SCH (09:09)
[2017-06-28] MEDS: FLUoxetine HCL 20 MG CAP PO SCH (09:09)
[2017-06-28] MEDS: ASPIRIN 81 MG CHEW TAB CHEW SCH (09:09)
[2017-06-28] MEDS: GABAPENTIN 300 MG CAP PO SCH ×2 (09:09→20:13)
[2017-06-28] MEDS: LISINOPRIL 5 MG TAB PO SCH (09:09)
[2017-06-28] MEDS: METOPROLOL TARTRATE 25 MG TAB PO SCH ×2 (09:10→20:13)
--- NOTE | 2017-06-28 12:48 | PD.CAR.PN ---
CVT Progress Note Subjective/Hospital Course: 61/ male electively admitted today hx of Right lower lobe lung CA , HX of small nodule RLL 2016 after eval for pneumonia , recent Chest CT showed enlargement in the size of the nodule/ further W/U included Needle BX , PET scan demonstrating poor;y differentiated Squamous cell carcinoma PMH: anxiety, Lung CA, COPD, CAD/ID ( s/p stent x 3 2015, HLP, HTN , chronic nicotine use surgery 06/27 . Right Posterolateral Muscle Sparing Thoracotomy 2. Right Lower Lobectomy 3. Mediastinal Lymph Node Dissection 06/28 still having some breakthrough pain / despite MEAT TEAM MEMBER OOB/ PT wean 02 path pending leave chest tube in / CXR noted tiny small right apical PTX Objective: GENERAL: A&O x 3 SKIN: Warm and dry. incision intact and well approximated right posterolateral chest wall HEAD: Normocephalic. EYES: No scleral icterus. No injection or drainage. NECK: Supple, trachea midline. No JVD or lymphadenopathy. CARDIOVASCULAR: Regular rate and rhythm without murmurs, gallops, or rubs. RESPIRATORY: Breath sounds equal bilaterally. No accessory muscle use. chest tube to wall suction, no air leak / drained 200cc/ 12 hrs GASTROINTESTINAL: Abdomen soft, non-tender, nondistended. MUSCULOSKELETAL: No cyanosis, or edema. BACK: Nontender without obvious deformity. No CVA tenderness. Vital Signs Date Time Temp Pulse Resp B/P (MAP) Pulse Ox O2 Delivery O2 Flow Rate FiO2 06/28/17 12:00 98.2 72 16 147/85 (105) 95 06/28/17 12:00 70 06/28/17 11:00 72 06/28/17 10:00 60 06/28/17 09:00 66 06/28/17 08:57 93 Nasal Cannula 2.00 06/28/17 08:00 98.4 60 16 147/82 (103) 95 06/28/17 08:00 69 06/28/17 07:00 59 06/28/17 06:00 16 06/28/17 03:00 98.0 60 14 146/85 (105) 95 06/28/17 03:00 62 06/28/17 01:00 69 06/28/17 00:00 64 06/27/17 23:53 14 06/27/17 23:53 15 06/27/17 23:00 66 06/27/17 23:00 98.2 65 14 135/70 (91) 98 06/27/17 22:00 14 06/27/17 22:00 66 06/27/17 21:31 93 Nasal Cannula 2.00 06/27/17 21:00 64 06/27/17 20:00 62 06/27/17 19:00 66 06/27/17 19:00 98.0 69 16 163/88 (113) 98 06/27/17 18:00 74 06/27/17 17:00 72 06/27/17 16:37 97 Nasal Cannula 2.00 06/27/17 16:00 78 06/27/17 15:10 98.0 72 16 159/89 (112) 96 06/27/17 15:00 72 06/27/17 14:00 78 06/27/17 14:00 20 06/27/17 13:54 15 06/27/17 13:49 15 06/27/17 13:00 74 06/27/17 13:00 97.8 76 14 145/81 (102) 96 06/27/17 12:57 71 06/27/17 12:50 15 Labs: Laboratory Tests Test 06/28/17 03:40 White Blood Count 16.8 TH/MM3 (4.0-11.0) Red Blood Count 3.85 MIL/MM3 (4.50-5.90) Hemoglobin 11.1 GM/DL (13.0-17.0) Hematocrit 33.6 % (39.0-51.0) Mean Corpuscular Volume 87.3 FL (80.0-100.0) Mean Corpuscular Hemoglobin 28.9 PG (27.0-34.0) Mean Corpuscular Hemoglobin Concent 33.2 % (32.0-36.0) Red Cell Distribution Width 14.3 % (11.6-17.2) Platelet Count 310 TH/MM3 (150-450) Mean Platelet Volume 7.7 FL (7.0-11.0) Neutrophils (%) (Auto) 85.2 % (16.0-70.0) Lymphocytes (%) (Auto) 6.4 % (9.0-44.0) Monocytes (%) (Auto) 8.3 % (0.0-8.0) Eosinophils (%) (Auto) 0.0 % (0.0-4.0) Basophils (%) (Auto) 0.1 % (0.0-2.0) Neutrophils # (Auto) 14.3 TH/MM3 (1.8-7.7) Lymphocytes # (Auto) 1.1 TH/MM3 (1.0-4.8) Monocytes # (Auto) 1.4 TH/MM3 (0-0.9) Eosinophils # (Auto) 0.0 TH/MM3 (0-0.4) Basophils # (Auto) 0.0 TH/MM3 (0-0.2) CBC Comment DIFF FINAL Differential Comment Blood Urea Nitrogen 10 MG/DL (7-18) Creatinine 0.96 MG/DL (0.60-1.30) Random Glucose 111 MG/DL (74-106) Calcium Level 7.8 MG/DL (8.5-10.1) Sodium Level 141 MEQ/L (136-145) Potassium Level 3.5 MEQ/L (3.5-5.1) Chloride Level 106 MEQ/L (98-107) Carbon Dioxide Level 28.8 MEQ/L (21.0-32.0) Anion Gap 6 MEQ/L (5-15) Estimat Glomerular Filtration Rate 80 ML/MIN (>89) Result Diagram: 06/28/1733906/28/17339 (1) S/P thoracotomy Plan: pulm toileting pain control OOB / ambulate await path cultures (2) Cancer of lower lobe of left lung (3) COPD (chronic obstructive pulmonary disease) (4) Coronary artery disease Plan: / plavix , ASA (5) Hyperlipemia Plan: home meds resumed (6) Hypertension Plan: home meds resumed (7) CAD (coronary artery disease) Sheridan Chandler Jun 28, 2017 12:48
[2017-06-28] MEDS: MORPHINE SULFATE 30 MG/30 ML PCA IV SCH (13:23)
[2017-06-28] MEDS: ATORVASTATIN 40 MG TAB PO SCH (20:13)
[2017-06-28] MEDS: PANTOPRAZOLE SOD 40 MG DELAYED RELEASE TAB PO SCH (20:13)
[2017-06-28] MEDS: DOCUSATE CALCIUM 240 MG CAP PO SCH (20:16)
[2017-06-28] MEDS: oxyCODONE/ACETAMINOPHEN 10 MG/325 MG TAB PO PRN (20:16)
[2017-06-28] MEDS: KETOROLAC TROMETHAMINE 30 MG/ML (IVP) VIAL IV PUSH PRN (22:32)
[2017-06-29] VITALS (28 sets, daily range): BP systolic 137–186; BP diastolic 79–107; PULSE 64–88; RESP 18–20; TEMP 97.9–99.6; O2SAT 92–98
[2017-06-29] MEDS: MORPHINE SULFATE 30 MG/30 ML PCA IV SCH ×2 (00:35→16:44)
[2017-06-29] MEDS: RESP: ALBUTEROL 2.5 MG/3 ML NEB (SCH) NEB ×4 (02:03→20:48)
[2017-06-29] MEDS: oxyCODONE/ACETAMINOPHEN 10 MG/325 MG TAB PO PRN ×2 (03:18→07:50)
[2017-06-29] MEDS: KETOROLAC TROMETHAMINE 30 MG/ML (IVP) VIAL IV PUSH PRN (05:18)
[2017-06-29] MEDS: PCA - TOTAL MG MORPHINE DELIVERED PER SHIFT SCH ×3 (06:00→21:40)
[2017-06-29] MEDS: ASPIRIN 81 MG CHEW TAB CHEW SCH (07:48)
[2017-06-29] MEDS: METOPROLOL TARTRATE 25 MG TAB PO SCH ×2 (07:48→21:30)
[2017-06-29] MEDS: CLOPIDOGREL 75 MG TAB PO SCH (07:48)
[2017-06-29] MEDS: ARIPiprazole 5 MG TAB PO SCH (07:48)
[2017-06-29] MEDS: ALPRAZolam 0.5 MG TAB PO SCH (07:50)
[2017-06-29] MEDS: GABAPENTIN 300 MG CAP PO SCH ×2 (07:50→21:30)
[2017-06-29] MEDS: LISINOPRIL 5 MG TAB PO SCH (07:50)
[2017-06-29] MEDS: FLUoxetine HCL 20 MG CAP PO SCH (07:51)
[2017-06-29] MEDS: LACTATED RINGER'S 1000 ML INJ 1,000 ML IV SCH ×2 (07:51→14:11)
[2017-06-29] MEDS: SODIUM CHLORIDE 0.9% FLUSH 10 ML FLUSH IV FLUSH SCH ×2 (07:51→21:30)
[2017-06-29] MEDS ORDERED: hydrALAZINE HCL 20 MG/ML VIAL IV PUSH PRN (09:30)
[2017-06-29] MEDS ORDERED: LISINOPRIL 5 MG TAB PO ONE (09:30)
[2017-06-29] MEDS: OXYBUTYNIN CHLORIDE 5 MG TAB PO SCH (10:46)
[2017-06-29] MEDS: UMECLIDINIUM 62.5 MCG/VILANTEROL 25 MCG INHALER INH SCH (10:47)
[2017-06-29 11:02] LABS: HEMATOCRIT 38.6 % (39.0-51.0); HEMOGLOBIN 12.9 GM/DL (13.0-17.0); MEAN CORPUSCULAR HEMOGLOBIN 29.1 PG (27.0-34.0); MEAN CORPUSCULAR HGB CONC 33.5 % (32.0-36.0); MEAN PLATELET VOLUME 7.7 FL (7.0-11.0); PLATELET COUNT 347 TH/MM3 (150-450); RED BLOOD COUNT 4.43 MIL/MM3 (4.50-5.90); RED CELL DISTRIBUTION WIDTH 14.4 % (11.6-17.2); WHITE BLOOD COUNT 15.8 TH/MM3 (4.0-11.0)
[2017-06-29 11:10] LABS: CREATININE 0.84 MG/DL (0.60-1.30); MAGNESIUM 1.7 MG/DL (1.5-2.5)
[2017-06-29] MEDS: ONDANSETRON HCL 4 MG/2 ML VIAL IV PUSH PRN (14:36)
[2017-06-29] MEDS ORDERED: cloNIDine HCL 0.1 MG TAB PO PRN (15:15)
--- NOTE | 2017-06-29 16:09 | PD.CAR.PN ---
CVT Progress Note Subjective/Hospital Course: 61/ male electively admitted today hx of Right lower lobe lung CA , HX of small nodule RLL 2016 after eval for pneumonia , recent Chest CT showed enlargement in the size of the nodule/ further W/U included Needle BX , PET scan demonstrating poor;y differentiated Squamous cell carcinoma PMH: anxiety, Lung CA, COPD, CAD/ID ( s/p stent x 3 2015, HLP, HTN , chronic nicotine use surgery 06/27 . Right Posterolateral Muscle Sparing Thoracotomy 2. Right Lower Lobectomy 3. Mediastinal Lymph Node Dissection 06/28 still having some breakthrough pain / despite RETAIL ASSOCIATE MANAGER BILINGUAL OOB/ PT wean 02 path pending leave chest tube in / CXR noted tiny small right apical PTX BP elevated, DIGNA increased, prn hydralazine and clonidine ordered chest tube drained 260cc/ 12 hrs OOB Objective: GENERAL: A&O x 3 SKIN: Warm and dry. incision intact right posterior chest wall HEAD: Normocephalic. EYES: No scleral icterus. No injection or drainage. NECK: Supple, trachea midline. No JVD or lymphadenopathy. CARDIOVASCULAR: Regular rate and rhythm without murmurs, gallops, or rubs. RESPIRATORY: Breath sounds equal bilaterally. No accessory muscle use. chest tube in place no air leak GASTROINTESTINAL: Abdomen soft, non-tender, nondistended. MUSCULOSKELETAL: No cyanosis, or edema. BACK: Nontender without obvious deformity. No CVA tenderness. Vital Signs Date Time Temp Pulse Resp B/P (MAP) Pulse Ox O2 Delivery O2 Flow Rate FiO2 06/29/17 15:00 18 06/29/17 14:00 75 06/29/17 13:00 78 06/29/17 12:00 75 06/29/17 11:30 181/88 (119) 06/29/17 11:15 186/95 (125) 06/29/17 11:00 83 06/29/17 11:00 98.7 67 18 169/107 (127) 97 06/29/17 10:00 68 06/29/17 09:00 74 06/29/17 08:16 98 Nasal Cannula 2.00 06/29/17 08:00 64 06/29/17 07:00 71 06/29/17 07:00 99.0 65 20 163/105 (124) 96 06/29/17 06:00 64 06/29/17 06:00 20 4/26/18 05:00 80 06/29/17 04:18 20 06/29/17 04:00 68 06/29/17 03:00 97.9 85 20 160/107 (124) 95 06/29/17 03:00 85 06/29/17 02:00 72 06/29/17 01:00 64 06/29/17 00:40 20 06/29/17 00:35 20 06/29/17 00:00 88 06/28/17 23:32 20 06/28/17 23:00 98.2 65 22 181/97 (125) 94 06/28/17 23:00 65 06/28/17 22:00 76 06/28/17 22:00 20 06/28/17 21:00 66 06/28/17 20:00 68 06/28/17 19:00 98.0 69 20 171/89 (116) 93 06/28/17 19:00 69 06/28/17 18:00 68 06/28/17 17:00 72 Labs: Laboratory Tests Test 06/29/17 10:25 White Blood Count 15.8 TH/MM3 (4.0-11.0) Red Blood Count 4.43 MIL/MM3 (4.50-5.90) Hemoglobin 12.9 GM/DL (13.0-17.0) Hematocrit 38.6 % (39.0-51.0) Mean Corpuscular Volume 87.0 FL (80.0-100.0) Mean Corpuscular Hemoglobin 29.1 PG (27.0-34.0) Mean Corpuscular Hemoglobin Concent 33.5 % (32.0-36.0) Red Cell Distribution Width 14.4 % (11.6-17.2) Platelet Count 347 TH/MM3 (150-450) Mean Platelet Volume 7.7 FL (7.0-11.0) Blood Urea Nitrogen 10 MG/DL (7-18) Creatinine 0.84 MG/DL (0.60-1.30) Random Glucose 99 MG/DL (74-106) Calcium Level 9.0 MG/DL (8.5-10.1) Magnesium Level 1.7 MG/DL (1.5-2.5) Sodium Level 135 MEQ/L (136-145) Potassium Level 3.4 MEQ/L (3.5-5.1) Chloride Level 100 MEQ/L (98-107) Carbon Dioxide Level 27.0 MEQ/L (21.0-32.0) Anion Gap 8 MEQ/L (5-15) Estimat Glomerular Filtration Rate 93 ML/MIN (>89) Result Diagram: 06/29/17 1025 06/29/17 1025 (1) S/P thoracotomy Plan: pulm toileting pain control OOB / ambulate await path cultures (2) Cancer of lower lobe of left lung (3) COPD (chronic obstructive pulmonary disease) Plan: scheduled nebs (4) Coronary artery disease Plan: / plavix , ASA (5) Hyperlipemia Plan: home meds resumed (6) Hypertension Plan: home meds resumed (7) CAD (coronary artery disease) Sheridan Chandler Jun 29, 2017 16:09
--- NOTE | 2017-06-29 16:10 | HHI.FF ---
Face to Face Verification Diagnosis: (1) Cancer of lower lobe of left lung (2) S/P thoracotomy Home Health Nursing Order: Medication education-adverse effect Wound care and dressing changes Nursing assessment with vital signs Instructions: Incentive spirometry Q1 hr x 10, while awake, also use acapella device hourly whole awake chest wall Precautions: NO pushing or pulling, ( pt must use chest pillow to support chest with all activities and with coughing Daily incision care: ok to shower daily, no tub bath. Wash all incisions with liquid dial soap, clean wash cloth to each site, rinse and pat dry. Observe for any signs of infection, such as drainage which is dark yellow, alan, green or foul smelling. Immediately report to the surgeon any drainage from the chest incision, or legs, and for any abnormal drainage from the chest tube sites. Notify surgeon if any temp >101.5 degrees F. When specialty dressing removed/ or if you do not have one, continue to shower daily as above, then rinse and pat incision dry and paint with betadine daily x 5 days. Allow steri strips to fall off if you have any. Avoid lotions, creams, salves, oils, etc. for the first month F/U appointment: as per [facility] instructions: PCP in 2 weeks, CV surgeon 2 weeks, Stone Cleaner 3-4 weeks For any questions regarding incisions/ dressing / meds / post op care or above Symptoms, Monday 8am-5pm Heart & Vascular Surgery Office ( Dr. Salas & Dr. Garcia), After Hours / Nights (5pm -8am) Weekends and Holidays Please call [facility] ([facility]) Charge Nurse Thoracic Surgery patients Mandatory frequency Assess and evaluation, 2-3 x a week for one week Initial visit 1. Review post chest surgery instructions chest precautions, Activity, Elastic hose, Incision care, Driving, Incentive spirometry, Smoking, Gutierrez , Work and other) 2. Need Betadine to paint incision 3. Medication reconciliation 4. Importance of follow up care/ check on appointments 5. Make calendar record temperature daily 6. When to call Home nurse, review instructions, phone list 7. Incentive Spirometry, demonstration Visit 1- Begin discharge instruction for patient family and/ or caregiver using teach back method- 1. Signs and symptoms of infection 2. Disease characteristics 3. Medicines and side effects 4. Foods and nutrition/ appetite 5. Infection control/ hand washing/ hygiene Visit 2- Continue teaching 1. Discharge instructions- include additional information on smoking cessation , Visit 3- Continue teaching- 1. Cough and deep breathing, incision monitoring. For any questions please call : / [facility] I have seen patient Jagjit Panda on 06/29/17. My clinical findings support the need for the requested home health care services because: Patient has SOB I certify that my clinical findings support that this patient is homebound because: Post-op weakness Sheridan Chandler Jun 29, 2017 16:10
[2017-06-29] MEDS ORDERED: POTASSIUM CHLORIDE 10 MEQ CONTROLLED RELEASE TAB PO ONE (16:15)
[2017-06-29] MEDS: MAGNESIUM SULFATE 1 GM PREMIX 100 ML IV SCH ×2 (16:54→17:55)
[2017-06-29] MEDS: DOCUSATE CALCIUM 240 MG CAP PO SCH (21:00)
[2017-06-29] MEDS: PANTOPRAZOLE SOD 40 MG DELAYED RELEASE TAB PO SCH (21:30)
[2017-06-29] MEDS: ATORVASTATIN 40 MG TAB PO SCH (21:30)
[2017-06-30] VITALS (21 sets, daily range): BP systolic 129–150; BP diastolic 70–85; PULSE 66–101; RESP 18–20; TEMP 97.5–98.7; O2SAT 92–98
[2017-06-30] MEDS: RESP: ALBUTEROL 2.5 MG/3 ML NEB (SCH) NEB ×3 (03:50→14:02)
[2017-06-30] MEDS: LACTATED RINGER'S 1000 ML INJ 1,000 ML IV SCH ×2 (05:57→14:00)
[2017-06-30] MEDS: PCA - TOTAL MG MORPHINE DELIVERED PER SHIFT SCH (05:58)
[2017-06-30] MEDS: MORPHINE SULFATE 30 MG/30 ML PCA IV SCH (08:32)
[2017-06-30] MEDS: ARIPiprazole 5 MG TAB PO SCH (08:33)
[2017-06-30] MEDS: METOPROLOL TARTRATE 25 MG TAB PO SCH (08:33)
[2017-06-30] MEDS: FLUoxetine HCL 20 MG CAP PO SCH (08:33)
[2017-06-30] MEDS: GABAPENTIN 300 MG CAP PO SCH (08:33)
[2017-06-30] MEDS: OXYBUTYNIN CHLORIDE 5 MG TAB PO SCH (08:33)
[2017-06-30] MEDS: ALPRAZolam 0.5 MG TAB PO SCH (08:34)
[2017-06-30] MEDS: CLOPIDOGREL 75 MG TAB PO SCH (08:34)
[2017-06-30] MEDS: ASPIRIN 81 MG CHEW TAB CHEW SCH (08:35)
[2017-06-30] MEDS: SODIUM CHLORIDE 0.9% FLUSH 10 ML FLUSH IV FLUSH SCH (08:35)
[2017-06-30] MEDS ORDERED: LISINOPRIL 10 MG TAB PO SCH ×2 (09:00)
[2017-06-30] MEDS: UMECLIDINIUM 62.5 MCG/VILANTEROL 25 MCG INHALER INH SCH (09:00)
--- NOTE | 2017-06-30 12:49 | RADRPT ---
EXAM DATE/TIME: 06/30/2017 11:51 [facility] COMPARISON: CHEST SINGLE AP, June 28, 2017, 4:48. INDICATIONS : Right sided chest pain, tightness and shortness of breath. MEDICAL HISTORY : Hypertension. Myocardial infarction. SURGICAL HISTORY : Coronary artery stent. lumbar fusion ENCOUNTER: Subsequent ACUITY: 2 months PAIN SCORE: 6/10 LOCATION: Right lower chest FINDINGS: Previous right chest tube has been removed with a small residual right pneumothorax. Subcutaneous air present in the right chest wall is slightly increased from June 28. Minimal bilateral airspace dise ase is relatively stable. Previous fusion cervical spine. CONCLUSION: 1. Removal of right-sided chest tube with an increase in subcutaneous air in the right chest wall, es pecially superiorly. Small right pneumothorax. Scattered bilateral airspace disease is stable. Dhaval Todd MD on June 30, 2017 at 12:47 Board Certified Radiologist. This report was verified electronically.
--- NOTE | 2017-06-30 14:16 | PD.CAR.PN ---
CVT Progress Note Subjective/Hospital Course: 61/ male electively admitted today hx of Right lower lobe lung CA , HX of small nodule RLL 2015 after eval for pneumonia , recent Chest CT showed enlargement in the size of the nodule/ further W/U included Needle BX , PET scan demonstrating poor;y differentiated Squamous cell carcinoma PMH: anxiety, Lung CA, COPD, CAD/[place] ( s/p stent x 3 2015, HLP, HTN , chronic nicotine use surgery 06/27 . Right Posterolateral Muscle Sparing Thoracotomy 2. Right Lower Lobectomy 3. Mediastinal Lymph Node Dissection 06/28 still having some breakthrough pain / despite COMPUTER CONSOLE OPERATOR OOB/ PT wean 02 path pending leave chest tube in / CXR noted tiny small right apical PTX BP elevated, DIGNA increased, prn hydralazine and clonidine ordered chest tube drained 260cc/ 12 hrs OOB chest tube drained 50cc/12 hrs no air leak/ chest tube removed Vaseline gauze and pressure dressing applied post cxr with small right apical PTX , small increase in sub q air will keep pt till am repeat CXR in am if stable dc home Objective: GENERAL: SKIN: Warm and dry. HEAD: Normocephalic. EYES: No scleral icterus. No injection or drainage. NECK: Supple, trachea midline. No JVD or lymphadenopathy. CARDIOVASCULAR: Regular rate and rhythm without murmurs, gallops, or rubs. RESPIRATORY: Breath sounds equal bilaterally. No accessory muscle use. pressure dressing right chest GASTROINTESTINAL: Abdomen soft, non-tender, nondistended. MUSCULOSKELETAL: No cyanosis, or edema. BACK: Nontender without obvious deformity. No CVA tenderness. Vital Signs Date Time Temp Pulse Resp B/P (MAP) Pulse Ox O2 Delivery O2 Flow Rate FiO2 06/30/17 13:09 2.00 06/30/17 09:46 92 Nasal Cannula 2.00 06/30/17 08:32 18 06/30/17 07:00 81 06/30/17 07:00 97.5 81 18 150/85 (106) 93 06/30/17 06:19 76 06/30/17 05:58 18 06/30/17 05:32 71 06/30/17 04:57 98.0 101 129/70 (89) 98 06/30/17 04:00 74 06/30/17 03:00 66 06/30/17 02:00 68 06/30/17 01:00 70 06/30/17 00:37 98.5 71 142/84 (103) 94 06/30/17 00:00 74 06/29/17 23:00 68 06/29/17 22:00 74 06/29/17 21:40 16 06/29/17 21:00 72 06/29/17 20:48 92 Nasal Cannula 3.00 06/29/17 20:00 66 06/29/17 19:00 66 06/29/17 19:00 97.9 68 137/79 (98) 97 06/29/17 18:00 70 06/29/17 17:00 82 06/29/17 16:44 18 06/29/17 16:00 75 06/29/17 15:00 99.6 80 18 154/93 (113) 96 06/29/17 15:00 82 06/29/17 15:00 18 Result Diagram: 06/29/17 1025 06/29/17 1025 (1) S/P thoracotomy Plan: pulm toileting pain control OOB / ambulate path: histology poorly differentiated squamous cell CA neg lymph node involvement all margins uninvolved by carcinoma pT1c pNO Dr Salas discussed results with pt eval for dc in am , if CXR stable and per Dr Garcia discretion ( will be covering for Dr Salas) (2) Cancer of lower lobe of left lung (3) COPD (chronic obstructive pulmonary disease) Plan: scheduled nebs (4) Coronary artery disease Plan: / plavix , ASA (5) Hyperlipemia Plan: home meds resumed (6) Hypertension Plan: home meds resumed (7) CAD (coronary artery disease) Sheridan Chandler Jun 30, 2017 14:16
[2017-06-30] MEDS ORDERED: LISI10TA3 PO (14:21)
[2017-06-30] MEDS ORDERED: OXYC1TAB36 PO (14:21)
[2017-06-30] MEDS ORDERED: OXYGENDME NAS.CANULA (14:21)
--- NOTE | 2017-06-30 14:31 | HHI.DS ---
Discharge Summary Admission Date Jun 27, 2017 at 05:54 Discharge Date: Jul 01, 2017 Admitting Diagnosis lung mass (1) COPD (chronic obstructive pulmonary disease) Diagnosis: Principal ICD Codes: J44.9 - Chronic obstructive pulmonary disease, unspecified (2) Coronary artery disease Diagnosis: Principal ICD Codes: I25.10 - Atherosclerotic heart disease of [place] coronary artery without angina pectoris (3) CAD (coronary artery disease) Diagnosis: Principal ICD Codes: I25.10 - Atherosclerotic heart disease of [place] coronary artery without angina pectoris (4) Hyperlipemia Diagnosis: Principal ICD Codes: E78.5 - Hyperlipidemia, unspecified (5) Hypertension ICD Codes: I10 - Essential (primary) hypertension (6) Hypoxemia ICD Codes: R09.02 - Hypoxemia (7) S/P thoracotomy Diagnosis: Secondary ICD Codes: Z98.890 - Other specified postprocedural states (8) Right lower lobe lung mass Diagnosis: Principal ICD Codes: R91.8 - Other nonspecific abnormal finding of lung field Procedures 06/27 1. Right Posterolateral Muscle Sparing Thoracotomy 2. Right Lower Lobectomy 3. Mediastinal Lymph Node Dissection 4. Intercostal Nerve Block Brief History 61/ male electively admitted today hx of Right lower lobe lung CA , HX of small nodule RLL 2015 after eval for pneumonia , recent Chest CT showed enlargement in the size of the nodule/ further W/U included Needle BX , PET scan demonstrating poor;y differentiated Squamous cell carcinoma PMH: anxiety, Lung CA, COPD, CAD/PA ( s/p stent x 3 2015, HLP, HTN , chronic nicotine use surgery 06/27 . Right Posterolateral Muscle Sparing Thoracotomy 2. Right Lower Lobectomy 3. Mediastinal Lymph Node Dissection CBC/BMP: 06/29/17 1025 06/29/17 1025 Significant Findings Laboratory Tests Test 06/28/17 03:40 06/29/17 10:25 White Blood Count 16.8 TH/MM3 (4.0-11.0) 15.8 TH/MM3 (4.0-11.0) Red Blood Count 3.85 MIL/MM3 (4.50-5.90) 4.43 MIL/MM3 (4.50-5.90) Hemoglobin 11.1 GM/DL (13.0-17.0) 12.9 GM/DL (13.0-17.0) Hematocrit 33.6 % (39.0-51.0) 38.6 % (39.0-51.0) Neutrophils (%) (Auto) 85.2 % (16.0-70.0) Lymphocytes (%) (Auto) 6.4 % (9.0-44.0) Monocytes (%) (Auto) 8.3 % (0.0-8.0) Neutrophils # (Auto) 14.3 TH/MM3 (1.8-7.7) Monocytes # (Auto) 1.4 TH/MM3 (0-0.9) Random Glucose 111 MG/DL (74-106) Calcium Level 7.8 MG/DL (8.5-10.1) Estimat Glomerular Filtration Rate 80 ML/MIN (>89) Sodium Level 135 MEQ/L (136-145) Potassium Level 3.4 MEQ/L (3.5-5.1) Imaging Last Impressions Chest X-Ray 06/30/17 1200 Signed Impressions: Service Date/Time: Friday, June 30, 2017 11:51 - CONCLUSION: 1. Removal of right-sided chest tube with an increase in subcutaneous air in the right chest wall, especially superiorly. Small right pneumothorax. Scattered bilateral airspace disease is stable. Dhaval Todd MD PE at Discharge GENERAL: A&O x 3 SKIN: Warm and dry. pressure dressing with vaseline gauze to right chest tube site surveyor: Normocephalic. EYES: No scleral icterus. No injection or drainage. NECK: Supple, trachea midline. No JVD or lymphadenopathy. CARDIOVASCULAR: Regular rate and rhythm without murmurs, gallops, or rubs. RESPIRATORY: Breath sounds equal bilaterally. No accessory muscle use. diminished in bases, R> L GASTROINTESTINAL: Abdomen soft, non-tender, nondistended. MUSCULOSKELETAL: No cyanosis, or edema. BACK: Nontender without obvious deformity. No CVA tenderness. Hospital Course surgery 06/27 . Right Posterolateral Muscle Sparing Thoracotomy 2. Right Lower Lobectomy 3. 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 Pulmonology - 4 Weeks with Ganga Perdue MD Surgical - 2 Weeks with Olga Wu MD New Medications: Oxygen (O2) (Oxygen (O2)) Device LITER DENNIS.CANULA CONTINUOUS for Prevent Hypoxemia, #2 Oxygen Concentrator Portable Gaseous 2 L/min via Nasal Canula Continuous For 99 months Lisinopril (Lisinopril) 10 Mg Tab 20 MG PO DAILY for Blood Pressure Management, #30 TAB 2 Refills Oxycodone HCl/Acetaminophen (Oxycodone-Acetaminophen 10-325) 10 Mg-325 Mg Tablet 1 TAB PO Q4H PRN for PAIN, #30 TAB 0 Refills Continued Medications: Alprazolam (Alprazolam) 0.5 Mg Tab 0.5 MG PO DAILY, TAB 0 Refills Aripiprazole (Aripiprazole) 5 Mg Tab 5 MG PO DAILY, #30 TAB 0 Refills Aspirin (Aspirin Low Dose) 81 Mg Chew 81 MG CHEW DAILY, TAB 0 Refills Atorvastatin (Atorvastatin) 40 Mg Tab 40 MG PO HS for Cholesterol Management, #30 TAB 0 Refills Benzonatate (Benzonatate) 100 Mg Cap 100 MG PO TID PRN for COUGH, CAP 0 Refills Clopidogrel (Plavix) 75 Mg Tab 75 MG PO DAILY for Blood Clot Prevention, #30 TAB 0 Refills Fluoxetine (Fluoxetine) 40 Mg Cap 40 CAP PO DAILY, #30 CAP 0 Refills Gabapentin (Gabapentin) 600 Mg Tab 300 MG PO BID, #90 TAB 0 Refills Metoprolol Tartrate (Metoprolol Tartrate) 25 Mg Tab 25 MG PO BID, #60 TAB 0 Refills Nitroglycerin SL (Nitroglycerin SL) 0.4 Mg Subl 0.4 MG SL DIRECTED PRN for CHEST PAIN, #100 TAB.SL 0 Refills ONE TABLET UNDER THE TONGUE NEEDED FOR CHEST PAIN, MAY REPEAT EVERY FIVE MINUTES FOR A TOTAL OF 3 DOSES OR CALL 911 IF NO RELIEF Oxybutynin (Ditropan) 5 Mg Tab 10 MG PO DAILY for Urinary Symptom Managemen, #90 TAB 0 Refills Pantoprazole (Pantoprazole) 40 Mg Tab 40 MG PO DAILY for Reflux, #30 TAB 0 Refills Sennosides-Docusate Sodium (Gnp Senna Plus 8.6-50 mg) 8.6 Mg-50 Mg Tab 1 TAB PO BID PRN for CONSTIPATION for 10 Days, #20 TAB Temazepam (Temazepam) 30 Mg Cap 30 MG PO HS PRN for INSOMNIA, #30 CAP 0 Refills Umeclidinium-Vilanterol Inh (Anoro Ellipta Inh) 62.5-25 Mcg/Act Aero 1 PUFF INH DAILY for COPD, #1 INHALER 0 Refills [Albuterol-Ipratropium Neb] () 1 AMPULE NEBU 1 AMPULE NEB Q4HR NEB PRN for SOB/COUGH for 30 Days Discontinued Medications: Lisinopril (Lisinopril) 5 Mg Tab 5 MG PO DAILY for Blood Pressure Management, #30 TAB 0 Refills Oxycodone-Acetaminophen (Oxycodone-Acetaminophen) 10-325 mg Tab 1 TAB PO Q4H PRN for PAIN, TAB 0 Refills Sheridan Chandler Jun 30, 2017 14:30
[2017-06-30] MEDS: ONDANSETRON HCL 4 MG/2 ML VIAL IV PUSH PRN (17:47)
== END 2017-06-30 20:00 | disposition home health service (06) | DRG 164 ==
LOC: HSDI 05:54 → HCPC 12:45
PROVIDERS: ADMIT Thoracic Surgery (Cardiothoracic Vascular Surgery); ATTEND Thoracic Surgery (Cardiothoracic Vascular Surgery)
PROC: 07B70ZX Excision of Thorax Lymphatic, Open Approach, Diagnostic (ICD-10-PCS; 2017-06-27)
PROC: 3E0T3BZ Introduction of Anesthetic Agent into Peripheral Nerves and Plexi, Percutaneous Approach (ICD-10-PCS; 2017-06-27)
PROC: 0BTF0ZZ Resection of Right Lower Lung Lobe, Open Approach (ICD-10-PCS; principal; 2017-06-27 07:33)
DX: C34.31 Malignant neoplasm of lower lobe, right bronchus or lung (principal); J95.811 Postprocedural pneumothorax; J44.9 Chronic obstructive pulmonary disease, unspecified; I10 Essential (primary) hypertension; I25.10 Atherosclerotic heart disease of native coronary artery without angina pectoris; I25.2 Old myocardial infarction; E78.5 Hyperlipidemia, unspecified; R09.02 Hypoxemia; F31.9 Bipolar disorder, unspecified; F12.10 Cannabis abuse, uncomplicated; F41.9 Anxiety disorder, unspecified; Z87.891 Personal history of nicotine dependence; Z91.030 Bee allergy status; Z95.5 Presence of coronary angioplasty implant and graft; Z98.1 Arthrodesis status
CPT/HCPCS: 71045; 80048; 83735; 85025; 85027; 86850; 86900; 86901; 86920; 88112; 88305; 88309; 94150; 94618; 94640; 94664; 94667; 94668; C9290; J0131; J0360; J0690; J1100; J1170; J1885; J2175; J2250; J2270; J2405; J3010; J3475; J7030; J7120; J7613

== ENCOUNTER 2017-07-01 20:53 | Emergency (ER) | payer OTHER ==
[~2017-07-01] VITALS: Ht 182.9 cm; Wt 70.0 kg
[~2017-07-01 20:53] MED LIST changes: -LISI-519 PO; +LISI10TA3 PO; +OXYGENDME NAS.CANULA
[2017-07-01 21:38] VITALS: BP 159/96; PULSE 88; RESP 20; TEMP 97.7; O2SAT 95
[2017-07-01 21:56] VITALS: BP 158/102; PULSE 71; RESP 20; O2SAT 98
[2017-07-01 21:57] VITALS: RESP 20
--- NOTE | 2017-07-01 21:59 | PD ---
HPI Chief Complaint: Respiratory Symptoms Time Seen by Provider: 21:47 Travel History International Travel<30 days: No Contact w/Intl Traveler<30days: No Traveled to known affect area: No History of Present Illness HPI The patient is a 61-year-old male who presents to the emergency department for right-sided chest pain and shortness of breath. The patient recently underwent right lower lobe lobectomy and partial thoracotomy by Dr. Salas on June 27, 2017 for removal of lung carcinoma. The patient did have a pneumothorax afterwards and had a chest tube placed, was subsequently discharged home on June 30, 2017. The patient was scheduled for home health care to change the dressing tomorrow. However, he had increasing right-sided chest pain, worse with inspiration, movement, and palpation as well as mild shortness of breath. He was discharged home on oxygen via nasal cannula. He does note he can feel crepitus over the right lateral chest wall, is unsure if that is new. He does state the dressing has not been changed but appears to have drainage which is clear red over the dressing area. He denies any fever. Symptoms are moderate. The patient's primary physician is Dr. Corey. The patient 's oncologist is Dr. Arenas. [facility] Past Medical History Hx Anticoagulant Therapy: Yes (PLAVIX) Arthritis: Yes Asthma: No Autoimmune Disease: No Blood Disorders: No Bipolar Disorder: Yes Anxiety: Yes Depression: Yes Heart Rhythm Problems: No Cancer: No Cardiovascular Problems: Yes (STENT X 4, VT X2 2015, 2016) High Cholesterol: Yes Chest Pain: No Congestive Heart Failure: No COPD: Yes Cerebrovascular Accident: No Diabetes: No Endocrine: No Gastrointestinal Disorders: Yes (GERD) GERD: Yes Glaucoma: No Genitourinary: No Headaches: Yes Hepatitis: No Hiatal Hernia: No Hypertension: Yes Immune Disorder: No Implanted Vascular Access Dvce: Yes Kidney Stones: No Musculoskeletal: Yes (ARTHRITIS BACK, NECK, HANDS) Neurologic: Yes (FROM BACK AND NECK PROBLEMS, NUMBNESS TO KRISTAN FEET) Psychiatric: Yes (ANXIETY, BIPOLAR) Reproductive: No Respiratory: Yes (COPD, R lung nodule with subsequent biopsy ) Migraines: No Myocardial Infarction: Yes Renal Failure: No Seizures: No Sleep Apnea: No Thyroid Disease: No Ulcer: No Tetanus Vaccination: < 5 Years Influenza Vaccination: Yes Past Surgical History Abdominal Surgery: Yes (BILAT INGUINAL HERNIA REPAIR x4) AICD: No Appendectomy: No Body Medical Devices: FUSION IN BACK AND NECK CERVICAL, CARDIAC STENTS, MESH IN GROIN Cardiac Surgery: Yes (4 stents) Cholecystectomy: No Ear Surgery: No Endocrine Surgery: No Eye Surgery: No Genitourinary Surgery: No Joint Replacement: No Neurologic Surgery: Yes (CERV. FUSION, LUMBAR FUSION 2018,L 3NECK SURGERIES DR MARCELINO) Oral Surgery: No Pacemaker: No Other Surgery: Yes (right lower lung removal) Social History Alcohol Use: No Tobacco Use: No Substance Use: Yes (marijuana daily) Allergies-Medications (Allergen,Severity, Reaction): Coded Allergies: bee venom protein (honey bee) (Unverified Allergy, Severe, Anaphylaxis, ) Reported Meds & Prescriptions Reported Meds & Active Scripts Active Oxygen (O2) Device Liter DENNIS.CANULA CONTINUOUS Oxygen Concentrator Portable Gaseous 2 L/min via Nasal Canula Continuous For 99 months Oxycodone-Acetaminophen 10-325 (Oxycodone HCl/Acetaminophen) 10 Mg-325 Mg Tablet 1 Tab PO Q4H PRN Lisinopril 10 Mg Tab 20 Mg PO DAILY [Albuterol-Ipratropium Neb] 1 AMPULE Nebu 1 Ampule NEB Q4HR NEB PRN 30 Days Gnp Senna Plus 8.6-50 mg (Sennosides-Docusate Sodium) 8.6 Mg-50 Mg Tab 1 Tab PO BID PRN 10 Days Reported Nitroglycerin SL (Nitroglycerin) 0.4 Mg Subl 0.4 Mg SL DIRECTED PRN ONE TABLET UNDER THE TONGUE NEEDED FOR CHEST PAIN, MAY REPEAT EVERY FIVE MINUTES FOR A TOTAL OF 3 DOSES OR CALL 911 IF NO RELIEF Aripiprazole 5 Mg Tab 5 Mg PO DAILY Anoro Ellipta Inh (Umeclidinium/Vilanterol) 62.5-25 Mcg/Act Aero 1 Puff INH DAILY Plavix (Clopidogrel Bisulfate) 75 Mg Tab 75 Mg PO DAILY Atorvastatin (Atorvastatin Calcium) 40 Mg Tab 40 Mg PO HS Aspirin Low Dose (Aspirin) 81 Mg Chew 81 Mg CHEW DAILY Alprazolam 0.5 Mg Tab 0.5 Mg PO DAILY Pantoprazole (Pantoprazole Sodium) 40 Mg Tab 40 Mg PO DAILY Temazepam 30 Mg Cap 30 Mg PO HS PRN Ditropan (Oxybutynin Chloride) 5 Mg Tab 10 Mg PO DAILY Metoprolol Tartrate 25 Mg Tab 25 Mg PO BID Benzonatate 100 Mg Cap 100 Mg PO TID PRN Fluoxetine (Fluoxetine HCl) 40 Mg Cap 40 Cap PO DAILY Gabapentin 600 Mg Tab 300 Mg PO BID Review of Systems Except as stated in HPI: all other systems reviewed are Neg General / Constitutional: No: Fever Cardiovascular: Positive: Chest Pain or Discomfort Respiratory: Positive: Shortness of Breath Gastrointestinal: No: Nausea, Vomiting Musculoskeletal: No: Weakness, Edema Neurologic: No: Dizziness Physical Exam Narrative GENERAL: Awake, alert, pleasant 61-year-old male who appears his stated age and is in no acute respiratory distress. Patient does appear in mild discomfort. Slightly cachectic build. SKIN: Focused skin assessment warm/dry. HEAD: Atraumatic. Normocephalic. EYES: No injection or drainage. ENT: No nasal bleeding or discharge. Mucous membranes pink and moist. NECK: Trachea midline. No JVD. CARDIOVASCULAR: Regular rate and rhythm. No murmur appreciated. Heart rate in the 80s. Right lateral chest wall initially had a dressing in place with serosanguineous drainage. There is a small 1.5 cm transverse old appearing incision ida which is not completely healed. Mild surrounding subcutaneous emphysema noted. RESPIRATORY: No accessory muscle use. Rhonchi and crackles noted in the right base with slightly diminished breath sounds. GASTROINTESTINAL: Abdomen soft, non-tender, nondistended. No rebound tenderness. MUSCULOSKELETAL: No obvious deformities. No clubbing. No cyanosis. No edema. NEUROLOGICAL: Awake and alert. No obvious cranial nerve deficits. Motor grossly within normal limits. Normal speech. PSYCHIATRIC: Appropriate mood and affect; insight and judgment normal. Data Data Last Documented VS Vital Signs Date Time Temp Pulse Resp B/P (MAP) Pulse Ox O2 Delivery O2 Flow Rate FiO2 07/01/17 22:10 20 07/01/17 21:57 07/01/17 21:57 98 Nasal Cannula 2.00 07/01/17 21:56 71 07/01/17 21:38 97.7 Orders Orders Complete Blood Count With Diff (07/01/17 21:54) Comprehensive Metabolic Panel (07/01/17 21:54) Magnesium (Mg) (07/01/17 21:54) Iv Access Insert/Monitor (07/01/17 21:54) Electrocardiogram (07/01/17 21:54) Ecg Monitoring (07/01/17 21:54) Oximetry (07/01/17 21:54) Oxygen Administration (07/01/17 21:54) Chest, Single Ap (07/01/17 21:54) Sodium Chloride 0.9% Flush (Ns Flush) (07/01/17 22:00) Morphine Inj (Morphine Inj) (07/01/17 22:00) Ondansetron Inj (Zofran Inj) (07/01/17 22:00) Sodium Chlorid 0.9% 500 Ml Inj (Ns 500 M (07/01/17 22:00) Ct Thorax/ Chest Wo Iv Contras (07/01/17 ) Labs Laboratory Tests Test 07/01/17 22:00 White Blood Count 13.4 TH/MM3 Red Blood Count 4.57 MIL/MM3 Hemoglobin 13.2 GM/DL Hematocrit 39.5 % Mean Corpuscular Volume 86.4 FL Mean Corpuscular Hemoglobin 28.8 PG Mean Corpuscular Hemoglobin Concent 33.3 % Red Cell Distribution Width 14.4 % Platelet Count 432 TH/MM3 Mean Platelet Volume 7.6 FL Neutrophils (%) (Auto) 75.7 % Lymphocytes (%) (Auto) 10.7 % Monocytes (%) (Auto) 11.4 % Eosinophils (%) (Auto) 1.6 % Basophils (%) (Auto) 0.6 % Neutrophils # (Auto) 10.2 TH/MM3 Lymphocytes # (Auto) 1.4 TH/MM3 Monocytes # (Auto) 1.5 TH/MM3 Eosinophils # (Auto) 0.2 TH/MM3 Basophils # (Auto) 0.1 TH/MM3 CBC Comment DIFF FINAL Differential Comment Blood Urea Nitrogen 17 MG/DL Creatinine 1.18 MG/DL Random Glucose 142 MG/DL Total Protein 8.5 GM/DL Albumin 3.3 GM/DL Calcium Level 9.3 MG/DL Magnesium Level 2.2 MG/DL Alkaline Phosphatase 139 U/L Aspartate Amino Transf (AST/SGOT) 24 U/L Alanine Aminotransferase (ALT/SGPT) 20 U/L Total Bilirubin 0.6 MG/DL Sodium Level 140 MEQ/L Potassium Level 3.8 MEQ/L Chloride Level 103 MEQ/L Carbon Dioxide Level 27.5 MEQ/L Anion Gap 10 MEQ/L Estimat Glomerular Filtration Rate 63 ML/MIN MDM Medical Decision Making Medical Screen Exam Complete: Yes Emergency Medical Condition: Yes Medical Record Reviewed: Yes Interpretation(s) EKG reveals normal sinus rhythm with a rate of 69. Inverted T-wave in lead V3, V4, and lead III. Laboratory Tests Test 07/01/17 22:00 White Blood Count 13.4 TH/MM3 Red Blood Count 4.57 MIL/MM3 Hemoglobin 13.2 GM/DL Hematocrit 39.5 % Mean Corpuscular Volume 86.4 FL Mean Corpuscular Hemoglobin 28.8 PG Mean Corpuscular Hemoglobin Concent 33.3 % Red Cell Distribution Width 14.4 % Platelet Count 432 TH/MM3 Mean Platelet Volume 7.6 FL Neutrophils (%) (Auto) 75.7 % Lymphocytes (%) (Auto) 10.7 % Monocytes (%) (Auto) 11.4 % Eosinophils (%) (Auto) 1.6 % Basophils (%) (Auto) 0.6 % Neutrophils # (Auto) 10.2 TH/MM3 Lymphocytes # (Auto) 1.4 TH/MM3 Monocytes # (Auto) 1.5 TH/MM3 Eosinophils # (Auto) 0.2 TH/MM3 Basophils # (Auto) 0.1 TH/MM3 CBC Comment DIFF FINAL Differential Comment Blood Urea Nitrogen 17 MG/DL Creatinine 1.18 MG/DL Random Glucose 142 MG/DL Total Protein 8.5 GM/DL Albumin 3.3 GM/DL Calcium Level 9.3 MG/DL Magnesium Level 2.2 MG/DL Alkaline Phosphatase 139 U/L Aspartate Amino Transf (AST/SGOT) 24 U/L Alanine Aminotransferase (ALT/SGPT) 20 U/L Total Bilirubin 0.6 MG/DL Sodium Level 140 MEQ/L Potassium Level 3.8 MEQ/L Chloride Level 103 MEQ/L Carbon Dioxide Level 27.5 MEQ/L Anion Gap 10 MEQ/L Estimat Glomerular Filtration Rate 63 ML/MIN Differential Diagnosis Differential diagnosis includes pneumothorax, hemothorax, postoperative complication, pleural effusion, pneumonia, subcutaneous emphysema, COPD exacerbation. Narrative Course IV was established, labs are drawn and sent, and the patient was placed on cardiac telemetry monitoring and continuous pulse oximetry monitoring. EKG was ordered and interpreted. Chest x-ray is obtained. The patient was administered morphine, Zofran, and IV fluids. Chest x-ray does reveal small right apical pneumothorax and subcutaneous emphysema. CT of the thorax was performed which also reveals a small right pneumothorax and subcutaneous emphysema. No large pleural effusion noted. I discussed the patient with the on-call cardiothoracic surgeon, Dr. Marinelli, at 11:05 PM who agrees the patient be discharged home. The patient is advised to wear his oxygen as directed and call Dr. Salas's office on Monday for follow-up appointment. The patient will have a dressing applied over the right chest wall. Patient is already on Percocet 10 mg for pain. Diagnosis Primary Impression: Pneumothorax, chronic Additional Impression: Subcutaneous emphysema Qualified Codes: T79.7XXA - Traumatic subcutaneous emphysema, initial encounter Patient Instructions: General Instructions Additional Instructions: Call Dr. Salas's office on Monday for an appointment. Please provide the patient a copy of his CT results, chest x-ray results, and lab results at discharge. Return if symptoms worsen or progress. Med/Other Pt SpecificInfo: No Change to Meds Disposition: 01 DISCHARGE HOME Condition: Stable Agustín Diana MD Jul 01, 2017 21:59
[2017-07-01] MEDS ORDERED: SODIUM CHLORID 0.9% 500 ML INJ 500 ML IV ONE (22:00)
[2017-07-01] MEDS ORDERED: ONDANSETRON HCL 4 MG/2 ML VIAL IV PUSH ONE (22:00)
[2017-07-01] MEDS ORDERED: SODIUM CHLORIDE 0.9% FLUSH 10 ML FLUSH IVF PRN (22:00)
[2017-07-01] MEDS ORDERED: MORPHINE SULFATE 4 MG/ML INJ IV PUSH ONE (22:00)
[2017-07-01 22:10] VITALS: RESP 20
[2017-07-01 22:11] LABS: AUTOMATED NEUTROPHIL # 10.2 TH/MM3 (1.8-7.7); BASOPHIL # 0.1 TH/MM3 (0-0.2); BASOPHIL % 0.6 % (0.0-2.0); EOSINOPHIL # 0.2 TH/MM3 (0-0.4); EOSINOPHIL % 1.6 % (0.0-4.0); HEMATOCRIT 39.5 % (39.0-51.0); HEMOGLOBIN 13.2 GM/DL (13.0-17.0); LYMPH % 10.7 % (9.0-44.0); LYMPHOCYTE # 1.4 TH/MM3 (1.0-4.8); MEAN CELL VOLUME 86.4 FL (80.0-100.0); MEAN CORPUSCULAR HEMOGLOBIN 28.8 PG (27.0-34.0); MEAN CORPUSCULAR HGB CONC 33.3 % (32.0-36.0); MEAN PLATELET VOLUME 7.6 FL (7.0-11.0); MONO % 11.4 % (0.0-8.0); MONOCYTE # 1.5 TH/MM3 (0-0.9); NEUT % 75.7 % (16.0-70.0); PLATELET COUNT 432 TH/MM3 (150-450); RED BLOOD COUNT 4.57 MIL/MM3 (4.50-5.90); RED CELL DISTRIBUTION WIDTH 14.4 % (11.6-17.2); WHITE BLOOD COUNT 13.4 TH/MM3 (4.0-11.0)
--- NOTE | 2017-07-01 22:18 | RADRPT ---
EXAM DATE/TIME: 07/01/2017 22:08 [facility] COMPARISON: CHEST SINGLE AP, June 30, 2017, 11:51. INDICATIONS : Shortness of breath. MEDICAL HISTORY : Emphysema. Chronic obstructive pulmonary disease. Hypertension. Asthma. SURGICAL HISTORY : None. ENCOUNTER: Initial ACUITY: 1 day PAIN SCORE: 0/10 LOCATION: Bilateral chest FINDINGS: A single view of the chest demonstrates a small right apical pneumothorax. Subcutaneous air laterally on the right. Scattered parenchymal densities greatest in the right lung. Heart normal in size. Oss eous structures are intact. CONCLUSION: 1. Stable chest. 2. Small right apical pneumothorax. Justin Schmitz MD on July 01, 2017 at 22:14 Board Certified Radiologist. This report was verified electronically.
[2017-07-01 22:34] LABS: ALBUMIN 3.3 GM/DL (3.4-5.0); ALKALINE PHOSPHATASE 139 U/L (45-117); ALT (GPT) 20 U/L (12-78); AST (GOT) 24 U/L (15-37); BICARBONATE 27.5 MEQ/L (21.0-32.0); BLOOD UREA NITROGEN 17 MG/DL (7-18); CALCIUM 9.3 MG/DL (8.5-10.1); CHLORIDE 103 MEQ/L (98-107); CREATININE 1.18 MG/DL (0.60-1.30); GLOMERULAR FILTRATION RATE 63 ML/MIN (>89); GLUCOSE,RANDOM 142 MG/DL (74-106); MAGNESIUM 2.2 MG/DL (1.5-2.5); SODIUM (NA) 140 MEQ/L (136-145); TOTAL BILIRUBIN ADULT 0.6 MG/DL (0.2-1.0); TOTAL PROTEIN 8.5 GM/DL (6.4-8.2)
--- NOTE | 2017-07-01 22:46 | RADRPT ---
EXAM DATE/TIME: 07/01/2017 22:25 [facility] COMPARISON: CHEST SINGLE AP, July 01, 2017, 22:08. INDICATIONS : Pain and dyspnea 5 days post lobectomy. Rule out pneumothorax. RADIATION DOSE: 7.41 CTDIvol (mGy) MEDICAL HISTORY : Chronic obstructive pulmonary disease. Cardiovascular disease SURGICAL HISTORY : Lobectomy. Cervical and lumbar fusions ENCOUNTER: Initial ACUITY: 1 day PAIN SCALE: 8/10 LOCATION: Right chest TECHNIQUE: Volumetric scanning of the chest was performed. Using automated exposure control and adjustment of t he mA and/or kV according to patient size, radiation dose was kept as low as reasonably achievable to obtain optimal diagnostic quality images. DICOM format image data is available electronically for r eview and comparison. Follow-up recommendations for detected pulmonary nodules are based at a minimum on nodule size and pa tient risk factors according to Fleischner Society Guidelines. FINDINGS: LUNGS: There is small right-sided pneumothorax. Subcutaneous emphysema laterally on the right. Emphysema and honeycombing. Scattered ground glass densities. Postsurgical changes on the right. PLEURAE: There is no pleural thickening or pleural effusion. MEDIASTINUM: The heart and great vessels demonstrate no acute abnormality. There is no mediastinal or hilar lymph adenopathy. AXILLAE: Within normal limits. No lymphadenopathy. MUSCULOSKELETAL: Right-sided rib fractures. Degenerative changes and scoliosis. MISCELLANEOUS: The visualized upper abdominal organs demonstrate no acute abnormality. CONCLUSION: 1. Small right sided pneumothorax. 2. Postsurgical changes. 3. Emphysema and pulmonary fibrosis. Justin Schmitz MD on July 01, 2017 at 22:41 Board Certified Radiologist. This report was verified electronically.
[2017-07-01] MEDS ORDERED: MORPHINE SULFATE 2 MG/ML SYRINGE IV PUSH ONE (23:15)
--- NOTE | 2017-07-02 14:36 | EKG ---
Date Performed: 07/01/2017 Time Performed: 22:04:29 PTAGE: 61 years EKG: Sinus rhythm POSSIBLE LEFT ATRIAL ENLARGEMENT POSSIBLE RIGHT VENTRICULAR CONDUCTION DELAY PROBABLE LATERAL MYOCAR DIAL INFARCTION ABNORMAL ECG PREVIOUS TRACING : 06/23/2017 11.01 Since the previous tracing, no significant change noted DOCTOR: Suman Canales Interpretating Date/Time 07/02/2017 14:34:52
== END 2017-07-01 23:55 | disposition home or self-care (01) ==
LOC: NEPE 20:53
DX: C34.91 Malignant neoplasm of unspecified part of right bronchus or lung (principal); J93.83 Other pneumothorax; T81.82XA Emphysema (subcutaneous) resulting from a procedure, initial encounter; I10 Essential (primary) hypertension; K21.9 Gastro-esophageal reflux disease without esophagitis; Z79.899 Other long term (current) drug therapy; Z90.2 Acquired absence of lung [part of]
CPT/HCPCS: 71045; 71250; 80053; 83735; 85025; 93005; 96361; 96374; 96375; 96376; 99285; J2270; J2405; J7040